=== PATIENT | female | born 1940 | race Caucasian/White ===

== ENCOUNTER → 2017-02-22 | Outpatient (CLI) | payer MEDICARE, BC, OTHER ==
[~2017-02-22] MED LIST: ACIDTAB16 PO; ASPI1TAB PO; CALC600T27 PO; CEFD1CAP8 PO; FISH1CAP14 PO; LEVA750T PO; SIMV20TA2 PO; SYNT50TA PO; TIMO5OPD OD; TRAV04OPD OD; TRIA37.5 PO; VITMTA PO
--- NOTE | 2017-02-22 13:01 | REP ---
Digital diagnostic unilateral right breast mammography with CAD and focused right breast sonography: History: Followup right breast nodule. Previous mammography BIRADS category 3. Comparison is made with prior right breast imaging from July 17, 2016, December 08, 2015, and June 23 and 2014. Mammographic findings: The nodular density been followed in the superolateral quadrant of the right breast is again seen unchanged. There is progressive nodular density in the medial aspect of the right breast however which is felt to merit further evaluation. Focused right breast sonography is performed from 2 o'clock to 4 o'clock. At 2 o'clock there is a 8 x 11 x 6 mm complex cystic area 3 cm from the nipple which is felt to account for the mammographic opacity seen medially. This has a benign appearance by ultrasound. No suspicious sonographic finding. Impression: Stable BIRADS category 3 probably benign right breast imaging. Repeat bilateral mammography recommended in July of 2017. This mammogram was interpreted with the aid of an FDA-approved computer-aided detection system. The patient states she/he had a clinical breast exam in August 05, 2016. The patient letter being requested is M3. Signed by Chris Brennan MD 02/22/2017 01:22 P
== END ==
LOC: M RAD 09:37
PROVIDERS: ATTEND Nurse Practitioner Family
DX: R92.8 Other abnormal and inconclusive findings on diagnostic imaging of breast (principal)
CPT/HCPCS: 76642; G0206

== ENCOUNTER → 2017-02-27 | Outpatient (CLI) | payer MEDICARE, BC, OTHER ==
--- NOTE | 2017-02-28 09:08 | DEXA ---
AP SPINE L1 - L4 1.235 0.3 2.1 LT FEMUR TOTAL 0.825 -1.4 0.4 RT FEMUR TOTAL 0.847 -1.3 0.6 TOTAL BODY TOTAL OTHER DUAL FEMUR FRAX* ASSESSMENT Risk factors: History of adult fracture. 10 year probability of fracture Major osteoporotic fracture 22.7 % Hip fracture 6.8 % COMMENTS: Normal bone densitometry of the spine. There is low bone density of the left hip. There is low bone density of the right hip. There is degenerative change in the spine which may artificially elevate the BMD. The increased density of the spine does not represent a significant change since 06/23/2014. The decreased density of the left hip does represent a significant change since 06/23/2014. The decreased density of the right hip does represent a significant change. The density of the spine has increased 18.9% since the initial exam on 06/2000. The spine density has increased 0.1% since the most recent exam. The density of the left hip has decreased 5.4% since the initial exam on 1999. The density of the left hip has decreased 4.4% since the most recent exam. The density of the right hip has decreased 3.9% since the initial exam on 1999. The density of the right hip has decreased 7.4% since the most recent exam. FOLLOW-UP: Recommendation for the next bone density exam: 2 years. ARVIND
== END ==
LOC: M WHC 09:32
PROVIDERS: ATTEND Family Medicine
DX: M85.80 Other specified disorders of bone density and structure, unspecified site (principal); M81.0 Age-related osteoporosis without current pathological fracture

== ENCOUNTER 2017-05-19 19:06 | Inpatient (IN) | payer MEDICARE, BC, OTHER ==
[~2017-05-19] VITALS: Ht 172.7 cm; Wt 65.8 kg
[~2017-05-19 19:06] MED LIST changes: -ACIDTAB16 PO; +ACIDTAB7 PO; -LEVA750T PO; +LEVA750T7 PO; +TIMO0.5S29 OD; -TIMO5OPD OD
[2017-05-19] MEDS ORDERED: ONDANSETRON 4MG/2ML VIAL (J2405) IV ONE (19:15)
[2017-05-19] MEDS ORDERED: MORPHINE 4 MG/ML 1ML SYRINGE IV ONE (19:15)
[2017-05-19 20:42] LABS: MEAN CORPUSCULAR HEMOGLOBIN 29.6 pg (27.0-33.0); MEAN CORPUSCULAR HGB CONC 35.1 g/dl (32.0-36.5); MEAN CORPUSCULAR VOLUME 84.3 fl (80.0-96.0); RED CELL DISTRIBUTION WIDTH 12.3 % (11.5-14.5); WHITE BLOOD COUNT 12.5 K/mm3 (4.0-10.0)
--- NOTE | 2017-05-19 20:47 | REP ---
Clinical: Trauma. Fall . Comparison: 03/11/2017 . Findings: The mediastinum and cardiac silhouette are stable and within normal limits for portable technique. The lung lopez are clear without acute consolidation, effusion, or pneumothorax. Skeletal structures are intact. Impression: No acute cardiopulmonary process appreciated. Signed by Mac Turner MD 05/19/2017 08:39 P
--- NOTE | 2017-05-19 20:48 | REP ---
Clinical: Trauma. Fall. Technique: AP view of the pelvis with neutral and frog lateral views of the right hip. Findings: A comminuted intertrochanteric fracture of the right femur is appreciated. Pelvis, lower lumbar spine and left hip demonstrate age-related degenerative changes. Impression: Comminuted intertrochanteric fracture of the right hip. Signed by Mac Turner MD 05/19/2017 08:40 P
[2017-05-19 20:51] LABS: INR 0.89
[2017-05-19 21:06] LABS: ALBUMIN 3.5 GM/DL (3.2-5.2); ALBUMIN/GLOBULIN RATIO 1.21 (1.00-1.93); ALKALINE PHOSPHATASE 88 U/L (45-117); ALT/SGPT 21 U/L (12-78); ANION GAP 10 MEQ/L (8-16); AST/SGOT 16 U/L (15-37); BILIRUBIN,DIRECT 0.1 MG/DL (0.0-0.2); BILIRUBIN,TOTAL 0.4 MG/DL (0.2-1.0); BLOOD UREA NITROGEN 15 MG/DL (7-18); CALCIUM LEVEL 8.6 MG/DL (8.8-10.2); CARBON DIOXIDE LEVEL 26 MEQ/L (21-32); CHLORIDE LEVEL 98 MEQ/L (98-107); CREATININE FOR GFR 0.81 MG/DL (0.55-1.02); GLOMERULAR FILTRATION RATE > 60.0 (>39); GLUCOSE, FASTING 136 MG/DL (83-110); POTASSIUM SERUM 3.5 MEQ/L (3.5-5.1); SODIUM LEVEL 134 MEQ/L (136-145); TOTAL PROTEIN 6.4 GM/DL (6.4-8.2)
[2017-05-19] MEDS ORDERED: ACETAMINOPHEN TAB 650MG DOSE (2X325MG) PO PRN (21:30)
--- NOTE | 2017-05-19 21:50 | HPEPDOC ---
General Date of Admission May 19, 2017 at 21:30 Chief Complaint The patient is a 76-year-old female Presented to the ER with complaints of right hip pain. History of Present Illness Patient is a 76 year old female with a PMHx of HTN, Hypothyroidism, DLP, Right breast mass and History of Gram negative bacteremia (07/2016), who presented to the ER with right hip pain. Patient was at home today and was walking out of her house when she slipped and fell on her right hip. She denied any head trauma or loss of consciousness. She noted to have excruciating pain and was unable to get up. She called out for her neighbor who called EMS. She reports that pain as a 10/10 at its maximum, aching, localized to the hip, non-radiating, alleviated with pain medications received in the field and aggravated with movement. Currently her pain is controlled. She denied any chest pain, shortness of breath, cough, palpitations, nausea, vomiting, abdominal pain, constipation, diarrhea or urinary discomfort. She denies any fever or chills. Denies any change in her appetite. She does note that she is intentionally losing weight (10 lbs over a few months). Home Medications Scheduled (Fish Oil +D3 7364-2182 mg-Unit) 1 Cap Cap, 1 CAP PO QPM, (Reported) Aspirin (Aspirin 81) 81 Mg Tab, 81 MG PO DAILY, (Reported) Calcium/Vitamin D (Calcium 600/Vitamin D 600-400 mg-Unit) 1 Tab Tab, 1 TAB PO DAILY, (Reported) Hydrochlorothiazide W/Triamter (Triamterene/Hydrochloroth 37.5-25 mg) 1 Tab Tab , 1 TAB PO DAILY, (Reported) Lactobacillus (Acidophilus) 1 Tab Tab, 1 TAB PO BID W MEALS Levothyroxine Sodium (Synthroid) 50 Mcg Tab, 50 MCG PO DAILY, (Reported) Multivitamins *[facility] STOCKED* (Thera M Plus *[facility] STOCKED*) 1 Tab Tab, 1 TAB PO DAILY, (Reported) Simvastatin (Simvastatin) 20 Mg Tab, 20 MG PO QPM, (Reported) Timolol Maleate (Timolol Maleate) 0.5 % Katia, 1 DROP OD DAILY, (Reported) Travoprost (Travatan Z) 50 Drop/2.5 Ml Soln, 1 DROP OD QHS, (Reported) Allergies Coded Allergies: Levofloxacin (Verified Adverse Reaction, Intermediate, 08/01/16) arm heaviness/swelling Past Medical History Medical History HTN, Hypothyroidism, DLP, Right breast mass and History of Gram negative bacteremia (07/2016) Surgical History None reported Family History - Non-contributory Social History - Denies the use of illicit drugs; Social alcohol use; Quit smoking 20 years ago , smoker of 40 years at 1ppd - Denies recent travel or sick contacts - Lives alone with cat - 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; [employer]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 Review of Symptoms Other systems 10 point review of systems complete; negative otherwise stated in HPI Vital Signs - Vitals: BP 129/69, HR 78, RR 18, Sat 98%RA - General: Lying in bed, No acute distress, Speaking in full sentences, AAOx3 - HEENT: NC, AT, PERRLA, EOMI - CVS: RRR, +S1S2 - Lungs: Fair air entry bilaterally, no appreciable wheezing / rales / rhonchi - Abdomen: Soft, Non-distended, Non-tender, + Bowel sounds x 4 - Extremities: + PPx4, No lower extremity edema, No calf tenderness -- Right leg externally rotated and shorter - Neuro: Limited movement of right hip 2/2 pain - Skin: No visible rashes Laboratory Data Labs 24H Laboratory Tests 2 05/19/17 20:26: Prothrombin Time 12.1L, Prothromb Time International Ratio 0.89, Anion Gap 10, Glomerular Filtration Rate > 60.0, Calcium Level 8.6L, Aspartate Amino Transf ( AST/SGOT) 16, Alanine Aminotransferase (ALT/SGPT) 21, Alkaline Phosphatase 88, Total Bilirubin 0.4, Direct Bilirubin 0.1, Total Creatine Kinase 77, Creatine Kinase MB 1.0, Creatine Kinase MB Relative Index 1.29, Troponin I < 0.02, Total Protein 6.4, Albumin 3.5, Albumin/Globulin Ratio 1.21 CBC/BMP Laboratory Tests 05/19/17 20:26 Red Blood Count 4.16, Mean Corpuscular Volume 84.3, Mean Corpuscular Hemoglobin 29.6, Mean Corpuscular Hemoglobin Concent 35.1, Red Cell Distribution Width 12.3 Plan / VTE VTE Prophylaxis Ordered?: Yes Plan Plan Right hip pain - likely 2/2 right femur fracture after mechanical fall - Presented to the ER with complaints of right hip pain after she slipped and fell at home - No loss of consciousness, no head trauma - Mild leukocytosis - likely 2/2 reactive processes - XR hip: comminuted intertrochanteric fracture of the right hip - EKG with sinus rhythm despite reading of paroxysmal atrial fibrillation - Currently pain is controlled - Will c/w Tylenol and Morphine PRN for pain control - Dr. Burns (Orthopedic) surgery on consult for likely surgery in AM - Medically cleared for surgical procedure in AM Leukocytosis - likely reactive process - ROS negative - No fevers reported HTN - c/w HCTZ 25 and Triamterene 37.5 with holding parameters Hypothyroidism - c/w Levothyroxine DLP - c/w Simvastatin Right breast mass - Has had biopsy completed and advised that it was benign - Follows up with yearly mammograms History of Gram negative bacteremia (07/2016) DVT prophylaxis - Will start SCDs; will defer to surgery after procedure JOO GREER MD May 19, 2017 21:50
[2017-05-19] MEDS ORDERED: HEPARIN SOD (PORCINE) 5000 UNITS/ML VIAL SC SCH (22:00)
[2017-05-19 23:15] VITALS: BP 141/56
[2017-05-19] MEDS: SIMVASTATIN 20 MG TAB PO SCH (23:52)
[2017-05-20] VITALS (10 sets, daily range): BP systolic 106–139; BP diastolic 52–71
[2017-05-20] MEDS: LEVOTHYROXINE 50MCG TABLET (0.05MG) PO SCH (05:28)
[2017-05-20] MEDS ORDERED: ceFAZolin 1GM INJ (J0690) As Ordered ONE (06:07)
[2017-05-20 07:26] LABS: BASO % 0.1 % (0.0-1.0); EOS % 0.1 % (0.0-3.0); LARGE UNSTAINED CELL % 0.4 % (0.0-4.0); LYMPH # 1.1 K/mm3 (1.5-4.5); LYMPH % 10.2 % (24.0-44.0); MEAN CORPUSCULAR HEMOGLOBIN 29.7 pg (27.0-33.0); MEAN CORPUSCULAR HGB CONC 34.6 g/dl (32.0-36.5); MEAN CORPUSCULAR VOLUME 85.9 fl (80.0-96.0); MONO # 0.4 K/mm3 (0.0-0.8); MONO % 4.2 % (0.0-5.0); NEUTROPHILS # 8.8 K/mm3 (1.8-7.7); PLATELET COUNT, AUTOMATED 237 k/mm3 (150-450); RED CELL DISTRIBUTION WIDTH 12.5 % (11.5-14.5); WHITE BLOOD COUNT 10.3 K/mm3 (4.0-10.0)
[2017-05-20] MEDS: DYAZIDE 37.5/25 CAP (TRIAM/HCTZ) PO SCH (07:53)
[2017-05-20 07:56] LABS: ALBUMIN 3.3 GM/DL (3.2-5.2); ALBUMIN/GLOBULIN RATIO 1.22 (1.00-1.93); ALKALINE PHOSPHATASE 75 U/L (45-117); ALT/SGPT 17 U/L (12-78); ANION GAP 10 MEQ/L (8-16); AST/SGOT 12 U/L (15-37); BILIRUBIN,TOTAL 0.5 MG/DL (0.2-1.0); BLOOD UREA NITROGEN 13 MG/DL (7-18); CALCIUM LEVEL 8.2 MG/DL (8.8-10.2); CARBON DIOXIDE LEVEL 26 MEQ/L (21-32); CHLORIDE LEVEL 100 MEQ/L (98-107); CREATININE FOR GFR 0.66 MG/DL (0.55-1.02); GLOMERULAR FILTRATION RATE > 60.0 (>39); GLUCOSE, FASTING 147 MG/DL (83-110); MAGNESIUM LEVEL 2.1 MG/DL (1.8-2.4); POTASSIUM SERUM 3.7 MEQ/L (3.5-5.1); SODIUM LEVEL 136 MEQ/L (136-145)
[2017-05-20] MEDS ORDERED: ACIDTAB7 PO (08:17)
[2017-05-20] MEDS ORDERED: LR 1,000 ML IV SCH ×3 (08:30→17:30)
[2017-05-20] MEDS: MORPHINE 2 MG/ML 1ML SYRINGE IV PRN ×2 (08:32→12:04)
[2017-05-20] MEDS ORDERED: TIMOLOL MALEATE 0.5% OPHTH SOLN 5 ML OD SCH (09:00)
--- NOTE | 2017-05-20 09:17 | REP ---
Clinical: Trauma. Technique: AP and cross-table lateral views of the right femur. Findings: There is a comminuted displaced intertrochanteric fracture of the right proximal femur. Mild degenerative changes at the hip are noted. The remainder of the femur to the level of the knee appears normal. Impression: Fracture of the right hip/proximal femur. Signed by Mac Turner MD 05/20/2017 09:08 A
--- NOTE | 2017-05-20 09:18 | REP ---
Clinical: Trauma. Technique: AP and lateral views of the right knee. Findings: Age-related degenerative changes at the knee are suggested although evaluation is limited due to positioning and overlying external structures. Lateral view demonstrates soft tissue swelling and possible effusion. No obvious acute fracture. Impression: Swelling and possible effusion with age-related changes. No acute fracture identified. Signed by Mac Turner MD 05/20/2017 09:09 A
--- NOTE | 2017-05-20 09:30 | CR ---
DATE OF CONSULTATION: 05/19/2017 CHIEF COMPLAINT: Right hip fracture. HISTORY OF PRESENT ILLNESS: Fabiola is a very pleasant 76-year-old female who suffered a mechanical fall when walking out of her house on 05/19/2017. She tripped and fell and landed on her right side. She had immediate pain and deformity in the right leg and was unable to bear weight. She was brought to [facility] emergency room where x-rays revealed a displaced proximal femur fracture. In talking to the patient, other than pain, she denies any numbness or tingling in her leg. She denies hip pain in the preceding weeks. Her pain was 10/10 initially on the pain scale. PAST MEDICAL HISTORY: Notable for Hypertension. Hypothyroidism. Gram negative bacteremia in 2016 after a dental infection. PAST SURGICAL HISTORY: None reported. MEDICATIONS: - baby aspirin - calcium with vitamin D - Hydrochlorothiazide - lactobacillus - levothyroxine - multivitamin - simvastatin - glaucoma eye drops ALLERGIES: LEVAQUIN. SOCIAL HISTORY: Patient does not abuse alcohol, illicit drugs or smoke cigarettes. She is a very active individual. She walks in the mall almost daily and she does not use any assistive devices. She lives alone with her cat. REVIEW OF SYSTEMS: The patient denies neurologic, cardiac, pulmonary, abdominal symptoms. Musculoskeletal as above. PHYSICAL EXAMINATION: Reveals a Well appearing elderly female in no distress. Alert and oriented times three. NEUROLOGIC: Appropriate mood with a very pleasant affect. GENERAL: Alert and oriented times three. CARDIOVASCULAR: 2+ DT pulse with a regular rate. PULMONARY: Regular non-labored breathing. SKIN: The skin in the right thigh is intact without lesions. MUSCULOSKELETAL: The right leg is shortened and externally rotated. She has pain in the right hip with any attempt at log roll. She is nontender at the knee and distal femur. She fires tibialis anterior (TA), gastrocs soleus (GS), hallucis longus (HL) and flexor hallucis longus (FHL). Sensation to light touch in the foot is intact. RADIOLOGY: AP pelvis and a very poor lateral of the right hip were obtained and available for my review. There is a significantly displaced reverse obliquity fracture of the proximal femur. The proximal segment is abducted almost behaving like a subtrochanteric femur fracture. ASSESSMENT/PLAN: Ms Peraza is a 76-year-old female with a displaced right proximal femur fracture. I discussed operative and nonoperative treatment with her and her daughter. I recommended surgery. Surgery is open reduction internal fixation. We discussed the risks and benefits of that surgery. She understands the risks include but are not limited to bleeding, infection, damage to the adjacent neurovascular structures, deep venous thrombosis (DVT)/ pulmonary embolus (PE), stiffness, nonunion, malunion, failure to return to pre-injury activity level, risks of anesthesia and need for additional surgery. Written and informed consent obtained. The patient has been admitted to the hospitalist service and she has been medically optimized. We need a lateral view of the hip and femur and knee films. Plan to proceed with surgery later today. Will need a special cephalomedullary nail brought in due to the nature of this fracture.
[2017-05-20] MEDS ORDERED: ceFAZolin 2 GM/D5W 50 ML IV BAG (J0690) As Ordered ONE (14:08)
[2017-05-20] MEDS ORDERED: KETAMINE HCL 200 MG/20 ML VIAL As Ordered ONE (14:24)
[2017-05-20] MEDS ORDERED: PHENYLephrine HCL 500 MCG/5 ML (100MCG/ML) SYRINGE (J2370) As Ordered ONE (14:24)
[2017-05-20] MEDS ORDERED: fentaNYL 100 MCG/2 ML INJECTION (J3010) As Ordered ONE ×3 (14:24→16:48)
[2017-05-20] MEDS ORDERED: MIDAZOLAM INJ 2 MG/2 ML VIAL (J2250) As Ordered ONE (14:24)
--- NOTE | 2017-05-20 14:45 | IPN ---
DATE: 05/20/2017 SUBJECTIVE: The patient is seen and examined in the room today. The patient continues to complain about right hip pain. The patient stated she slipped on the tile resulting in mechanical fall landing on the right hip. Still having pain in the right hip but the pain is well controlled. No acute events since admission. OBJECTIVE: VITAL SIGNS: Temperature 98.9, pulse 91, respiration 18, blood pressure 106/52, pulse ox 96% in room air. General: No sign of acute distress. Alert and oriented times three. HEENT: Normocephalic, atraumatic, extraocular muscles grossly intact. Cardiovascular: Positive S1, S2 regular rate. Lungs: Clear to auscultation bilaterally. Abdomen: Soft, nontender. Nondistended. Bowel sounds present. No rebound. No guarding. Extremities: No erythema. No cyanosis. LABORATORY DATA: WBC 10.3, hemoglobin 11.7, hematocrit 33.9, platelet count 237. Sodium 136, potassium 3.7, chloride 100, carbon dioxide 6, BUN 13, creatinine 0.6. GFR greater than 60, fasting glucose 147, calcium 8.2, magnesium 2.1. Total bilirubin 0.5, AST12, ALT 17, alkaline phosphatase 75, total protein 6, albumin 3.3. ASSESSMENT/PLAN: 1. Acute right femur fracture after mechanical fall. Discussed with orthopedic surgery. The patient will have surgical repair today in the afternoon. The patient is medically cleared for the procedure. 2. Hypertension: Blood pressure is on hold and will evaluate the patient after the procedure we will start the appropriate test. 3. Hypothyroidism: On Synthroid. Will follow with TSH. 4.. History of right breast mass: The patient was following with [facility] and patient was told that the mass was benign and patient has been getting yearly mammograms. The patient was told that the breast mass is not malignant. 5. History of gram negative bacteremia in July 2016. 6. Deep venous thrombosis prophylaxis on thromboembolic deterrent stockings (TEDS) and sequential compression device. I will refer the anticoagulation to the surgical team.
[2017-05-20] MEDS ORDERED: LIDOCAINE 2% INJ 100 MG/5 ML SDV (FOR ANES.) As Ordered ONE (14:56)
[2017-05-20] MEDS ORDERED: PROPOFOL 200 MG/20 ML VIAL As Ordered ONE (14:56)
[2017-05-20] MEDS: fentaNYL 100 MCG/2 ML INJECTION (J3010) IV PRN ×2 (16:50→16:55)
[2017-05-20] MEDS ORDERED: ONDANSETRON 4MG/2ML VIAL (J2405) IV PRN (17:00)
--- NOTE | 2017-05-20 17:21 | REP ---
Clinical: Right hip fracture. Technique: Real time intraoperative fluoroscopic imaging. Findings: Multiple intraoperative fluoroscopic images demonstrate the patient to be status post open reduction and fixation for proximal right femoral shaft fracture. Satisfactory reduction and orthopedic hardware placement noted. Total fluoroscopic time 4 minutes 10 seconds. Impression: Status post open reduction and fixation for proximal femoral shaft fracture. Signed by Mac Turner MD 05/20/2017 05:13 P
[2017-05-20] MEDS ORDERED: PERCOCET 5MG/325MG TAB As Ordered ONE (17:23)
[2017-05-20] MEDS ORDERED: ACETAMINOPHEN TAB 650MG DOSE (2X325MG) PO PRN (17:30)
[2017-05-20] MEDS ORDERED: FLEET ENEMA PR PRN (17:30)
[2017-05-20] MEDS ORDERED: PERCOCET 5MG/325MG TAB PO SCH (17:30)
[2017-05-20] MEDS ORDERED: MORPHINE 2 MG/ML 1ML SYRINGE IV PRN (17:30)
[2017-05-20] MEDS: TRAVATAN Z 0.004% OD SCH (20:58)
[2017-05-20] MEDS: SIMVASTATIN 20 MG TAB PO SCH (20:58)
[2017-05-20] MEDS: ceFAZolin SOD 1 GM in D5W MINI-BAG PLUS 50 ML IV SCH (21:00)
[2017-05-21 02:00] VITALS: BP 140/62
[2017-05-21] MEDS: LEVOTHYROXINE 50MCG TABLET (0.05MG) PO SCH (05:37)
[2017-05-21] MEDS: ceFAZolin SOD 1 GM in D5W MINI-BAG PLUS 50 ML IV SCH (05:37)
[2017-05-21] MEDS: NORCO, ANEXSIA 5/325MG TABLET (HYDROcodone/ACETAMINOPHEN) PO PRN ×3 (05:39→20:00)
[2017-05-21 06:00] VITALS: BP 126/78
[2017-05-21 06:42] LABS: BASO % 0.2 % (0.0-1.0); EOS % 0.1 % (0.0-3.0); LARGE UNSTAINED CELL # 0.1 K/mm3 (0.0-0.4); LARGE UNSTAINED CELL % 1.1 % (0.0-4.0); LYMPH # 1.4 K/mm3 (1.5-4.5); MEAN CORPUSCULAR HEMOGLOBIN 29.8 pg (27.0-33.0); MEAN CORPUSCULAR HGB CONC 34.7 g/dl (32.0-36.5); MEAN CORPUSCULAR VOLUME 85.9 fl (80.0-96.0); MONO # 0.8 K/mm3 (0.0-0.8); MONO % 7.8 % (0.0-5.0); NEUTROPHILS # 7.8 K/mm3 (1.8-7.7); NEUTROPHILS % 77.8 % (36.0-66.0); PLATELET COUNT, AUTOMATED 196 k/mm3 (150-450); RED CELL DISTRIBUTION WIDTH 12.6 % (11.5-14.5)
[2017-05-21 07:14] LABS: ALBUMIN 2.6 GM/DL (3.2-5.2); ALBUMIN/GLOBULIN RATIO 0.87 (1.00-1.93); ALKALINE PHOSPHATASE 56 U/L (45-117); ALT/SGPT 15 U/L (12-78); ANION GAP 9 MEQ/L (8-16); AST/SGOT 12 U/L (15-37); BILIRUBIN,TOTAL 0.6 MG/DL (0.2-1.0); BLOOD UREA NITROGEN 10 MG/DL (7-18); CALCIUM LEVEL 7.6 MG/DL (8.8-10.2); CARBON DIOXIDE LEVEL 28 MEQ/L (21-32); CHLORIDE LEVEL 97 MEQ/L (98-107); CREATININE FOR GFR 0.49 MG/DL (0.55-1.02); GLOMERULAR FILTRATION RATE > 60.0 (>39); GLUCOSE, FASTING 138 MG/DL (83-110); MAGNESIUM LEVEL 1.8 MG/DL (1.8-2.4); POTASSIUM SERUM 3.3 MEQ/L (3.5-5.1); SODIUM LEVEL 134 MEQ/L (136-145); TOTAL PROTEIN 5.6 GM/DL (6.4-8.2)
[2017-05-21] MEDS: ENOXAPARIN 40 MG/0.4 ML SYRINGE (J1650) SC SCH (08:28)
[2017-05-21] MEDS: DYAZIDE 37.5/25 CAP (TRIAM/HCTZ) PO SCH (08:30)
--- NOTE | 2017-05-21 08:59 | RO ---
DATE OF PROCEDURE: 05/20/2017 PREOPERATIVE DIAGNOSES: 1. Displaced right proximal femur fracture. POSTOPERATIVE DIAGNOSES: PROCEDURE: SURGEON: Dr. Prabhjot Burns CHOKE REAMER: ANESTHESIA: DESCRIPTION OF PROCEDURE: DICTATION END..................................................( 39 seconds long) Phone diconnected. Please disregard this dictation. see separate dictation for full Operative report MTDD
[2017-05-21] MEDS ORDERED: POTASSIUM CHLORIDE 10 MEQ SR TABLET PO ONE (09:00)
--- NOTE | 2017-05-21 10:57 | RO ---
DATE OF SURGERY: 05/20/2017 PREOPERATIVE DIAGNOSIS: Displaced right proximal femur fracture. POSTOPERATIVE DIAGNOSIS: Displaced right proximal femur fracture. PROCEDURE: Open reduction/internal fixation right femur with a cephalomedullary nail. SURGEON: Dr. Prabhjot Burns HEALTH SANITARIAN: Dr. Nina Briceno ANESTHESIA: Spinal. INTRAVENOUS (IV) FLUIDS: Lactated Ringer. ESTIMATED BLOOD LOSS: 150 mL. IMPLANTS: Synthes TFNA 125 neck length, 11 mm diameter, 400 mm length with a 95 mm lag screw and two distal interlocking screws. INDICATIONS: Fabiola is a 76-year-old female who suffered a mechanical fall on 05/19/2017 and landed on her right hip. X-rays at [facility] revealed a displaced proximal femur fracture, which looked like a reverse obliquity pattern. She was admitted to the hospitalist service and medically optimized. I discussed operative and nonoperative treatment with the patient and her daughter, and we both agreed on surgery. I recommended open reduction/internal fixation with a long cephalomedullary nail, given the unstable nature of the fracture. We discussed the risks and benefits of that procedure. She understood the risks included but were not limited to bleeding, infection, damage to adjacent neurovascular structure, deep venous thrombosis (DVT)/pulmonary embolism (PE), risk of anesthesia including , malunion, nonunion, hardware failure, weakness, stiffness, failure to return to pre-injury activity level, and need for additional surgery. Written informed consent obtained. DESCRIPTION OF PROCEDURE: The patient was identified in the preoperative holding area and the right leg signed by me. She was brought to the operating room, where spinal anesthesia was induced without complication. She received 2 grams of intravenous (IV) cefazolin for antibiotic prophylaxis within 1 hour of incision. She was then placed supine on the fracture table with all bony prominences well padded. The left lower extremity with a Venodyne boot. The right leg was placed into the traction boot, and the left leg was secured to the central post, and was well padded. A preliminary time-out performed per hospital protocol. The large C-arm was then used to confirm successful, then to confirm appropriate closed reduction. What it first appeared preoperatively to be a reverse obliquity intertrochanteric pattern actually turned out to be a subtrochanteric femoral shaft variant with a large butterfly fragment involving the lesser trochanter. This made judging the length and rotation much more difficult. Once the AP lateral views showed an acceptable reduction, we then prepped and draped the right leg in the normal sterile fashion with the shower curtain and ChloraPrep. A time-out was performed, in which I and all operating room (OR) staff confirmed the patient's name, medical record number, date of , and the correct side, site, and procedure. A 3 cm longitudinal incision was made with a #10 blade just proximal to the greater trochanter. Curved Girard scissors were used to open the tensor fascia leopoldo. Hemostasis with electrocautery. A guidewire was then placed on power at the appropriate start point and confirmed on AP and lateral views. The fracture at this point was in some valgus, but given this was a subtrochanteric variant, a start point was placed slightly more medial than typical to help avoid the fracture falling into varus. Appropriate position was confirmed in AP and lateral views using the large C-arm. The opening reamer with a tissue protector was then used to create an opening in the proximal femur. A ball-tip guidewire was gently bent at the tip and then placed through that opening down to the proximal pole of the patella. A depth gauge was used, and it was felt that a 400 mm nail would be the most appropriate length. A 400 x 125-degree 11-mm diameter Synthes TFN was opened and secured to the podiatric medicine professor. The nail was placed over the guidewire down into the femur to the appropriate depth, confirmed at AP and lateral views at both the hip and knee. The fracture had started in a touch of valgus, and with placement of the nail, the fracture corrected to a neutral alignment. The targeting guide was then used to place a helical blade. Trocars were inserted, incision to the skin, and a drill guide on power was sunk to the appropriate depth and confirmed to be center-center in both the AP and lateral. A 95-mm lag screw was felt to be most appropriate. The triple reamer was used over the guidewire, and then the 95-mm TFN helical blade was malleted over the guidewire to the appropriate depth. The nail was statically locked proximally. The guidewire was removed. AP and lateral views of the hip were taken, showing successful placement of hardware, and the soni was used to reduce the fracture. Distally, I placed two interlocking screws, one through the static and one through the dynamic slots, using perfect qawalangin technique. There was excellent fixation with those. All incisions were then irrigated with normal saline. Final C-arm views, AP and lateral of the knee, subtrochanteric area, and hip were taken, showing successful open reduction/internal fixation. Re-irrigation of incisions, distally, incision was closed with 2-0 Vicryl and johnathan. Proximally, the iliotibial (IT) band was closed with figure-of-8 0 Vicryl suture and then 2-0 Vicryl and johnathan. A sterile dressing applied. All counts correct times two. COMPLICATIONS: None. DISPOSITION: The patient had palpable pulse in the postanesthesia care unit (PACU). She will be weightbearing as tolerated on the right lower extremity with a walker. 24 hours of antibiotic prophylaxis and Lovenox for deep venous thrombosis (DVT) prophylaxis. She will remain under the care of the hospitalists.
[2017-05-21] MEDS ORDERED: SENOKOT S TAB PO PRN (12:15)
[2017-05-21] MEDS ORDERED: MOM 30ML SUSPENSION UDC PO PRN (12:15)
[2017-05-21] MEDS ORDERED: MIRALAX *UNIT DOSE* 17GM PACKET PO PRN (12:15)
[2017-05-21] MEDS: VITAMIN D 1,000 INTERNATIONAL UNITS TABLET PO SCH ×2 (12:17→20:00)
--- NOTE | 2017-05-21 12:55 | IPN ---
DATE OF SERVICE: 05/21/2017 Patient seen and examined at the bedside. Chart has been reviewed. Per nursing , no acute issues overnight. Patient has discomfort at the right femoral area status post open reduction, internal fixation with a cephalomedullary nail yesterday. She is anxious to go home and eating her breakfast at the bedside, sitting at 90 degrees. She is afebrile. No cough, shortness of breath, chest pain, pressure or tightness. Pain is tolerable after taking a pain pill this morning. She denies any dysuria, urgency or frequency, fever, chills or flank pain overnight. No nausea or vomiting. Tolerating her diet well. No abdominal pain. Temperature 98.1, pulse 89 and sinus, respiratory rate 17, blood pressure 126/78 , 97% 2 liters nasal cannula, and generally patient is awake, alert, oriented to person, place and time, answering questions appropriately. Pupils are round and reactive. Extraocular muscles are intact. Normocephalic, atraumatic. No cervical lymphadenopathy or thyromegaly. Moist mucous membranes. No jugular venous distention. Neck is supple. Lungs are clear to auscultation. No wheezing, rales or rhonchi. Air entry is equal bilaterally. Heart: S1, S2, sinus rhythm. No murmurs, rubs or gallops. Abdomen is soft, nontender, nondistended. Positive bowel sounds times four quadrants. No rebound or guarding. No hepatosplenomegaly. Extremities: No cyanosis, clubbing or pitting edema. Skin warm, dry, well perfused, pink in color. Patient had postoperative changes with limited range of motion due to pain in the right proximal femur. LABORATORY DATA: White count 10, hemoglobin 9.9, hematocrit 28.5, platelet count 196, 77% neutrophils. Sodium 134, potassium 3.3, chloride 97, bicarbonate 28, BUN 10, creatinine 0.49. Glucose of 138. IMAGING STUDY: Femoral x-ray on 05/20/2017, fracture of the right hip, proximal femur. ASSESSMENT AND PLAN: This is a 76-year-old female with history of hypertension, hypothyroidism, dyslipidemia, right breast mass, which was benign, gram-negative bacteremia July 2016, presented to the emergency room with complaints of right hip pain after a mechanical fall at home, slipping and falling as she was walking out of her house and falling on the right hip. She denied any head trauma or loss of consciousness. Denies any prodromal symptoms of chest pain, shortness of breath, palpitations, lightheadedness, nausea, vomiting, abdominal pain prior to the episode. Patient had an intentional 10 pound weight loss over the past few months. Denies any changes in her appetite, dysphagia or odynophagia. Current issues are as follows: 1. Displaced right proximal femoral fracture status post open reduction, internal fixation of right femur with cephalomedullary nail postoperative day # 1. Patient is currently on morphine as needed, [place] one tablet every 4, Lovenox for deep venous thrombosis (DVT) prophylaxis, bowel regimen with Fleet enema and vitamin D 1000 units twice a day. Physical therapy and physical medicine and rehabilitation evaluation for disposition. 2. Hypertension. Systolic pressure is 126-140, which is adequate control, on triamterene/hydrochlorothiazide. Monitor for dehydration. Current creatinine is stable, 0.49 to 0.81. With hypokalemia, therefore will supplement potassium. 3. Postoperative anemia. Most likely due to hemodilution from intravenous (IV) fluids given postoperative. Will monitor for now. No acute indication for red blood cell transfusion. 4. Hypothyroidism. Continue on Synthroid. 5. History of right breast mass, which was benign. Follows at [facility]. 6. History of gram-negative bacteremia. No fever or chills during this admission. 7. Deep venous thrombosis (DVT) prophylaxis with subcutaneous Lovenox. DISPOSITION: Await physical therapy (PT) evaluation and recommendations prior to discharge. [facility]
[2017-05-21 14:00] VITALS: BP 133/65
--- NOTE | 2017-05-21 14:45 | REP ---
RIGHT FEMUR: FOUR VIEWS. HISTORY: Postop evaluation. Hip fracture. FINDINGS: Four views of the right femur demonstrate an intramedullary soni and a femoral neck screw in place transfixing a subtrochanteric fracture in good position. Signed by Chris Brennan MD 05/21/2017 04:35 P
[2017-05-21] MEDS: TRAVATAN Z 0.004% OD SCH (20:00)
[2017-05-21] MEDS: SIMVASTATIN 20 MG TAB PO SCH (20:00)
[2017-05-21 22:00] VITALS: BP 132/64
[2017-05-22 02:00] VITALS: BP 130/60
[2017-05-22] MEDS: LEVOTHYROXINE 50MCG TABLET (0.05MG) PO SCH (05:33)
[2017-05-22 06:00] VITALS: BP 129/64
[2017-05-22 07:21] LABS: BASO % 0.2 % (0.0-1.0); EOS % 0.3 % (0.0-3.0); LARGE UNSTAINED CELL # 0.2 K/mm3 (0.0-0.4); LARGE UNSTAINED CELL % 1.8 % (0.0-4.0); LYMPH # 1.3 K/mm3 (1.5-4.5); LYMPH % 15.1 % (24.0-44.0); MEAN CORPUSCULAR HEMOGLOBIN 30.2 pg (27.0-33.0); MEAN CORPUSCULAR HGB CONC 35.2 g/dl (32.0-36.5); MEAN CORPUSCULAR VOLUME 85.9 fl (80.0-96.0); MONO # 0.8 K/mm3 (0.0-0.8); MONO % 8.6 % (0.0-5.0); NEUTROPHILS # 6.5 K/mm3 (1.8-7.7); NEUTROPHILS % 74.1 % (36.0-66.0); PLATELET COUNT, AUTOMATED 201 k/mm3 (150-450); RED CELL DISTRIBUTION WIDTH 12.2 % (11.5-14.5); WHITE BLOOD COUNT 8.7 K/mm3 (4.0-10.0)
[2017-05-22] MEDS ORDERED: FLEEENE4 PR (07:43)
[2017-05-22] MEDS ORDERED: PEG1POW PO (07:43)
[2017-05-22] MEDS ORDERED: SENN1TAB2 PO (07:43)
[2017-05-22] MEDS ORDERED: NORCOTAB PO (07:43)
[2017-05-22] MEDS ORDERED: LOVE1INJ SC (07:43)
[2017-05-22 08:03] LABS: ALBUMIN 2.6 GM/DL (3.2-5.2); ALBUMIN/GLOBULIN RATIO 0.96 (1.00-1.93); ALKALINE PHOSPHATASE 65 U/L (45-117); ALT/SGPT 19 U/L (12-78); ANION GAP 11 MEQ/L (8-16); AST/SGOT 19 U/L (15-37); BILIRUBIN,TOTAL 0.6 MG/DL (0.2-1.0); BLOOD UREA NITROGEN 7 MG/DL (7-18); CALCIUM LEVEL 7.7 MG/DL (8.8-10.2); CARBON DIOXIDE LEVEL 27 MEQ/L (21-32); CHLORIDE LEVEL 96 MEQ/L (98-107); GLOMERULAR FILTRATION RATE > 60.0 (>39); GLUCOSE, FASTING 135 MG/DL (83-110); POTASSIUM SERUM 3.8 MEQ/L (3.5-5.1); SODIUM LEVEL 134 MEQ/L (136-145); TOTAL PROTEIN 5.3 GM/DL (6.4-8.2)
[2017-05-22] MEDS: NORCO, ANEXSIA 5/325MG TABLET (HYDROcodone/ACETAMINOPHEN) PO PRN ×3 (08:11→23:59)
[2017-05-22] MEDS: ENOXAPARIN 40 MG/0.4 ML SYRINGE (J1650) SC SCH (08:11)
[2017-05-22] MEDS: VITAMIN D 1,000 INTERNATIONAL UNITS TABLET PO SCH ×2 (08:11→20:12)
[2017-05-22] MEDS: DYAZIDE 37.5/25 CAP (TRIAM/HCTZ) PO SCH (08:12)
--- NOTE | 2017-05-22 09:42 | PMRNOTEPD ---
PMR Note 76-year-old white female status post fall on 05/19/17 with right proximal femur fracture involving the hip status post open reduction internal fixation with these cephalomedullary nail and screw fixation. This right-handed Will female needs to regain modified independence and ADLs and mobility to return home where she lives alone. Currently she is having some problems with which has limited her participation and occupational therapy. It also appears that patient been reduced to touch down weightbearing today by orthopedics. While it is very likely she will be able to tolerate 3 hours of therapy per day it does not appear that she is ready to do so today. I have discussed with her the importance of participating at this higher level and she is in agreement. However I do feel pain is one the limiters for her. After reviewing her medications, I would suggest a trial of tramadol 100 mg CR every 12 hours to see if this provides her greater comfort and the ability to participate better in therapy. I am in hopes of better performance and being able to come tomorrow. JYOTI BHANDARI MD May 22, 2017 09:42
[2017-05-22] MEDS: traMADol ER 100MG TABLET (ULTRAM ER) PO SCH ×2 (11:39→20:12)
--- NOTE | 2017-05-22 13:51 | IPN ---
DATE: 05/22/2017 Patient seen and examined at the bedside. Chart has been reviewed. The patient has been participating with physical therapy (PT), but has refused occupational therapy (OT) yesterday. She is to be reevaluated again today. She still complains of discomfort when she ambulates at the fracture sites. Otherwise, no fever, chills. No chest pain, pressure, tightness or shortness of breath this morning. No other issues per nursing. Temperature 98.3, pulse 93, respiratory rate 12, blood pressure 129/64, 97% on 2 liters nasal cannula. GENERAL: The patient is awake, alert, oriented times three. Answering questions appropriately. Pupils are round and reactive. Extraocular muscles are intact. Normocephalic, atraumatic. No cervical lymphadenopathy or thyromegaly. Moist mucous membranes. No jugular venous distention or thyromegaly. Neck is supple. Lungs are clear to auscultation. No wheezing, rales or rhonchi. Air entry is equal bilaterally. HEART: S1, S2, sinus rhythm. No murmurs, rubs or gallops. ABDOMEN: Soft, nontender, nondistended. Positive bowel sounds times four quadrants. No rebound or guarding. No hepatosplenomegaly. EXTREMITIES: Postoperative right proximal femoral surgical site, appears clean and dry. No significant drainage. Limited range of motion due to pain. Laboratory data reviewed. Imaging studies reviewed. ASSESSMENT AND PLAN: This is a 76-year-old female with history of hypertension, hypothyroidism, dyslipidemia, right breast mass, which was gram-negative bacteremia in July 2016, presented to the emergency room with complaints of right hip pain after a mechanical fall at home, slipping and falling as she was walking out of her house and falling on the right hip. The patient denied any head trauma or loss of consciousness or prodromal symptoms with chest pain, shortness of breath, palpitations, lightheadedness, nausea, vomiting prior to the episode. Patient had an intentional 10 pound weight loss over the past few months. Denies any changes in her appetite, dysphagia or odynophagia, hematemesis, bright red blood per rectum, melena or black tarry stools. Current issues are as follows: 1. Displaced right proximal femoral fracture status post open reduction, internal fixation of right femur with cephalomedullary nail postoperative day # 2. Currently on [place] one tablet as needed with tramadol added for improved pain control. Deep venous thrombosis (DVT) prophylaxis with Lovenox injections, bowel regimen with Fleet enema, milk of magnesia and Senokot. Currently on vitamin D 1000 units twice a day. Physical therapy. Physical Medicine and Rehabilitation (PM R) has been consulted for disposition. Potentially may tolerate three hours of rehabilitation daily. Await occupational therapy (OT) acceptance and PM R acceptance hopefully in the morning. 2. Hypertension. Appears to be well controlled with triamterene/hydrochlorothiazide. Monitor for dehydration. Current creatinine appears to be stable. The patient previously had electrolyte abnormalities with low potassium, which has been supplemented. 3. Postoperative anemia. Most likely hemodilution from intravenous (IV) fluids given postoperatively. Monitor for now. No acute indication for red blood cell transfusion. Does not appear to be symptomatic. 4. Hypothyroidism. On Synthroid. 5. History of right breast mass, which was benign. Follows at [facility] as an outpatient. 6. History of gram-negative bacteremia. No fever or chills during this admission. No signs of infection. 7. Deep venous thrombosis (DVT) prophylaxis with subcutaneous Lovenox. MTDD
[2017-05-22 14:00] VITALS: BP 130/90
[2017-05-22] MEDS: SIMVASTATIN 20 MG TAB PO SCH (20:11)
[2017-05-22] MEDS: TRAVATAN Z 0.004% OD SCH (20:13)
[2017-05-22 22:00] VITALS: BP 128/56
[2017-05-23] MEDS: LEVOTHYROXINE 50MCG TABLET (0.05MG) PO SCH (05:48)
[2017-05-23 06:00] VITALS: BP 120/56
[2017-05-23] MEDS: NORCO, ANEXSIA 5/325MG TABLET (HYDROcodone/ACETAMINOPHEN) PO PRN ×2 (06:07→11:39)
[2017-05-23 07:16] LABS: BASO % 0.2 % (0.0-1.0); EOS % 0.4 % (0.0-3.0); LARGE UNSTAINED CELL # 0.3 K/mm3 (0.0-0.4); LYMPH # 2.6 K/mm3 (1.5-4.5); LYMPH % 25.9 % (24.0-44.0); MEAN CORPUSCULAR HEMOGLOBIN 30.3 pg (27.0-33.0); MEAN CORPUSCULAR VOLUME 86.8 fl (80.0-96.0); MONO # 0.7 K/mm3 (0.0-0.8); MONO % 7.3 % (0.0-5.0); NEUTROPHILS # 6.4 K/mm3 (1.8-7.7); NEUTROPHILS % 63.2 % (36.0-66.0); PLATELET COUNT, AUTOMATED 233 k/mm3 (150-450); RED CELL DISTRIBUTION WIDTH 12.4 % (11.5-14.5); WHITE BLOOD COUNT 10.2 K/mm3 (4.0-10.0)
[2017-05-23 07:32] LABS: ANION GAP 13 MEQ/L (8-16); AST/SGOT 31 U/L (15-37); BLOOD UREA NITROGEN 10 MG/DL (7-18); CALCIUM LEVEL 8.8 MG/DL (8.8-10.2); CARBON DIOXIDE LEVEL 25 MEQ/L (21-32); CHLORIDE LEVEL 95 MEQ/L (98-107); CREATININE FOR GFR 0.54 MG/DL (0.55-1.02); GLOMERULAR FILTRATION RATE > 60.0 (>39); GLUCOSE, FASTING 134 MG/DL (83-110); POTASSIUM SERUM 3.7 MEQ/L (3.5-5.1); SODIUM LEVEL 133 MEQ/L (136-145)
[2017-05-23 07:33] LABS: ALBUMIN 2.7 GM/DL (3.2-5.2); ALBUMIN/GLOBULIN RATIO 0.73 (1.00-1.93); ALKALINE PHOSPHATASE 91 U/L (45-117); ALT/SGPT 42 U/L (12-78); BILIRUBIN,TOTAL 0.6 MG/DL (0.2-1.0); MAGNESIUM LEVEL 2.1 MG/DL (1.8-2.4); TOTAL PROTEIN 6.4 GM/DL (6.4-8.2)
[2017-05-23] MEDS: ENOXAPARIN 40 MG/0.4 ML SYRINGE (J1650) SC SCH (08:13)
[2017-05-23] MEDS: traMADol ER 100MG TABLET (ULTRAM ER) PO SCH (08:13)
[2017-05-23] MEDS: DYAZIDE 37.5/25 CAP (TRIAM/HCTZ) PO SCH (08:14)
[2017-05-23] MEDS: VITAMIN D 1,000 INTERNATIONAL UNITS TABLET PO SCH (08:14)
[2017-05-23] MEDS ORDERED: VITA100066 PO (13:20)
--- NOTE | 2017-05-23 17:12 | DSES ---
DATE OF ADMISSION: 05/19/2017 DATE OF TRANSFER TO ACUTE REHABILITATION UNIT: 05/23/2017 CONSULTANTS DURING THIS ADMISSION: Orthopedic surgeon, Dr. Burns. PRIMARY DISCHARGE DIAGNOSES: 1. Displaced right proximal femoral fracture, status post open reduction and internal fixation (ORIF) of the right femur with cephalomedullary nail. 2. Hypertension. 3. Postoperative anemia, most likely hemodilutional. 4. Hypothyroidism. 5. History of right breast mass, which was benign. 6. History of gram-negative bacteremia. No active signs of infection. DISCHARGE MEDICATIONS: - [place] 5/325 mg one tablet every four hours as needed for pain - Lovenox injections 40 subcutaneously daily - MiraLAX one packet daily - Senokot two tablets by mouth twice a day as needed for constipation - Fleet enema one enema as needed daily - aspirin 81 mg daily - calcium with vitamin D one tablet daily - fish oil with vitamin D one capsule daily - triamterene/hydrochlorothiazide 37.5/25 mg one tablet daily - lactobacillus one tablet twice a day - levothyroxine 50 mcg daily - multivitamin one tablet daily - simvastatin 200 mg at night - Timolol one drop OD daily - Travatan one drop OD at night HOSPITAL COURSE: This is a 76-year-old female with a history of hypertension, hypothyroidism, dyslipidemia, right breast mass which was negative, gram-negative bacteremia in July 2016, presented to the emergency room with complaints of right hip pain after mechanical fall at home after slipping and falling as she was walking out of her house and fell on the right hip. The patient denied any head trauma, loss of consciousness or prodromal symptoms of chest pain, shortness of breath, palpitations, lightheadedness, nausea or vomiting prior to the episode. She had an intentional 10 pound weight loss over the past few months. Denies changes in appetite, dysphagia, odynophagia, hematemesis, bright red blood per rectum, melena, black tarry stools. The patient was found to have a displaced right proximal femoral fracture, status post open reduction and internal fixation (ORIF) of the right femur orthopedic surgeon, Dr. Burns, with cephalomedullary nail. She was kept on as needed [place], deep vein thrombosis (DVT) prophylaxis with Lovenox injections, given a bowel regimen with Fleet enema, milk of magnesia and Senokot and started on vitamin D 1000 units twice a day. The patient was appropriate for acute rehabilitation unit and was transferred subsequently. She was continued on triamterene/hydrochlorothiazide for hypertension, follow postoperative anemia, most likely due to hemodilution secondary to IV fluids given for baseline hemoglobin of 12.3 and discharge hemoglobin of 9.8. No signs of acute bleeding. The patient was discharged to acute rehabilitation program at rehabilitation unit with no other issues. LABORATORY DATA: On discharge: White count 10.3, hemoglobin 9.8, hematocrit 28, platelet count 233, sodium 132, potassium 3.7, chloride 95, bicarbonate 25, BUN 10, creatinine 0.5, glucose of 134. Microbiology: None. IMAGING STUDIES: Hip and pelvic x-ray on 05/19/2017 showed comminuted intertrochanteric fracture of the right hip. Chest x-ray on 05/19/2017 showed no acute cardiopulmonary disease. Knee x-ray on 05/20/2017 showed swelling and possible effusion with age related changes, no acute fracture identified. Femoral x-ray showed fracture of right hip, proximal femur. Hip x-ray on 05/20/2017, status post open reduction and internal fixation (ORIF) of proximal femoral shaft fracture. Femoral x-ray showed intramedullary soni in femoral neck in place transfixing a subtrochanteric fracture in position. Time spent on discharge: 30 minutes.
--- NOTE | 2017-05-23 18:19 | ECGEPIP ---
Stationary ECG Study [facility] - ED Test Date: 2017-05-19 Pat Name: DAYANARA GONZALES Department: Room: [place] [address] Gender: F Director Of Finance: GallowayB: 1940 Requested By: ANKUR CAM Order Number: [id number] Reading MD: Daniel Mancera Measurements Intervals [place] Rate: 79 P: IN: 0 QRS: 53 QRSD: 84 T: 61 QT: 376 QTc: 432 Interpretive Statements SINUS RHYTHM WITH PREMATURE ATRIAL CONTRACTIONS BASELINE ARTIFACT Electronically Signed On 05-23-2017 18:19:00 EDT by Daniel Mancera
== END 2017-05-23 11:52 | DRG 482 ==
LOC: EDBD 19:06 → M ED 19:06 → M ED INP 21:30 → M MS4PR 23:15 → M MS5PR 05-20 14:27
PROVIDERS: ADMIT Internal Medicine; ATTEND General Practice
PROC: 0QS606Z Reposition Right Upper Femur with Intramedullary Internal Fixation Device, Open Approach (ICD-10-PCS; principal; 2017-05-20 12:00)
DX: S72.141A Displaced intertrochanteric fracture of right femur, initial encounter for closed fracture (principal); I10 Essential (primary) hypertension; E03.9 Hypothyroidism, unspecified; Z79.82 Long term (current) use of aspirin; Z79.899 Other long term (current) drug therapy; W01.0XXA Fall on same level from slipping, tripping and stumbling without subsequent striking against object, initial encounter; Y92.017 Garden or yard in single-family (private) house as the place of occurrence of the external cause; Y93.01 Activity, walking, marching and hiking; Y99.9 Unspecified external cause status; Z87.891 Personal history of nicotine dependence

== ENCOUNTER 2017-05-23 10:46 | Inpatient (IN) | payer MEDICARE, BC, OTHER ==
[~2017-05-23] VITALS: Ht 172.7 cm; Wt 65.8 kg
[~2017-05-23 10:46] MED LIST changes: +FLEEENE4 PR; +LOVE1INJ SC; +NORCOTAB PO; +PEG1POW PO; +SENN1TAB2 PO
[2017-05-23] MEDS ORDERED: NORCO, ANEXSIA 5/325MG TABLET (HYDROcodone/ACETAMINOPHEN) PO PRN (11:00)
[2017-05-23] MEDS ORDERED: MIRALAX *UNIT DOSE* 17GM PACKET PO PRN (11:00)
[2017-05-23] MEDS ORDERED: FLEET ENEMA PR PRN (11:00)
[2017-05-23] MEDS ORDERED: MOM 30ML SUSPENSION UDC PO PRN (11:00)
[2017-05-23 12:00] VITALS: BP 143/65
[2017-05-23] MEDS ORDERED: VITA100066 PO (13:20)
[2017-05-23 14:00] VITALS: BP 119/56
--- NOTE | 2017-05-23 17:07 | PMRNOTEPD ---
PMR Note Patient transferred today to the acute rehabilitation unit for musculoskeletal rehabilitation of right hip fracture. History and physical dictation #[id number] has been down and admission orders are written. Patient with good prognosis for return to home in 7 to 10 days with home care. JYOTI BHANDARI MD May 23, 2017 17:07
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
[2017-05-23 20:00] VITALS: BP 120/55
[2017-05-23] MEDS: traMADol ER 100MG TABLET (ULTRAM ER) PO SCH (20:19)
[2017-05-23] MEDS: ACETAMINOPHEN TAB 650MG DOSE (2X325MG) PO PRN (20:19)
[2017-05-23] MEDS: SIMVASTATIN 20 MG TAB PO SCH (20:19)
[2017-05-23] MEDS: VITAMIN D 1,000 INTERNATIONAL UNITS TABLET PO SCH (20:19)
[2017-05-23] MEDS: SENOKOT S TAB PO SCH (20:20)
[2017-05-23] MEDS: TRAVATAN Z 0.004% OD SCH (20:21)
[2017-05-23] MEDS ORDERED: TRAVATAN Z 0.004% OD SCH (21:00)
[2017-05-24 06:00] VITALS: BP 127/58
[2017-05-24] MEDS: LEVOTHYROXINE 50MCG TABLET (0.05MG) PO SCH (06:05)
[2017-05-24] MEDS: ACETAMINOPHEN TAB 650MG DOSE (2X325MG) PO PRN (06:06)
[2017-05-24 06:55] LABS: BASO % 0.3 % (0.0-1.0); EOS # 0.1 K/mm3 (0.0-0.50); EOS % 0.7 % (0.0-3.0); LARGE UNSTAINED CELL # 0.3 K/mm3 (0.0-0.4); LARGE UNSTAINED CELL % 2.9 % (0.0-4.0); LYMPH # 1.9 K/mm3 (1.5-4.5); LYMPH % 21.5 % (24.0-44.0); MEAN CORPUSCULAR HEMOGLOBIN 29.5 pg (27.0-33.0); MEAN CORPUSCULAR HGB CONC 33.9 g/dl (32.0-36.5); MEAN CORPUSCULAR VOLUME 87.2 fl (80.0-96.0); MONO # 0.7 K/mm3 (0.0-0.8); MONO % 7.3 % (0.0-5.0); NEUTROPHILS # 6.1 K/mm3 (1.8-7.7); NEUTROPHILS % 67.3 % (36.0-66.0); PLATELET COUNT, AUTOMATED 265 k/mm3 (150-450); RED CELL DISTRIBUTION WIDTH 12.6 % (11.5-14.5)
[2017-05-24 07:14] LABS: ALBUMIN 2.6 GM/DL (3.2-5.2); ALBUMIN/GLOBULIN RATIO 0.87 (1.00-1.93); ALKALINE PHOSPHATASE 144 U/L (45-117); ALT/SGPT 54 U/L (12-78); ANION GAP 11 MEQ/L (8-16); AST/SGOT 38 U/L (15-37); BILIRUBIN,TOTAL 0.8 MG/DL (0.2-1.0); BLOOD UREA NITROGEN 14 MG/DL (7-18); CALCIUM LEVEL 8.4 MG/DL (8.8-10.2); CARBON DIOXIDE LEVEL 26 MEQ/L (21-32); CHLORIDE LEVEL 96 MEQ/L (98-107); CREATININE FOR GFR 0.54 MG/DL (0.55-1.02); GLOMERULAR FILTRATION RATE > 60.0 (>39); GLUCOSE, FASTING 121 MG/DL (83-110); POTASSIUM SERUM 3.6 MEQ/L (3.5-5.1); SODIUM LEVEL 133 MEQ/L (136-145); TOTAL PROTEIN 5.6 GM/DL (6.4-8.2)
[2017-05-24] MEDS: traMADol ER 100MG TABLET (ULTRAM ER) PO SCH ×2 (08:43→20:24)
[2017-05-24] MEDS: DYAZIDE 37.5/25 CAP (TRIAM/HCTZ) PO SCH (08:43)
[2017-05-24] MEDS: ENOXAPARIN 40 MG/0.4 ML SYRINGE (J1650) SC SCH (08:43)
[2017-05-24] MEDS: VITAMIN D 1,000 INTERNATIONAL UNITS TABLET PO SCH ×2 (08:44→20:23)
[2017-05-24] MEDS: SENOKOT S TAB PO SCH ×2 (08:44→20:23)
[2017-05-24] MEDS: TIMOLOL MALEATE 0.5% OPHTH SOLN 5 ML OD SCH (11:06)
--- NOTE | 2017-05-24 11:50 | IPNPDOC ---
Date Seen The patient was seen on 05/24/17. Progress Note HPI: 76year oldF S/P mechanical fall with Rt Hip fracture/Rt hip ORIF 05/20/17 as per Orthopedics. Transferred to the care of ARU/Dr Olivas 05/23/17. No acute medical complaints today. Denies any fevers, chills, weakness, fatigue , Headache, Chest Pain, Shortness of breath, cough, palpitations, abdominal pain , N/V/D or changes in bowel or bladder habits. PMHx: HTN HLD glaucoma hypothyroid PSHX: Rt hip ORIF 05/20/17 H/O Rt breast mass, bx benign as per Pt. PE: GEN: 76yoF, appears stated age. Well-nourished, well developed. No acute distress. Alert and oriented x 3. Pleasant, interactive. HEENT: Normocephalic, atraumatic. Sclera are nonicteric. Conjunctiva without injection. Nose midline. No facial asymmetry. Moist mucous membranes. CHEST: Regular rate and rhythm, +S1, +S2 LUNGS: Clear to auscultation bilaterally. No wheezes, rales, or rhonchi. Breathing appears symmetric and easy. Patient is speaking in full sentences. No accessory muscle use. ABD: Round, soft, non-tender, non-distended. +Bowel sounds throughout. No rebound or guarding. No costovertebral angle tenderness. EXT:No lower extremity edema appreciated. SKIN: [place], dry, warm. Capillary refill <2sec. No rashes. NEURO: Alert and oriented x 3. Cranial nerves III-XII are intact. No focal deficits appreciated. A&P: 76year oldF S/P mechanical fall with Rt Hip fracture/Rt hip ORIF 05/20/17 as per Orthopedics. Transferred to the care of ARU/Dr Olivas 1. Right femur fracture after mechanical fall PT/OT as per ARU. Dr Olivas. Pain Control as per Dr Olivas. Bowel care as per Dr Olivas. XR hip: comminuted intertrochanteric fracture of the right hip Dr. Burns (Orthopedic) surgery following. DVT prophylaxis as per Orthopedics , Lovenox. 2. Leukocytosis. [place] likely reactive process. Resolved. 3. HTN - c/w HCTZ 25 and Triamterene 37.5 with holding parameters 4. Hypothyroidism - c/w Levothyroxine 5. DLP - c/w Simvastatin 6. Right breast mass - Has had biopsy completed and advised that it was benign - Follows up with yearly mammograms 7. History of Gram negative bacteremia (07/2016) 8. Acute blood loss anemia. Hgb 8.7. Add Fe studies, B12, folate. Stool OB. Monitor CBC. VS, I&O, 24H, Fishbone Vital Signs/I&O Vital Signs Date Time Temp Pulse Resp B/P (MAP) Pulse Ox O2 Delivery O2 Flow Rate FiO2 05/24/17 06:00 98.4 97 18 127/58 (81) 96 Room Air I&O- Last 24 Hours up to 6 AM 05/24/17 05:59 Intake Total 600 ml Balance 600 ml Laboratory Data 24H LABS Laboratory Tests 2 05/24/17 06:21: Urine Appearance CLOUDYH, Urine Color MICHELLE, Urine pH 6.0, Urine Specific [place] 1.024, Urine Protein NEGATIVE, Urine Glucose (UA) NEGATIVE, Urine Ketones TRACEH, Urine Urobilinogen 0.2, Urine Bilirubin NEGATIVE, Urine Leukocyte Esterase 2+H, Urine Blood NEGATIVE, Urine Nitrite NEGATIVE, Urine WBC (Auto) 34H, Urine RBC (Auto) 4H, Urine Hyaline Casts (Auto) 0, Urine Bacteria ( Auto) 2+H, Urine Squamous Epithelial Cells 16, Urine Mucus (Auto) SMALL, Urine Sperm (Auto) 05/24/17 06:22: White Blood Count 9.0, Red Blood Count 2.96L, Hemoglobin 8.7L, Hematocrit 25.8L , Mean Corpuscular Volume 87.2, Mean Corpuscular Hemoglobin 29.5, Mean Corpuscular Hemoglobin Concent 33.9, Red Cell Distribution Width 12.6, Platelet Count 265, Neutrophils (%) (Auto) 67.3H, Lymphocytes (%) (Auto) 21.5L, Monocytes (%) (Auto) 7.3H, Eosinophils (%) (Auto) 0.7, Basophils (%) (Auto) 0.3 , Neutrophils # (Auto) 6.1, Lymphocytes # (Auto) 1.9, Monocytes # (Auto) 0.7, Eosinophils # (Auto) 0.1, Basophils # (Auto) 0.0, Large Unclassified Cells % 2.9 , Large Unclassified Cells # 0.3, Anion Gap 11, Glomerular Filtration Rate > 60.0, Blood Urea Nitrogen 14, Creatinine 0.54L, Sodium Level 133L, Potassium Level 3.6, Chloride Level 96L, Carbon Dioxide Level 26, Calcium Level 8.4L, Aspartate Amino Transf (AST/SGOT) 38H, Alanine Aminotransferase (ALT/SGPT) 54, Alkaline Phosphatase 144H, Total Bilirubin 0.8, Total Protein 5.6L, Albumin 2.6L , Albumin/Globulin Ratio 0.87L CBC/BMP Laboratory Tests 05/24/17 06:22 Red Blood Count 2.96 L, Mean Corpuscular Volume 87.2, Mean Corpuscular Hemoglobin 29.5, Mean Corpuscular Hemoglobin Concent 33.9, Red Cell Distribution Width 12.6, Neutrophils (%) (Auto) 67.3 H, Lymphocytes (%) (Auto) 21.5 L, Monocytes (%) (Auto) 7.3 H, Eosinophils (%) (Auto) 0.7, Basophils (%) ( Auto) 0.3, Neutrophils # (Auto) 6.1, Lymphocytes # (Auto) 1.9, Monocytes # (Auto ) 0.7, Eosinophils # (Auto) 0.1, Basophils # (Auto) 0.0, Calcium Level 8.4 L, Aspartate Amino Transf (AST/SGOT) 38 H, Alanine Aminotransferase (ALT/SGPT) 54, Alkaline Phosphatase 144 H, Total Bilirubin 0.8, Total Protein 5.6 L, Albumin 2.6 L Andreina Delacruz May 24, 2017 11:50
[2017-05-24 12:47] LABS: FOLATE 18.4 NG/ML (>5.4); VITAMIN B12 LEVEL 295 PG/ML (247-911)
[2017-05-24 12:54] LABS: FERRITIN 166 NG/ML (8-252); PERCENT SATURATION 15.4 % (13.2-45.0); TOTAL IRON BINDING CAPACITY 228 UG/DL (250-450)
[2017-05-24 14:00] VITALS: BP 115/55
--- NOTE | 2017-05-24 15:28 | IPNPDOC ---
Retail Client Manager Progress Note DATE OF SERVICE: 05/24/17 DATE OF ADMISSION: May 23, 2017 at 11:55 INPATIENT REHABILITATION ADMISSION DAY: #2 SUBJECTIVE: The patient is a pleasant 76-year-old whitefemale who is right handed, who on 05/19/2017, while leaving her house, slipped and fell onto her right hip and had severe right hip pain and was unable to stand and was brought by emergency medical services (EMS) to [facility] where she was assessed in the emergency room and was seen by Dr. Burns. The patient was admitted for a right hip fracture of the proximal femur that was displaced. The patient then underwent open reduction internal fixation on 05/20/2017 with the intramedullary nail and screws. The patient's care is stressed by moderate anemia, also problems with pain and pain management, as well as her hypothyroidism, hypertension. ALLERGIES: See Below MEDICATIONS: Reviewed, see below. OBJECTIVE: VITAL SIGNS: Please see below. PHYSICAL EXAMINATION: GENERAL: Tall well-nourished well-developed 76-year-old white female who looks somewhat younger and stated age. Patient is alert and well oriented and in mild musculoskeletal distress favoring her right hip. HEENT: Normocephalic/atraumatic using glasses for visual correction. CARDIOVASCULAR: Regular rate and rhythm with normal S1-S2 without S re-S4 murmurs or rubs. 2/4 bilateral radial pulses. LUNGS: All lopez clear to auscultation. ABDOMEN: Benign with normal bowel sounds in all quadrants. NEUROLOGICAL: Patient is alert and oriented 4. Speech is clear coherent and appropriate. Affect is pleasant and cooperative. Memory is grossly intact. Motor shows good strength in bilateral upper extremities and left lower extremity with some guarding on the right hip and lower extremity. SKIN: Patient with right thigh incisions covered with optifoam dressings without drainage or a significant ecchymosis or heat or erythema. LABORATORY DATA: Reviewed. Please see below. MICROBIOLOGY: Please see below. IMAGING: No new imaging. DVT prophylaxis ordered?: Lovenox, LOKI hose and sequential compression stockings. ASSESSMENT AND PLAN: 1. Rehabilitation of right hip fracture with ORIF: Patient starting program with physical occupational therapy appears to tolerate it well today and is very motivated. Patient who lives alone needs to become modified independence in basic ADLs and transfers and mobility to include at least 4 steps and 150 foot ambulation with assistive device. We will also continue to focus on her pain control which seems to be doing better now on the tramadol extended release. Anticipated length of stay is approximately 7-10 days. 2. Anemia: H&H is 8.7 and 25.8% today. This is a moderate anemia that will need to continue be watched but for now blood pressure is been holding up well and there is little declined from the acute orthopedic admission numbers. 3. Hyponatremia/decreased chloride: These are mildly down and will need to be watched further. 4. Possible UTI on admission: Patient with cloudy urine with 2+ leukocyte esterase and 2+ bacteria and 34 white blood cells on her UA. I have ordered a catheterized urine culture and sensitivity. Patient has been afebrile while on the unit and her white blood cell count is within normal range at 9000. TIME SPENT: Chart Review, examination and documentation 25 minutes. Allergies Coded Allergies: Levofloxacin (Verified Adverse Reaction, Intermediate, 08/01/16) arm heaviness/swelling Vital Signs Vital Signs Date Time Temp Pulse Resp B/P (MAP) Pulse Ox O2 Delivery O2 Flow Rate FiO2 05/24/17 14:00 98.2 90 18 115/55 (75) 96 Room Air Laboratory Data CBC/BMP Laboratory Tests 05/24/17 06:22 Red Blood Count 2.96 L, Mean Corpuscular Volume 87.2, Mean Corpuscular Hemoglobin 29.5, Mean Corpuscular Hemoglobin Concent 33.9, Red Cell Distribution Width 12.6, Neutrophils (%) (Auto) 67.3 H, Lymphocytes (%) (Auto) 21.5 L, Monocytes (%) (Auto) 7.3 H, Eosinophils (%) (Auto) 0.7, Basophils (%) ( Auto) 0.3, Neutrophils # (Auto) 6.1, Lymphocytes # (Auto) 1.9, Monocytes # (Auto ) 0.7, Eosinophils # (Auto) 0.1, Basophils # (Auto) 0.0, Calcium Level 8.4 L, Aspartate Amino Transf (AST/SGOT) 38 H, Alanine Aminotransferase (ALT/SGPT) 54, Alkaline Phosphatase 144 H, Total Bilirubin 0.8, Total Protein 5.6 L, Albumin 2.6 L Labs 24H Laboratory Tests 2 05/24/17 06:21: Urine Appearance CLOUDYH, Urine Color MICHELLE, Urine pH 6.0, Urine Specific [place] 1.024, Urine Protein NEGATIVE, Urine Glucose (UA) NEGATIVE, Urine Ketones TRACEH, Urine Urobilinogen 0.2, Urine Bilirubin NEGATIVE, Urine Leukocyte Esterase 2+H, Urine Blood NEGATIVE, Urine Nitrite NEGATIVE, Urine WBC (Auto) 34H, Urine RBC (Auto) 4H, Urine Hyaline Casts (Auto) 0, Urine Bacteria ( Auto) 2+H, Urine Squamous Epithelial Cells 16, Urine Mucus (Auto) SMALL, Urine Sperm (Auto) 05/24/17 06:22: White Blood Count 9.0, Red Blood Count 2.96L, Hemoglobin 8.7L, Hematocrit 25.8L , Mean Corpuscular Volume 87.2, Mean Corpuscular Hemoglobin 29.5, Mean Corpuscular Hemoglobin Concent 33.9, Red Cell Distribution Width 12.6, Platelet Count 265, Neutrophils (%) (Auto) 67.3H, Lymphocytes (%) (Auto) 21.5L, Monocytes (%) (Auto) 7.3H, Eosinophils (%) (Auto) 0.7, Basophils (%) (Auto) 0.3 , Neutrophils # (Auto) 6.1, Lymphocytes # (Auto) 1.9, Monocytes # (Auto) 0.7, Eosinophils # (Auto) 0.1, Basophils # (Auto) 0.0, Large Unclassified Cells % 2.9 , Large Unclassified Cells # 0.3, Anion Gap 11, Glomerular Filtration Rate > 60.0, Blood Urea Nitrogen 14, Creatinine 0.54L, Sodium Level 133L, Potassium Level 3.6, Chloride Level 96L, Carbon Dioxide Level 26, Calcium Level 8.4L, Aspartate Amino Transf (AST/SGOT) 38H, Alanine Aminotransferase (ALT/SGPT) 54, Alkaline Phosphatase 144H, Total Bilirubin 0.8, Total Protein 5.6L, Albumin 2.6L , Iron Level 35L, Total Iron Binding Capacity 228L, Transferrin % Saturation 15.4, Ferritin 166, Albumin/Globulin Ratio 0.87L, Vitamin B12 Level 295, Folate 18.4 Current Medications Current Medications Current Medications Acetaminophen (Tylenol Tab) 650 mg Q6HP PRN PO PAIN OR FEVER Last administered on 05/24/17t 06:06; Start 05/23/17 at 11:00; Stop 06/22/17 at 10:59 Acetaminophen/ Hydrocodone Bitart ([place], Anexsia 5/325) 1 tab Q4HP PRN PO SEVERE PAIN (PS 8-10); Start 05/23/17 at 11:00; Stop 05/30/17 at 10:59 Enoxaparin Sodium (Lovenox) 40 mg DAILY SC Last administered on 05/24/17 08:43 ; Start 05/24/17 at 09:00; Stop 05/29/17 at 08:59 Home Med (Med Rec Complete!) ASDIRECTED XX ; Start 05/23/17 at 14:45; Stop at 14:45; Status DC Levothyroxine Sodium (Synthroid) 50 mcg DAILY@06 PO Last administered on 06:05; Start 05/24/17 at 06:00; Stop 06/23/17 at 05:59 Magnesium Hydroxide (Milk Of Magnesia) 30 ml DAILYPRN PRN PO CONSTIPATION Last administered on 05/24/17 08:43; Start 05/23/17 at 11:00; Stop 06/22/17 at 10:59 Non-Formulary Medication 1 ea QHS OD ; Start 05/23/17 at 21:00; Stop 06/22/17 at 20:59; Status Cancel Patient Own Medication (Patient'S Own Med) 1 ea QHS OD Last administered on 05/23 20:21; Start 05/23/17 at 21:00; Stop 06/22/17 at 20:59 Polyethylene Glycol (Miralax) 1 pkt DAILY PRN PO CONSTIPATION Last administered on 05/24/17 08:43; Start 05/23/17 at 11:00; Stop 06/22/17 at 10:59 Senna/Docusate Sodium (Senokot S) 1 tab BID PO Last administered on 05/24/17 08 :44; Start 05/23/17 at 21:00; Stop 06/22/17 at 20:59 Simvastatin (Zocor) 20 mg QHS PO Last administered on 05/23/17 20:19; Start 05/23/17 at 21:00; Stop 06/22/17 at 20:59 Sodium Biphosphate/ Sodium Phosphate (Fleet Enema) 1 ea DAILYPRN PRN [place] CONSTIPATION; Start 05/23/17 at 11:00; Stop 06/22/17 at 10:59 Timolol Maleate (Timoptic 0.5% Ophth Katia) 1 drop QAM OD Last administered on 11:06; Start 05/24/17 at 09:00; Stop 06/23/17 at 08:59 Tramadol HCl (Ultram Er) 100 mg Q12H PO Last administered on 05/24/17 08:43; Start 05/23/17 at 21:00; Stop 05/30/17 at 20:59 Triamterene/HCTZ (Dyazide 37.5-25 Mg) 1 ea DAILY PO Last administered on 08:43; Start 05/24/17 at 09:00; Stop 06/23/17 at 08:59 Vitamin D (Vitamin D) 1,000 units BID PO Last administered on 05/24/17 08:44; Start 05/23/17 at 21:00; Stop 06/22/17 at 20:59 JYOTI BHANDARI MD May 24, 2017 15:27
[2017-05-24 20:00] VITALS: BP 141/63
[2017-05-24] MEDS: SIMVASTATIN 20 MG TAB PO SCH (20:24)
[2017-05-24] MEDS: TRAVATAN Z 0.004% OD SCH (20:25)
[2017-05-25 04:00] VITALS: BP 125/59
[2017-05-25] MEDS: LEVOTHYROXINE 50MCG TABLET (0.05MG) PO SCH (05:29)
[2017-05-25 06:50] LABS: MEAN CORPUSCULAR HEMOGLOBIN 31.3 pg (27.0-33.0); MEAN CORPUSCULAR HGB CONC 35.3 g/dl (32.0-36.5); MEAN CORPUSCULAR VOLUME 88.7 fl (80.0-96.0); WHITE BLOOD COUNT 7.2 K/mm3 (4.0-10.0)
[2017-05-25 07:29] LABS: ALBUMIN 2.3 GM/DL (3.2-5.2); ALKALINE PHOSPHATASE 183 U/L (45-117); ALT/SGPT 70 U/L (12-78); ANION GAP 8 MEQ/L (8-16); AST/SGOT 50 U/L (15-37); BILIRUBIN,TOTAL 0.7 MG/DL (0.2-1.0); BLOOD UREA NITROGEN 13 MG/DL (7-18); CALCIUM LEVEL 8.5 MG/DL (8.8-10.2); CARBON DIOXIDE LEVEL 28 MEQ/L (21-32); CHLORIDE LEVEL 98 MEQ/L (98-107); CREATININE FOR GFR 0.49 MG/DL (0.55-1.02); GLOMERULAR FILTRATION RATE > 60.0 (>39); GLUCOSE, FASTING 116 MG/DL (83-110); POTASSIUM SERUM 3.7 MEQ/L (3.5-5.1); SODIUM LEVEL 134 MEQ/L (136-145); TOTAL PROTEIN 5.6 GM/DL (6.4-8.2)
[2017-05-25] MEDS: VITAMIN D 1,000 INTERNATIONAL UNITS TABLET PO SCH ×2 (08:41→20:39)
[2017-05-25] MEDS: SENOKOT S TAB PO SCH ×2 (08:41→20:39)
[2017-05-25] MEDS: traMADol ER 100MG TABLET (ULTRAM ER) PO SCH ×2 (08:42→20:39)
[2017-05-25] MEDS: ENOXAPARIN 40 MG/0.4 ML SYRINGE (J1650) SC SCH (08:42)
[2017-05-25] MEDS: DYAZIDE 37.5/25 CAP (TRIAM/HCTZ) PO SCH (08:42)
[2017-05-25] MEDS: TIMOLOL MALEATE 0.5% OPHTH SOLN 5 ML OD SCH (08:42)
[2017-05-25 14:00] VITALS: BP 144/63
[2017-05-25] MEDS: ACETAMINOPHEN TAB 650MG DOSE (2X325MG) PO PRN (14:20)
[2017-05-25 20:00] VITALS: BP 154/70
[2017-05-25] MEDS: SIMVASTATIN 20 MG TAB PO SCH (20:39)
[2017-05-25] MEDS: TRAVATAN Z 0.004% OD SCH (20:40)
[2017-05-26] MEDS: LEVOTHYROXINE 50MCG TABLET (0.05MG) PO SCH (05:47)
[2017-05-26 06:00] VITALS: BP 131/63
[2017-05-26 06:34] LABS: MEAN CORPUSCULAR HEMOGLOBIN 30.2 pg (27.0-33.0); MEAN CORPUSCULAR HGB CONC 34.3 g/dl (32.0-36.5); RED CELL DISTRIBUTION WIDTH 12.9 % (11.5-14.5); WHITE BLOOD COUNT 7.5 K/mm3 (4.0-10.0)
[2017-05-26] MEDS: ENOXAPARIN 40 MG/0.4 ML SYRINGE (J1650) SC SCH (08:04)
[2017-05-26] MEDS: traMADol ER 100MG TABLET (ULTRAM ER) PO SCH ×2 (08:04→21:09)
[2017-05-26] MEDS: DYAZIDE 37.5/25 CAP (TRIAM/HCTZ) PO SCH (08:04)
[2017-05-26] MEDS: VITAMIN D 1,000 INTERNATIONAL UNITS TABLET PO SCH ×2 (08:04→21:09)
[2017-05-26] MEDS: SENOKOT S TAB PO SCH ×2 (08:04→21:09)
[2017-05-26] MEDS: TIMOLOL MALEATE 0.5% OPHTH SOLN 5 ML OD SCH (08:05)
[2017-05-26] MEDS: ACETAMINOPHEN TAB 650MG DOSE (2X325MG) PO PRN ×2 (11:08→21:10)
[2017-05-26 14:00] VITALS: BP 118/56
[2017-05-26 20:00] VITALS: BP 126/58
[2017-05-26] MEDS: SIMVASTATIN 20 MG TAB PO SCH (21:09)
[2017-05-26] MEDS: TRAVATAN Z 0.004% OD SCH (21:09)
[2017-05-27 06:00] VITALS: BP 122/60
[2017-05-27] MEDS: LEVOTHYROXINE 50MCG TABLET (0.05MG) PO SCH (06:14)
[2017-05-27] MEDS: TIMOLOL MALEATE 0.5% OPHTH SOLN 5 ML OD SCH (09:00)
[2017-05-27] MEDS: traMADol ER 100MG TABLET (ULTRAM ER) PO SCH ×2 (09:05→20:30)
[2017-05-27] MEDS: DYAZIDE 37.5/25 CAP (TRIAM/HCTZ) PO SCH (09:05)
[2017-05-27] MEDS: AMOXICILLIN 875 MG TAB PO SCH ×2 (09:06→20:29)
[2017-05-27] MEDS: VITAMIN D 1,000 INTERNATIONAL UNITS TABLET PO SCH ×2 (09:06→20:30)
[2017-05-27] MEDS: SENOKOT S TAB PO SCH ×2 (09:06→20:30)
[2017-05-27] MEDS: ENOXAPARIN 40 MG/0.4 ML SYRINGE (J1650) SC SCH (09:06)
[2017-05-27] MEDS: ACETAMINOPHEN TAB 650MG DOSE (2X325MG) PO PRN (09:07)
--- NOTE | 2017-05-27 11:24 | IPNPDOC ---
Date Seen The patient was seen on 05/27/17. Progress Note HPI: 76year oldF S/P mechanical fall with Rt Hip fracture/Rt hip ORIF 05/20/17 as per Orthopedics. Transferred to the care of ARU/Dr Olivas 05/23/17. No acute medical complaints today. Has been OOB with OT, feels tired. Denies any fevers, chills, Headache, Chest Pain, Shortness of breath, cough, palpitations, abdominal pain, N/V/D or changes in bowel or bladder habits. PMHx: HTN HLD glaucoma hypothyroid PSHX: Rt hip ORIF 05/20/17 H/O Rt breast mass, bx benign as per Pt. PE: GEN: 76yoF, appears stated age. Well-nourished, well developed. No acute distress. Alert and oriented x 3. Pleasant, interactive. HEENT: Normocephalic, atraumatic. Sclera are nonicteric. Conjunctiva without injection. Nose midline. No facial asymmetry. Moist mucous membranes. CHEST: Regular rate and rhythm, +S1, +S2 LUNGS: Clear to auscultation bilaterally. No wheezes, rales, or rhonchi. Breathing appears symmetric and easy. Patient is speaking in full sentences. No accessory muscle use. ABD: Round, soft, non-tender, non-distended. +Bowel sounds throughout. No rebound or guarding. No costovertebral angle tenderness. EXT:No lower extremity edema appreciated. SKIN: [place], dry, warm. Capillary refill <2sec. No rashes. NEURO: Alert and oriented x 3. Cranial nerves III-XII are intact. No focal deficits appreciated. 05/23/17 Organism 1 ENTEROCOCCUS FAECALIS COLONY COUNT >100,000 CFU/ml A&P: 76year oldF S/P mechanical fall with Rt Hip fracture/Rt hip ORIF 05/20/17 as per Orthopedics. Transferred to the care of ARU/Dr Olivas 1. Right femur fracture after mechanical fall PT/OT as per ARU. Dr Olivas. Pain Control as per Dr Olivas. Bowel care as per Dr Olivas. XR hip: comminuted intertrochanteric fracture of the right hip Dr. Burns (Orthopedic) surgery following. DVT prophylaxis as per Orthopedics , Lovenox. 2. UTI. E Faecalis. Amoxicillin D1/10. 3. HTN. HCTZ 25 and Triamterene 37.5 with holding parameters 4. Hypothyroidism. Levothyroxine. TSH WNL 05/21/17. 5. DLP. Simvastatin 6. Right breast mass - Has had biopsy completed and advised that it was benign - Follows up with yearly mammograms 7. History of Gram negative bacteremia (07/2016) 8. Acute blood loss anemia. Hgb 8.9. Fe studies, B12, folate. Stool OB pending. Monitor CBC. VS, I&O, 24H, Fishbone Vital Signs/I&O Vital Signs Date Time Temp Pulse Resp B/P (MAP) Pulse Ox O2 Delivery O2 Flow Rate FiO2 05/27/17 06:00 97.9 78 18 122/60 (80) 98 Room Air I&O- Last 24 Hours up to 6 AM 05/27/17 06:00 Intake Total 1190 ml Output Total 300 ml Balance 890 ml Laboratory Data Microbiology Microbiology 05/24/17 Urine Culture - Final, Complete Enterococcus Faecalis Andreina Delacruz May 27, 2017 11:24
[2017-05-27 14:00] VITALS: BP 119/57
--- NOTE | 2017-05-27 16:23 | IPNPDOC ---
Shoe Dresser Progress Note DATE OF SERVICE: 05/27/17 DATE OF ADMISSION: May 23, 2017 at 11:55 INPATIENT REHABILITATION ADMISSION DAY: #5 SUBJECTIVE: The patient is a pleasant 76-year-old white female who is right handed, who on 05/19/2017, while leaving her house, slipped and fell onto her right hip and had severe right hip pain and was unable to stand and was brought by emergency medical services (EMS) to [facility] where she was assessed in the emergency room and was seen by Dr. Burns. The patient was admitted for a right hip fracture of the proximal femur that was displaced. The patient then underwent open reduction internal fixation on 05/20/2017 with the intramedullary nail and screws. The patient's care is stressed by moderate anemia, also problems with pain and pain management, as well as her hypothyroidism, hypertension. ALLERGIES: See Below MEDICATIONS: Reviewed, see below. OBJECTIVE: VITAL SIGNS: Please see below. PHYSICAL EXAMINATION: GENERAL: Tall well-nourished well-developed 76-year-old white female who looks somewhat younger and stated age. Patient is alert and well oriented and in mild musculoskeletal distress favoring her right hip. HEENT: Normocephalic/atraumatic using glasses for visual correction. CARDIOVASCULAR: Regular rate and rhythm with normal S1-S2 without S re-S4 murmurs or rubs. 2/4 bilateral radial pulses. LUNGS: All lopez clear to auscultation. ABDOMEN: Benign with normal bowel sounds in all quadrants. NEUROLOGICAL: Patient is alert and oriented 4. Speech is clear coherent and appropriate. Affect is pleasant and cooperative. Memory is grossly intact. Motor shows good strength in bilateral upper extremities and left lower extremity with some guarding on the right hip and lower extremity. SKIN: Patient with right thigh incisions covered with optifoam dressings without drainage or a significant ecchymosis or heat or erythema. LABORATORY DATA: Reviewed. Please see below. MICROBIOLOGY: Please see below. IMAGING: No new imaging. DVT prophylaxis ordered?: Lovenox, LOKI hose and sequential compression stockings. ASSESSMENT AND PLAN: 1. Rehabilitation of right hip fracture with ORIF: Patient starting program with physical occupational therapy appears to tolerate it well today and is very motivated. Patient who lives alone needs to become modified independence in basic ADLs and transfers and mobility to include at least 4 steps and 150 foot ambulation with assistive device. We will also continue to focus on her pain control which seems to be doing better now on the tramadol extended release. Rehabilitation team rounds: Patient making good progress in physical occupational therapy overall team estimates patient to reach discharge goals by 05/30/17 for return to home with [facility]. 2. Anemia: H&H is 8.9 and 25.9% today 05/27/17. This is a moderate anemia that will need to continue be watched but for now blood pressure is been holding up well and there is little declined from the acute orthopedic admission numbers. 3. Hyponatremia/decreased chloride: Na+ 134 with now normal Cl- 98. 4. Possible UTI on admission: Patient with cloudy urine with 2+ leukocyte esterase and 2+ bacteria and 34 white blood cells on her UA. I have ordered a catheterized urine culture and sensitivity. Patient has been afebrile while on the unit and her white blood cell count is within normal range at 9000. Results show Enterococcus Faecalis sensitive to Ampicillin and patient started on that this weekend. TIME SPENT: Chart Review, examination and documentation 25 minutes. Allergies Coded Allergies: Levofloxacin (Verified Adverse Reaction, Intermediate, 08/01/16) arm heaviness/swelling Vital Signs Vital Signs Date Time Temp Pulse Resp B/P (MAP) Pulse Ox O2 Delivery O2 Flow Rate FiO2 05/27/17 14:00 98.7 99 18 119/57 (77) 98 05/27/17 06:00 Room Air Microbiology Microbiology 05/24/17 Urine Culture - Final, Complete Enterococcus Faecalis Current Medications Current Medications Current Medications Acetaminophen (Tylenol Tab) 650 mg Q6HP PRN PO PAIN OR FEVER Last administered on 05/27/17 09:07; Start 05/23/17 at 11:00; Stop 06/22/17 at 10:59 Acetaminophen/ Hydrocodone Bitart ([place], Anexsia 5/325) 1 tab Q4HP PRN PO SEVERE PAIN (PS 8-10); Start 05/23/17 at 11:00; Stop 05/30/17 at 10:59 Amoxicillin (Amoxicillin) 875 mg BID PO Last administered on 05/27/17 09:06; Start 05/27/17 at 09:00; Stop 05/31/17 at 21:01 Enoxaparin Sodium (Lovenox) 40 mg DAILY SC Last administered on 05/27/17 09:06 ; Start 05/24/17 at 09:00; Stop 06/03/17 at 23:55 Home Med (Med Rec Complete!) ASDIRECTED XX ; Start 05/23/17 at 14:45; Stop at 14:45; Status DC Levothyroxine Sodium (Synthroid) 50 mcg DAILY@06 PO Last administered on 06:14; Start 05/24/17 at 06:00; Stop 06/23/17 at 05:59 Magnesium Hydroxide (Milk Of Magnesia) 30 ml DAILYPRN PRN PO CONSTIPATION Last administered on 05/24/17 08:43; Start 05/23/17 at 11:00; Stop 06/22/17 at 10:59 Non-Formulary Medication 1 ea QHS OD ; Start 05/23/17 at 21:00; Stop 06/22/17 at 20:59; Status Cancel Patient Own Medication (Patient'S Own Med) 1 ea QHS OD Last administered on 21:09; Start 05/23/17 at 21:00; Stop 06/22/17 at 20:59 Polyethylene Glycol (Miralax) 1 pkt DAILY PRN PO CONSTIPATION Last administered on 05/24/17 08:43; Start 05/23/17 at 11:00; Stop 06/22/17 at 10:59 Senna/Docusate Sodium (Senokot S) 1 tab BID PO Last administered on 05/27/17 09:06; Start 05/23/17 at 21:00; Stop 06/22/17 at 20:59 Simvastatin (Zocor) 20 mg QHS PO Last administered on 05/26/17 21:09; Start at 21:00; Stop 06/22/17 at 20:59 Sodium Biphosphate/ Sodium Phosphate (Fleet Enema) 1 ea DAILYPRN PRN [place] CONSTIPATION; Start 05/23/17 at 11:00; Stop 06/22/17 at 10:59 Timolol Maleate (Timoptic 0.5% Ophth Katia) 1 drop QAM OD Last administered on 09:00; Start 05/24/17 at 09:00; Stop 06/23/17 at 08:59 Tramadol HCl (Ultram Er) 100 mg Q12H PO Last administered on 05/27/17 09:05; Start 05/23/17 at 21:00; Stop 05/30/17 at 20:59 Triamterene/HCTZ (Dyazide 37.5-25 Mg) 1 ea DAILY PO Last administered on 09:05; Start 05/24/17 at 09:00; Stop 06/23/17 at 08:59 Vitamin D (Vitamin D) 1,000 units BID PO Last administered on 05/27/17 09:06; Start 05/23/17 at 21:00; Stop 06/22/17 at 20:59 JYOTI BHANDARI MD May 27, 2017 16:23
[2017-05-27 20:00] VITALS: BP 136/61
[2017-05-27] MEDS: SIMVASTATIN 20 MG TAB PO SCH (20:30)
[2017-05-27] MEDS: TRAVATAN Z 0.004% OD SCH (20:31)
[2017-05-28 06:00] VITALS: BP 119/58
[2017-05-28] MEDS: LEVOTHYROXINE 50MCG TABLET (0.05MG) PO SCH (06:36)
[2017-05-28 07:12] LABS: MEAN CORPUSCULAR HGB CONC 33.4 g/dl (32.0-36.5); MEAN CORPUSCULAR VOLUME 89.9 fl (80.0-96.0); RED CELL DISTRIBUTION WIDTH 13.8 % (11.5-14.5); WHITE BLOOD COUNT 6.6 K/mm3 (4.0-10.0)
[2017-05-28 07:31] LABS: ALBUMIN 2.5 GM/DL (3.2-5.2); ALBUMIN/GLOBULIN RATIO 0.89 (1.00-1.93); ALKALINE PHOSPHATASE 217 U/L (45-117); ALT/SGPT 59 U/L (12-78); ANION GAP 8 MEQ/L (8-16); AST/SGOT 33 U/L (15-37); BILIRUBIN,TOTAL 0.6 MG/DL (0.2-1.0); BLOOD UREA NITROGEN 11 MG/DL (7-18); CALCIUM LEVEL 8.1 MG/DL (8.8-10.2); CARBON DIOXIDE LEVEL 31 MEQ/L (21-32); CHLORIDE LEVEL 102 MEQ/L (98-107); CREATININE FOR GFR 0.56 MG/DL (0.55-1.02); GLOMERULAR FILTRATION RATE > 60.0 (>39); GLUCOSE, FASTING 104 MG/DL (83-110); SODIUM LEVEL 141 MEQ/L (136-145); TOTAL PROTEIN 5.3 GM/DL (6.4-8.2)
[2017-05-28] MEDS: ENOXAPARIN 40 MG/0.4 ML SYRINGE (J1650) SC SCH (08:13)
[2017-05-28] MEDS: AMOXICILLIN 875 MG TAB PO SCH ×2 (08:13→20:37)
[2017-05-28] MEDS: SENOKOT S TAB PO SCH ×2 (08:13→20:38)
[2017-05-28] MEDS: VITAMIN D 1,000 INTERNATIONAL UNITS TABLET PO SCH ×2 (08:13→20:38)
[2017-05-28] MEDS: traMADol ER 100MG TABLET (ULTRAM ER) PO SCH ×2 (08:14→20:38)
[2017-05-28] MEDS: TIMOLOL MALEATE 0.5% OPHTH SOLN 5 ML OD SCH (08:14)
[2017-05-28] MEDS: DYAZIDE 37.5/25 CAP (TRIAM/HCTZ) PO SCH (08:16)
[2017-05-28] MEDS: ACETAMINOPHEN TAB 650MG DOSE (2X325MG) PO PRN (13:14)
--- NOTE | 2017-05-28 13:50 | IPNPDOC ---
Warehouse Freight Handler Progress Note DATE OF SERVICE: 05/28/17 DATE OF ADMISSION: May 23, 2017 at 11:55 INPATIENT REHABILITATION ADMISSION DAY: #6 SUBJECTIVE: The patient is a pleasant 76-year-old white female who is right handed, who on 05/19/2017, while leaving her house, slipped and fell onto her right hip and had severe right hip pain and was unable to stand and was brought by emergency medical services (EMS) to [facility] where she was assessed in the emergency room and was seen by Dr. Burns. The patient was admitted for a right hip fracture of the proximal femur that was displaced. The patient then underwent open reduction internal fixation on 05/20/2017 with the intramedullary nail and screws. The patient's care is stressed by moderate anemia, also problems with pain and pain management, as well as her hypothyroidism, hypertension. ALLERGIES: See Below MEDICATIONS: Reviewed, see below. OBJECTIVE: VITAL SIGNS: Please see below. PHYSICAL EXAMINATION: GENERAL: Tall well-nourished well-developed 76-year-old white female who looks somewhat younger and stated age. Patient is alert and well oriented and in mild musculoskeletal distress favoring her right hip. HEENT: Normocephalic/atraumatic using glasses for visual correction. CARDIOVASCULAR: Regular rate and rhythm with normal S1-S2 without S re-S4 murmurs or rubs. 2/4 bilateral radial pulses. LUNGS: All lopez clear to auscultation. ABDOMEN: Benign with normal bowel sounds in all quadrants. NEUROLOGICAL: Patient is alert and oriented 4. Speech is clear coherent and appropriate. Affect is pleasant and cooperative. Memory is grossly intact. Motor shows good strength in bilateral upper extremities and left lower extremity with some guarding on the right hip and lower extremity. SKIN: Patient with right thigh incisions covered with Optifoam dressings without drainage or a significant ecchymosis or heat or erythema. LABORATORY DATA: Reviewed. Please see below. MICROBIOLOGY: Please see below. IMAGING: No new imaging. DVT prophylaxis ordered?: Lovenox, LOKI hose and sequential compression stockings. ASSESSMENT AND PLAN: 1. Rehabilitation of right hip fracture with ORIF: Patient starting program with physical occupational therapy appears to tolerate it well today and is very motivated. Patient who lives alone needs to become modified independence in basic ADLs and transfers and mobility to include at least 4 steps and 150 foot ambulation with assistive device. We will also continue to focus on her pain control which seems to be doing better now on the tramadol extended release. Patient making good progress in physical occupational therapy overall team estimates patient to reach discharge goals by 05/30/17 for return to home with HomeCare. 2. Anemia: H&H is 8.7 and 26.0% today 05/28/17 is stable. This is a moderate anemia that will need to continue be watched but for now blood pressure is been holding up well and there is little declined from the acute orthopedic admission numbers. 3. Hyponatremia/decreased chloride: Na+ 141 with now still normal Cl- 102. 4. UTI on admission: Patient with cloudy urine with 2+ leukocyte esterase and 2 + bacteria and 34 white blood cells on her UA. I ordered a catheterized urine culture and sensitivity. Patient has been afebrile while on the unit and her white blood cell count is within normal range at 9000. Results show Enterococcus Faecalis sensitive to Ampicillin and patient started on that this weekend. TIME SPENT: Chart Review, examination and documentation 25 minutes. Allergies Coded Allergies: Levofloxacin (Verified Adverse Reaction, Intermediate, 08/01/16) arm heaviness/swelling Vital Signs Vital Signs Date Time Temp Pulse Resp B/P (MAP) Pulse Ox O2 Delivery O2 Flow Rate FiO2 05/28/17 06:00 98.3 84 18 119/58 (78) 95 Room Air Laboratory Data CBC/BMP Laboratory Tests 05/28/17 06:36 Red Blood Count 2.89 L, Mean Corpuscular Volume 89.9, Mean Corpuscular Hemoglobin 30.0, Mean Corpuscular Hemoglobin Concent 33.4, Red Cell Distribution Width 13.8, Calcium Level 8.1 L, Aspartate Amino Transf (AST/SGOT) 33, Alanine Aminotransferase (ALT/SGPT) 59, Alkaline Phosphatase 217 H, Total Bilirubin 0.6, Total Protein 5.3 L, Albumin 2.5 L Labs 24H Laboratory Tests 2 05/28/17 06:36: Anion Gap 8, Glomerular Filtration Rate > 60.0, Blood Urea Nitrogen 11, Creatinine 0.56, Sodium Level 141, Potassium Level 4.0, Chloride Level 102, Carbon Dioxide Level 31, Calcium Level 8.1L, Aspartate Amino Transf (AST/SGOT) 33, Alanine Aminotransferase (ALT/SGPT) 59, Alkaline Phosphatase 217H, Total Bilirubin 0.6, Total Protein 5.3L, Albumin 2.5L, Albumin/Globulin Ratio 0.89L Microbiology Microbiology 05/24/17 Urine Culture - Final, Complete Enterococcus Faecalis Current Medications Current Medications Current Medications Acetaminophen (Tylenol Tab) 650 mg Q6HP PRN PO PAIN OR FEVER Last administered on 05/28/17 13:14; Start 05/23/17 at 11:00; Stop 06/22/17 at 10:59 Acetaminophen/ Hydrocodone Bitart ([place], Anexsia 5/325) 1 tab Q4HP PRN PO SEVERE PAIN (PS 8-10); Start 05/23/17 at 11:00; Stop 05/30/17 at 10:59; Status Cancel Amoxicillin (Amoxicillin) 875 mg BID PO Last administered on 05/28/17 08:13; Start 05/27/17 at 09:00; Stop 05/31/17 at 21:01 Enoxaparin Sodium (Lovenox) 40 mg DAILY SC Last administered on 05/28/17 08:13 ; Start 05/24/17 at 09:00; Stop 06/03/17 at 23:55 Home Med (Med Rec Complete!) ASDIRECTED XX ; Start 05/23/17 at 14:45; Stop at 14:45; Status DC Levothyroxine Sodium (Synthroid) 50 mcg DAILY@06 PO Last administered on 06:36; Start 05/24/17 at 06:00; Stop 06/23/17 at 05:59 Magnesium Hydroxide (Milk Of Magnesia) 30 ml DAILYPRN PRN PO CONSTIPATION Last administered on 05/24/17 08:43; Start 05/23/17 at 11:00; Stop 06/22/17 at 10:59 Non-Formulary Medication 1 ea QHS OD ; Start 05/23/17 at 21:00; Stop 06/22/17 at 20:59; Status Cancel Patient Own Medication (Patient'S Own Med) 1 ea QHS OD Last administered on 20:31; Start 05/23/17 at 21:00; Stop 06/22/17 at 20:59 Polyethylene Glycol (Miralax) 1 pkt DAILY PRN PO CONSTIPATION Last administered on 05/24/17 08:43; Start 05/23/17 at 11:00; Stop 06/22/17 at 10:59 Senna/Docusate Sodium (Senokot S) 1 tab BID PO Last administered on 05/28/17 08:13; Start 05/23/17 at 21:00; Stop 06/22/17 at 20:59 Simvastatin (Zocor) 20 mg QHS PO Last administered on 05/27/17 20:30; Start at 21:00; Stop 06/22/17 at 20:59 Sodium Biphosphate/ Sodium Phosphate (Fleet Enema) 1 ea DAILYPRN PRN [place] CONSTIPATION; Start 05/23/17 at 11:00; Stop 06/22/17 at 10:59 Timolol Maleate (Timoptic 0.5% Ophth Katia) 1 drop QAM OD Last administered on 08:14; Start 05/24/17 at 09:00; Stop 06/23/17 at 08:59 Tramadol HCl (Ultram Er) 100 mg Q12H PO Last administered on 05/28/17 08:14; Start 05/23/17 at 21:00; Stop 06/04/17 at 23:55 Triamterene/HCTZ (Dyazide 37.5-25 Mg) 1 ea DAILY PO Last administered on 08:16; Start 05/24/17 at 09:00; Stop 06/23/17 at 08:59 Vitamin D (Vitamin D) 1,000 units BID PO Last administered on 05/28/17 08:13; Start 05/23/17 at 21:00; Stop 06/22/17 at 20:59 JYOTI BHANDARI MD May 28, 2017 13:50
[2017-05-28 14:00] VITALS: BP 106/52
[2017-05-28 20:00] VITALS: BP 120/56
[2017-05-28] MEDS: TRAVATAN Z 0.004% OD SCH (20:37)
[2017-05-28] MEDS: SIMVASTATIN 20 MG TAB PO SCH (20:38)
[2017-05-29] MEDS: LEVOTHYROXINE 50MCG TABLET (0.05MG) PO SCH (05:49)
[2017-05-29] MEDS: ACETAMINOPHEN TAB 650MG DOSE (2X325MG) PO PRN ×3 (05:49→20:29)
[2017-05-29 07:29] LABS: MEAN CORPUSCULAR HEMOGLOBIN 28.4 pg (27.0-33.0); MEAN CORPUSCULAR HGB CONC 31.6 g/dl (32.0-36.5); RED CELL DISTRIBUTION WIDTH 14.2 % (11.5-14.5); WHITE BLOOD COUNT 6.6 K/mm3 (4.0-10.0)
[2017-05-29] MEDS: DYAZIDE 37.5/25 CAP (TRIAM/HCTZ) PO SCH (08:47)
[2017-05-29] MEDS: AMOXICILLIN 875 MG TAB PO SCH ×2 (08:47→20:30)
[2017-05-29] MEDS: VITAMIN D 1,000 INTERNATIONAL UNITS TABLET PO SCH ×2 (08:47→20:30)
[2017-05-29] MEDS: ENOXAPARIN 40 MG/0.4 ML SYRINGE (J1650) SC SCH (08:47)
[2017-05-29] MEDS: TIMOLOL MALEATE 0.5% OPHTH SOLN 5 ML OD SCH (08:47)
[2017-05-29] MEDS: SENOKOT S TAB PO SCH ×2 (08:47→20:30)
[2017-05-29] MEDS: traMADol ER 100MG TABLET (ULTRAM ER) PO SCH ×2 (08:48→20:29)
[2017-05-29 14:00] VITALS: BP 107/54
[2017-05-29] MEDS ORDERED: TRAM50TA2 PO (15:04)
--- NOTE | 2017-05-29 16:25 | IPNPDOC ---
Service Officer Progress Note DATE OF SERVICE: 05/29/17 DATE OF ADMISSION: May 23, 2017 at 11:55 INPATIENT REHABILITATION ADMISSION DAY: #7 SUBJECTIVE: The patient is a pleasant 76-year-old white female who is right handed, who on 05/19/2017, while leaving her house, slipped and fell onto her right hip and had severe right hip pain and was unable to stand and was brought by emergency medical services (EMS) to [facility] where she was assessed in the emergency room and was seen by Dr. Burns. The patient was admitted for a right hip fracture of the proximal femur that was displaced. The patient then underwent open reduction internal fixation on 05/20/2017 with the intramedullary nail and screws. The patient's care is stressed by moderate anemia, also problems with pain and pain management, as well as her hypothyroidism, hypertension. ALLERGIES: See Below MEDICATIONS: Reviewed, see below. OBJECTIVE: VITAL SIGNS: Please see below. PHYSICAL EXAMINATION: GENERAL: Tall well-nourished well-developed 76-year-old white female who looks somewhat younger and stated age. Patient is alert and well oriented and in mild musculoskeletal distress favoring her right hip. HEENT: Normocephalic/atraumatic using glasses for visual correction. CARDIOVASCULAR: Regular rate and rhythm with normal S1-S2 without S re-S4 murmurs or rubs. 2/4 bilateral radial pulses. LUNGS: All lopez clear to auscultation. ABDOMEN: Benign with normal bowel sounds in all quadrants. NEUROLOGICAL: Patient is alert and oriented 4. Speech is clear coherent and appropriate. Affect is pleasant and cooperative. Memory is grossly intact. Motor shows good strength in bilateral upper extremities and left lower extremity with some guarding on the right hip and lower extremity. SKIN: Patient with right thigh incisions covered with Optifoam dressings without drainage or a significant ecchymosis or heat or erythema. LABORATORY DATA: Reviewed. Please see below. MICROBIOLOGY: Please see below. IMAGING: No new imaging. DVT prophylaxis ordered?: Lovenox, LOKI hose and sequential compression stockings. ASSESSMENT AND PLAN: 1. Rehabilitation of right hip fracture with ORIF: Patient starting program with physical occupational therapy appears to tolerate it well today and is very motivated. Patient who lives alone needs to become modified independence in basic ADLs and transfers and mobility to include at least 4 steps and 150 foot ambulation with assistive device. We will also continue to focus on her pain control which seems to be doing better now on the tramadol extended release. Patient making good progress in physical occupational therapy overall team estimates patient to reach discharge goals by 05/30/17 for return to home with HomeCare. Patient declines using Lovenox at home for anticoagulation, so I will Rx restart of Aspirin, and encourage ambulation. Patient was able to do 16 stairs this afternoon in PT so her main bedroom, bath, kitchen is accessible. 2. Anemia: H&H is 8.2 and 25.8% today 05/29/17 is stable. This is a moderate anemia that will need to continue be watched but for now blood pressure is been holding up well and there is little declined from the acute orthopedic admission numbers. 3. Hyponatremia/decreased chloride: Na+ 141 with now still normal Cl- 102. 4. UTI on admission: Patient with cloudy urine with 2+ leukocyte esterase and 2 + bacteria and 34 white blood cells on her UA. I ordered a catheterized urine culture and sensitivity. Patient has been afebrile while on the unit and her white blood cell count is within normal range at 9000. Results show Enterococcus Faecalis sensitive to Ampicillin and patient started on that this weekend. TIME SPENT: Chart Review, examination and documentation 25 minutes. Allergies Coded Allergies: Levofloxacin (Verified Adverse Reaction, Intermediate, 08/01/16) arm heaviness/swelling Vital Signs Vital Signs Date Time Temp Pulse Resp B/P (MAP) Pulse Ox O2 Delivery O2 Flow Rate FiO2 05/29/17 14:00 98.1 83 18 107/54 (71) 97 Room Air Laboratory Data CBC/BMP Laboratory Tests 05/29/17 07:17 Red Blood Count 2.87 L, Mean Corpuscular Volume 90.0, Mean Corpuscular Hemoglobin 28.4, Mean Corpuscular Hemoglobin Concent 31.6 L, Red Cell Distribution Width 14.2 Microbiology Microbiology 05/24/17 Urine Culture - Final, Complete Enterococcus Faecalis Current Medications Current Medications Current Medications Acetaminophen (Tylenol Tab) 650 mg Q6HP PRN PO PAIN OR FEVER Last administered on 05/29/17t 13:06; Start 05/23/17 at 11:00; Stop 06/22/17 at 10:59 Acetaminophen/ Hydrocodone Bitart ([place], Anexsia 5/325) 1 tab Q4HP PRN PO SEVERE PAIN (PS 8-10); Start 05/23/17 at 11:00; Stop 05/30/17 at 10:59; Status Cancel Amoxicillin (Amoxicillin) 875 mg BID PO Last administered on 05/29/17 08:47; Start 05/27/17 at 09:00; Stop 05/31/17 at 21:01 Enoxaparin Sodium (Lovenox) 40 mg DAILY SC Last administered on 05/29/17 08:47 ; Start 05/24/17 at 09:00; Stop 06/03/17 at 23:55 Home Med (Med Rec Complete!) ASDIRECTED XX ; Start 05/23/17 at 14:45; Stop at 14:45; Status DC Levothyroxine Sodium (Synthroid) 50 mcg DAILY@06 PO Last administered on 05:49; Start 05/24/17 at 06:00; Stop 06/23/17 at 05:59 Magnesium Hydroxide (Milk Of Magnesia) 30 ml DAILYPRN PRN PO CONSTIPATION Last administered on 05/24/17 08:43; Start 05/23/17 at 11:00; Stop 06/22/17 at 10:59 Non-Formulary Medication 1 ea QHS OD ; Start 05/23/17 at 21:00; Stop 06/22/17 at 20:59; Status Cancel Patient Own Medication (Patient'S Own Med) 1 ea QHS OD Last administered on 20:37; Start 05/23/17 at 21:00; Stop 06/22/17 at 20:59 Polyethylene Glycol (Miralax) 1 pkt DAILY PRN PO CONSTIPATION Last administered on 05/24/17 08:43; Start 05/23/17 at 11:00; Stop 06/22/17 at 10:59 Senna/Docusate Sodium (Senokot S) 1 tab BID PO Last administered on 05/29/17 08:47; Start 05/23/17 at 21:00; Stop 06/22/17 at 20:59 Simvastatin (Zocor) 20 mg QHS PO Last administered on 05/28/17 20:38; Start at 21:00; Stop 06/22/17 at 20:59 Sodium Biphosphate/ Sodium Phosphate (Fleet Enema) 1 ea DAILYPRN PRN [place] CONSTIPATION; Start 05/23/17 at 11:00; Stop 06/22/17 at 10:59 Timolol Maleate (Timoptic 0.5% Ophth Katia) 1 drop QAM OD Last administered on 08:47; Start 05/24/17 at 09:00; Stop 06/23/17 at 08:59 Tramadol HCl (Ultram Er) 100 mg Q12H PO Last administered on 05/29/17 08:48; Start 05/23/17 at 21:00; Stop 06/04/17 at 23:55 Triamterene/HCTZ (Dyazide 37.5-25 Mg) 1 ea DAILY PO Last administered on 08:47; Start 05/24/17 at 09:00; Stop 06/23/17 at 08:59 Vitamin D (Vitamin D) 1,000 units BID PO Last administered on 05/29/17 08:47; Start 05/23/17 at 21:00; Stop 06/22/17 at 20:59 JYOTI BHANDARI MD May 29, 2017 16:25
[2017-05-29] MEDS ORDERED: WARFARIN SOD 5 MG TAB PO ONE (17:00)
[2017-05-29 20:12] VITALS: BP 159/69
[2017-05-29] MEDS: SIMVASTATIN 20 MG TAB PO SCH (20:30)
[2017-05-29] MEDS: TRAVATAN Z 0.004% OD SCH (20:31)
[2017-05-30] MEDS: LEVOTHYROXINE 50MCG TABLET (0.05MG) PO SCH (05:38)
[2017-05-30 05:42] VITALS: BP 142/67
[2017-05-30] MEDS ORDERED: COUM2.5T17 PO (06:45)
[2017-05-30 06:52] LABS: MEAN CORPUSCULAR HEMOGLOBIN 30.3 pg (27.0-33.0); MEAN CORPUSCULAR HGB CONC 33.8 g/dl (32.0-36.5); MEAN CORPUSCULAR VOLUME 89.6 fl (80.0-96.0); RED CELL DISTRIBUTION WIDTH 14.2 % (11.5-14.5); WHITE BLOOD COUNT 6.5 K/mm3 (4.0-10.0)
[2017-05-30 08:40] LABS: INR 0.92
[2017-05-30] MEDS: TIMOLOL MALEATE 0.5% OPHTH SOLN 5 ML OD SCH (09:00)
[2017-05-30] MEDS: ENOXAPARIN 40 MG/0.4 ML SYRINGE (J1650) SC SCH (09:00)
[2017-05-30] MEDS: SENOKOT S TAB PO SCH (09:08)
[2017-05-30] MEDS: traMADol ER 100MG TABLET (ULTRAM ER) PO SCH (09:08)
[2017-05-30] MEDS: AMOXICILLIN 875 MG TAB PO SCH (09:08)
[2017-05-30] MEDS: DYAZIDE 37.5/25 CAP (TRIAM/HCTZ) PO SCH (09:08)
[2017-05-30] MEDS: VITAMIN D 1,000 INTERNATIONAL UNITS TABLET PO SCH (09:08)
[2017-05-30] MEDS: ACETAMINOPHEN TAB 650MG DOSE (2X325MG) PO PRN (11:54)
--- NOTE | 2017-05-30 16:40 | PMRDS ---
DATE OF ADMISSION: 05/23/2014 DATE OF DISCHARGE: 05/30/2017 DISCHARGE DIAGNOSIS: Rehabilitation of right hip fracture status-post right total hip arthroplasty. HISTORY OF THE PRESENT ILLNESS: Patient is a 76-year-old right handed white female who fell on to her right hip on 05/19/2017 and required internal fixation with intramedullary nail and screws on 05/20/2017. Patient with some anemia as well as pain along with ongoing need for treatment of hypothyroidism, hypertension and hyperlipidemia. Patient participated in physical and occupational therapy and was felt to be stable enough and able to participate and benefit from acute intensive musculoskeletal rehabilitation. Was admitted to the acute rehabilitation unit on 05/23/2017. PAST MEDICAL HISTORY: Includes those noted above along with right breast mass and history of gram negative bacteremia. Also patient has had a very stressful year as in July she had bacteremia. She then lost her and lost her pet and then had the hip fracture. PROCEDURES PERFORMED DURING THIS ADMISSION: None. DIAGNOSTIC LABORATORY DATA: Patients moderate anemia as follows: Initial H and H 8.7 and 24.7 and today's H and H is 8.5 and 25.8% which has been stable throughout her admission. Electrolytes, patient hyponatremic on admission at 133 with a chloride of 96, but most recent 05/28/2017, had normal electrolytes and renal functions and her fasting blood sugar was 104 as opposed to being elevated at 121 on admission. HOSPITAL COURSE: The patient admitted to the acute rehabilitation unit on 05/23/2017 and started on a program of physical and occupational therapies along with rehabilitation nursing and medicine consultation. Patient had basically a stable course and progressed, basic transfers and activities of daily living with good standing and good sitting, balance to modified independent and transfers and assist to a commode. Patient increased standing balance to good from good minus and is discharged home with home care and physical therapy. Patient initially ambulating 45 feet with standby assistance. Not able to do stairs and notable limitation endurance to modified independent in her transfers ambulating greater than 150 feet with modified independence using a front wheel walker and able to do 16 stairs up and down. DISCHARGE MEDICATIONS: - tramadol 50 mg every 4 hours as needed for pain, 30 tablets issued - Coumadin 2.5 mg every day, to be monitored with prothrombin time INR draws by home care nursing and reported to [facility] for medication adjustment - aspirin 81 mg a day - calcium with vitamin D 1 tablet daily - vitamin D 1,000 international units twice a day - fish oil plus D3 1,000 mg a daily - hydrochlorothiazide with triamterene 25/37.5 1 tablet daily for blood pressure - lactobacillus 1 tablet twice a day for bowel program - Synthroid 50 mcg daily for thyroid replacement - multivitamin 1 tablet daily - MiraLAX 1 packet daily as needed for constipation - Senna Plus 17.2 mg twice a day as needed for constipation - simvastatin 20 mg at bedtime for cholesterol - timolol maleate 0.5% solution 1 drop OD daily - travoprost 50 drops per 2.5 mL, 1 drop at bedtime to the OD Patient to followup with orthopedics Dr. Burns and primary care Dr. Brennan and have home care nursing to check labs, physical therapy/occupational therapy for ongoing therapy. COMPLICATIONS: None. TIME SPENT ON DISCHARGE: Greater than 35 minutes. MTDD
== END 2017-05-30 12:00 | disposition home health service (06) | DRG 560 ==
LOC: M PM&R 11:55
PROVIDERS: ADMIT Physical Medicine & Rehabilitation; ATTEND Physical Medicine & Rehabilitation
DX: S72.141D Displaced intertrochanteric fracture of right femur, subsequent encounter for closed fracture with routine healing (principal); E87.1 Hypo-osmolality and hyponatremia; N39.0 Urinary tract infection, site not specified; D64.9 Anemia, unspecified; E03.9 Hypothyroidism, unspecified; B95.2 Enterococcus as the cause of diseases classified elsewhere; I10 Essential (primary) hypertension; E78.5 Hyperlipidemia, unspecified; Z87.891 Personal history of nicotine dependence; Z79.899 Other long term (current) drug therapy; Z88.1 Allergy status to other antibiotic agents; Z79.82 Long term (current) use of aspirin; W10.8XXD Fall (on) (from) other stairs and steps, subsequent encounter; Y99.9 Unspecified external cause status

== ENCOUNTER → 2017-06-03 | Outpatient (REF) | payer MEDICARE, BC, OTHER ==
[~2017-06-03] MED LIST changes: +COUM2.5T17 PO; +TRAM50TA2 PO; +VITA100066 PO
[2017-06-03 12:25] LABS: INR 1.06
== END ==
LOC: M LABDRAW1 11:43
PROVIDERS: ATTEND Orthopaedic Surgery
DX: Z79.01 Long term (current) use of anticoagulants (principal)

== ENCOUNTER → 2017-06-06 | Outpatient (REF) | payer MEDICARE, BC, OTHER ==
[2017-06-06 16:28] LABS: INR 1.27
== END ==
LOC: M SHH 15:45
PROVIDERS: ATTEND Orthopaedic Surgery
DX: Z79.01 Long term (current) use of anticoagulants (principal)

== ENCOUNTER → 2017-06-06 | Outpatient (REF) | payer MEDICARE, BC, OTHER ==
[2017-06-06 17:06] LABS: MEAN CORPUSCULAR HGB CONC 33.1 g/dl (32.0-36.5); MEAN CORPUSCULAR VOLUME 90.8 fl (80.0-96.0); WHITE BLOOD COUNT 8.4 K/mm3 (4.0-10.0)
== END ==
LOC: M SHH 15:47
PROVIDERS: ATTEND Physical Medicine & Rehabilitation
DX: D64.9 Anemia, unspecified (principal)

== ENCOUNTER → 2017-06-10 | Outpatient (REF) | payer MEDICARE, BC, OTHER ==
[2017-06-10 15:10] LABS: INR 1.37
== END ==
LOC: M SHH 14:50
PROVIDERS: ATTEND Orthopaedic Surgery
DX: Z79.01 Long term (current) use of anticoagulants (principal)

== ENCOUNTER → 2017-06-13 | Outpatient (REF) | payer BC, OTHER, MEDICARE ==
[2017-06-13 15:49] LABS: INR 1.87
== END ==
LOC: M LAB REF 14:26 → M SHH 14:26
PROVIDERS: ATTEND Orthopaedic Surgery
DX: Z79.01 Long term (current) use of anticoagulants (principal)

== ENCOUNTER → 2017-06-17 | Outpatient (REF) | payer MEDICARE, BC, OTHER ==
[2017-06-17 11:16] LABS: INR 1.93
== END ==
LOC: M SHH 09:54
PROVIDERS: ATTEND Orthopaedic Surgery
DX: Z79.01 Long term (current) use of anticoagulants (principal)

== ENCOUNTER → 2017-07-02 | Outpatient (REF) | payer MEDICARE, BC, OTHER ==
[2017-07-02 22:08] LABS: RENAL EPITHELIAL CELLS 2 /HPF
== END ==
LOC: M LAB REF 09:29
PROVIDERS: ATTEND Physician Assistant
DX: N39.0 Urinary tract infection, site not specified (principal)

== ENCOUNTER → 2017-08-01 | Outpatient (CLI) | payer MEDICARE, BC, OTHER ==
--- NOTE | 2017-08-01 12:21 | REPMRS ---
Patient History The patient states she has not had a clinical breast exam in over a year. Patient is postmenopausal. No known family history of cancer. Benign lumpectomy of the right breast. Patient states she has lost 20 lbs since her last mammo due to a broken hip Digital Mammo Diagnostic Bilateral: August 01, 2017 - Exam #: [id number] Bilateral CC and MLO view(s) were taken. Technologist: Tarah Puga, Technologist Prior study comparison: February 22, 2017, right breast digital mammo diagnostic unilateral performed at [facility]. July 17, 2016, digital mammo diagnostic bilateral performed at [facility]. FINDINGS: There are scattered fibroglandular densities. There is a fairly symmetric fibroglandular pattern in both breasts. There has been no interval development of masses, areas of architectural distortion or clusters of microcalcifications typical of malignancy. ASSESSMENT: BI-RADS/ACR category 2 mammogram. Benign finding(s). Recommendation Routine screening mammogram of both breasts in 1 year (for women over age 40). This mammogram was interpreted with the aid of an FDA-approved computer-aided dectection system. Electronically Signed By: Guanakito Rolon MD 08/01/17 0850
== END ==
LOC: M RAD 11:38
PROVIDERS: ATTEND Nurse Practitioner Family
DX: R92.8 Other abnormal and inconclusive findings on diagnostic imaging of breast (principal); Z78.0 Asymptomatic menopausal state

== ENCOUNTER → 2018-07-18 | Outpatient (CLI) | payer MEDICARE, BC, OTHER | LOC: M WHC 10:05 | DX: Z12.31 Encounter for screening mammogram for malignant neoplasm of breast (principal) | CPT/HCPCS: 77067 ==

== ENCOUNTER → 2019-04-22 | Outpatient (REF) | payer MEDICARE, BC, OTHER ==
[~2019-04-22] MED LIST changes: -ASPI1TAB PO; +ASPI81TA26 PO; +HYDR-3715 PO; -NORCOTAB PO; -SENN1TAB2 PO; +SENN1TAB40 PO
== END ==
LOC: M SFHCWAGY 10:58
PROVIDERS: ATTEND Nurse Practitioner Family
DX: Z12.4 Encounter for screening for malignant neoplasm of cervix (principal); N95.2 Postmenopausal atrophic vaginitis
CPT/HCPCS: G0101; G0123

== ENCOUNTER → 2019-04-27 | Outpatient (REF) | payer MEDICARE, BC, OTHER | LOC: M SFHCPLAZ 18:25 | PROVIDERS: ATTEND Dermatology | DX: L82.1 Other seborrheic keratosis (principal) ==

== ENCOUNTER → 2019-07-17 | Outpatient (CLI) | payer MEDICARE, BC, OTHER ==
[~2019-07-17] MED LIST changes: +SENN-53 PO; -SENN1TAB40 PO
--- NOTE | 2019-07-17 10:39 | REPMRS ---
Patient History The patient states she had a clinical breast exam in 04/2019. No known family history of cancer. Benign lumpectomy of the right breast. 3D TOMOSYNTHESIS WAS PERFORMED. The Virgilio Hoskins lifetime risk for breast cancer is 1.5%. Digital Woman Screen Mammo: July 17, 2019 - Exam #: [id number] Bilateral CC and MLO view(s) were taken. Technologist: Peggy Miner, Technologist Prior study comparison: July 18, 2018, bilateral digital woman screen mammo performed at [facility]. August 01, 2017, digital mammo diagnostic bilateral, performed at [facility]. FINDINGS: The breast tissue is heterogeneously dense. This may lower the sensitivity of mammography. There has been no change in the appearance of the mammogram from the prior studies. There is a moderate amount of residual fibroglandular tissue which is fairly symmetric. There is no interval development of dominant mass, areas of architectural distortion, or clustered microcalcification typical of malignancy. Assessment: BI-RADS/ACR category 1 mammogram. Negative Mammogram. Recommendation Routine screening mammogram in 1 year (for women over age 40). This mammogram was interpreted with the aid of an FDA-approved computer-aided dectection system. Electronically Signed By: Guanakito Rolon MD 07/17/19 0703
== END ==
LOC: M WHC 09:50
PROVIDERS: ATTEND Nurse Practitioner Family
DX: Z12.31 Encounter for screening mammogram for malignant neoplasm of breast (principal)

== ENCOUNTER 2020-05-06 17:35 | Emergency (ER) | payer MEDICARE, BC, OTHER ==
[~2020-05-06] VITALS: Ht 175.3 cm; Wt 70.0 kg
[~2020-05-06 17:35] MED LIST changes: -SIMV20TA2 PO; +SIMV20TA22 PO
[2020-05-06] MEDS ORDERED: ACETAMINOPHEN 325 MG TAB PO ONE (18:30)
--- NOTE | 2020-05-06 18:47 | REPVR ---
PROCEDURE INFORMATION: Exam: CT Head Without Contrast Exam date and time: 05/06/2020 6:25 PM Age: 79 years old Clinical indication: Injury or trauma; Fall; Initial encounter; Blunt trauma (contusions or hematomas); Consciousness not specified; Additional info: Altered mental status TECHNIQUE: Imaging protocol: Computed tomography of the head without contrast. Radiation optimization: All CT scans at this facility use at least one of these dose optimization techniques: automated exposure control; mA and/or kV adjustment per patient size (includes targeted exams where dose is matched to clinical indication); or iterative reconstruction. COMPARISON: CT Head without contrast 07/29/2016 3:04 PM FINDINGS: Brain: There is no acute intracranial hemorrhage, cerebral edema, or midline shift. An incidental developmental venous anomaly is noted in the right lynn radiata. Chronic microvascular ischemic changes are seen in the periventricular white matter. Age-related cerebral and cerebellar volume loss is present. 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 Ventricles: Mild ex vacuo dilation of the lateral ventricles is noted. Bones/joints: No acute fracture. Sinuses: There is no acute sinusitis. Mastoid air cells: The mastoid air cells are clear. Orbits: The included orbital structures are unremarkable. Vasculature: Atherosclerotic calcifications are seen involving the cavernous carotid arteries. Soft tissues: Unremarkable. IMPRESSION: 1. No acute intracranial abnormality. 2. Chronic findings as discussed above. Electronically signed by: Darrion Min On 05/06/2020 18:47:39 PM
--- NOTE | 2020-05-06 18:54 | REPVR ---
PROCEDURE INFORMATION: Exam: XR Chest, 1 View Exam date and time: 05/06/2020 6:45 PM Age: 79 years old Clinical indication: Other: Dizziness; Additional info: Altered mental status TECHNIQUE: Imaging protocol: XR of the chest Views: 1 view. COMPARISON: CR Chest, 1 view 05/19/2017 7:42 PM FINDINGS: Lungs: Unremarkable. No consolidation. Pleural space: Unremarkable. No pleural effusion. No pneumothorax. Heart/Mediastinum: Unremarkable. No cardiomegaly. Vasculature: Atherosclerotic calcifications are noted within the aortic arch. Bones/joints: Unremarkable. IMPRESSION: No acute abnormality. Electronically signed by: Darrion Min On 05/06/2020 18:54:42 PM
[2020-05-06 19:48] LABS: BASO % 0.2 % (0.0-1.0); EOS % 0.1 % (0.0-3.0); HEMATOCRIT 35.7 % (36.0-47.0); HEMOGLOBIN 11.8 g/dl (12.0-15.5); LYMPH # 1.6 10^3/uL (1.5-5.0); LYMPH % 12.5 % (24.0-44.0); MEAN CORPUSCULAR HEMOGLOBIN 28.7 pg (27.0-33.0); MEAN CORPUSCULAR HGB CONC 33.1 g/dl (32.0-36.5); MEAN CORPUSCULAR VOLUME 86.9 fl (80.0-96.0); MONO % 7.6 % (0.0-5.0); NEUTROPHILS # 10.1 10^3/uL (1.5-8.5); NEUTROPHILS % 79.2 % (36.0-66.0); PLATELET COUNT, AUTOMATED 235 10^3/uL (150-450); RED BLOOD COUNT 4.11 10^6/uL (4.00-5.40); WHITE BLOOD COUNT 12.7 10^3/uL (4.0-10.0)
[2020-05-06 20:19] LABS: ALBUMIN 3.3 GM/DL (3.2-5.2); ALT/SGPT 17 U/L (12-78); BILIRUBIN,DIRECT 0.1 MG/DL (0.0-0.2); BILIRUBIN,TOTAL 0.5 MG/DL (0.2-1.0); BLOOD UREA NITROGEN 11 MG/DL (7-18); CALCIUM LEVEL 8.6 MG/DL (8.8-10.2); CARBON DIOXIDE LEVEL 25 MEQ/L (21-32); CHLORIDE LEVEL 103 MEQ/L (98-107); CK-MB VALUE MASS < 1.0 NG/ML (<3.6); CPK CREATINE PHOSPHOKINASE 54 U/L (26-192); CREATININE FOR GFR 0.74 MG/DL (0.55-1.30); GLOMERULAR FILTRATION RATE > 60.0 (>32); GLUCOSE, FASTING 117 MG/DL (70-100); MB/CK RELATIVE INDEX 1.85 (< OR =4); POTASSIUM SERUM 3.6 MEQ/L (3.5-5.1); SODIUM LEVEL 135 MEQ/L (136-145); THYROID STIMULATING HORMONE 0.683 uIU/ML (0.358-3.740); TOTAL PROTEIN 6.4 GM/DL (6.4-8.2); TROPONIN I < 0.02 NG/ML (< 0.10)
[2020-05-06] MEDS ORDERED: KEPP1TAB2 PO (21:03)
[2020-05-06 22:48] VITALS: BP 132/85
--- NOTE | 2020-05-27 09:04 | ECGEPIP ---
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
== END 2020-05-06 22:53 | disposition home or self-care (01) ==
LOC: M ED 17:35
DX: R50.9 Fever, unspecified (principal); R94.31 Abnormal electrocardiogram [ECG] [EKG]; I10 Essential (primary) hypertension; E78.5 Hyperlipidemia, unspecified; E56.9 Vitamin deficiency, unspecified; E30.9 Disorder of puberty, unspecified; Z79.82 Long term (current) use of aspirin; Z79.899 Other long term (current) drug therapy; Z88.8 Allergy status to other drugs, medicaments and biological substances

== ENCOUNTER → 2020-05-08 | Outpatient (REF) | payer MEDICARE, BC, OTHER ==
[~2020-05-08] MED LIST changes: +KEPP1TAB2 PO
[2020-05-08 11:00] LABS: APPEARANCE, URINE CLOUDY (CLEAR); BACTERIA, URINE AUTO 3+ (NEGATIVE); BILIRUBIN, URINE AUTO NEGATIVE (NEGATIVE); BLOOD, URINE BLOOD NEGATIVE (NEGATIVE); COLOR, URINE YELLOW (YELLOW); GLUCOSE, URINE (UA) AUTO NEGATIVE (NEGATIVE); KETONE, URINE AUTO NEGATIVE (NEGATIVE); LEUKOCYTE ESTERASE, URINE AUTO 3+ (NEGATIVE); MUCUS, URINE SMALL (NEGATIVE); NITRITE, URINE AUTO NEGATIVE (NEGATIVE); PROTEIN, URINE AUTO NEGATIVE (NEGATIVE); RBC, URINE AUTO 4 /HPF (0-3); SPECIFIC GRAVITY URINE AUTO 1.017 (1.002-1.035); SQUAMOUS EPITHELIAL CELL UR AU 4 /HPF (0-6); URIC ACID CRYSTALS LARGE; WBC, URINE AUTO 125 /HPF (0-3)
== END ==
LOC: M LAB REF 10:21
PROVIDERS: ATTEND Emergency Medicine
DX: R50.9 Fever, unspecified (principal)

== ENCOUNTER → 2020-06-13 | Outpatient (REF) | payer MEDICARE, BC, OTHER | LOC: M SFHCWAGY 12:57 | PROVIDERS: ATTEND Nurse Practitioner Family | DX: N95.9 Unspecified menopausal and perimenopausal disorder (principal) ==

== ENCOUNTER → 2020-06-15 | Outpatient (REF) | payer MEDICARE, BC, OTHER | LOC: M SFHCWAGY 13:28 | PROVIDERS: ATTEND Nurse Practitioner Family | DX: N30.00 Acute cystitis without hematuria (principal) ==

== ENCOUNTER → 2020-07-05 | Outpatient (REF) | payer MEDICARE, BC, OTHER | LOC: M SFHCWAGY 17:02 | PROVIDERS: ATTEND Nurse Practitioner Women's Health | DX: R30.0 Dysuria (principal) | CPT/HCPCS: 87088; 87186; G0463 ==

== ENCOUNTER → 2020-08-08 | Outpatient (REF) | payer MEDICARE, BC, OTHER ==
[2020-08-08 14:23] LABS: APPEARANCE, URINE MANUAL TURBID (CLEAR); COLOR, URINE MANUAL BROWN (YELLOW); PROTEIN, URINE MANUAL 2+ mg/dL (NEGATIVE)
[2020-08-08 14:24] LABS: BILIRUBIN, URINE MANUAL NEGATIVE (NEGATIVE); BLOOD URINE MANUAL POSITIVE (NEGATIVE); GLUCOSE, URINE (UA) MANUAL NEGATIVE (NEGATIVE); KETONE, URINE MANUAL NEGATIVE (NEGATIVE); LEUKOCYTE ESTERASE, URINE MAN POSITIVE (NEGATIVE); NITRITE, URINE MANUAL NEGATIVE (NEGATIVE); UROBILINOGEN, URINE MANUAL 1 MG mg/dl (NORMAL)
[2020-08-08 14:29] LABS: BACTERIA, URINE LARGE AMOUNT; TRIPLE PHOSPHATE CRYSTAL,URINE MOD AMOUNT /hpf
[2020-08-08 14:33] LABS: RBC, URINE 20-30 /hpf (0-3); WBC, URINE 30-40 /hpf (0-3)
[2020-08-08 14:35] LABS: HYALINE CAST, URINE NONE SEEN /lpf (0-1); SQUAMOUS EPITHELIAL CELL URINE SMALL AMOUNT /hpf (SMALL AMT)
== END ==
LOC: M SFHCWAGY 13:22
PROVIDERS: ATTEND Nurse Practitioner Family
DX: N30.01 Acute cystitis with hematuria (principal)

== ENCOUNTER → 2020-08-19 | Outpatient (REF) | payer MEDICARE, BC, OTHER | LOC: M SFHCWAGY 13:47 | PROVIDERS: ATTEND Nurse Practitioner Family | DX: N39.0 Urinary tract infection, site not specified (principal) | CPT/HCPCS: 87088; 87186; 88108; G0463 ==

== ENCOUNTER → 2020-08-25 | Outpatient (REF) | payer MEDICARE, BC, OTHER ==
[2020-08-25 16:00] LABS: BLOOD UREA NITROGEN 10 MG/DL (7-18); CALCIUM LEVEL 8.7 MG/DL (8.8-10.2); CARBON DIOXIDE LEVEL 25 MEQ/L (21-32); CHLORIDE LEVEL 101 MEQ/L (98-107); CREATININE FOR GFR 0.95 MG/DL (0.55-1.30); GLOMERULAR FILTRATION RATE > 60.0 (>32); GLUCOSE, FASTING 99 MG/DL (70-100); POTASSIUM SERUM 4.5 MEQ/L (3.5-5.1); SODIUM LEVEL 133 MEQ/L (136-145)
== END ==
LOC: M LABSMT 13:52
PROVIDERS: ATTEND Nurse Practitioner Women's Health
DX: R31.0 Gross hematuria (principal)
CPT/HCPCS: 51798; 80048; G0463

== ENCOUNTER → 2020-09-01 | Outpatient (CLI) | payer MEDICARE, BC, OTHER ==
[~2020-09-01] MED LIST changes: +ISOVUE-370 76% 100ML VIAL As Ordered ONE
--- NOTE | 2020-09-01 15:59 | REP ---
INDICATION: GROSS HEMATURIA. Abdomen and pelvis CT without and with IV contrast, without bowel contrast COMPARISON: Abdomen pelvis CT dated 07/29/2016. TECHNIQUE: The study is initially performed without IV contrast. After IV contrast immediate and delayed scans are performed during the renal cortical enhancement phase later during the renal excretion phase. FINDINGS: The visualized lung lopez are unremarkable. The hepatic parenchyma is unremarkable except for a small 1 cm hypodense lesion in the left lobe of the liver unchanged in size and demonstrating slight enhancement on the late phase, likely a small hemangioma. The pancreas is unremarkable. There is 2 small splenic cysts. There is a single splenic cyst previously. The spleen is otherwise unremarkable. The adrenals are unremarkable. There are no renal or ureteral calculi. There is no hydronephrosis. No bladder calculi. There are no solid or cystic renal masses. Abdominal aorta is unremarkable except for calcified atheroma. There is no periaortic adenopathy or mass. The bowel mesentery are unremarkable except for numerous descending colon and sigmoid colon diverticula without CT evidence of diverticulitis. This is unchanged. Pelvis: The appendix is unremarkable. There is a right hip arthroplasty as an interval change. Uterus and adnexa are unremarkable. No bladder masses or calculi are identified. However, there is a small 1.7 cm bladder diverticulum inferior posterolaterally on the left containing an air-fluid level. There is also a large air-fluid level anteriorly in the bladder. The air within the bladder is problematic and could be from recent catheterization a could represent a bladder- colon diverticulum fistula. There is no pelvic free fluid or adenopathy. IMPRESSION: There is a small bladder diverticulum inferiorly posterolaterally on the left containing an air-fluid level. There is also a large air-fluid level anteriorly in the bladder. The air within the bladder could be from recent catheterization or could represent bladder fistulization with colonic diverticula. No bladder masses are identified. There is a small stable hypodense lesion in the hepatic left lobe likely a small hemangioma. There are 2 small splenic cysts. There are no renal calculi. There are no renal masses. There is no hydronephrosis. There are no renal cysts. Left hip arthroplasty. <Electronically signed by Guanakito Mercado > 09/01/20 [id number]
== END ==
LOC: M RAD 14:33
PROVIDERS: ATTEND Nurse Practitioner Women's Health
DX: R31.0 Gross hematuria (principal); D37.6 Neoplasm of uncertain behavior of liver, gallbladder and bile ducts; Z96.642 Presence of left artificial hip joint
CPT/HCPCS: 74178; Q9967

== ENCOUNTER 2020-10-29 15:32 | Inpatient (IN) | payer MEDICARE, BC, OTHER ==
[~2020-10-29] VITALS: Ht 175.3 cm; Wt 70.2 kg
[~2020-10-29 15:32] MED LIST changes: -ISOVUE-370 76% 100ML VIAL As Ordered ONE; -TRAV04OPD OD; +TRAV04OPD OU
--- OUTSIDE RECORDS SUMMARY | 2020-10-29 15:42 | CCD ---
Author Author [facility] Organization [facility] Address Unknown Phone Unavailable Care Team Providers Care Aquatic Centre Manager Name Role Phone Pal Babb Unavailable PROBLEMS Type Condition ICD9-CM Code [id number] Code Onset Dates Condition S tatus SNOMED Code Notes Problem Cystocele N81.10 Active 721073518 Problem Prolapsed uterus N81.4 Active 55515022 Problem Vaginal pessary in situ Z92.89 Active 47042318 46672 Problem Abnormal mammogram of right breast R92.8 Activ e 520023539 Problem Pessary maintenance Z46.89 Active 234078324 Problem Melanocytic nevi of left upper limb, including shoulder D22.62 Active 386401310 Problem Melanocytic nevi of right upper limb, including shoulder D22.61 Active 553360144 Problem Melanocytic nevi of trunk D22.5 Active 505347 002 Problem Hematuria due to cystitis N30.91 Active 765250 298900361 Problem Seborrheic keratoses L82.1 Active 635634947 Problem Other microscopic hematuria R31.29 Active 1979 36739 Problem Actinic keratoses L57.0 Active 364094734 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 3954207 Problem History of nonmelanoma skin cancer Z85.828 Activ e 529590356 Problem Bladder spasms N32.89 Active 754528340 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 Active 06961142 ALLERGIES Allergen (clinical drug ingredient) Drug/Non Drug Allergy do cumented on EMR Reaction Allergy Type Onset Date Status codeine Codeine Sulfate([facility] Code:[address]-52) Nausea/Vomiting Dr jazmin Allergy Active ENCOUNTERS from 1940 to 2020-09-24 Encounter Location Date Provider Diagnosis [facility] Urology [address] [place] [address] Sep Pal Babb IMMUNIZATIONS No Information SOCIAL HISTORY Sex Assigned At : Social History Observation Description Sex Assigned At Unknown Language: Question Answer Notes Languages spoken: Bengali Alevism: Question Answer Notes Alevism 08 Oriental Orthodox Alcohol Screening: Question Answer Notes Did you have a drink containing alcohol in the past year? No Points 0 Interpretation Negative BMI Care Goal Follow-Up Question Answer Notes Above Normal BMI Follow-Up Giving encouragement to exercise REASON FOR REFERRAL No Information VITAL SIGNS No information MEDICATIONS Medication SIG (Take, Route, Frequency, Duration) Notes Start Da te End Date Status Vitamin B1 100 MG 1 tablet with a meal Orally Once a day Active AREDS OTC twice daily Active Probiotic - 1 capsule Orally once daily Active Pyridium 200 MG 1 tablet after meals Orally Three times a day fo r 2 day(s) Aug, Active Vitamin D 400 UNIT 2 capsules Orally Once a day Active Atorvastatin Calcium 10 MG 1 tablet Orally Once a day Active Folic Acid 400 MCG 1 tablet Orally Once a day Active Fluticasone Propionate 50 MCG/ACT 1 spray in each nost ril Nasally Once a day for 30 day(s) Active Synthroid 50 MCG 1 tablet every morning on an empty stomach Orally Once a day for 30 day(s) Active Doxycycline Hyclate 100 MG 1 capsule Orally Once a day for 10 day(s) Not-Taking Levetiracetam 250 MG 1 tablet Orally every 12 hrs Active Triamterene-HCTZ 37.5-25 MG 1 capsule in the morning O rally Once a day for 30 day(s) Active Nitrofurantoin Macrocrystal 100 MG 1 capsule at bedtim e with food or milk Orally twice daily for 7 day(s) Jun, Not-Sohan ing Minocycline HCl 50 MG 1 capsule Orally Daily for 30 Days 0 Sep, Active Fish Oil 1200 MG 1 capsule p.o. Once a day for 30 day(s) Active Lalita Aspirin EC Low Dose 81 MG 1 tablet p.o. Once a day for 30 day(s ) Not-Taking Travatan 0.004 % 1 drop into affected eye in the evening Ophthalmic Active Bactrim DS 800-160 MG 1 tablet Orally Twice a day for 10 day(s) Active Cipro 500 MG 1 tablet Orally every 12 hrs for 7 day(s) Jul, Not-Taking Ampicillin 500 MG 1 capsule 1 hour before or 2 hours after a meal Orally every 6 hrs for 5 day(s) Jun, Not-Taking Dulcolax 100 MG 1 capsule as needed Orally Once a day Not-Taking Centrum Silver Adult 50+ otc 1 tab(s) p.o. once a day Active Timolol Maleate 0.25 % 1 drop into affected eye Ophthalmic Once a day Active Simvastatin 20 20mg 1 tab(s) p.o. once a day Not-Taking Bactrim DS 800-160 MG 1 tablet Orally _1 hour prior to cystoscop y 10 Aug, 2020 Active Calcium 8890-3964 MG-UNIT 1 tab(s) p.o. once a day Active Albuterol Sulfate HFA 108 (90 Base) MCG/ACT 2 puffs as needed Inhalation every 6 hrs Not-Taking Trimo-Griggs 0.025 % 1/2 tube Vaginal twice a week for 90 days Apr, Not-Taking Macrobid 100 MG as directed Orally twice a day for 7 days Jul, Not-Taking Monurol 3 GM as directed Orally once for 1 days Aug, 20 Not-Taking PROCEDURES No Information RESULTS No Results REASON FOR VISIT referral MEDICAL (GENERAL) HISTORY Type Description Date Medical History Hypertension Medical History Hypothyroidism Medical History hyperlipidemia Medical History uterine prolapse w/pessary (gellhorn #2. 5) Medical History diverticulosis Medical History postmenopause Medical History prolapsed uterus and bladder utilizing a gelhorn pessary Medical History UTI Medical History FX femur right 2017 Surgical History Rt breast nodule removed (benign) Surgical History Right femur fx ORIF 05/19/17 Surgical History colonoscopy 11/2016 Surgical History cystoscopy 09/21/2020 Goals Section No Information Health Concerns No Information MEDICAL EQUIPMENT No Information MENTAL STATUS No Information FUNCTIONAL STATUS No Information ASSESSMENTS No Information PLAN OF TREATMENT Medication Medication Name Sig Start Date Stop Date Minocycline HCl 50 MG 1 capsule Orally Daily for 30 Days Sep, Insurance Providers Payer Name Payer Address Payer Phone Insured Name Patient Relati onship to Insured Coverage Start Date Coverage End Date FOR LIFE [address] [facility] [address] DAYANARA NAVARRO [facility] [phone] [facility] [phone] DAYANARA GONZALES [facility] MEDICARE Part A and B [address] [facility] [address] [phone] DAYANARA GONZALES self
--- OUTSIDE RECORDS SUMMARY | 2020-10-29 15:42 | CCD ---
Author Author [facility] Organization [facility] Address Unknown Phone Unavailable Care Team Providers Care Customer Marketing Intern Name Role Phone Loren Pat Unavailable PROBLEMS Type Condition ICD9-CM Code ZYM29-RR Code Onset Dates Condition S tatus W/U Status Risk SNOMED Code Notes Problem Cystocele N81.10 Active confirmed 430621690 Problem Prolapsed uterus N81.4 Active confirmed 249 69203 Problem Vaginal pessary in situ Z92.89 Active confirmed 1535090754281 Problem Abnormal mammogram of right breast R92.8 Activ e confirmed 769335835 Problem Pessary maintenance Z46.89 Active confirmed 358997845 Problem Melanocytic nevi of left upper limb, including shoulder D22.62 Active confirmed 962187772 Problem Melanocytic nevi of right upper limb, including shoulder D22.61 Active confirmed 711154702 Problem Melanocytic nevi of trunk D22.5 Active confirmed 050023262 Problem Hematuria due to cystitis N30.91 Active confirmed 208565103477197 Problem Seborrheic keratoses L82.1 Active confirmed 181133763 Problem Other microscopic hematuria R31.29 Active confirmed 255713095 Problem Actinic keratoses L57.0 Active confirmed 40 5858332 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 confirmed 02056 01 Problem History of nonmelanoma skin cancer Z85.828 Activ e confirmed 822358115 Problem Bladder spasms N32.89 Active confirmed 58192 7006 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 Active confirmed 54684905 ALLERGIES Allergen (clinical drug ingredient) Drug/Non Drug Allergy do cumented on EMR Reaction Allergy Type Onset Date Status codeine Codeine Sulfate([facility] Code:[address]-03) Nausea/Vomiting Dr wu Allergy Active ENCOUNTERS from 1940 to 2020-10-25 Encounter Location Date Provider Diagnosis [facility] Urology [address] [place] [address] Oct Loren Recoangelica IMMUNIZATIONS No Information SOCIAL HISTORY Sex Assigned At : Social History Observation Description Sex Assigned At Unknown Language: Question Answer Notes Languages spoken: Bulgarian Anabaptism: Question Answer Notes Anabaptism 08 Jainism Alcohol Screening: Question Answer Notes Did you [...] a meal Orally Once a day Active Dulcolax 100 MG 1 capsule as needed Orally Once a day Not-Taking Centrum Silver Adult 50+ otc 1 tab(s) p.o. once a day Active Probiotic - 1 capsule Orally once daily Active Travatan 0.004 % 1 drop into affected eye in the evening Ophthalmic Active Triamterene-HCTZ 37.5-25 MG 1 capsule in the morning O rally Once a day for 30 day(s) Active Vitamin D 400 UNIT 2 capsules Orally Once a day Active AREDS OTC twice daily Active Folic Acid 400 MCG 1 tablet Orally Once a day Active Pyridium 200 MG 1 tablet after meals Orally Three times a day fo r 2 day(s) Aug, Active Atorvastatin Calcium 10 MG 1 tablet Orally Once a day Active Pyridium 100 MG 1 tablet after meals Orally Three times a day as needed for pain for 7 day(s) Oct, Active Fluticasone Propionate 50 MCG/ACT 1 spray in each nost ril Nasally Once a day for 30 day(s) Active Levetiracetam 250 MG 1 tablet Orally every 12 hrs Active Nitrofurantoin Macrocrystal 100 MG 1 capsule at bedtim e with food or milk Orally twice daily for 7 day(s) Jun, Not-Sohan ing Minocycline HCl 50 MG 1 capsule Orally Daily for 30 Days 0 6 Sep, 2020 Active Fish Oil 1200 MG 1 capsule p.o. Once a day for 30 day(s) Active Lalita Aspirin EC Low Dose 81 MG 1 tablet p.o. Once a day for 30 day(s ) Not-Taking Ampicillin 500 MG 1 capsule 1 hour before or 2 hours after a meal Orally every 6 hrs for 5 day(s) Jun, Not-Taking Bactrim DS 800-160 MG 1 tablet Orally Twice a day for 10 day(s) Active Cipro 500 MG 1 tablet Orally every 12 hrs for 7 day(s) Jul, Not-Taking Doxycycline Hyclate 100 MG 1 capsule Orally Once a day for 10 day(s) Not-Taking Bactrim DS 800-160 MG 1 tablet Orally Twice a day for 7 day(s) Oct, Active Synthroid 50 MCG 1 tablet every morning on an empty stomach Orally Once a day for 30 day(s) Active Timolol Maleate 0.25 % 1 drop into affected eye Ophthalmic Once a day Active Simvastatin 20 20mg 1 tab(s) p.o. once a day Not-Taking Bactrim DS 800-160 MG 1 tablet Orally _1 hour prior to cystoscop y 10 Aug, 2020 Active Calcium 4128-6147 MG-UNIT 1 tab(s) p.o. once a day [...] Information RESULTS No Results REASON FOR VISIT c/o's MEDICAL (GENERAL) HISTORY Type Description Date Medical History Hypertension Medical History Hypothyroidism Medical History hyperlipidemia Medical History uterine prolapse w/pessary (gellhorn #2. 5) Medical History diverticulosis Medical History postmenopause Medical History prolapsed uterus and bladder utilizing a gelhorn pessary Medical History UTI Medical History FX femur right 2016 Surgical History Rt breast nodule removed (benign) Surgical History Right femur fx ORIF 05/19/17 Surgical History colonoscopy 11/2016 Surgical History cystoscopy 09/21/2020 Goals Section No Information Health Concerns No Information MEDICAL EQUIPMENT No Information MENTAL STATUS No Information FUNCTIONAL STATUS No Information ASSESSMENTS No Information PLAN OF TREATMENT Medication Medication Name Sig Start Date Stop Date Pyridium 100 MG 1 tablet after meals Orally Three times a day as needed for pain for 7 day(s) Oct, Minocycline HCl 50 MG 1 capsule Orally Daily for 30 Days Sep, Bactrim DS 800-160 MG 1 tablet Orally Twice a day for 7 day(s) 0 Oct, Next Appt Details Provider Name:Corinne Mims, 01:30:00 PM, [address], [place], [address], Insurance Providers Payer Name Payer Address Payer Phone Insured Name Patient Relati onship to Insured Coverage Start Date Coverage End Date MEDICARE Part A and B [address] [facility] [phone] DAYANARA GONZALES [facility] [address] [facility] [phone] DAYANARA GONZALES FOR LIFE [address] [facility] [phone] DAYANARA NAVARRO
--- OUTSIDE RECORDS SUMMARY | 2020-10-29 15:42 | CCD ---
Author Author [facility] Organization [facility] Address Unknown Phone Unavailable Care Team Providers Care Management Intern Name Role Phone Corinne Mims Unavailable PROBLEMS Type Condition ICD9-CM Code TRU68-QH Code Onset Dates Condition S tatus W/U Status Risk SNOMED Code Notes Problem Cystocele N81.10 Active confirmed 267987898 Problem Prolapsed uterus N81.4 Active confirmed 249 16254 Problem Vaginal pessary in situ Z92.89 Active confirmed 9084252269549 Problem Abnormal mammogram of right breast R92.8 Activ e confirmed 091825034 Problem Pessary maintenance Z46.89 Active confirmed 542402637 Problem Melanocytic nevi of left upper limb, including shoulder D22.62 Active confirmed 580755229 Problem Melanocytic nevi of right upper limb, including shoulder D22.61 Active confirmed 600572739 Problem Melanocytic nevi of trunk D22.5 Active confirmed 423652486 Problem Hematuria due to cystitis N30.91 Active confirmed 083879231708671 Problem Seborrheic keratoses L82.1 Active confirmed 052768239 Problem Other microscopic hematuria R31.29 Active confirmed 576969064 Problem Actinic keratoses L57.0 Active confirmed 40 8869467 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 confirmed 35069 01 Problem History of nonmelanoma skin cancer Z85.828 Activ e confirmed 210449768 Problem Bladder spasms N32.89 Active confirmed 68058 7006 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 Active confirmed 72516828 ALLERGIES Allergen (clinical drug ingredient) Drug/Non Drug Allergy do cumented on EMR Reaction Allergy Type Onset Date Status codeine Codeine Sulfate([facility] Code:[address]-95) Nausea/Vomiting Dr wu Allergy Active ENCOUNTERS from 1940 to 2020-10-24 Encounter Location Date Provider Diagnosis [facility] Urology [address] [place] [address] Oct Corinne Mims IMMUNIZATIONS No Information SOCIAL HISTORY Sex Assigned At : Social History Observation Description Sex Assigned At Unknown Language: Question Answer Notes Languages spoken: Maori Hinduism: Question Answer Notes Hinduism 08 Samaritan Alcohol Screening: Question Answer Notes Did you [...] cystoscop y 10 Aug, 2020 Active Calcium 8362-6261 MG-UNIT 1 tab(s) p.o. once a day [...] Information RESULTS No Results REASON FOR VISIT Pain with urination MEDICAL (GENERAL) HISTORY Type Description Date Medical [...] Appt Details Provider Name:Corinne Mims, 01:30:00 PM, [address], [place], [address], Insurance Providers Payer Name Payer Address Payer Phone Insured Name Patient Relati onship to Insured Coverage Start Date Coverage End Date MEDICARE Part A and B [address] [facility] [phone] DAYANARA GONZALES [facility] [address] [facility] [phone] DAYANARA GONZALES FOR LIFE [address] [facility] [phone] DAYANARA NAVARRO
--- OUTSIDE RECORDS SUMMARY | 2020-10-29 15:42 | CCD | Continuity of Care Document ---
Author Fabiola Perez M.D. Organization Unknown Address [address] [place] [address] Phone [phone] Care Team Providers Care Cake Batter Mixer Name Role Phone Jatin Moore AUTM [phone] Problems Active Problems Provider Date Seizure Andrew Torres M.D. Onset: 03/24/2020 Transient cerebral ischemia Andrew Torres M.D. Onset: 05/2020 Intracranial meningioma Andrew Torres M.D. Onset: 020 Dementia Andrew Torres M.D. Onset: 03/24/2020 Social History Type Date Description Comments Sex Unknown Tobacco Use Start: Unknown End: Unknown Patient is a former smoker Allergies, Adverse Reactions, Alerts Description No Known Drug Allergies Medications Active Medications SIG Qnty Indications Ordering Provide r Date Levetiracetam 500mg Tablets Take 1 by mouth twice a day for 2 weeks, then 500mg once a day for one week then stop. 21naga Torres M.D. 05/16/2020 Aspirin Adult 325mg Tablets patient takes once a day 90taedy Torres M.D. 03/24/2020 Immunizations Description No Information Available Vital Signs Date Vital Result Comment 09/22/2020 11:16am Respiratory Rate 12 /min Height 69 inches 5'9" Weight 149.00 lb BMI (Body Mass Index) 22.0 kg/m2 [place] Body Weight 145 lb 06/06/2020 1:29pm Respiratory Rate 12 /min Height 69 inches 5'9" Weight 154.00 lb BMI (Body Mass Index) 22.7 kg/m2 [place] Body Weight 145 lb Results Description No Information Available Procedures Date Code Description Status 06/21/2020 39978 MRI Brain W/O Contrast, Followed By Contrast Completed 06/21/2020 54856 MRI Brain W/O Contrast, Followed By Contrast Completed 05/25/2020 47524 Sympathetic Skin Responses Compl eted 05/25/2020 74973 Sympathetic Skin Responses Compl eted 05/25/2020 61961 Test Autonomic Nervous System, C ardiovagal Innervation Completed 05/25/2020 18229 Test Autonomic Nervous System, C ardiovagal Innervation Completed 04/13/2020 28390 EEG Recording Awake & Asleep Com pleted 04/13/2020 59849 EEG Recording Awake & Asleep Com pleted Medical Devices Description No Information Available Encounters Type Date Location Provider Dx Diagnosis Office Visit 09/22/2020 11:00a Main office - Toveyjalyn ahmadi M.D. G45.9 Transient cerebral ischemic attack, unsp ecified G40.309 Gen idiopathic epilepsy, not intractable, w/o stat epi Office Visit 06/06/2020 1:15p Main office - Toveyjalyn ahmadi M.D. G45.9 Transient cerebral ischemic attack, unsp ecified Assessments Date Code Description Provider 09/22/2020 G45.9 Transient cerebral ischemic alba ck, unspecified Andrew Torres M.D. 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 06/21/2020 D32.0 Benign neoplasm of cerebral meni nges Ruth Li M.D. 06/21/2020 D32.0 Benign neoplasm of cerebral meni nges MRI 06/21/2020 G45.9 Transient cerebral ischemic alba ck, unspecified Ruth Li M.D. 06/21/2020 G45.9 Transient cerebral ischemic alba ck, unspecified MRI 06/06/2020 G45.9 Transient cerebral ischemic alba ck, unspecified Andrew Torres M.D. 05/25/2020 R55 Syncope and collapse Andrew hernandez M.D. 05/25/2020 R55 Syncope and collapse Ans/VS 04/13/2020 G40.89 Other seizures Link Barker 04/13/2020 G40.89 Other seizures EEG Plan of Treatment No Information Available Functional Status Description No Information Available Mental Status Description No Information Available Referrals Description No Information Available
--- OUTSIDE RECORDS SUMMARY | 2020-10-29 15:42 | CCD ---
Author Author [facility] Organization [facility] Address Unknown Phone Unavailable Care Team Providers Care Dive Supervisor Name Role Phone Pal Babb Unavailable PROBLEMS Type Condition ICD9-CM Code ROF52-PV Code Onset Dates Condition S tatus SNOMED Code Notes Problem Cystocele N81.10 Active 008913603 Problem Prolapsed uterus N81.4 Active 72779255 Problem Vaginal pessary in situ Z92.89 Active 06146165 38024 Problem Abnormal mammogram of right breast R92.8 Activ e 040084928 Problem Pessary maintenance Z46.89 Active 600810017 Problem Melanocytic nevi of left upper limb, including shoulder D22.62 Active 611175174 Problem Melanocytic nevi of right upper limb, including shoulder D22.61 Active 045602690 Problem Melanocytic nevi of trunk D22.5 Active 374591 002 Problem Hematuria due to cystitis N30.91 Active 075613 172693962 Problem Seborrheic keratoses L82.1 Active 462859276 Problem Other microscopic hematuria R31.29 Active 1979 21790 Problem Actinic keratoses L57.0 Active 821912409 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 4183569 Problem History of nonmelanoma skin cancer Z85.828 Activ e 588475914 Problem Bladder spasms N32.89 Active 519146957 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 Active 44063659 ALLERGIES Allergen (clinical drug ingredient) Drug/Non Drug Allergy do cumented on EMR Reaction Allergy Type Onset Date Status codeine Codeine Sulfate([facility] Code:[address]-65) Nausea/Vomiting Dr jazmin Allergy Active ENCOUNTERS from 1940 to 2020-10-12 Encounter Location Date Provider Diagnosis [facility] Urology [address] [place] [address] Sep Pal Babb Other microscopic hematuria R31.29 ; Hem aturia due to cystitis N30.91 and 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 IMMUNIZATIONS No Information SOCIAL HISTORY Sex Assigned At : Social History Observation Description Sex Assigned At Unknown Language: Question Answer Notes Languages spoken: Tongan Confucianism: Question Answer Notes Confucianism 08 Advent Alcohol Screening: Question Answer Notes Did you have a drink containing alcohol in the past year? No Points 0 Interpretation Negative BMI Care Goal Follow-Up Question Answer Notes Above Normal BMI Follow-Up Giving encouragement to exercise REASON FOR REFERRAL No Information VITAL SIGNS Weight 146 lbs Sep, Height 67.5 in Sep, BMI 22.53 kg/m2 Sep, Heart Rate 85 /min Sep, Respiratory Rate 18 /min Sep, Temperature 98.5 degrees Fahrenheit Sep, Oximetry 94 Sep, Blood pressure systolic 122 mm Hg Sep, Blood pressure diastolic 68 mm Hg Sep, MEDICATIONS Medication SIG (Take, Route, Frequency, Duration) [...] cystoscop y 10 Aug, 2020 Active Calcium 1317-9486 MG-UNIT 1 tab(s) p.o. once a day [...] Information RESULTS No Results REASON FOR VISIT gross hematuria MEDICAL (GENERAL) HISTORY Type Description Date Medical [...] No Information FUNCTIONAL STATUS No Information ASSESSMENTS Encounter Date Diagnosis Assessment Notes Treatment Notes Treatm ent Clinical Notes Sep, Other microscopic hematuria (ICD-10 - R31.29) Cysto and CT findings are consistent with a colovesical fistula. I will refer to General Surgery for further evaluation and probable surgery. I will also start prophylactic antibiotics until then. Sep, Hematuria due to cystitis (ICD-10 - N30.91) Sep, Colovesical fistula (ICD-10 - N32.1) PLAN OF TREATMENT Medication Medication Name Sig Start Date Stop Date Minocycline HCl 50 MG 1 capsule Orally Daily for 30 Days Sep, Treatment Notes Assessment Notes Clinical Notes Other microscopic hematuria Cysto and CT findings are consistent with a colovesical fistula. I will refer to General Surgery for further evaluation and probable surgery. I will also start prophylactic antibiotics until then. Future Test Test Name Order Date Medication: Cipro Tab 500mg Orally (Ciprofloxacin) 202 47199 uro CYSTOSCOPY [id number] Medication: Lidocaine HCl 2% Jelly 5mL Intravesically [id number] Insurance Providers Payer Name Payer Address Payer Phone Insured Name Patient Relati onship to Insured Coverage Start Date Coverage End Date MEDICARE Part A and B [address] [facility] [place] [phone] DAYANARA GONZALES [facility] [phone] [place] [address] DAYANARA GONZALES FOR LIFE [address] [facility] [address] DAYANARA NAVARRO
--- OUTSIDE RECORDS SUMMARY | 2020-10-29 15:42 | CCD ---
Author Author [facility] Organization [facility] Address Unknown Phone Unavailable Care Team Providers Care Chair And Couch Maker Name Role Phone Bi Loren Unavailable PROBLEMS Type Condition ICD9-CM Code IAT71-KN Code Onset Dates Condition S tatus SNOMED Code Notes Problem Vaginal pessary in situ Z92.89 Active 97918979 20427 Problem Cystocele N81.10 Active 095168345 Problem Abnormal mammogram of right breast R92.8 Activ e 739367036 Problem Actinic keratoses L57.0 Active 070579663 Problem Seborrheic keratoses L82.1 Active 370956242 Problem History of nonmelanoma skin cancer Z85.828 Activ e 259418282 Problem Pessary maintenance Z46.89 Active 566365140 Problem Bladder spasms N32.89 Active 259394261 Problem Prolapsed uterus N81.4 Active 85800977 Problem Melanocytic nevi of left upper limb, including shoulder D22.62 Active 595635280 Problem Melanocytic nevi of right upper limb, including shoulder D22.61 Active 377965546 Problem Melanocytic nevi of trunk D22.5 Active 761580 002 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 8961358 ALLERGIES Allergen (clinical drug ingredient) Drug/Non Drug Allergy do cumented on EMR Reaction Allergy Type Onset Date Status codeine Codeine Sulfate([facility] Code:[address]-37) Nausea/Vomiting Dr wu Allergy Active ENCOUNTERS from 1940 to 2020-09-02 Encounter Location Date Provider Diagnosis [facility] Urology [address] [place] [address] Aug Loren Pat IMMUNIZATIONS No Information SOCIAL HISTORY Sex Assigned At : Social History Observation Description Sex Assigned At Unknown Language: Question Answer Notes Languages spoken: Liberian Caodaism: Question Answer Notes Caodaism 08 Caodaism Alcohol Screening: Question Answer Notes Did you have a drink containing alcohol in the past year? No Points 0 Interpretation Negative BMI Care Goal Follow-Up Question Answer Notes Above Normal BMI Follow-Up Giving encouragement to exercise REASON FOR REFERRAL No Information VITAL SIGNS No information MEDICATIONS Medication SIG (Take, Route, Frequency, Duration) Notes Start Da te End Date Status Triamterene-HCTZ 37.5-25 MG 1 capsule in the morning O rally Once a day for 30 day(s) Active Folic Acid 400 MCG 1 tablet Orally Once a day Active Synthroid 50 MCG 1 tablet every morning on an empty stomach Orally Once a day for 30 day(s) Active Simvastatin 20 20mg 1 tab(s) p.o. once a day Not-Taking Centrum Silver Adult 50+ otc 1 tab(s) p.o. once a day Active Ampicillin 500 MG 1 capsule 1 hour before or 2 hours after a meal Orally every 6 hrs for 5 day(s) Jun, Not-Taking Atorvastatin Calcium 10 MG 1 tablet Orally Once a day Active Doxycycline Hyclate 100 MG 1 capsule Orally Once a day for 10 day(s) Not-Taking Dulcolax 100 MG 1 capsule as needed Orally Once a day Not-Taking Nitrofurantoin Macrocrystal 100 MG 1 capsule at bedtim e with food or milk Orally twice daily for 7 day(s) Jun, Not-Sohan ing Vitamin D 400 UNIT 2 capsules Orally Once a day Active AREDS OTC twice daily Active Monurol 3 GM as directed Orally once for 1 days Aug, Not-Taking Fish Oil 1200 MG 1 capsule p.o. Once a day for 30 day(s) Active Probiotic - 1 capsule Orally once daily Active Bactrim DS 800-160 MG 1 tablet Orally Twice a day for 10 day(s) Active Vitamin B1 100 MG 1 tablet with a meal Orally Once a day Active Calcium 5833-6807 MG-UNIT 1 tab(s) p.o. once a day Active Bactrim DS 800-160 MG 1 tablet Orally _1 hour prior to cystoscop y Aug, Active Cipro 500 MG 1 tablet Orally every 12 hrs for 7 day(s) Jul, Not-Taking Lalita Aspirin EC Low Dose 81 MG 1 tablet p.o. Once a day for 30 day(s ) Not-Taking Levetiracetam 250 MG 1 tablet Orally every 12 hrs Active Fluticasone Propionate 50 MCG/ACT 1 spray in each nost ril Nasally Once a day for 30 day(s) Active Pyridium 200 MG 1 tablet after meals Orally Three times a day fo r 2 day(s) Aug, Active Trimo-Griggs 0.025 % 1/2 tube Vaginal twice a week for 90 days Apr, Not-Taking Travatan 0.004 % 1 drop into affected eye in the evening Ophthalmic Active Albuterol Sulfate HFA 108 (90 Base) MCG/ACT 2 puffs as needed Inhalation every 6 hrs Not-Taking Macrobid 100 MG as directed Orally twice a day for 7 days Jul, Not-Taking Timolol Maleate 0.25 % 1 drop into affected eye Ophthalmic Once a day Active PROCEDURES No Information RESULTS No Results REASON FOR VISIT CT scan results MEDICAL (GENERAL) HISTORY Type Description Date Medical [...] fx ORIF 05/19/17 Surgical History colonoscopy 11/2016 Goals Section No Information Health Concerns No Information MEDICAL EQUIPMENT No Information MENTAL STATUS No Information FUNCTIONAL STATUS No Information ASSESSMENTS No Information PLAN OF TREATMENT Medication Medication Name Sig Start Date Stop Date Bactrim DS 800-160 MG 1 tablet Orally Twice a day for 10 day(s) Bactrim DS 800-160 MG 1 tablet Orally _1 hour prior to cystoscop y 10 Aug, 2020 Next Appt Details Provider Name:Pal Estrada Skinny, 2020-09 09:00:00 AM, [address], [place], [address], Insurance Providers Payer Name Payer Address Payer Phone Insured Name Patient Relati onship to Insured Coverage Start Date Coverage End Date MEDICARE Part A and B [address] [facility] [phone] DAYANARA GONZALES [facility] [address] [facility] [address] DAYANARA GONZALES [facility] FOR LIFE [address] [facility] [address] DAYANARA NAVARRO
[2020-10-29] MEDS ORDERED: SULF1TAB93 PO (15:43)
[2020-10-29] MEDS ORDERED: ATOR40TA75 PO (15:43)
[2020-10-29] MEDS ORDERED: MINO50CA3 (15:43)
--- OUTSIDE RECORDS SUMMARY | 2020-10-29 15:43 | CCD ---
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 3250851 Problem Prolapsed uterus N81.4 Active 86513149 Problem History of nonmelanoma skin cancer Z85.828 Activ e 992468683 Problem Vaginal pessary in situ Z92.89 Active 88937294 39093 Problem Seborrheic keratoses L82.1 Active 392345954 Problem Melanocytic nevi of left upper limb, including shoulder D22.62 Active 022129954 Problem Melanocytic nevi of right upper limb, including shoulder D22.61 Active 381688579 Problem Melanocytic nevi of trunk D22.5 Active 052582 002 ALLERGIES Allergen (clinical drug ingredient) Drug/Non Drug Allergy do cumented on EMR Reaction Allergy Type Onset Date Status codeine Codeine Sulfate([facility] Code:[address]-48) Nausea/Vomiting Dr wu Allergy Active ENCOUNTERS from 1939 to 2020-08-17 Encounter Location Date Provider Diagnosis [facility] [address] [place] [address] Aug, Rica Burgos IMMUNIZATIONS No Information SOCIAL HISTORY Sex Assigned At : Social History Observation Description Sex Assigned At Unknown Language: Question Answer Notes Languages spoken: Occitan Holiness: Question Answer Notes Holiness 08 Latter Day Alcohol Screening: Question Answer Notes Did you have a drink containing alcohol in the past year? No Points 0 Interpretation Negative BMI Care Goal Follow-Up Question Answer Notes Above Normal BMI Follow-Up Giving encouragement to exercise REASON FOR REFERRAL No Information VITAL SIGNS No information MEDICATIONS Medication SIG (Take, Route, Frequency, Duration) Notes Start Da te End Date Status Levetiracetam 250 MG 1 tablet Orally every 12 hrs Active Dulcolax 100 MG 1 capsule as needed Orally Once a day Not-Taking Lalita Aspirin EC Low Dose 81 MG 1 tablet p.o. Once a day for 30 day(s ) Not-Taking Triamterene-HCTZ 37.5-25 MG 1 capsule in the morning O rally Once a day for 30 day(s) Active Nitrofurantoin Macrocrystal 100 MG 1 capsule at bedtim e with food or milk Orally twice daily for 7 day(s) Jun, Not-Sohan ing Ampicillin 500 MG 1 capsule 1 hour before or 2 hours after a meal Orally every 6 hrs for 5 day(s) Jun, Not-Taking Cipro 500 MG 1 tablet Orally every 12 hrs for 7 day(s) Jul, Not-Taking Synthroid 50 MCG 1 tablet every morning on an empty stomach Orally Once a day for 30 day(s) Active Timolol Maleate 0.25 % 1 drop into affected eye Ophthalmic Once a day Active AREDS OTC twice daily Active Albuterol Sulfate HFA 108 (90 Base) MCG/ACT 2 puffs as needed Inhalation every 6 hrs Active Travatan 0.004 % 1 drop into affected eye in the evening Ophthalmic Active Doxycycline Hyclate 100 MG 1 capsule Orally Once a day for 10 day(s) Not-Taking Calcium 3018-7198 MG-UNIT 1 tab(s) p.o. once a day Active Atorvastatin Calcium 10 MG 1 tablet Orally Once a day Active Pyridium 200 MG 1 tablet after meals Orally Three times a day fo r 2 day(s) Aug, Active Fish Oil 1200 MG 1 capsule p.o. Once a day for 30 day(s) Active Centrum Silver Adult 50+ otc 1 tab(s) p.o. once a day Active Trimo-Griggs 0.025 % 1/2 tube Vaginal twice a week for 90 days Apr, Not-Taking Simvastatin 20 20mg 1 tab(s) p.o. once a day Not-Taking Fluticasone Propionate 50 MCG/ACT 1 spray in each nost ril Nasally Once a day for 30 day(s) Active Probiotic - 1 capsule Orally once daily Active Folic Acid 400 MCG 1 tablet Orally Once a day Active Vitamin B1 100 MG 1 tablet with a meal Orally Once a day Active Vitamin D 400 UNIT 2 capsules Orally Once a day Active Macrobid 100 MG as directed Orally twice a day for 7 days Jul, Active PROCEDURES No Information RESULTS No Results REASON FOR VISIT uti issues MEDICAL (GENERAL) HISTORY Type Description Date Medical [...] Name Sig Start Date Stop Date Pyridium 200 MG 1 tablet after meals Orally Three times a day for 2 day(s) Aug, Macrobid 100 MG as directed Orally twice a day for 7 days Jul Next Appt Details Provider Name:Rica Burgos 2020-08-19 11:00:00 AM, [address] [place], [address], Insurance Providers Payer Name Payer Address Payer Phone Insured Name Patient Relati onship to Insured Coverage Start Date Coverage End Date FOR LIFE [address] [facility] [phone] DAYANARA NAVARRO [facility] [phone] [place] [address] DAYANARA GONZALES MEDICARE Part A and B [address] [facility] [phone] DAYANARA GONZALES
--- OUTSIDE RECORDS SUMMARY | 2020-10-29 15:43 | CCD ---
Author Author [facility] Organization [facility] Address Unknown Phone Unavailable Care Team Providers Care Back Office Medical Assistant Name Role Phone AubreyRica dotson Unavailable PROBLEMS Type Condition ICD9-CM Code DIY32-NI Code Onset Dates Condition S tatus SNOMED Code Notes Problem Vaginal pessary in situ Z92.89 Active 34688680 03991 Problem Cystocele N81.10 Active 017001007 Problem Abnormal mammogram of right breast R92.8 Activ e 958597442 Problem Actinic keratoses L57.0 Active 606819598 Problem Seborrheic keratoses L82.1 Active 495213221 Problem History of nonmelanoma skin cancer Z85.828 Activ e 584756516 Problem Pessary maintenance Z46.89 Active 574770125 Problem Bladder spasms N32.89 Active 309031328 Problem Prolapsed uterus N81.4 Active 70105419 Problem Melanocytic nevi of left upper limb, including shoulder D22.62 Active 830043179 Problem Melanocytic nevi of right upper limb, including shoulder D22.61 Active 275600767 Problem Melanocytic nevi of trunk D22.5 Active 246630 002 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 3394674 ALLERGIES Allergen (clinical drug ingredient) Drug/Non Drug Allergy do cumented on EMR Reaction Allergy Type Onset Date Status codeine Codeine Sulfate([facility] Code:[address]-30) Nausea/Vomiting Dr wu Allergy Active ENCOUNTERS from 1940 to 2020-08-24 Encounter Location Date Provider Diagnosis [facility] [address] [place] [address] Aug, Rica Burgos Bladder spasms N32.8 9 ; Prolapsed uterus N81.4 ; Cystocele N81.10 and Recurrent UTI N39.0 IMMUNIZATIONS No Information SOCIAL HISTORY Sex Assigned At : Social History Observation Description Sex Assigned At Unknown Language: Question Answer Notes Languages spoken: Korean Samaritan: Question Answer Notes Samaritan 08 Islam Alcohol Screening: Question Answer Notes Did you have a drink containing alcohol in the past year? No Points 0 Interpretation Negative BMI Care Goal Follow-Up Question Answer Notes Above Normal BMI Follow-Up Giving encouragement to exercise REASON FOR REFERRAL No Information VITAL SIGNS Weight 155 lbs Aug, Weight-kg 70.31 kg Aug, Height 67.5 in Aug, BMI 23.92 kg/m2 Aug, Blood pressure systolic 121 mm Hg Aug, Blood pressure diastolic 84 mm Hg Aug, MEDICATIONS Medication SIG (Take, Route, Frequency, Duration) Notes Start Da te End Date Status Triamterene-HCTZ 37.5-25 MG 1 capsule in the morning O rally Once a day for 30 day(s) Active Cipro 500 MG 1 tablet Orally every 12 hrs for 7 day(s) Jul, Not-Taking Centrum Silver Adult 50+ otc 1 tab(s) p.o. once a day Active Macrobid 100 MG as directed Orally twice a day for 7 days Jul, Not-Taking Synthroid 50 MCG 1 tablet every morning on an empty stomach Orally Once a day for 30 day(s) Active Trimo-Griggs 0.025 % 1/2 tube Vaginal twice a week for 90 days Apr, Not-Taking Simvastatin 20 20mg 1 tab(s) p.o. once a day Not-Taking Nitrofurantoin Macrocrystal 100 MG 1 capsule at bedtim e with food or milk Orally twice daily for 7 day(s) Jun, Not-Sohan ing Lalita Aspirin EC Low Dose 81 MG 1 tablet p.o. Once a day for 30 day(s ) Not-Taking Pyridium 200 MG 1 tablet after meals Orally Three times a day fo r 2 day(s) Aug, Active Vitamin B1 100 MG 1 tablet with a meal Orally Once a day Active Folic Acid 400 MCG 1 tablet Orally Once a day Active Fish Oil 1200 MG 1 capsule p.o. Once a day for 30 day(s) Active Travatan 0.004 % 1 drop into affected eye in the evening Ophthalmic Active Atorvastatin Calcium 10 MG 1 tablet Orally Once a day Active Dulcolax 100 MG 1 capsule as needed Orally Once a day Not-Taking Probiotic - 1 capsule Orally once daily Active Levetiracetam 250 MG 1 tablet Orally every 12 hrs Active Fluticasone Propionate 50 MCG/ACT 1 spray in each nost ril Nasally Once a day for 30 day(s) Active Calcium 8340-3666 MG-UNIT 1 tab(s) p.o. once a day Active Doxycycline Hyclate 100 MG 1 capsule Orally Once a day for 10 day(s) Not-Taking Ampicillin 500 MG 1 capsule 1 hour before or 2 hours after a meal Orally every 6 hrs for 5 day(s) Jun, Not-Taking Timolol Maleate 0.25 % 1 drop into affected eye Ophthalmic Once a day Active AREDS OTC twice daily Active Vitamin D 400 UNIT 2 capsules Orally Once a day Active Albuterol Sulfate HFA 108 (90 Base) MCG/ACT 2 puffs as needed Inhalation every 6 hrs Not-Taking Monurol 3 GM as directed Orally once for 1 days Aug, Active PROCEDURES No Information RESULTS Component Value Reference Range URINE CULTURE Reviewed date:08/22/2020 16:03:41 Interpretation:Positive Performing Lab:[facility], [facility] [address] [address] , ,[place] [address] [place] Reviewed date:08/23/2020 13:32:46 Interpretation:Negative Performing Lab:[facility], ,[place] [address] THIN PREP PAP SMEAR REASON FOR VISIT UTI MEDICAL (GENERAL) HISTORY Type Description Date Medical [...] Notes Treatment Notes Treatm ent Clinical Notes Aug, Bladder spasms (ICD-10 - N32.89) Fabiola voided in the exam room becauses he could not make it to the [place] in time ,she was not able to catch much in cup but what she did catch was murky brown urine with sediment . Aug, Prolapsed uterus (ICD-10 - N81.4) Aug, Cystocele (ICD-10 - N81.10) Aug, Recurrent UTI (ICD-10 - N39.0) Referral to side effects and usage of med discussed Aug, Other Pharmacy did no t have monurol so I prescribed bactrim Ds BID x 7 days PLAN OF TREATMENT Medication Medication Name Sig Start Date Stop Date Monurol 3 GM as directed Orally once for 1 days Aug, Treatment Notes Assessment Notes Clinical Notes Bladder spasms Fabiola voided in the exam room becauses he could not make it to the [place] in time ,she was not able to catch much in cup but what she did catch was murky brown urine with sediment . Recurrent UTI Referral to side e ffects and usage of med discussed Next Appt Details Provider Name:Loren Pat, 2020-08-16 0 01:00:00 PM, [address], [place], [address], Insurance Providers Payer Name Payer Address Payer Phone Insured Name Patient Relati onship to Insured Coverage Start Date Coverage End Date [facility] [phone] [facility] [phone] FABIOLA GONZALES MEDICARE Part A and B [address] [facility] [phone] FABIOLA GONZALES FOR LIFE [address] [facility] [address] FABIOLA NAVARRO
--- OUTSIDE RECORDS SUMMARY | 2020-10-29 15:43 | CCD ---
Author Author [facility] Organization [facility] Address Unknown Phone Unavailable Care Team Providers Care Primer Supervisor Name Role Phone AubreyJoséon Unavailable PROBLEMS Type Condition ICD9-CM Code LOH09-BZ Code Onset Dates Condition S tatus SNOMED Code Notes Problem Vaginal pessary in situ Z92.89 Active 17299064 39171 Problem Cystocele N81.10 Active 962053621 Problem Abnormal mammogram of right breast R92.8 Activ e 787963682 Problem Actinic keratoses L57.0 Active 762446255 Problem Seborrheic keratoses L82.1 Active 246262117 Problem History of nonmelanoma skin cancer Z85.828 Activ e 193016451 Problem Pessary maintenance Z46.89 Active 648328172 Problem Bladder spasms N32.89 Active 221234858 Problem Prolapsed uterus N81.4 Active 97777597 Problem Melanocytic nevi of left upper limb, including shoulder D22.62 Active 314906578 Problem Melanocytic nevi of right upper limb, including shoulder D22.61 Active 372377058 Problem Melanocytic nevi of trunk D22.5 Active 562142 002 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 0708656 ALLERGIES Allergen (clinical drug ingredient) Drug/Non Drug Allergy do cumented on EMR Reaction Allergy Type Onset Date Status codeine Codeine Sulfate([facility] Code:[address]-40) Nausea/Vomiting Dr wu Allergy Active ENCOUNTERS from 1940 to 2020-08-22 Encounter Location Date Provider Diagnosis [facility] [address] [place] [address] Aug, Rica Burgos IMMUNIZATIONS No Information SOCIAL HISTORY Sex Assigned At : Social History Observation Description Sex Assigned At Unknown Language: Question Answer Notes Languages spoken: Grenadian Sabianism: Question Answer Notes Sabianism 08 Denominational Alcohol Screening: Question Answer Notes Did you [...] a day for 30 day(s) Active Calcium 5058-1724 MG-UNIT 1 tab(s) p.o. once a day [...] Orally once for 1 days Aug, 20 Active PROCEDURES No Information RESULTS No Results REASON FOR VISIT returning call MEDICAL (GENERAL) HISTORY Type Description Date Medical [...] directed Orally once for 1 days Aug, Next Appt Details Provider Name:Loren Pat, 2019-12-1 0 01:00:00 PM, [address], [place], [address], Insurance Providers Payer Name Payer Address Payer Phone Insured Name Patient Relati onship to Insured Coverage Start Date Coverage End Date MEDICARE Part A and B [address] [facility] [place] [place] [phone] DAYANARA GONZALES FOR LIFE [address] [facility] [address] DAYANARA NAVARRO [facility] [address] [place] [phone] DAYANARA GONZALES
--- OUTSIDE RECORDS SUMMARY | 2020-10-29 15:43 | CCD ---
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 5859038 Problem Prolapsed uterus N81.4 Active 94983473 Problem History of nonmelanoma skin cancer Z85.828 Activ e 923909939 Problem Vaginal pessary in situ Z92.89 Active 89204234 96413 Problem Seborrheic keratoses L82.1 Active 496428881 Problem Melanocytic nevi of left upper limb, including shoulder D22.62 Active 090057097 Problem Melanocytic nevi of right upper limb, including shoulder D22.61 Active 872358144 Problem Melanocytic nevi of trunk D22.5 Active 164511 002 ALLERGIES Allergen (clinical drug ingredient) Drug/Non Drug Allergy do cumented on EMR Reaction Allergy Type Onset Date Status codeine Codeine Sulfate([facility] Code:[address]-66) Nausea/Vomiting Dr wu Allergy Active ENCOUNTERS from 1940 to 2020-08-16 Encounter Location Date Provider Diagnosis [facility] [address] [place] [address] Jul, Rica Burgos Acute cystitis with hematuria N30.01 ; Prolapsed uterus N81.4 and Cystocele N81.10 IMMUNIZATIONS No Information SOCIAL HISTORY Sex Assigned At : Social History Observation Description Sex Assigned At Unknown Language: Question Answer Notes Languages spoken: Latvian Anglican: Question Answer Notes Anglican 08 Yazidism Alcohol Screening: Question Answer Notes Did you have a drink containing alcohol in the past year? No Points 0 Interpretation Negative BMI Care Goal Follow-Up Question Answer Notes Above Normal BMI Follow-Up Giving encouragement to exercise REASON FOR REFERRAL No Information VITAL SIGNS Weight 156 lbs Jul, Weight-kg 70.76 kg Jul, Height 67.5 in Jul, BMI 24.07 kg/m2 Jul, Blood pressure systolic 102 mm Hg Jul, Blood pressure diastolic 67 mm Hg Jul, MEDICATIONS Medication SIG (Take, Route, Frequency, Duration) [...] a day for 10 day(s) Not-Taking Calcium 9733-4678 MG-UNIT 1 tab(s) p.o. once a day [...] days Jul, Active PROCEDURES No Information RESULTS Component Value Reference Range 'LAB ONLY' UA URINALYSIS MANUAL (Not Ord erable) Reviewed date:08/08/2020 14:43:51 Interpretation:Positive Performing Lab:[facility] [address] [address] , ,[place] [address] MICROSCOPIC, URINE (Non-Orderable) Reviewed date:08/08/2020 14:43:33 Interpretation:Positive Performing Lab:[facility], [facility] [address] [address] , ,[place] [address] WBC, URINE 30-40 0-3 RBC, URINE 20-30 0-3 SQUAMOUS EPITHELIAL CELL URINE SMALL AMOUNT SMALL AMT TRIPLE PHOSPHATE CRYSTAL,URINE MOD AMOUNT NONE BACTERIA, URINE LARGE AMOUNT NONE HYALINE CAST, URINE NONE SEEN 0-1 MICROSCOPIC EXAM UNSPUN REASON FOR VISIT UTI MEDICAL (GENERAL) HISTORY [...] (benign) Surgical History Right femur fx ORIF 9/3/17 Surgical History colonoscopy 11/2016 Goals Section No Information Health Concerns No Information MEDICAL EQUIPMENT No Information MENTAL STATUS No Information FUNCTIONAL STATUS No Information ASSESSMENTS Encounter Date Diagnosis Assessment Notes Treatment Notes Treatm ent Clinical Notes Jul, Acute cystitis with hematuria (ICD-10 - N30.01) Jul, Prolapsed uterus (ICD-10 - N81.4) Jul, Cystocele (ICD-10 - N81.10) Advised to insert her pessary after cleaning it and to leave it in place in order to completely empty her bladder . PLAN OF TREATMENT Medication Medication Name Sig Start Date Stop Date Pyridium 200 MG 1 tablet after meals Orally Three times a day for 2 day(s) Aug, Macrobid 100 MG as directed Orally twice a day for 7 days Jul Treatment Notes Assessment Notes Clinical Notes Cystocele Advised to insert he r pessary after cleaning it and to leave it in place in order to completely empty her bladder . Treatment Notes Test Name Order Date UA URINALYSIS 2020-08-16 Next Appt Details annual sooner prn Reason: Provider Name:Rica Burgos 2020-08-19 11:00:00 AM, [address] [place], [address], Insurance Providers Payer Name Payer Address Payer Phone Insured Name Patient Relati onship to Insured Coverage Start Date Coverage End Date [facility] [address] [place] [phone] DAYANARA GONZALES FOR LIFE [address] [facility] [address] DAYANARA NAVARRO MEDICARE Part A and B [address] [facility] [phone] DAYANARA GONZALES
--- OUTSIDE RECORDS SUMMARY | 2020-10-29 15:43 | CCD ---
Author Author [facility] Organization [facility] Address Unknown Phone Unavailable Care Team Providers Care Dormitory Maid Name Role Phone Bi Loren Unavailable PROBLEMS Type Condition ICD9-CM Code [id number] Code Onset Dates Condition S tatus SNOMED Code Notes Problem Vaginal pessary in situ Z92.89 Active 66936727 18979 Problem Cystocele N81.10 Active 038932975 Problem Abnormal mammogram of right breast R92.8 Activ e 135387994 Problem Actinic keratoses L57.0 Active 681165865 Problem Seborrheic keratoses L82.1 Active 054778988 Problem History of nonmelanoma skin cancer Z85.828 Activ e 651434324 Problem Pessary maintenance Z46.89 Active 901646613 Problem Bladder spasms N32.89 Active 756119245 Problem Prolapsed uterus N81.4 Active 67203007 Problem Melanocytic nevi of left upper limb, including shoulder D22.62 Active 105760063 Problem Melanocytic nevi of right upper limb, including shoulder D22.61 Active 560390472 Problem Melanocytic nevi of trunk D22.5 Active 915268 002 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 2793622 ALLERGIES Allergen (clinical drug ingredient) Drug/Non Drug Allergy do cumented on EMR Reaction Allergy Type Onset Date Status codeine Codeine Sulfate([facility] Code:[address]-05) Nausea/Vomiting Dr wu Allergy Active ENCOUNTERS from 1940 to 2020-08-26 Encounter Location Date Provider Diagnosis [facility] [address] [place] [address] Aug Loren Pat IMMUNIZATIONS No Information SOCIAL HISTORY Sex Assigned At : Social History Observation Description Sex Assigned At Unknown Language: Question Answer Notes Languages spoken: Guyanese Sabianism: Question Answer Notes Sabianism 08 Uatsdin Alcohol Screening: Question Answer Notes Did you [...] meal Orally Once a day Active Calcium 8978-1320 MG-UNIT 1 tab(s) p.o. once a day [...] day fo r 2 day(s) Aug, Active Trimo-Grigsg 0.025 % 1/2 tube Vaginal twice a [...] Information RESULTS No Results REASON FOR VISIT meds MEDICAL (GENERAL) HISTORY Type Description Date Medical [...] Provider Name:Pal Estrada Skinny, 2020-09 09:00:00 AM, [address], [place], [address], Insurance Providers Payer Name Payer Address Payer Phone Insured Name Patient Relati onship to Insured Coverage Start Date Coverage End Date MEDICARE Part A and B [address] [facility] [phone] DAYANARA GONZALES FOR LIFE [address] [facility] [address] DAYANARA NAVARRO [facility] [address] [facility] [address] DAYANARA GONZALES
--- OUTSIDE RECORDS SUMMARY | 2020-10-29 15:43 | CCD ---
Author Author [facility] Organization [facility] Address Unknown Phone Unavailable Care Team Providers Care Knit Goods Washer Name Role Phone Bi Loren Unavailable PROBLEMS Type Condition ICD9-CM Code [id number] Code Onset Dates Condition S tatus SNOMED Code Notes Problem Vaginal pessary in situ Z92.89 Active 80964118 72542 Problem Cystocele N81.10 Active 321221122 Problem Abnormal mammogram of right breast R92.8 Activ e 841088912 Problem Actinic keratoses L57.0 Active 319887573 Problem Seborrheic keratoses L82.1 Active 801782963 Problem History of nonmelanoma skin cancer Z85.828 Activ e 028682008 Problem Pessary maintenance Z46.89 Active 443007940 Problem Bladder spasms N32.89 Active 572309602 Problem Prolapsed uterus N81.4 Active 15209057 Problem Melanocytic nevi of left upper limb, including shoulder D22.62 Active 681576031 Problem Melanocytic nevi of right upper limb, including shoulder D22.61 Active 741571111 Problem Melanocytic nevi of trunk D22.5 Active 832545 002 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 3402076 ALLERGIES Allergen (clinical drug ingredient) Drug/Non Drug Allergy do cumented on EMR Reaction Allergy Type Onset Date Status codeine Codeine Sulfate([facility] Code:[address]-17) Nausea/Vomiting Dr wu Allergy Active ENCOUNTERS from 1940 to 2020-08-31 Encounter Location Date Provider Diagnosis [facility] [address] [place] [address] Aug Loren Pat Cystocele N81.10 ; Urinary tract infecti on, site not specified N39.0 and Gross hematuria R31.0 IMMUNIZATIONS No Information SOCIAL HISTORY Sex Assigned At : Social History Observation Description Sex Assigned At Unknown Language: Question Answer Notes Languages spoken: Mosotho Protestant: Question Answer Notes Protestant 08 Mu-Ism Alcohol Screening: Question Answer Notes Did you have a drink containing alcohol in the past year? No Points 0 Interpretation Negative BMI Care Goal Follow-Up Question Answer Notes Above Normal BMI Follow-Up Giving encouragement to exercise REASON FOR REFERRAL No Information VITAL SIGNS Weight 146.2 lbs Aug, Height 67.5 in Aug, BMI 22.56 kg/m2 Aug, Heart Rate 84 /min Aug, Respiratory Rate 18 /min Aug, Temperature 97.4 degrees Fahrenheit Aug, Oximetry 94 Aug, Blood pressure systolic 128 mm Hg Aug, Blood pressure diastolic 74 mm Hg Aug, MEDICATIONS Medication SIG (Take, [...] meal Orally Once a day Active Calcium 6074-4266 MG-UNIT 1 tab(s) p.o. once a day Active Bactrim DS 800-160 MG 1 tablet Orally _1 hour prior to cystoscop y 10 Aug, 2020 Active Cipro 500 MG 1 tablet Orally [...] a day Active PROCEDURES No Information RESULTS Component Value Reference Range Basic Metabolic Profile (BMP) Reviewed date:08/25/2020 16:03:50 Interpretation: Performing Lab:[facility], [facility] [address] [id number] , ,[facility]01 GLUCOSE, FASTING 99 70-100 BLOOD UREA NITROGEN 10 7-18 CREATININE FOR GFR 0.95 0.55-1.30 GLOMERULAR FILTRATION RATE > 60.0 >32 SODIUM LEVEL 133 136-145 POTASSIUM SERUM 4.5 3.5-5.1 CHLORIDE LEVEL 101 98-107 CARBON DIOXIDE LEVEL 25 21-32 CALCIUM LEVEL 8.7 8.8-10.2 REASON FOR VISIT gross humaturia uti MEDICAL (GENERAL) HISTORY Type Description Date Medical [...] Treatment Notes Treatm ent Clinical Notes Aug, Cystocele (ICD-10 - N81.10) Aug, Urinary tract infection, site not specified (ICD -10 - N39.0) Aug, Gross hematuria (ICD-10 - R31.0) PLAN OF TREATMENT Medication Medication Name Sig Start Date Stop Date Bactrim DS 800-160 MG 1 tablet Orally Twice a day for 10 day(s) Bactrim DS 800-160 MG 1 tablet Orally _1 hour prior to cystoscop y Aug, Treatment Notes Test Name Order Date CT Scan : Urogram (Abdomen/Pelvis) 2020-08-31 uro PVR (Post Voiding Residual) Bladder Scan 2020-08-16 6 Next Appt Details cysto Reason: Provider Name:Pal Estrada Babb, 2020-09 09:00:00 AM, [address], [place], [address], Insurance Providers Payer Name Payer Address Payer Phone Insured Name Patient Relati onship to Insured Coverage Start Date Coverage End Date FOR LIFE [address] [facility] [phone] DAYANARA NAVARRO MEDICARE Part A and B [address] [facility] [address] [phone] DAYANARA GONZALES [facility] [address] [facility] [address] DAYANARA GONZALES
--- OUTSIDE RECORDS SUMMARY | 2020-10-29 15:43 | CCD ---
Author Author [facility] Organization [facility] Address Unknown Phone Unavailable Care Team Providers Care Farmworker Vegetable Name Role Phone AubreyJoséon Unavailable PROBLEMS Type Condition ICD9-CM Code [id number] Code Onset Dates Condition S tatus SNOMED Code Notes Problem Vaginal pessary in situ Z92.89 Active 84046106 77412 Problem Cystocele N81.10 Active 962419271 Problem Abnormal mammogram of right breast R92.8 Activ e 444399859 Problem Actinic keratoses L57.0 Active 778620085 Problem Seborrheic keratoses L82.1 Active 792881551 Problem History of nonmelanoma skin cancer Z85.828 Activ e 575751493 Problem Pessary maintenance Z46.89 Active 589255446 Problem Bladder spasms N32.89 Active 370350939 Problem Prolapsed uterus N81.4 Active 48954047 Problem Melanocytic nevi of left upper limb, including shoulder D22.62 Active 431807126 Problem Melanocytic nevi of right upper limb, including shoulder D22.61 Active 770281545 Problem Melanocytic nevi of trunk D22.5 Active 847676 002 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 1576298 ALLERGIES Allergen (clinical drug ingredient) Drug/Non Drug Allergy do cumented on EMR Reaction Allergy Type Onset Date Status codeine Codeine Sulfate([facility] Code:[address]-57) Nausea/Vomiting Dr wu Allergy Active ENCOUNTERS from 1940 to 2020-08-19 Encounter Location Date Provider Diagnosis [facility] [address] [place] [address] Aug, Rica Burgos IMMUNIZATIONS No Information SOCIAL HISTORY Sex Assigned At : Social History Observation Description Sex Assigned At Unknown Language: Question Answer Notes Languages spoken: Somali Jewish: Question Answer Notes Jewish 08 Bahai Alcohol Screening: Question Answer Notes Did you [...] a day for 30 day(s) Active Calcium 8485-4962 MG-UNIT 1 tab(s) p.o. once a day [...] Information RESULTS No Results REASON FOR VISIT medication MEDICAL (GENERAL) HISTORY Type Description Date Medical [...] directed Orally once for 1 days Aug, Insurance Providers Payer Name Payer Address Payer Phone Insured Name Patient Relati onship to Insured Coverage Start Date Coverage End Date MEDICARE Part A and B [address] [facility] [phone] DAYANARA GONZALES FOR LIFE [address] [facility] [phone] DAYANARA NAVARRO [employer] [facility] [facility] [address] [place] [phone] DAYANARA GONZALES
--- OUTSIDE RECORDS SUMMARY | 2020-10-29 15:43 | CCD ---
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 6713723 Problem Prolapsed uterus N81.4 Active 33024114 Problem History of nonmelanoma skin cancer Z85.828 Activ e 914627177 Problem Vaginal pessary in situ Z92.89 Active 36471686 73166 Problem Seborrheic keratoses L82.1 Active 615594267 Problem Melanocytic nevi of left upper limb, including shoulder D22.62 Active 361769240 Problem Melanocytic nevi of right upper limb, including shoulder D22.61 Active 908583370 Problem Melanocytic nevi of trunk D22.5 Active 466187 002 ALLERGIES Allergen (clinical drug ingredient) Drug/Non Drug Allergy do cumented on EMR Reaction Allergy Type Onset Date Status codeine Codeine Sulfate([facility] Code:[address]-25) Nausea/Vomiting Dr wu Allergy Active ENCOUNTERS from 1940 to 2020-08-16 Encounter Location Date Provider Diagnosis [facility] [address] [place] [address] Jul, Rica Burgos IMMUNIZATIONS No Information SOCIAL HISTORY Sex Assigned At : Social History Observation Description Sex Assigned At Unknown Language: Question Answer Notes Languages spoken: Azeri Gnosticist: Question Answer Notes Gnosticist 08 Faith Alcohol Screening: Question Answer Notes Did you [...] a day for 10 day(s) Not-Taking Calcium 6526-0887 MG-UNIT 1 tab(s) p.o. once a day [...] Information RESULTS No Results REASON FOR VISIT Urgent visit request MEDICAL (GENERAL) HISTORY Type Description Date Medical [...] Provider Name:Rica Burgos 2020-08-19 11:00:00 AM, [address] [place], [address], Insurance Providers Payer Name Payer Address Payer Phone Insured Name Patient Relati onship to Insured Coverage Start Date Coverage End Date [facility] [address] [place] [phone] DAYANARA GONZALES FOR LIFE [address] [facility] [phone] DAYANARA NAVARRO MEDICARE Part A and B [address] [facility] [phone] DAYANARA GONZALES
--- OUTSIDE RECORDS SUMMARY | 2020-10-29 15:44 | CCD ---
Author Author [facility] Organization [facility] Address Unknown Phone Unavailable Care Team Providers Care Bsw Name Role Phone James LOVELACE JR, PA-C Unavailable Unavailable James LOVELACE JRC Unavailable Unavailable James LOVELACE JRC Unavailable Unavailable PICKJames VANEGAS JRC Unavailable Unavailable PICKJames VANEGAS JRC Unavailable Unavailable PICKERAL James TROYC Unavailable Unavailable PICKERAL James TROY PA-C Unavailable Unavailable PICKJames VANEGAS JR-C Unavailable Unavailable James LOVELACE JR PA-C Unavailable Unavailable James LOVELACE JRC Unavailable Unavailable James LOVELACE JRC Unavailable Unavailable James LOVELACE JR-C Unavailable Unavailable James LOVELACE JR PA-C Unavailable Unavailable James LOVELACE JR PAMandyC Unavailable Unavailable James LOVELACE JR PA-C Unavailable Unavailable James LOVELACE JRC Unavailable Unavailable James LOVELACE JR-C Unavailable Unavailable PICKJames VANEGAS JR PA-C Unavailable Unavailable PICKERAL JR, J KEIRA PA-C Unavailable Unavailable PICKGUILHERME JR, J KEIRA PA-C Unavailable Unavailable PICKGUILHERME JR, J KEIRA PA-C Unavailable Unavailable Garett Torres MD Unavailable Unavailable Garett Torres MD Unavailable Unavailable Garett Torres MD Unavailable Unavailable Garett Torres MD Unavailable Unavailable Garett Torres MD Unavailable Unavailable Garett Torres MD Unavailable Unavailable Garett Torres MD Unavailable Unavailable Garett Torres MD Unavailable Unavailable Garett Torres MD Unavailable Unavailable Garett Torres MD Unavailable Unavailable Garett Torres MD Unavailable Unavailable Garett Torres MD Unavailable Unavailable Garett Torres MD Unavailable Unavailable Garett Torres MD Unavailable Unavailable Garett Torres MD Unavailable Unavailable Garett Torres MD Unavailable Unavailable Garett Torres MD Unavailable Unavailable Garett Torres MD Unavailable Unavailable Garett Torres MD Unavailable Unavailable Garett Torres MD Unavailable Unavailable Garett Torres MD Unavailable Unavailable Garett Torres MD Unavailable Unavailable Garett Torres MD Unavailable Unavailable Garett Torres MD Unavailable Unavailable Garett Torres MD Unavailable Unavailable Garett Torres MD Unavailable Unavailable Garett Torres MD Unavailable Unavailable Garett Torres MD Unavailable Unavailable Garett Torres MD Unavailable Unavailable Garett Torres MD Unavailable Unavailable Garett Torres MD Unavailable Unavailable Garett Torers MD Unavailable Unavailable Garett Torres MD Unavailable Unavailable Garett Torres MD Unavailable Unavailable Garett Torres MD Unavailable Unavailable Garett Torres MD Unavailable Unavailable Garett Torres MD Unavailable Unavailable Garett Torres MD Unavailable Unavailable Garett Torres MD Unavailable Unavailable Garett Torres MD Unavailable Unavailable Garett Torres MD Unavailable Unavailable Melissa, O Samah MD Unavailable Unavailable Melissa, O Samah MD Unavailable Unavailable Melissa, O Samah MD Unavailable Unavailable Melissa, O Samah MD Unavailable Unavailable Melissa, O Samah MD Unavailable Unavailable Melissa, O Samah MD Unavailable Unavailable Melissa, O Samah MD Unavailable Unavailable Melissa, O Samah MD Unavailable Unavailable Melissa, O Samah MD Unavailable Unavailable Melissa, O Samah MD Unavailable Unavailable Melissa, O Samah MD Unavailable Unavailable Melissa, O Samah MD Unavailable Unavailable Melissa, O Samah MD Unavailable Unavailable Melissa, O Samah MD Unavailable Unavailable Melissa, O Samah MD Unavailable Unavailable Melissa, O Samah MD Unavailable Unavailable Melissa, O Samah MD Unavailable Unavailable Melissa, O Samah MD Unavailable Unavailable Melissa, O Samah MD Unavailable Unavailable Melissa, O Samah MD Unavailable Unavailable Melissa, O Samah MD Unavailable Unavailable Melissa, O Samah MD Unavailable Unavailable Melissa, O Samah MD Unavailable Unavailable Melissa, O Samah MD Unavailable Unavailable Melissa, O Samah MD Unavailable Unavailable Melissa, O Samah MD Unavailable Unavailable Melissa, O Samah MD Unavailable Unavailable Melissa, O Samah MD Unavailable Unavailable Melissa, O Samah MD Unavailable Unavailable Melissa, O Samah MD Unavailable Unavailable Melissa, O Samah MD Unavailable Unavailable Melissa, O Samah MD Unavailable Unavailable Melissa, O Samah MD Unavailable Unavailable Melissa, O Samah MD Unavailable Unavailable Melissa, O Samah MD Unavailable Unavailable Re-disclosure Warning The records that you are about to access may contain information from federally-assisted alcohol or drug abuse programs. If such information is present, then the following federally mandated warning applies: This information has been disclosed to you from records protected by federal confidentiality rules (42 CFR part 2). The federal rules prohibit you from making any further disclosure of this information unless further disclosure is expressly permitted by the written consent of the person to whom it pertains or as otherwise permitted by 42 CFR part 2. A general authorization for the release of medical or other information is NOT sufficient for this purpose. The Federal rules restrict any use of the information to criminally investigate or prosecute any alcohol or drug abuse patient.The records that you are about to access may contain highly sensitive health information, the redisclosure of which is protected by Article 27-F of the [facility] Public Health law. If you continue you may have access to information: Regarding HIV / AIDS; Provided by facilities licensed or operated by the [facility] Office of Mental Health; or Provided by the [facility] Office for People With Developmental Disabilities. If such information is present, then the following [facility] mandated warning applies: This information has been disclosed to you from confidential records which are protected by state law. State law prohibits you from making any further disclosure of this information without the specific written consent of the person to whom it pertains, or as otherwise permitted by law. Any unauthorized further disclosure in violation of state law may result in a fine or skilled nursing sentence or both. A general authorization for the release of medical or other information is NOT sufficient authorization for further disc losure. Family History Family Member Name Family Member Gender Family Member Status Date o f Status Description Data Source(s) Unknown Male Problem MEDENT ([facility]) Unknown Unknown Problem MEDENT ([facility]) Unknown Unknown Problem MEDENT ([facility]) Unknown Unknown Problem MEDENT ([facility]) Unknown Unknown Problem MEDENT ([facility] ) Unknown Female Problem MEDENT ([facility]) Unknown Unknown Encounters Encounter Providers Location Date Indications Data Source(s ) Unknown [address] [place] [address] 10/22/2020 12:00:00 AM EST eCW1 ([facility] Unknown [address] [address] 10/21/2020 12:00:00 AM EST eCW1 ([facility]) [place] [address] [place] [address] 09/23/2020 12:00:00 AM EST eCW1 ([facility]) Outpatient Attender: Andrew Torres MD Main office - [facility] 09/22/2020 10:00:00 AM EST MEDENT ([facility]) (Cysto1) Urology [address] [place] [address] 09/21/2020 12:00:00 AM EST eCW1 ([facility]) [place] [address] [place] [address] 09/02/2020 12:00:00 AM EST eCW1 ([facility]) Outpatient [address] [facility] [place] [address] 08/25/2020 12:00:00 AM EST eCW1 ([facility]) Unknown [address] [facility] [place] [address] 08/25/2020 12:00:00 AM EST eCW1 ([facility]) Unknown [address] [facility] [place] [address] 08/22/2020 12:00:00 AM EST eCW1 ([facility]) Outpatient [address] [facility] [place] [address] 08/19/2020 12:00:00 AM EST eCW1 ([facility]) Unknown [address] [facility] [place] [address] 08/18/2020 12:00:00 AM EST eCW1 ([facility]) Unknown [address] [facility] [place] [address] 08/16/2020 12:00:00 AM EST eCW1 ([facility]) Unknown [address] [facility] [place] [address] 08/15/2020 12:00:00 AM EST eCW1 ([facility]) Office Visit, Est Pt., Level 3 PC [address] [place] [address] 08/08/2020 12:00:00 AM EST eCW1 ([facility]) Unknown [address] [facility] [place] [address] 07/17/2020 12:00:00 AM EDT eCW1 ([facility]) Unknown [address] [facility] [place] [address] 07/17/2020 12:00:00 AM EDT eCW1 ([facility]) [place] [address] [facility] 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 [place] [address] 06/20/2020 12:00:00 AM EDT eCW1 ([facility]) Outpatient Attender: KEIRA Michelle 1 10:40:00 AM EDT MEDENT ([facility] ) Office Visit Attender: Andrew Torres MD [facility] office - [facility] 06/06/2020 01:15:00 PM EDT MEDENT ([facility], ) [facility] [address] [place] [address] 04/22/2020 12:00:00 AM EDT eCW1 ([facility]) Outpatient Attender: Andrew Torres MD [facility] - [facility] 03/24/2020 09:30:00 AM EDT MEDENT ([facility], ) Outpatient Attender: KEIRA Michelle 0 03/16/2020 10:20:00 AM EDT MEDENT ([facility] ) Immunizations Vaccine Date Status Description Data Source(s) COVID-19 VACCINE, MRNA, [id number], LNP-S (PFIZER)/PF 10/15/19 12:00:00 AM EST completed [facility] Influenza, injectable, MDCK, preservative free, marcos valent 06/16/2020 03:20:00 PM EDT completed [facility] ([facility]) Medications Medication Brand Name Start Date Product Form Dose Route Admi nistrative Instructions Pharmacy Instructions Status Indications Reaction Description Data Source(s) Phenazopyridine hydrochloride 100 MG Oral Tablet [Pyri dium] Pyridium 100 MG Pyridium 100 MG 10/22/2020 12:00:00 AM EST 1.0 {tablet_after_meals} active Pyridium 100 MG eCW1 ([facility]) Phenazopyridine hydrochloride 100 MG Oral Tablet [Pyri dium] Pyridium 100 MG Pyridium 100 MG 10/22/2020 12:00:00 AM EST 1.0 {tablet_after_meals} active Pyridium 100 MG eCW1 ([facility]) Sulfamethoxazole 800 MG / Trimethoprim 1 60 MG Oral Tablet [Bactrim] Bactrim DS 800-160 MG Bactrim DS 800-160 MG 10/22/2020 12:00:00 AM EST 1.0 {table t} active Bactrim DS 800-160 MG eCW1 ( [facility]) Sulfamethoxazole 800 MG / Trimethoprim 1 60 MG Oral Tablet [Bactrim] Bactrim DS 800-160 MG Bactrim DS 800-160 MG 10/22/2020 12:00:00 AM EST 1.0 {table t} active Bactrim DS 800-160 MG eCW1 ( [facility]) Minocycline 50 MG Oral Capsule Minocycline HCl 50 MG Minocyc line HCl 50 MG 09/21/2020 12:00:00 AM EST 1.0 {capsule} active Minocycline HCl 50 MG eCW1 ([facility]) Minocycline 50 MG Oral Capsule Minocycline HCl 50 MG Minocyc line HCl 50 MG 09/21/2020 12:00:00 AM EST 1.0 {capsule} active Minocycline HCl 50 MG eCW1 ([facility]) Minocycline 50 MG Oral Capsule Minocycline HCl 50 MG Minocyc line HCl 50 MG 09/21/2020 12:00:00 AM EST 1.0 {capsule} active Minocycline HCl 50 MG eCW1 ([facility]) Minocycline 50 MG Oral Capsule Minocycline HCl 50 MG Minocyc line HCl 50 MG 09/21/2020 12:00:00 AM EST 1.0 {capsule} active Minocycline HCl 50 MG eCW1 ([facility]) Sulfamethoxazole 800 MG / Trimethoprim 1 60 MG Oral Tablet [Bactrim] Bactrim DS 800-160 MG Bactrim DS 800-160 MG 08/25/2020 12:00:00 AM EST 1.0 {table t} active Bactrim DS 800-160 MG eCW1 ( [facility]) Sulfamethoxazole 800 MG / Trimethoprim 1 60 MG Oral Tablet [Bactrim] Bactrim DS 800-160 MG Bactrim DS 800-160 MG 08/25/2020 12:00:00 AM EST 1.0 {table t} active Bactrim DS 800-160 MG eCW1 ( [facility]) Sulfamethoxazole 800 MG / Trimethoprim 1 60 MG Oral Tablet [Bactrim] Bactrim DS 800-160 MG Bactrim DS 800-160 MG 08/25/2020 12:00:00 AM EST 1.0 {table t} active Bactrim DS 800-160 MG eCW1 ( [facility]) Sulfamethoxazole 800 MG / Trimethoprim 1 60 MG Oral Tablet [Bactrim] Bactrim DS 800-160 MG Bactrim DS 800-160 MG 08/25/2020 12:00:00 AM EST 1.0 {table t} active Bactrim DS 800-160 MG eCW1 ( [facility]) Sulfamethoxazole 800 MG / Trimethoprim 1 60 MG Oral Tablet [Bactrim] Bactrim DS 800-160 MG Bactrim DS 800-160 MG 08/25/2020 12:00:00 AM EST 1.0 {table t} active Bactrim DS 800-160 MG eCW1 ( [facility]) Sulfamethoxazole 800 MG / Trimethoprim 1 60 MG Oral Tablet [Bactrim] Bactrim DS 800-160 MG Bactrim DS 800-160 MG 08/25/2020 12:00:00 AM EST 1.0 {table t} active Bactrim DS 800-160 MG eCW1 ( [facility]) Sulfamethoxazole 800 MG / Trimethoprim 1 60 MG Oral Tablet [Bactrim] Bactrim DS 800-160 MG Bactrim DS 800-160 MG 08/25/2020 12:00:00 AM EST 1.0 {table t} active Bactrim DS 800-160 MG eCW1 ( [facility]) Fosfomycin 33.3 MG/ML Oral Suspension [Monurol] Monurol 3 GM Monurol 3 GM 08/19/2020 12:00:00 AM EST suspended Monurol 3 GM eCW1 ([facility]) Fosfomycin 33.3 MG/ML Oral Suspension [Monurol] Monurol 3 GM Monurol 3 GM 08/19/2020 12:00:00 AM EST active Monurol 3 GM eCW1 ([facility]) Fosfomycin 33.3 MG/ML Oral Suspension [Monurol] Monurol 3 GM Monurol 3 GM 08/19/2020 12:00:00 AM EST suspended Monurol 3 GM eCW1 ([facility]) Fosfomycin 33.3 MG/ML Oral Suspension [Monurol] Monurol 3 GM Monurol 3 GM 08/19/2020 12:00:00 AM EST suspended Monurol 3 GM eCW1 ([facility]) Fosfomycin 33.3 MG/ML Oral Suspension [Monurol] Monurol 3 GM Monurol 3 GM 08/19/2020 12:00:00 AM EST active Monurol 3 GM eCW1 ([facility]) Fosfomycin 33.3 MG/ML Oral Suspension [Monurol] Monurol 3 GM Monurol 3 GM 08/19/2020 12:00:00 AM EST suspended Monurol 3 GM eCW1 ([facility]) Fosfomycin 33.3 MG/ML Oral Suspension [Monurol] Monurol 3 GM Monurol 3 GM 08/19/2020 12:00:00 AM EST active Monurol 3 GM eCW1 ([facility]) Fosfomycin 33.3 MG/ML Oral Suspension [Monurol] Monurol 3 GM Monurol 3 GM 08/19/2020 12:00:00 AM EST suspended Monurol 3 GM eCW1 ([facility]) Fosfomycin 33.3 MG/ML Oral Suspension [Monurol] Monurol 3 GM Monurol 3 GM 08/19/2020 12:00:00 AM EST suspended Monurol 3 GM eCW1 ([facility]) Fosfomycin 33.3 MG/ML Oral Suspension [Monurol] Monurol 3 GM Monurol 3 GM 08/19/2020 12:00:00 AM EST suspended Monurol 3 GM eCW1 ([facility]) Phenazopyridine hydrochloride 200 MG Oral Tablet [Pyri dium] Pyridium 200 MG Pyridium 200 MG 08/16/2020 12:00:00 AM EST 1.0 {tablet_after_meals} active Pyridium 200 MG eCW1 ([facility]) Phenazopyridine hydrochloride 200 MG Oral Tablet [Pyri dium] Pyridium 200 MG Pyridium 200 MG 08/16/2020 12:00:00 AM EST 1.0 {tablet_after_meals} active Pyridium 200 MG eCW1 ([facility]) Phenazopyridine hydrochloride 200 MG Oral Tablet [Pyri dium] Pyridium 200 MG Pyridium 200 MG 08/16/2020 12:00:00 AM EST 1.0 {tablet_after_meals} active Pyridium 200 MG eCW1 ([facility]) Phenazopyridine hydrochloride 200 MG Oral Tablet [Pyri dium] Pyridium 200 MG Pyridium 200 MG 08/16/2020 12:00:00 AM EST 1.0 {tablet_after_meals} active Pyridium 200 MG eCW1 ([facility]) Phenazopyridine hydrochloride 200 MG Oral Tablet [Pyri dium] Pyridium 200 MG Pyridium 200 MG 08/16/2020 12:00:00 AM EST 1.0 {tablet_after_meals} active Pyridium 200 MG eCW1 ([facility]) Phenazopyridine hydrochloride 200 MG Oral Tablet [Pyri dium] Pyridium 200 MG Pyridium 200 MG 08/16/2020 12:00:00 AM EST 1.0 {tablet_after_meals} active Pyridium 200 MG eCW1 ([facility]) Phenazopyridine hydrochloride 200 MG Oral Tablet [Pyri dium] Pyridium 200 MG Pyridium 200 MG 08/16/2020 12:00:00 AM EST 1.0 {tablet_after_meals} active Pyridium 200 MG eCW1 ([facility]) Phenazopyridine hydrochloride 200 MG Oral Tablet [Pyri dium] Pyridium 200 MG Pyridium 200 MG 08/16/2020 12:00:00 AM EST 1.0 {tablet_after_meals} active Pyridium 200 MG eCW1 ([facility]) Phenazopyridine hydrochloride 200 MG Oral Tablet [Pyri dium] Pyridium 200 MG Pyridium 200 MG 08/16/2020 12:00:00 AM EST 1.0 {tablet_after_meals} active Pyridium 200 MG eCW1 ([facility]) Phenazopyridine hydrochloride 200 MG Oral Tablet [Pyri dium] Pyridium 200 MG Pyridium 200 MG 08/16/2020 12:00:00 AM EST 1.0 {tablet_after_meals} active Pyridium 200 MG eCW1 ([facility]) Phenazopyridine hydrochloride 200 MG Oral Tablet [Pyri dium] Pyridium 200 MG Pyridium 200 MG 08/16/2020 12:00:00 AM EST 1.0 {tablet_after_meals} active Pyridium 200 MG eCW1 ([facility]) Phenazopyridine hydrochloride 200 MG Oral Tablet [Pyri dium] Pyridium 200 MG Pyridium 200 MG 08/16/2020 12:00:00 AM EST 1.0 {tablet_after_meals} active Pyridium 200 MG eCW1 ([facility]) Phenazopyridine hydrochloride 200 MG Oral Tablet [Pyri dium] Pyridium 200 MG Pyridium 200 MG 08/16/2020 12:00:00 AM EST 1.0 {tablet_after_meals} active Pyridium 200 MG eCW1 ([facility]) NITROFURANTOIN, MACROCRYSTALS 25 MG / Ni trofurantoin, Monohydrate 75 MG Oral Capsule [Macrobid] Macrobid 100 MG Macrobid 100 MG 08/08/2020 12:00:00 AM EST active Macrobid 100 MG eCW1 ([facility]) NITROFURANTOIN, MACROCRYSTALS 25 MG / Ni trofurantoin, Monohydrate 75 MG Oral Capsule [Macrobid] Macrobid 100 MG Macrobid 100 MG 08/08/2020 12:00:00 AM EST active Macrobid 100 MG eCW1 ([facility]) NITROFURANTOIN, MACROCRYSTALS 25 MG / Ni trofurantoin, Monohydrate 75 MG Oral Capsule [Macrobid] Macrobid 100 MG Macrobid 100 MG 08/08/2020 12:00:00 AM EST suspended Macrobid 100 MG eCW1 ( [facility]) NITROFURANTOIN, MACROCRYSTALS 25 MG / Ni trofurantoin, Monohydrate 75 MG Oral Capsule [Macrobid] Macrobid 100 MG Macrobid 100 MG 08/08/2020 12:00:00 AM EST suspended Macrobid 100 MG eCW1 ( [facility]) NITROFURANTOIN, MACROCRYSTALS 25 MG / Ni trofurantoin, Monohydrate 75 MG Oral Capsule [Macrobid] Macrobid 100 MG Macrobid 100 MG 08/08/2020 12:00:00 AM EST suspended Macrobid 100 MG eCW1 ( [facility]) NITROFURANTOIN, MACROCRYSTALS 25 MG / Ni trofurantoin, Monohydrate 75 MG Oral Capsule [Macrobid] Macrobid 100 MG Macrobid 100 MG 08/08/2020 12:00:00 AM EST suspended Macrobid 100 MG eCW1 ( [facility]) NITROFURANTOIN, MACROCRYSTALS 25 MG / Ni trofurantoin, Monohydrate 75 MG Oral Capsule [Macrobid] Macrobid 100 MG Macrobid 100 MG 08/08/2020 12:00:00 AM EST suspended Macrobid 100 MG eCW1 ( [facility]) NITROFURANTOIN, MACROCRYSTALS 25 MG / Ni trofurantoin, Monohydrate 75 MG Oral Capsule [Macrobid] Macrobid 100 MG Macrobid 100 MG 08/08/2020 12:00:00 AM EST suspended Macrobid 100 MG eCW1 ( [facility]) NITROFURANTOIN, MACROCRYSTALS 25 MG / Ni trofurantoin, Monohydrate 75 MG Oral Capsule [Macrobid] Macrobid 100 MG Macrobid 100 MG 08/08/2020 12:00:00 AM EST suspended Macrobid 100 MG eCW1 ( [facility]) NITROFURANTOIN, MACROCRYSTALS 25 MG / Ni trofurantoin, Monohydrate 75 MG Oral Capsule [Macrobid] Macrobid 100 MG Macrobid 100 MG 08/08/2020 12:00:00 AM EST suspended Macrobid 100 MG eCW1 ( [facility]) NITROFURANTOIN, MACROCRYSTALS 25 MG / Ni trofurantoin, Monohydrate 75 MG Oral Capsule [Macrobid] Macrobid 100 MG Macrobid 100 MG 08/08/2020 12:00:00 AM EST active Macrobid 100 MG eCW1 ([facility]) NITROFURANTOIN, MACROCRYSTALS 25 MG / Ni trofurantoin, Monohydrate 75 MG Oral Capsule [Macrobid] Macrobid 100 MG Macrobid 100 MG 08/08/2020 12:00:00 AM EST suspended Macrobid 100 MG eCW1 ( [facility]) NITROFURANTOIN, MACROCRYSTALS 25 MG / Ni trofurantoin, Monohydrate 75 MG Oral Capsule [Macrobid] Macrobid 100 MG Macrobid 100 MG 08/08/2020 12:00:00 AM EST suspended Macrobid 100 MG eCW1 ( [facility]) Ciprofloxacin 500 MG Oral Tablet [Cipro] Cipro 500 MG Cipro 500 MG 07/17/2020 12:00:00 AM EDT 1.0 {tablet} suspended Cipro 500 MG eCW1 ([facility]) Ciprofloxacin 500 MG Oral Tablet [Cipro] Cipro 500 MG Cipro 500 MG 07/17/2020 12:00:00 AM EDT 1.0 {tablet} active Ci pro 500 MG eCW1 ([facility]) Ciprofloxacin 500 MG Oral Tablet [Cipro] Cipro 500 MG Cipro 500 MG 07/17/2020 12:00:00 AM EDT 1.0 {tablet} suspended Cipro 500 MG eCW1 ([facility]) Ciprofloxacin 500 MG Oral Tablet [Cipro] Cipro 500 MG Cipro 500 MG 07/17/2020 12:00:00 AM EDT 1.0 {tablet} suspended Cipro 500 MG eCW1 ([facility]) Ciprofloxacin 500 MG Oral Tablet [Cipro] Cipro 500 MG Cipro 500 MG 07/17/2020 12:00:00 AM EDT 1.0 {tablet} suspended Cipro 500 MG eCW1 ([facility]) Ciprofloxacin 500 MG Oral Tablet [Cipro] Cipro 500 MG Cipro 500 MG 07/17/2020 12:00:00 AM EDT 1.0 {tablet} suspended Cipro 500 MG eCW1 ([facility]) Ciprofloxacin 500 MG Oral Tablet [Cipro] Cipro 500 MG Cipro 500 MG 07/17/2020 12:00:00 AM EDT 1.0 {tablet} suspended Cipro 500 MG eCW1 ([facility]) Ciprofloxacin 500 MG Oral Tablet [Cipro] Cipro 500 MG Cipro 500 MG 07/17/2020 12:00:00 AM EDT 1.0 {tablet} suspended Cipro 500 MG eCW1 ([facility]) Ciprofloxacin 500 MG Oral Tablet [Cipro] Cipro 500 MG Cipro 500 MG 07/17/2020 12:00:00 AM EDT 1.0 {tablet} suspended Cipro 500 MG eCW1 ([facility]) Ciprofloxacin 500 MG Oral Tablet [Cipro] Cipro 500 MG Cipro 500 MG 07/17/2020 12:00:00 AM EDT 1.0 {tablet} suspended Cipro 500 MG eCW1 ([facility]) Ciprofloxacin 500 MG Oral Tablet [Cipro] Cipro 500 MG Cipro 500 MG 07/17/2020 12:00:00 AM EDT 1.0 {tablet} suspended Cipro 500 MG eCW1 ([facility]) Ciprofloxacin 500 MG Oral Tablet [Cipro] Cipro 500 MG Cipro 500 MG 07/17/2020 12:00:00 AM EDT 1.0 {tablet} active Ci pro 500 MG eCW1 ([facility]) Ciprofloxacin 500 MG Oral Tablet [Cipro] Cipro 500 MG Cipro 500 MG 07/17/2020 12:00:00 AM EDT 1.0 {tablet} suspended Cipro 500 MG eCW1 ([facility]) Ciprofloxacin 500 MG Oral Tablet [Cipro] Cipro 500 MG Cipro 500 MG 07/17/2020 12:00:00 AM EDT 1.0 {tablet} suspended Cipro 500 MG eCW1 ([facility]) Ciprofloxacin 500 MG Oral Tablet [Cipro] Cipro 500 MG Cipro 500 MG 07/17/2020 12:00:00 AM EDT 1.0 {tablet} suspended Cipro 500 MG eCW1 ([facility]) NITROFURANTOIN, MACROCRYSTALS 100 MG Ora l Capsule Nitrofurantoin Macrocrystal 100 MG Nitrofurantoin Macrocrystal 100 MG 07/07/2020 12:00:00 AM EDT suspended Nitrofurantoin Macrocrystal 100 MG eCW1 ([facility]) NITROFURANTOIN, MACROCRYSTALS 100 MG Ora l Capsule Nitrofurantoin Macrocrystal 100 MG Nitrofurantoin Macrocrystal 100 MG 07/07/2020 12:00:00 AM EDT suspended Nitrofurantoin Macrocrystal 100 MG eCW1 ([facility]) NITROFURANTOIN, MACROCRYSTALS 100 MG Ora l Capsule Nitrofurantoin Macrocrystal 100 MG Nitrofurantoin Macrocrystal 100 MG 07/07/2020 12:00:00 AM EDT active Nitrofurantoin Macrocrystal 100 MG eCW1 ([facility]) NITROFURANTOIN, MACROCRYSTALS 100 MG Ora l Capsule Nitrofurantoin Macrocrystal 100 MG Nitrofurantoin Macrocrystal 100 MG 07/07/2020 12:00:00 AM EDT active Nitrofurantoin Macrocrystal 100 MG eCW1 ([facility]) NITROFURANTOIN, MACROCRYSTALS 100 MG Ora l Capsule Nitrofurantoin Macrocrystal 100 MG Nitrofurantoin Macrocrystal 100 MG 07/07/2020 12:00:00 AM EDT suspended Nitrofurantoin Macrocrystal 100 MG eCW1 ([facility]) NITROFURANTOIN, MACROCRYSTALS 100 MG Ora l Capsule Nitrofurantoin Macrocrystal 100 MG Nitrofurantoin Macrocrystal 100 MG 07/07/2020 12:00:00 AM EDT active Nitrofurantoin Macrocrystal 100 MG eCW1 ([facility]) NITROFURANTOIN, MACROCRYSTALS 100 MG Ora l Capsule Nitrofurantoin Macrocrystal 100 MG Nitrofurantoin Macrocrystal 100 MG 07/07/2020 12:00:00 AM EDT active Nitrofurantoin Macrocrystal 100 MG eCW1 ([facility]) NITROFURANTOIN, MACROCRYSTALS 100 MG Ora l Capsule Nitrofurantoin Macrocrystal 100 MG Nitrofurantoin Macrocrystal 100 MG 07/07/2020 12:00:00 AM EDT suspended Nitrofurantoin Macrocrystal 100 MG eCW1 ([facility]) NITROFURANTOIN, MACROCRYSTALS 100 MG Ora l Capsule Nitrofurantoin Macrocrystal 100 MG Nitrofurantoin Macrocrystal 100 MG 07/07/2020 12:00:00 AM EDT suspended Nitrofurantoin Macrocrystal 100 MG eCW1 ([facility]) NITROFURANTOIN, MACROCRYSTALS 100 MG Ora l Capsule Nitrofurantoin Macrocrystal 100 MG Nitrofurantoin Macrocrystal 100 MG 07/07/2020 12:00:00 AM EDT suspended Nitrofurantoin Macrocrystal 100 MG eCW1 ([facility]) NITROFURANTOIN, MACROCRYSTALS 100 MG Ora l Capsule Nitrofurantoin Macrocrystal 100 MG Nitrofurantoin Macrocrystal 100 MG 07/07/2020 12:00:00 AM EDT suspended Nitrofurantoin Macrocrystal 100 MG eCW1 ([facility]) NITROFURANTOIN, MACROCRYSTALS 100 MG Ora l Capsule Nitrofurantoin Macrocrystal 100 MG Nitrofurantoin Macrocrystal 100 MG 07/07/2020 12:00:00 AM EDT suspended Nitrofurantoin Macrocrystal 100 MG eCW1 ([facility]) NITROFURANTOIN, MACROCRYSTALS 100 MG Ora l Capsule Nitrofurantoin Macrocrystal 100 MG Nitrofurantoin Macrocrystal 100 MG 07/07/2020 12:00:00 AM EDT suspended Nitrofurantoin Macrocrystal 100 MG eCW1 ([facility]) NITROFURANTOIN, MACROCRYSTALS 100 MG Ora l Capsule Nitrofurantoin Macrocrystal 100 MG Nitrofurantoin Macrocrystal 100 MG 07/07/2020 12:00:00 AM EDT suspended Nitrofurantoin Macrocrystal 100 MG eCW1 ([facility]) NITROFURANTOIN, MACROCRYSTALS 100 MG Ora l Capsule Nitrofurantoin Macrocrystal 100 MG Nitrofurantoin Macrocrystal 100 MG 07/07/2020 12:00:00 AM EDT suspended Nitrofurantoin Macrocrystal 100 MG eCW1 ([facility]) NITROFURANTOIN, MACROCRYSTALS 100 MG Ora l Capsule Nitrofurantoin Macrocrystal 100 MG Nitrofurantoin Macrocrystal 100 MG 07/07/2020 12:00:00 AM EDT suspended Nitrofurantoin Macrocrystal 100 MG eCW1 ([facility]) NITROFURANTOIN, MACROCRYSTALS 100 MG Ora l Capsule Nitrofurantoin Macrocrystal 100 MG Nitrofurantoin Macrocrystal 100 MG 07/07/2020 12:00:00 AM EDT suspended Nitrofurantoin Macrocrystal 100 MG eCW1 ([facility]) Ampicillin 500 MG Oral Capsule Ampicillin 500 MG 06/20/2020 12:00:00 AM EDT suspended Ampicillin 500 MG eC W1 ([facility]) Ampicillin 500 MG Oral Capsule Ampicillin 500 MG 06/20/2020 12:00:00 AM EDT suspended Ampicillin 500 MG eC W1 ([facility]) Ampicillin 500 MG Oral Capsule Ampicillin 500 MG 06/20/2020 12:00:00 AM EDT suspended Ampicillin 500 MG eC W1 ([facility]) Ampicillin 500 MG Oral Capsule Ampicillin 500 MG 06/20/2020 12:00:00 AM EDT suspended Ampicillin 500 MG eC W1 ([facility]) Ampicillin 500 MG Oral Capsule Ampicillin 500 MG 06/20/2020 12:00:00 AM EDT suspended Ampicillin 500 MG eC W1 ([facility]) Ampicillin 500 MG Oral Capsule Ampicillin 500 MG 06/20/2020 12:00:00 AM EDT active Ampicillin 500 MG eC W1 ([facility]) Ampicillin 500 MG Oral Capsule Ampicillin 500 MG 06/20/2020 12:00:00 AM EDT suspended Ampicillin 500 MG eC W1 ([facility]) Ampicillin 500 MG Oral Capsule Ampicillin 500 MG 06/20/2020 12:00:00 AM EDT suspended Ampicillin 500 MG eC W1 ([facility]) Ampicillin 500 MG Oral Capsule Ampicillin 500 MG 06/20/2020 12:00:00 AM EDT suspended Ampicillin 500 MG eC W1 ([facility]) Ampicillin 500 MG Oral Capsule Ampicillin 500 MG 06/20/2020 12:00:00 AM EDT suspended Ampicillin 500 MG eC W1 ([facility]) Ampicillin 500 MG Oral Capsule Ampicillin 500 MG 06/20/2020 12:00:00 AM EDT suspended Ampicillin 500 MG eC W1 ([facility]) Ampicillin 500 MG Oral Capsule Ampicillin 500 MG 06/20/2020 12:00:00 AM EDT suspended Ampicillin 500 MG eC W1 ([facility]) Ampicillin 500 MG Oral Capsule Ampicillin 500 MG 06/20/2020 12:00:00 AM EDT suspended Ampicillin 500 MG eC W1 ([facility]) Ampicillin 500 MG Oral Capsule Ampicillin 500 MG 06/20/2020 12:00:00 AM EDT suspended Ampicillin 500 MG eC W1 ([facility]) Ampicillin 500 MG Oral Capsule Ampicillin 500 MG 06/20/2020 12:00:00 AM EDT suspended Ampicillin 500 MG eC W1 ([facility]) Ampicillin 500 MG Oral Capsule Ampicillin 500 MG 06/20/2020 12:00:00 AM EDT suspended Ampicillin 500 MG eC W1 ([facility]) Ampicillin 500 MG Oral Capsule Ampicillin 500 MG 06/20/2020 12:00:00 AM EDT suspended Ampicillin 500 MG eC W1 ([facility]) Ampicillin 500 MG Oral Capsule Ampicillin 500 MG 06/20/2020 12:00:00 AM EDT suspended Ampicillin 500 MG eC W1 ([facility]) Administration Of Flu Vaccine 06/16/2020 12:00:00 AM EDT completed [facility] ([facility]) Medication administered onsite Levetiracetam 500 MG Oral Tablet Levetiracetam 05/16/2020 12:00:00 AM EDT ORAL active [facility] ([facility]) Aspirin 325 MG Oral Tablet Aspirin Adult 03/24/2020 12:00:00 AM EDT active [facility] ([facility]) Levetiracetam 750 MG Oral Tablet Levetiracetam 03/24/2020 12:00:00 AM EDT ORAL completed [facility] ([facility]) atorvastatin 40 MG Oral Tablet Atorvastatin Calcium 03/16/2020 1 2:00:00 AM EDT ORAL active MED[facility] ( [facility]) Levetiracetam 1000 MG Oral Tablet Levetiracetam 03/16/2020 12:00:00 A M EDT ORAL completed MED[facility] ([facility]) Insurance Providers Payer name Policy type / Coverage type Policy ID Covered democrat ID Covered democrat's relationship to ellington Policy [place] Plan Information [place] [address] [id number] SP [id number] MEDICARE [id number] SP [id number] FOR LIFE [id number] SP [id number] [place] [address] [id number] SP [id number] [place] [address] [id number] SP [id number] MEDICARE C [id number] S [id number] EXCELLUS BCBS B [id number] S XXP [id number] FOR LIFE O [id number] S [id number] ANSI-Commercial [id number] ANSI-Medicare Part B [id number] ANSI-Commercial [id number] WPS For Life Medigap Part B [id number] Family Depende nt [id number] [facility] Trad/MX Medigap Part B [id number] Self [id number] Medicare Natl Govt Servic Medicare Primary [id number] Self [id number] [place] [address] [id number] SP [id number] MEDICARE [id number] SP [id number] A [place] [facility] (TFL) Medigap Part B [id number] Self [id number] [facility] Federal Service Medigap Part B [id number] Family De pendent [id number] BS [place] Medigap Part B [id number] Self [id number] [place] Primary [id number] Self [id number] BS [place] Medigap Part B [id number] Self [id number] ANSI-Medicare Part B [id number] ANSI-Commercial [id number] ANSI-Commercial [id number] FOR LIFE [id number] [facility] [id number] BCBS [facility] 200/700 [id number] SP [id number] BCBS [place] PPO 302/307 [id number] SP [id number] FOR LIFE [id number] SP [id number] [place] PPO 302/307 [id number] SP [id number] [place] [facility] (TFL) Medigap Part B [id number] Self [id number] [facility] Service Medigap Part B [id number] Family De pendent [id number] BS [place] Medigap Part B [id number] Self [id number] Medicare [place] Medicare Primary [id number] Self [id number] [place] [facility] (TFL) Medigap Part B [id number] Self [id number] [facility] Service Medigap Part B [id number] Family De pendent [id number] BS [place] Medigap Part B [id number] Self [id number] [place] Primary [id number] Self [id number] WPS For Life Medigap Part B [id number] Family Depende nt [id number] BS [place] Trad/MX Commercial [id number] Self [id number] Medicare Natl Govt Servic Medicare Primary [id number] Self [id number] [facility] Serv (TFL) Medigap Part B [id number] Self [id number] [facility] Medigap Part B [id number] Family De pendent [id number] BS [facility] Medigap Part B [id number] Self [id number] Medicare [facility] Medicare Primary [id number] Self [id number] WPS For Life Medigap Part B [id number] Family Depende nt [id number] BS [place] Trad/MX Commercial [id number] Self [id number] Medicare Natl Govt Servic Medicare Primary [id number] Self [id number] For Life WPS Medigap Part B [id number] Family Depende nt [id number] BCBS/Blue Card Medigap Part B [id number] Self [id number] Medicare Natl Gov't Servi Medicare Primary [id number] Self [id number] MEDICARE [id number] S [id number] A [place] 200/700 [id number] SP [id number] FOR LIFE [id number] SP [id number] MEDICARE [id number] SP [id number] A [place] 200/700 [id number] SP [id number] WPS For Life Medigap Part B [id number] Family Depende nt [id number] [place] Trad/MX Commercial [id number] Self [id number] Medicare [facility] Govt Servic Medicare Primary [id number] Self [id number] BLUE CROSS BLUE SHIELD-O/P [id number] 18 [id number] MEDICARE -O/P [id number] 18 [id number] EXCELLUS BCBS B [id number] S XXP [id number] [place] 200/700 [id number] SP [id number] FOR LIFE [id number] SP [id number] WPS For Life Medigap Part B [place] BCBS Medigap Part B Self Medicare [place]/[facility] Medicare Primary Self WPS For Life Medigap Part B Family Depende nt BS [place] Trad/MX Commercial 200 Self 200 Medicare Natl Govt Servic Medicare Primary Self [place] 306/806 [id number] SP [id number] MEDICARE [id number] SP [id number] A For Life Medigap Part B Family Dependent BC/BS Of [place] Medigap Part B Self Medicare [facility] Medicare Primary Self [id number] Problems, Conditions, and Diagnoses Code Display Name Description Problem Type Effective Dates Data Source(s) N32.1 Colovesical fistula Colovesical fistula Problem 0 09/21/2020 12:00:00 AM EST eCW1 ([facility]) R31.29 [id number] Other microscopic hematuria Problem 09/21/19 12:00:00 AM EST eCW1 ([facility]) N30.91 [id number] Hematuria due to cystitis Problem 09/21/2020 12:00:00 AM EST eCW1 ([facility]) N32.89 [id number] Bladder spasms Problem 08/19/2020 12:00:00 A M EST eCW1 ([facility]) [id number] Dementia Dementia Problem 03/24/2020 12:00:00 AM ED T MEDENT ([facility] ) [id number] Intracranial meningioma Intracranial meningioma Proble m 03/24/2020 12:00:00 AM EDT [facility] ([facility] ) [id number] Transient cerebral ischemia Transient cerebral ischemi a Problem 03/24/2020 12:00:00 AM EDT MED[facility] ([facility] ) [id number] Seizure Seizure Problem 03/24/2020 12:00:00 AM ED T MED[facility] ([facility] ) Surgeries/Procedures Procedure Description Date Indications Data Source(s) MRI Brain W/O Contrast, Followed By Contrast 0 12:00:00 AM EDT MED[facility] ([facility] ) MRI Brain W/O Contrast, Followed By Contrast 0 12:00:00 AM EDT MED[facility] ([facility] ) ECG ROUTINE ECG W/LEAST 12 LDS W/I&R 06/16/2020 12:00: 00 AM EDT MED[facility] ([facility]) TSTG ANS FUNCJ CARDIOVAGAL INNERVAJ PARASYMP 0 12:00:00 AM EDT MED[facility] ([facility] ) TSTG ANS FUNCJ CARDIOVAGAL INNERVAJ PARASYMP 0 12:00:00 AM EDT MED[facility] ([facility] ) TESTING AUTONOMIC NERVOUS SYSTEM FUNCTION 05/25/2020 1 2:00:00 AM EDT MED[facility] ([facility] ) TESTING AUTONOMIC NERVOUS SYSTEM FUNCTION 05/25/2020 1 2:00:00 AM EDT MED[facility] ([facility] ) ELECTROENCEPHALOGRAM W/REC AWAKE&ASLEEP 04/13/2020 12: 00:00 AM EDT MED[facility] ([facility] ) ELECTROENCEPHALOGRAM W/REC AWAKE&ASLEEP 04/13/2020 12: 00:00 AM EDT MED[facility] ([facility] ) Results ID Date Data Source Basic Metabolic Profile (BMP) 08/25/2020 12:00:00 AM EST eCW 1 ([facility]) Name Value Range Interpretation Code Description Data Payton rce(s) Supporting Document(s) 0.95 0.55-1.30 CREATININE FOR GFR eCW1 ([facility]) 99 70-100 GLUCOSE, FASTING eCW1 ([facility]) 10 7-18 BLOOD UREA NITROGEN eCW1 ([facility]) 133 136-145 SODIUM LEVEL eCW1 ([facility]) 4.5 3.5-5.1 POTASSIUM SERUM eCW1 ([facility]) 101 98-107 CHLORIDE LEVEL eCW1 ([facility]) > 60.0 >32 GLOMERULAR FILTRATION RATE eCW 1 ([facility]) 25 21-32 CARBON DIOXIDE LEVEL eCW1 ([facility]) 8.7 8.8-10.2 CALCIUM LEVEL eCW1 ([facility]) ID Date Data Source URINE CULTURE 08/19/2020 12:00:00 AM EST eCW1 ([facility]) Name Value Range Interpretation Code Description Data Payton rce(s) Supporting Document(s) URINE CULTURE eCW1 ([facility]) ID Date Data Source MICROSCOPIC, URINE (Non-Orderable) 08/08/2020 12:00:00 AM ES T eCW1 ([facility]) Name Value Range Interpretation Code Description Data Payton rce(s) Supporting Document(s) 30-40 0-3 WBC, URINE eCW1 ([facility]) MOD AMOUNT NONE TRIPLE PHOSPHATE CRYSTAL, URINE eCW1 ([facility]) SMALL AMOUNT SMALL AMT SQUAMOUS EPITHELIAL COSMO L URINE eCW1 ([facility]) LARGE AMOUNT NONE BACTERIA, URINE eCW1 ([facility]) 20-30 0-3 RBC, URINE eCW1 ([facility]) NONE SEEN 0-1 HYALINE CAST, URINE eCW1 ([facility]) UNSPUN MICROSCOPIC EXAM eCW1 ([facility]) ID Date Data Source 'LAB ONLY' UA URINALYSIS MANUAL (Not Orderable) 08/08/2020 1 2:00:00 AM EST eCW1 ([facility]) Name Value Range Interpretation Code Description Data Payton rce(s) Supporting Document(s) 'LAB ONLY' UA URINALYSIS MANUAL (Not Orderable) eCW1 ([facility]) ID Date Data Source [id number] 06/16/2020 11:20:00 AM EDT MED[facility] ([facility]) Name Value Range Interpretation Code Description Data Payton rce(s) Supporting Document(s) Thyrotropin [Units/volume] in Serum or Plasma by Detec tion limit <= 0.05 mIU/L 1.32 uIU/mL 0.36-3.74 MED[facility] ([facility] ) ID Date Data Source [id number] 06/16/2020 11:20:00 AM EDT [facility] ([facility]) Name Value Range Interpretation Code Description Data Payton rce(s) Supporting Document(s) Cholesterol in HDL [Mass/volume] in Serum or Plasma 58 mg/dL 35-60 [facility] ([facility]) Cholesterol [Mass/volume] in Serum or Plasma 117 mg/dL 131-200 [facility] ([facility]) Triglyceride [Mass/volume] in Serum or Plasma 69 mg/dL 30-150 [facility] ([facility]) Cholesterol in LDL [Mass/volume] in Serum or Plasma by calcu lation 45 CALC 50-159 [facility] ([facility]) ID Date Data Source [id number] 06/16/2020 11:20:00 AM EDT [facility] ([facility]) Name Value Range Interpretation Code Description Data Payton rce(s) Supporting Document(s) Urea nitrogen [Mass/volume] in Serum or Plasma 10 mg/dL 7-18 MED[facility] ([facility]) Glucose [Mass/volume] in Serum or Plasma 132 mg/dL 74-99 [facility] ([facility]) 100-125 mg/dL PRE-DIABETES/FASTING >126 mg/dL DIABETES/FASTING Sodium [Moles/volume] in Serum or Plasma 138 meq/L 136-145 MED[facility] ([facility]) Creatinine 0.8 mg/dL 0.6-1.3 MED[facility] Potassium [Moles/volume] in Serum or Plasma 3.6 meq/L 3.5-5.1 MED[facility] ([facility]) Chloride [Moles/volume] in Serum or Plasma 102 meq/L 98-107 MED[facility] ([facility]) Carbon dioxide, total [Moles/volume] in Serum or Plasma 27 meq/L 21 -32 MED[facility] ([facility]) Calcium [Mass/volume] in Serum or Plasma 8.8 mg/dL 8.5-10.1 MED[facility] ([facility]) Aspartate aminotransferase [Enzymatic activity/volume] in Serum or Plasma 14 U/L 15-37 [facility] ([facility] ) Alkaline phosphatase isoenzyme [Units/volume] in Serum or Pl asma 86 mg/dL 46-116 [facility] ([facility]) Alanine aminotransferase [Enzymatic activity/volume] in Seru m or Plasma 19 U/L 12-78 [facility] ([facility]) Total Bilirubin 0.4 mg/dL 0.2-1.0 [facility] ([facility]) A/G Ratio 0.94 CALC 1.00-1.90 [facility]) Proteinase 3 Ab [Units/volume] in Serum 6.8 g/dL 6.4-8.2 [facility] ([facility]) Albumin [Mass/volume] in Serum or Plasma 3.3 g/dL 3.4-5.0 [facility] Glomerular filtration rate/1.73 sq M pre dicted among non-blacks [Volume Rate/Area] in Serum or Plasma by Creatinine-based formula (MDRD) Laboratory test result [facility] ([facility] Glomerular filtration rate/1.73 sq M pre dicted among blacks [Volume Rate/Area] in Serum or Plasma by Creatinine-based formula (MDRD) Laboratory test result [facility]) <content>CHRONIC KIDNEY DISEASE STAGING PER NKF</content>
<content></content>
<content>STAGE I & II GFR >= 60 NORMAL TO MILDLY DECREASED</content>
<content>STAGE III GFR 30-59 MODERATELY DECREASED</content>
<content>STAGE IV GFR 15-29 SEVERELY DECREASED</content>
<content>STAGE V GFR <15 VERY LITTLE GFR LEFT</content>
<content>ESRD GFR <15 ON HUMAN RESOURCES PARTNER</content>
<content></content> ID Date Data Source [id number] 06/16/2020 11:20:00 AM EDT [facility] Name Value Range Interpretation Code Description Data Payton rce(s) Supporting Document(s) Leukocytes [#/volume] in Blood by Automated count 10.5 x10*3/UL 4.1-1 0.9 [facility] ([facility] NOTE: RESULT VERIFIED. Hematocrit [Volume Fraction] of Blood by Automated count 34.3 % 3 7.0-51.0 [facility] ([facility]) Erythrocytes [#/volume] in Blood by Automated count 4.20 x10*6/UL 4.2 0-6.30 [facility] Hemoglobin [Mass/volume] in Blood 12.0 g/dL 12.0-18.0 [facility] ([facility]) MCHC 35.0 g/dL 31.0-38.0 [facility] MCV 80.8 fL 80.0-97.0 [facility] MCH 28.3 pg 26.0-32.0 [facility] Erythrocyte distribution width [Ratio] by Automated count 12.7 % 11.6-13.7 [facility] ([facility]) Platelets [#/volume] in Blood by Automated count 365 x10*3/UL 140-440 [facility] ([facility]) MPV 7.2 FL 7.8-11.0 [facility] Neut % 57.5 % 37.0-92.0 [facility] Lymph % 34.4 % 10.0-58.5 [facility] ([facility]) Mid % 8.1 % 1.7-9.3 [facility] ([facility]) Mid # 0.9 x10*3/UL 0.1-0.6 [facility] ([facility]) Neut # 6.0 x10*3/UL 2.0-7.8 [facility] ([facility]) Lymph # 3.6 x10*3/UL 0.6-4.1 [facility] ([facility]) ID Date Data Source [id number] 05/08/2020 09:00:00 AM EDT [facility] ([facility]) Name Value Range Interpretation Code Description Data Payton rce(s) Supporting Document(s) Urine Culture Laboratory test result [facility] ([facility]) <content>FULL REPORT IN LAB NOTES (eCW a nd Med[facility]).</content>
<content></content>
<content>ORGANISM 1: ESCHERICHIA COLI</content>
<content></content>
<content>COLONY COUNT > 100,000</content>
<content></content>
<content></content>
<content>O RGANISM 1: ESCHERICHIA COLI</content>
<content></content>
<content> ESCHERICHIA COLI: REACTION</content>
<content>TRIMETHOPRIM/SULFAMETHOXAZOLE IV 160mg TMP & 800mg SMXq6h <=20 S</content>
<content> TRIMETHOPRIM/SULFAMETHOXAZOLE PO Bactrim DS Bid <=20 S</content>
<content>AMPICILLIN IV 500mg q6h 8 S</content>
<content>AMPICILLIN PO 500mg q6h fasting 8 S</content>
<content>GENTAMICIN IV 80mg q8h <=1 S</content>
<content>NITROFURANTOIN PO 100mg BID <=16 S</content>
<content>CEFAZOLIN IV 1gm q8h <=4 S</content>
<content> LEVOFLOXACIN IV 500mg qd <=0.12 S</content>
<content>LEVOFLOXACIN PO 250mg qd <=0.12 S</content>
<content>LEVOFLOXACIN PO 500mg qd <=0.12 S</content>
<content>TOBRAMYCIN IV 80mg q8h <=1 S</content>
<content>CEFTRIAXONE IV 1gm q24h <=1 S</content>
<content>CEFTAZIDIME IV 1gm q8h <=1 S</content>
<content> AMPICILLIN/SULBACTAM IV 1.5g q6h 4 S</content>
<content>PIPERACILLIN/TAZOBACTAM IV 2.25 gm q6h <=4 S</content>
<content>AZTREONAM IV 1gm q8h <=1 S</content>
<content>ERTAPENEM IV 1gm qd <=0.5 S</content>
<content>MEROPENEM IV 1 gm q8h <=0.25 S</content>
<content>MEROPENEM IV 500 mg q8h <=0.25 S</content>
<content>TIGECYCLINE IV 50mg q12h <=0.5 S</content>
<content>CEFEPIME IV 1 gm q12h <=1 S</content>
<content>CEFEPIME IV 2 gm q12h <=1 S</content>
<content>EXTD BRD SPCTRM BETA LACTAMASE IV NEGATIVE FOR ESBL</content>
<content></content> ID Date Data Source [id number] 05/08/2020 09:00:00 AM EDT [facility] ([facility] Name Value Range Interpretation Code Description Data Payton rce(s) Supporting Document(s) Appearance, Urine Laboratory test result [facility] ([facility]) Color, Urine Laboratory test result [facility] ([facility]) PH,Urine 5.0 units 5.0-9.0 [facility]) Specific [place] Urine Auto 1.017 1.002-1.035 [facility] ([facility]) Protein, Urine Auto Laboratory test result [facility] ([facility]) Urobilinogen, Urine Auto 2.0 mg/dL 0.0-2.0 MEDEN T ([facility]) Glucose, Urine (Ua) Auto Laboratory test result [facility] ([facility]) Ketone, Urine Auto Laboratory test result [facility] ([facility]) Nitrite, Urine Auto Laboratory test result [facility] ([facility]) Bilirubin, Urine Auto Laboratory test result [facility] ([facility]) Leukocyte Esterase, Urine Auto Laboratory test result [facility] ([facility]) WBC, Urine Auto 125 /HPF 0-3 [facility] ([facility]) Blood, Urine Blood Laboratory test result [facility] ([facility]) Bacteria, Urine Auto Laboratory test result [facility] ([facility]) RBC, Urine Auto 4 /HPF 0-3 [facility] ([facility]) Hyaline Cast, Urine Auto 0 /LPF 0-1 MED[facility] T ([facility]) Mucus, Urine Laboratory test result MEDE NT ([facility]) Squamous Epithelial Cell Ur AU 4 /HPF 0-6 [facility] ([facility]) Uric Acid Crystals Laboratory test result [facility] ([facility]) ID Date Data Source [id number] 05/06/2020 10:40:00 PM EDT [facility]) Name Value Range Interpretation Code Description Data Payton rce(s) Supporting Document(s) Respiratory Panel Laboratory test result [facility] ([facility]) This respiratory PCR panel detects Influ oracio A H1, H3 and 2009 H1 viruses, Influenza B virus, Resp iratory Syncytial Virus, Human metapneumovirus, Parainfluenza virus 1, 2, 3 and 4, Adenovirus, Rhinovirus/Enterovirus, Coronavirus HKU1, NL63, OC43, 229E and SARS-CoV-2 (COVID 19), Bordetella pertussis, Bordetella parapertussis, Mycoplasma pneumoniae and Chlamydia pneumoniae. NEGATIVE by MULTIPLEXED NUCLEIC ACID PCR SARS-CoV-2 (COVID 19) NEGATIVE - SARS-CoV-2 (COVID19) ID Date Data Source [id number] 05/06/2020 07:46:00 PM EDT [facility]) Name Value Range Interpretation Code Description Data Payton rce(s) Supporting Document(s) Blood Culture Laboratory test result [facility] ([facility]) No growth after 72 hours . All specimens observed for 5 days. Results final at that time. No growth after 48 hours . All specimens observed for 5 days. Results final at that time. No growth after 24 hours . All specimens observed for 5 days. Results final at that time. NO GROWTH AFTER 5 DAYS ID Date Data Source [id number] 05/06/2020 07:33:00 PM EDT [facility]) Name Value Range Interpretation Code Description Data Payton rce(s) Supporting Document(s) Blood Culture Laboratory test result [facility] ([facility]) No growth after 72 hours . All specimens observed for 5 days. Results final at that time. No growth after 48 hours . All specimens observed for 5 days. Results final at that time. No growth after 24 hours . All specimens observed for 5 days. Results final at that time. NO GROWTH AFTER 5 DAYS ID Date Data Source [id number] 05/06/2020 07:33:00 PM EDT [facility]) Name Value Range Interpretation Code Description Data Payton rce(s) Supporting Document(s) Thyrotropin [Units/volume] in Serum or Plasma by Detec tion limit <= 0.05 mIU/L 0.683 uIU/ML 0.358-3.740 [facility] ([facility] ) ID Date Data Source [id number] 05/06/2020 07:33:00 PM EDT [facility] ([facility]) Name Value Range Interpretation Code Description Data Payton rce(s) Supporting Document(s) Glomerular Filtration Rate Laboratory test result [facility] ([facility]) <content>Units are mL/min/1.73 m2</content>
<content></content>
<content>Chronic Kidney Disease Staging per NK[facility]:</content>
<content></content>
<content>Stage I & II GFR >=60 Normal to Mildly Decreased</content>
<content>Stage III GFR 30- 59 Moderately Decreased</content>
<content>Stage IV GFR 15-29 Severely Decreased</content>
<content>Stage V GFR <15 Very Little GFR Left</content>
<content>ESRD GFR <15 on [employer]NER</content>
<content></content> Creatinine For GFR 0.74 mg/dL 0.55-1.30 [facility] ([facility]) Glucose, Fasting 117 mg/dL 70-100 [facility] ([facility]) Blood Urea Nitrogen 11 mg/dL 7-18 [facility] ([facility]) Sodium Level 135 meq/L 136-145 [facility] ([facility]) Chloride Level 103 meq/L 98-107 [facility] ([facility]) Potassium Serum 3.6 meq/L 3.5-5.1 [facility] ([facility]) Carbon Dioxide Level 25 meq/L 21-32 [facility] ([facility]) Anion Gap 7 meq/L 8-16 [facility]) Calcium Level 8.6 mg/dL 8.8-10.2 [facility] ([facility]) ID Date Data Source [id number] 05/06/2020 07:33:00 PM EDT [facility] ([facility]) Name Value Range Interpretation Code Description Data Payton rce(s) Supporting Document(s) Alkaline Phosphatase 94 U/L 45-117 [facility] ([facility]) Ast/Sgot 15 U/L 7-37 [facility] ([facility]) Alt/SGPT 17 U/L 12-78 [facility] ([facility]) Bilirubin,Direct 0.1 mg/dL 0.0-0.2 [facility] ([facility]) Albumin 3.3 GM/DL 3.2-5.2 [facility] ([facility]) Total Protein 6.4 GM/DL 6.4-8.2 [facility] ([facility]) Bilirubin,Total 0.5 mg/dL 0.2-1.0 [facility] ([facility]) Albumin/Globulin Ratio 1.1 1.2-2.2 [facility] ([facility]) ID Date Data Source [id number] 05/06/2020 07:33:00 PM EDT [facility] ([facility]) Name Value Range Interpretation Code Description Data [facility](s) Supporting Document(s) CPK Creatine Phosphokinase 54 U/L 26-192 [facility] ([facility]) MB/CK Relative Index 1.85 [facility] ([facility]) <content>DIAGNOSIS CRITERIA</content>
<content>MMB ng/ml Relative Index (RI)</content>
<content>NON-AMI < or = 5 N/A</content>
<content>AGUILAR ZONE > 5 < or = 4</content>
<content>AMI > 5 > 4</content>
<content></content> CK-MB Value Mass Laboratory test result [facility] ([facility]) Troponin I Laboratory test result [facility] ([facility]) <content>Troponin I Reference Interval f or Siemens Interior LOCI:</content>
<content></content>
<content>99th Percentile= 0.00-0.045 ng/ml</content>
<content></content>
<content>Risk Stratification:</content>
<content><= 0.10 ng/ml Decreased Risk for Adverse Clinical</content>
<content>Events.</content>
<content>0.10-1.50 ng/ml Increased Risk for Adverse Clinical</content>
<content>Events. Evaluation of additional</content>
<content>criterion and/or repeat testing in 2-6</content>
<content>hours is suggested to rule out myocardial</content>
<content>damage.</content>
<content>>= 1.50 ng/ml Indicative of Myocardial Injury.</content>
<content></content> ID Date Data Source [id number] 05/06/2020 07:33:00 PM EDT [facility] ([facility]) Name Value Range Interpretation Code Description Data Payton rce(s) Supporting Document(s) Levetiracetam [Mass/volume] in Serum or Plasma 20.2 ug/mL 10.0-40.0 [facility] ([facility]) This test was developed and its performa nce characteristics determined by [facility]. It has not been cleared or approved by the Food and Drug Administration. Performed at: [address] [id number] F[employer] Spinner: Willard Sharma MD, Phone: [phone] Lactate [Mass/volume] in Serum or Plasma 1.2 mmol/L 0.4-2.0 [facility] ([facility]) Y/N query for Sepsis Lactate Rule: Y ID Date Data Source [id number] 05/06/2020 07:33:00 PM EDT [facility] ([facility]) Name Value Range Interpretation Code Description Data Payton rce(s) Supporting Document(s) Red Blood Count 4.11 10 4.00-5.40 [facility] ([facility]) White Blood Count 12.7 10 4.0-10.0 [facility] ([facility]) Hemoglobin 11.8 g/dL 12.0-15.5 [facility] ([facility]) Mean Corpuscular Volume 86.9 fl 80.0-96.0 [facility] ([facility]) Hematocrit 35.7 % 36.0-47.0 [facility]) Mean Corpuscular Hemoglobin 28.7 pg 27.0-33.0 [facility] ([facility]) Mean Corpuscular HGB Conc 33.1 g/dL 32.0-36.5 [facility] ([facility]) Red Cell Distribution Width 12.6 % 11.5-14.5 [facility] ([facility]) Platelet Count, Automated 235 10 150-450 [facility] NT ([facility]) Lymph % 12.5 % 24.0-44.0 [facility]) Neutrophils % 79.2 % 36.0-66.0 [facility] ([facility]) [place] % 7.6 % 0.0-5.0 [facility]) Eos % 0.1 % 0.0-3.0 [facility] Baso % 0.2 % 0.0-1.0 [facility] Nucleated Red Blood Cell % 0.0 % 0-0 [facility] ([facility]) Immature Granulocyte % 0.4 % 0-3.0 [facility] ([facility]) [place] # 1.0 10 0.0-0.8 [facility] Lymph # 1.6 10 1.5-5.0 [facility] Neutrophils # 10.1 10 1.5-8.5 [facility] ([facility]) Eos # 0.0 10 0.0-0.5 [facility] Baso # 0.0 10 0.0-0.2 [facility] Procedure Social History Code Duration Value Status Description Data Source(s ) Smoking 10/29/2020 12:00:00 AM EST Patient is a former smoker completed Patient is a former smoker [facility] ([facility]) Vital Signs ID Date Data Source UNK Name Value Range Interpretation Code Description Data Source(s) Body mass index (BMI) [Ratio] 21.1 kg/m2 21.1 k g/m2 [facility] ([facility], [facility]) Body height 69 [in_i] 69 [in_i] [facility] ([facility]) 5'9" Body weight 143.00 [lb_av] 143.00 [lb_av] MED[facility] T ([facility]) Body temperature 97.7 [degF] 97.7 [degF] [facility] ([facility], [facility]) Oxygen saturation in Arterial blood by Pulse oximetry 98 % 98 % [facility] ([facility], [facility]) Respiratory rate 14 /min 14 /min [facility] ( [facility]) Heart rate 98 /min 98 /min [facility] ([facility], [facility]) Diastolic blood pressure 75 mm[Hg] 75 mm[Hg] [facility] ([facility]) Systolic blood pressure 146 mm[Hg] 146 mm[Hg] M EDENT ([facility], [facility]) Ebro body weight 145 [lb_av] 145 [lb_av] MEDEN T ([facility], ) Body mass index (BMI) [Ratio] 22.0 kg/m2 22.0 k g/m2 [facility] ([facility], ) Body weight 149.00 [lb_av] 149.00 [lb_av] MED[facility] T ([facility], ) Body height 69 [in_i] 69 [in_i] [facility] ([facility], ) 5'9" Respiratory rate 12 /min 12 /min [facility] ( [facility], ) Diastolic blood pressure 68 mm[Hg] 68 mm[Hg] eCW1 ([facility]) Systolic blood pressure 122 mm[Hg] 122 mm[Hg] e CW1 ([facility]) Body temperature 98.5 [degF] 98.5 [degF] eCW1 ( [facility]) Respiratory rate 18 /min 18 /min eCW1 ([facility]) Heart rate 85 /min 85 /min eCW1 ([facility]) Body mass index (BMI) [Ratio] 22.53 kg/m2 22.53 kg/m2 eCW1 ([facility]) Body height 67.5 [in_i] 67.5 [in_i] eCW1 ([facility]) Body weight 146 [lb_av] 146 [lb_av] eCW1 ([facility]) Diastolic blood pressure 74 mm[Hg] 74 mm[Hg] eCW1 ([facility]) Systolic blood pressure 128 mm[Hg] 128 mm[Hg] e CW1 ([facility]) Body temperature 97.4 [degF] 97.4 [degF] eCW1 ( [facility]) Respiratory rate 18 /min 18 /min eCW1 ([facility]) Heart rate 84 /min 84 /min eCW1 ([facility]) Body mass index (BMI) [Ratio] 22.56 kg/m2 22.56 kg/m2 eCW1 ([facility]) Body height 67.5 [in_i] 67.5 [in_i] eCW1 ([facility]) Body weight 146.2 [lb_av] 146.2 [lb_av] eCW1 ([facility]) Diastolic blood pressure 84 mm[Hg] 84 mm[Hg] eCW1 ([facility]) Systolic blood pressure 121 mm[Hg] 121 mm[Hg] e CW1 ([facility]) Body mass index (BMI) [Ratio] 23.92 kg/m2 23.92 kg/m2 eCW1 ([facility]) Body height 67.5 [in_i] 67.5 [in_i] eCW1 ([facility]) Body weight 70.31 kg 70.31 kg eCW1 ([facility]) Body weight 155 [lb_av] 155 [lb_av] eCW1 ([facility]) Diastolic blood pressure 67 mm[Hg] 67 mm[Hg] eCW1 ([facility]) Systolic blood pressure 102 mm[Hg] 102 mm[Hg] e CW1 ([facility]) Body mass index (BMI) [Ratio] 24.07 kg/m2 24.07 kg/m2 W1 ([facility]) Body height 67.5 [in_i] 67.5 [in_i] eCW1 ([facility]) Body weight 70.76 kg 70.76 kg W1 ([facility]) Body weight 156 [lb_av] 156 [lb_av] eCW1 ([facility]) Diastolic blood pressure 68 mm[Hg] 68 mm[Hg] eCW1 ([facility]) Systolic blood pressure 146 mm[Hg] 146 mm[Hg] e CW1 ([facility]) Body mass index (BMI) [Ratio] 24.07 kg/m2 24.07 kg/m2 W1 ([facility]) Body height 67.5 [in_i] 67.5 [in_i] eCW1 ([facility]) Body weight 70.76 kg 70.76 kg eCW1 ([facility]) Body weight 156 [lb_av] 156 [lb_av] eCW1 ([facility]) Body mass index (BMI) [Ratio] 22.5 kg/m2 22.5 k g/m2 [facility] ([facility]) Body weight 148.25 [lb_av] 148.25 [lb_av] MEDEN T ([facility]) Body height 68 [in_i] 68 [in_i] [facility] ([facility]) 5'8" Diastolic blood pressure 70 mm[Hg] 70 mm[Hg] [facility] ([facility]) Systolic blood pressure 130 mm[Hg] 130 mm[Hg] M EDENT ([facility]) Ebro body weight 145 [lb_av] 145 [lb_av] MEDEN T ([facility], ) Body mass index (BMI) [Ratio] 22.7 kg/m2 22.7 k g/m2 [facility] ([facility], ) Body weight 154.00 [lb_av] 154.00 [lb_av] MEDEN T ([facility], ) Body height 69 [in_i] 69 [in_i] [facility] ([facility], ) 5'9" Respiratory rate 12 /min 12 /min [facility] ( [facility]) Ebro body weight 145 [lb_av] 145 [lb_av] MEDEN T ([facility]) Body mass index (BMI) [Ratio] 22.7 kg/m2 22.7 k g/m2 [facility] ([facility]) Body weight 154.00 [lb_av] 154.00 [lb_av] MEDEN T ([facility]) Body height 69 [in_i] 69 [in_i] [facility] ([facility]) 5'9" Respiratory rate 12 /min 12 /min [facility] ( [facility]) Body mass index (BMI) [Ratio] 23.3 kg/m2 23.3 k g/m2 [facility] ([facility]) Body weight 153.00 [lb_av] 153.00 [lb_av] MED[facility] T ([facility]) Body height 68 [in_i] 68 [in_i] [facility] ([facility]) 5'8" Heart rate 68 /min 68 /min [facility] ([facility]) Diastolic blood pressure 58 mm[Hg] 58 mm[Hg] [facility] ([facility]) Systolic blood pressure 102 mm[Hg] 102 mm[Hg] EDENT ([facility]) Patient Treatment Plan of Care Planned Activity Planned Date Details Description Data Source (s) Sulfamethoxazole 800 MG / Trimethoprim 160 MG Oral Tab let [Bactrim] 10/22/2020 12:00:00 AM EST eCW1 ([facility]) Phenazopyridine hydrochloride 100 MG Oral Tablet [Pyri dium] 10/22/2020 12:00:00 AM EST eCW1 ([facility]) Sulfamethoxazole 800 MG / Trimethoprim 160 MG Oral Tab let [Bactrim] 10/22/2020 12:00:00 AM EST eCW1 ([facility]) Phenazopyridine hydrochloride 100 MG Oral Tablet [Pyri dium] 10/22/2020 12:00:00 AM EST eCW1 ([facility]) Minocycline 50 MG Oral Capsule 09/21/2020 12:00:00 AM EST eCW1 ([facility]) Minocycline 50 MG Oral Capsule 09/21/2020 12:00:00 AM EST eCW1 ([facility]) Minocycline 50 MG Oral Capsule 09/21/2020 12:00:00 AM EST eCW1 ([facility]) Minocycline 50 MG Oral Capsule 09/21/2020 12:00:00 AM EST eCW1 ([facility]) Sulfamethoxazole 800 MG / Trimethoprim 160 MG Oral Tab let [Bactrim] 08/25/2020 12:00:00 AM EST eCW1 ([facility]) Sulfamethoxazole 800 MG / Trimethoprim 160 MG Oral Tab let [Bactrim] 08/25/2020 12:00:00 AM EST eCW1 ([facility]) Sulfamethoxazole 800 MG / Trimethoprim 160 MG Oral Tab let [Bactrim] 08/25/2020 12:00:00 AM EST eCW1 ([facility]) Fosfomycin 33.3 MG/ML Oral Suspension [Monurol] 08/19/2020 12:00:00 AM EST eCW1 ([facility]) Fosfomycin 33.3 MG/ML Oral Suspension [Monurol] 08/19/2020 12:00:00 AM EST eCW1 ([facility]) Fosfomycin 33.3 MG/ML Oral Suspension [Monurol] 08/19/2020 12:00:00 AM EST eCW1 ([facility]) Phenazopyridine hydrochloride 200 MG Oral Tablet [Pyri dium] 08/16/2020 12:00:00 AM EST eCW1 ([facility]) Phenazopyridine hydrochloride 200 MG Oral Tablet [Pyri dium] 08/16/2020 12:00:00 AM EST eCW1 ([facility]) Phenazopyridine hydrochloride 200 MG Oral Tablet [Pyri dium] 08/16/2020 12:00:00 AM EST eCW1 ([facility]) NITROFURANTOIN, MACROCRYSTALS 25 MG / Ni trofurantoin, Monohydrate 75 MG Oral Capsule [Macrobid] 08/08/2020 12:00:00 AM EST eC W1 ([facility]) NITROFURANTOIN, MACROCRYSTALS 25 MG / Ni trofurantoin, Monohydrate 75 MG Oral Capsule [Macrobid] 08/08/2020 12:00:00 AM EST eC W1 ([facility]) NITROFURANTOIN, MACROCRYSTALS 25 MG / Ni trofurantoin, Monohydrate 75 MG Oral Capsule [Macrobid] 08/08/2020 12:00:00 AM EST eC W1 ([facility]) Ciprofloxacin 500 MG Oral Tablet [Cipro] 07/17/2020 12:00:00 AM EDT eCW1 ([facility]) Ciprofloxacin 500 MG Oral Tablet [Cipro] 07/17/2020 12:00:00 AM EDT eCW1 ([facility]) NITROFURANTOIN, MACROCRYSTALS 100 MG Oral Capsule 07/07/2020 12: 00:00 AM EDT eCW1 ([facility]) NITROFURANTOIN, MACROCRYSTALS 100 MG Oral Capsule 07/07/2020 12: 00:00 AM EDT eCW1 ([facility]) NITROFURANTOIN, MACROCRYSTALS 100 MG Oral Capsule 07/07/2020 12: 00:00 AM EDT eCW1 ([facility]) NITROFURANTOIN, MACROCRYSTALS 100 MG Oral Capsule 07/07/2020 12: 00:00 AM EDT eCW1 ([facility]) Ampicillin 500 MG Oral Capsule 06/20/2020 12:00:00 AM EDT eCW1 ([facility])
--- OUTSIDE RECORDS SUMMARY | 2020-10-29 15:50 | CCD ---
Author Author [facility] Organization [facility] Address Unknown Phone Unavailable Care Team Providers Care Molder Machine Name Role Phone James LOVELACE JR, PA-C [...] is protected by Article 27-F of the [facility] Public Health law. If you continue you may have access to information: Regarding HIV / AIDS; Provided by facilities licensed or operated by the [facility] Office of Mental Health; or Provided by the [facility] Office for People With Developmental Disabilities. If such information is present, then the following [facility] mandated warning applies: This information has been [...] law may result in a fine or mcc sentence or both. A general authorization for [...] [facility]) Unknown Unknown Problem MEDENT ([facility] ) Unknown Female Problem MEDENT ([facility]) Unknown Unknown Encounters Encounter Providers Location Date Indications Data Source(s ) Unknown [address] [facility] [address] [place] [address] 10/22/2020 12:00:00 AM EST eCW1 ([facility]) Unknown [address] [facility] [address] [place] [address] 10/21/2020 12:00:00 AM EST eCW1 ([facility]) Unknown [address] [facility] [place] [address] 09/23/2020 12:00:00 AM EST eCW1 ([facility]) Outpatient Attender: Andrew Torres MD Main office - [facility] 09/22/2020 10:00:00 AM EST MEDENT ([facility]) (Cysto1) Urology [address] [place] [address] 09/21/2020 12:00:00 AM EST eCW1 ([facility]) Unknown [address] [facility], [place] [address] 09/02/2020 12:00:00 AM EST eCW1 ([facility]) Outpatient [address] [facility] [place] [address] 08/25/2020 12:00:00 AM EST eCW1 ([facility]) Unknown [address] [facility] [place] [address] 08/25/2020 12:00:00 AM EST eCW1 ([facility]) Unknown [address] [facility] [place] [address] 08/22/2020 12:00:00 AM EST eCW1 ([facility]) Outpatient [address] [facility] [place] [address] 08/19/2020 12:00:00 AM EST eCW1 ([facility]) Unknown [address] [facility] [place] [address] 08/18/2020 12:00:00 AM EST eCW1 ([facility]) Unknown [address] [facility], [place] [address] 08/16/2020 12:00:00 AM EST eCW1 ([facility]) Unknown [address] [facility] [place] [address] 08/15/2020 12:00:00 AM EST eCW1 ([facility]) Office Visit, Est Pt., Level 3 PC [address] [place] [address] 08/08/2020 12:00:00 AM EST eCW1 ([facility]) Unknown [address] [facility] [place] [address] 07/17/2020 12:00:00 AM EDT eCW1 ([facility]) Unknown [address] [facility] Y [address] 07/17/2020 12:00:00 AM EDT eCW1 ([facility]) Unknown [address] [facility], [place] [address] 07/07/2020 12:00:00 AM EDT eCW1 ([facility]) (WC [id number]) WCenter 30 min est obstetrics/gynecology nurse [address] [place] [address] 07/05/2020 12:00:00 AM EDT eCW1 ([facility]) Unknown [address] [facility] [address] 06/20/2020 12:00:00 AM EDT eCW1 ([facility]) Outpatient Attender: KEIRA Michelle 1 10:40:00 AM EDT MEDENT ([facility] ) Office Visit Attender: Andrew Torres MD [facility] office - [facility] 06/06/2020 01:15:00 PM EDT MEDENT ([facility] Ivanna dos santos, ) [facility] [address] [place] [address] 04/22/2020 12:00:00 AM EDT eCW1 ([facility]) Outpatient Attender: Andrew Torres MD [facility] 03/24/2020 09:30:00 AM EDT MEDENT ([facility]ant[facility], ) Outpatient Attender: KEIRA Michelle 0 03/16/2020 10:20:00 AM EDT MEDENT ([facility] ) Immunizations Vaccine Date Status Description Data Source(s) COVID-19 VACCINE, MRNA, [id number], LNP-S (PFIZER)/PF 10/15/19 12:00:00 AM EST completed [facility] Influenza, injectable, MDCK, preservative free, marcos valent 06/16/2020 03:20:00 PM EDT completed [facility] ([facility]) Medications Medication Brand Name Start Date Product Form Dose Route Admi nistrative Instructions Pharmacy Instructions Status Indications Reaction Description Data Source(s) Phenazopyridine hydrochloride 100 MG Oral Tablet [Pyri dium] Pyridium 100 MG Pyridium 100 MG 10/22/2020 12:00:00 AM EST 1.0 {tablet_after_meals} active Pyridium 100 MG eCW1 ([facility]) Phenazopyridine hydrochloride 100 MG Oral Tablet [Pyri dium] Pyridium 100 MG Pyridium 100 MG 10/22/2020 12:00:00 AM EST 1.0 {tablet_after_meals} active Pyridium 100 MG eCW1 ([facility]) Sulfamethoxazole 800 MG / Trimethoprim 1 60 MG Oral Tablet [Bactrim] Bactrim DS 800-160 MG Bactrim DS 800-160 MG 10/22/2020 12:00:00 AM EST 1.0 {table t} active Bactrim DS 800-160 MG eCW1 ( [facility]) Sulfamethoxazole 800 MG / Trimethoprim 1 60 MG Oral Tablet [Bactrim] Bactrim DS 800-160 MG Bactrim DS 800-160 MG 10/22/2020 12:00:00 AM EST 1.0 {table t} active Bactrim DS 800-160 MG eCW1 ( [facility]) Minocycline 50 MG Oral Capsule Minocycline HCl 50 MG Minocyc line HCl 50 MG 09/21/2020 12:00:00 AM EST 1.0 {capsule} active Minocycline HCl 50 MG eCW1 ([facility]) Minocycline 50 MG Oral Capsule Minocycline HCl 50 MG Minocyc line HCl 50 MG 09/21/2020 12:00:00 AM EST 1.0 {capsule} active Minocycline HCl 50 MG eCW1 ([facility]) Minocycline 50 MG Oral Capsule Minocycline HCl 50 MG Minocyc line HCl 50 MG 09/21/2020 12:00:00 AM EST 1.0 {capsule} active Minocycline HCl 50 MG eCW1 ([facility]) Minocycline 50 MG Oral Capsule Minocycline HCl 50 MG Minocyc line HCl 50 MG 09/21/2020 12:00:00 AM EST 1.0 {capsule} active Minocycline HCl 50 MG eCW1 ([facility]) Sulfamethoxazole 800 MG / Trimethoprim 1 60 MG Oral Tablet [Bactrim] Bactrim DS 800-160 MG Bactrim DS 800-160 MG 08/25/2020 12:00:00 AM EST 1.0 {table t} active Bactrim DS 800-160 MG eCW1 ( [facility]) Sulfamethoxazole 800 MG / Trimethoprim 1 60 MG Oral Tablet [Bactrim] Bactrim DS 800-160 MG Bactrim DS 800-160 MG 08/25/2020 12:00:00 AM EST 1.0 {table t} active Bactrim DS 800-160 MG eCW1 ( [facility]) Sulfamethoxazole 800 MG / Trimethoprim 1 60 MG Oral Tablet [Bactrim] Bactrim DS 800-160 MG Bactrim DS 800-160 MG 08/25/2020 12:00:00 AM EST 1.0 {table t} active Bactrim DS 800-160 MG eCW1 ( [facility]) Sulfamethoxazole 800 MG / Trimethoprim 1 60 MG Oral Tablet [Bactrim] Bactrim DS 800-160 MG Bactrim DS 800-160 MG 08/25/2020 12:00:00 AM EST 1.0 {table t} active Bactrim DS 800-160 MG eCW1 ( [facility]) Sulfamethoxazole 800 MG / Trimethoprim 1 60 MG Oral Tablet [Bactrim] Bactrim DS 800-160 MG Bactrim DS 800-160 MG 08/25/2020 12:00:00 AM EST 1.0 {table t} active Bactrim DS 800-160 MG eCW1 ( [facility]) Sulfamethoxazole 800 MG / Trimethoprim 1 60 MG Oral Tablet [Bactrim] Bactrim DS 800-160 MG Bactrim DS 800-160 MG 08/25/2020 12:00:00 AM EST 1.0 {table t} active Bactrim DS 800-160 MG eCW1 ( [facility]) Sulfamethoxazole 800 MG / Trimethoprim 1 60 MG Oral Tablet [Bactrim] Bactrim DS 800-160 MG Bactrim DS 800-160 MG 08/25/2020 12:00:00 AM EST 1.0 {table t} active Bactrim DS 800-160 MG eCW1 ( [facility]) Fosfomycin 33.3 MG/ML Oral Suspension [Monurol] Monurol 3 GM Monurol 3 GM 08/19/2020 12:00:00 AM EST suspended Monurol 3 GM eCW1 ([facility]) Fosfomycin 33.3 MG/ML Oral Suspension [Monurol] Monurol 3 GM Monurol 3 GM 08/19/2020 12:00:00 AM EST active Monurol 3 GM eCW1 ([facility]) Fosfomycin 33.3 MG/ML Oral Suspension [Monurol] Monurol 3 GM Monurol 3 GM 08/19/2020 12:00:00 AM EST suspended Monurol 3 GM eCW1 ([facility]) Fosfomycin 33.3 MG/ML Oral Suspension [Monurol] Monurol 3 GM Monurol 3 GM 08/19/2020 12:00:00 AM EST suspended Monurol 3 GM eCW1 ([facility]) Fosfomycin 33.3 MG/ML Oral Suspension [Monurol] Monurol 3 GM Monurol 3 GM 08/19/2020 12:00:00 AM EST active Monurol 3 GM eCW1 ([facility]) Fosfomycin 33.3 MG/ML Oral Suspension [Monurol] Monurol 3 GM Monurol 3 GM 08/19/2020 12:00:00 AM EST suspended Monurol 3 GM eCW1 ([facility]) Fosfomycin 33.3 MG/ML Oral Suspension [Monurol] Monurol 3 GM Monurol 3 GM 08/19/2020 12:00:00 AM EST active Monurol 3 GM eCW1 ([facility]) Fosfomycin 33.3 MG/ML Oral Suspension [Monurol] Monurol 3 GM Monurol 3 GM 08/19/2020 12:00:00 AM EST suspended Monurol 3 GM eCW1 ([facility]) Fosfomycin 33.3 MG/ML Oral Suspension [Monurol] Monurol 3 GM Monurol 3 GM 08/19/2020 12:00:00 AM EST suspended Monurol 3 GM eCW1 ([facility]) Fosfomycin 33.3 MG/ML Oral Suspension [Monurol] Monurol 3 GM Monurol 3 GM 08/19/2020 12:00:00 AM EST suspended Monurol 3 GM eCW1 ([facility]) Phenazopyridine hydrochloride 200 MG Oral Tablet [Pyri dium] Pyridium 200 MG Pyridium 200 MG 08/16/2020 12:00:00 AM EST 1.0 {tablet_after_meals} active Pyridium 200 MG eCW1 ([facility]) Phenazopyridine hydrochloride 200 MG Oral Tablet [Pyri dium] Pyridium 200 MG Pyridium 200 MG 08/16/2020 12:00:00 AM EST 1.0 {tablet_after_meals} active Pyridium 200 MG eCW1 ([facility]) Phenazopyridine hydrochloride 200 MG Oral Tablet [Pyri dium] Pyridium 200 MG Pyridium 200 MG 08/16/2020 12:00:00 AM EST 1.0 {tablet_after_meals} active Pyridium 200 MG eCW1 ([facility]) Phenazopyridine hydrochloride 200 MG Oral Tablet [Pyri dium] Pyridium 200 MG Pyridium 200 MG 08/16/2020 12:00:00 AM EST 1.0 {tablet_after_meals} active Pyridium 200 MG eCW1 ([facility]) Phenazopyridine hydrochloride 200 MG Oral Tablet [Pyri dium] Pyridium 200 MG Pyridium 200 MG 08/16/2020 12:00:00 AM EST 1.0 {tablet_after_meals} active Pyridium 200 MG eCW1 ([facility]) Phenazopyridine hydrochloride 200 MG Oral Tablet [Pyri dium] Pyridium 200 MG Pyridium 200 MG 08/16/2020 12:00:00 AM EST 1.0 {tablet_after_meals} active Pyridium 200 MG eCW1 ([facility]) Phenazopyridine hydrochloride 200 MG Oral Tablet [Pyri dium] Pyridium 200 MG Pyridium 200 MG 08/16/2020 12:00:00 AM EST 1.0 {tablet_after_meals} active Pyridium 200 MG eCW1 ([facility]) Phenazopyridine hydrochloride 200 MG Oral Tablet [Pyri dium] Pyridium 200 MG Pyridium 200 MG 08/16/2020 12:00:00 AM EST 1.0 {tablet_after_meals} active Pyridium 200 MG eCW1 ([facility]) Phenazopyridine hydrochloride 200 MG Oral Tablet [Pyri dium] Pyridium 200 MG Pyridium 200 MG 08/16/2020 12:00:00 AM EST 1.0 {tablet_after_meals} active Pyridium 200 MG eCW1 ([facility]) Phenazopyridine hydrochloride 200 MG Oral Tablet [Pyri dium] Pyridium 200 MG Pyridium 200 MG 08/16/2020 12:00:00 AM EST 1.0 {tablet_after_meals} active Pyridium 200 MG eCW1 ([facility]) Phenazopyridine hydrochloride 200 MG Oral Tablet [Pyri dium] Pyridium 200 MG Pyridium 200 MG 08/16/2020 12:00:00 AM EST 1.0 {tablet_after_meals} active Pyridium 200 MG eCW1 ([facility]) Phenazopyridine hydrochloride 200 MG Oral Tablet [Pyri dium] Pyridium 200 MG Pyridium 200 MG 08/16/2020 12:00:00 AM EST 1.0 {tablet_after_meals} active Pyridium 200 MG eCW1 ([facility]) Phenazopyridine hydrochloride 200 MG Oral Tablet [Pyri dium] Pyridium 200 MG Pyridium 200 MG 08/16/2020 12:00:00 AM EST 1.0 {tablet_after_meals} active Pyridium 200 MG eCW1 ([facility]) NITROFURANTOIN, MACROCRYSTALS 25 MG / Ni trofurantoin, Monohydrate 75 MG Oral Capsule [Macrobid] Macrobid 100 MG Macrobid 100 MG 08/08/2020 12:00:00 AM EST active Macrobid 100 MG eCW1 ([facility]) NITROFURANTOIN, MACROCRYSTALS 25 MG / Ni trofurantoin, Monohydrate 75 MG Oral Capsule [Macrobid] Macrobid 100 MG Macrobid 100 MG 08/08/2020 12:00:00 AM EST active Macrobid 100 MG eCW1 ([facility]) NITROFURANTOIN, MACROCRYSTALS 25 MG / Ni trofurantoin, Monohydrate 75 MG Oral Capsule [Macrobid] Macrobid 100 MG Macrobid 100 MG 08/08/2020 12:00:00 AM EST suspended Macrobid 100 MG eCW1 ( [facility]) NITROFURANTOIN, MACROCRYSTALS 25 MG / Ni trofurantoin, Monohydrate 75 MG Oral Capsule [Macrobid] Macrobid 100 MG Macrobid 100 MG 08/08/2020 12:00:00 AM EST suspended Macrobid 100 MG eCW1 ( [facility]) NITROFURANTOIN, MACROCRYSTALS 25 MG / Ni trofurantoin, Monohydrate 75 MG Oral Capsule [Macrobid] Macrobid 100 MG Macrobid 100 MG 08/08/2020 12:00:00 AM EST suspended Macrobid 100 MG eCW1 ( [facility]) NITROFURANTOIN, MACROCRYSTALS 25 MG / Ni trofurantoin, Monohydrate 75 MG Oral Capsule [Macrobid] Macrobid 100 MG Macrobid 100 MG 08/08/2020 12:00:00 AM EST suspended Macrobid 100 MG eCW1 ( [facility]) NITROFURANTOIN, MACROCRYSTALS 25 MG / Ni trofurantoin, Monohydrate 75 MG Oral Capsule [Macrobid] Macrobid 100 MG Macrobid 100 MG 08/08/2020 12:00:00 AM EST suspended Macrobid 100 MG eCW1 ( [facility]) NITROFURANTOIN, MACROCRYSTALS 25 MG / Ni trofurantoin, Monohydrate 75 MG Oral Capsule [Macrobid] Macrobid 100 MG Macrobid 100 MG 08/08/2020 12:00:00 AM EST suspended Macrobid 100 MG eCW1 ( [facility]) NITROFURANTOIN, MACROCRYSTALS 25 MG / Ni trofurantoin, Monohydrate 75 MG Oral Capsule [Macrobid] Macrobid 100 MG Macrobid 100 MG 08/08/2020 12:00:00 AM EST suspended Macrobid 100 MG eCW1 ( [facility]) NITROFURANTOIN, MACROCRYSTALS 25 MG / Ni trofurantoin, Monohydrate 75 MG Oral Capsule [Macrobid] Macrobid 100 MG Macrobid 100 MG 08/08/2020 12:00:00 AM EST suspended Macrobid 100 MG eCW1 ( [facility]) NITROFURANTOIN, MACROCRYSTALS 25 MG / Ni trofurantoin, Monohydrate 75 MG Oral Capsule [Macrobid] Macrobid 100 MG Macrobid 100 MG 08/08/2020 12:00:00 AM EST active Macrobid 100 MG eCW1 ([facility]) NITROFURANTOIN, MACROCRYSTALS 25 MG / Ni trofurantoin, Monohydrate 75 MG Oral Capsule [Macrobid] Macrobid 100 MG Macrobid 100 MG 08/08/2020 12:00:00 AM EST suspended Macrobid 100 MG eCW1 ( [facility]) NITROFURANTOIN, MACROCRYSTALS 25 MG / Ni trofurantoin, Monohydrate 75 MG Oral Capsule [Macrobid] Macrobid 100 MG Macrobid 100 MG 08/08/2020 12:00:00 AM EST suspended Macrobid 100 MG eCW1 ( [facility]) Ciprofloxacin 500 MG Oral Tablet [Cipro] Cipro 500 MG Cipro 500 MG 07/17/2020 12:00:00 AM EDT 1.0 {tablet} suspended Cipro 500 MG eCW1 ([facility]) Ciprofloxacin 500 MG Oral Tablet [Cipro] Cipro 500 MG Cipro 500 MG 07/17/2020 12:00:00 AM EDT 1.0 {tablet} active Ci pro 500 MG eCW1 ([facility]) Ciprofloxacin 500 MG Oral Tablet [Cipro] Cipro 500 MG Cipro 500 MG 07/17/2020 12:00:00 AM EDT 1.0 {tablet} suspended Cipro 500 MG eCW1 ([facility]) Ciprofloxacin 500 MG Oral Tablet [Cipro] Cipro 500 MG Cipro 500 MG 07/17/2020 12:00:00 AM EDT 1.0 {tablet} suspended Cipro 500 MG eCW1 ([facility]) Ciprofloxacin 500 MG Oral Tablet [Cipro] Cipro 500 MG Cipro 500 MG 07/17/2020 12:00:00 AM EDT 1.0 {tablet} suspended Cipro 500 MG eCW1 ([facility]) Ciprofloxacin 500 MG Oral Tablet [Cipro] Cipro 500 MG Cipro 500 MG 07/17/2020 12:00:00 AM EDT 1.0 {tablet} suspended Cipro 500 MG eCW1 ([facility]) Ciprofloxacin 500 MG Oral Tablet [Cipro] Cipro 500 MG Cipro 500 MG 07/17/2020 12:00:00 AM EDT 1.0 {tablet} suspended Cipro 500 MG eCW1 ([facility]) Ciprofloxacin 500 MG Oral Tablet [Cipro] Cipro 500 MG Cipro 500 MG 07/17/2020 12:00:00 AM EDT 1.0 {tablet} suspended Cipro 500 MG eCW1 ([facility]) Ciprofloxacin 500 MG Oral Tablet [Cipro] Cipro 500 MG Cipro 500 MG 07/17/2020 12:00:00 AM EDT 1.0 {tablet} suspended Cipro 500 MG eCW1 ([facility]) Ciprofloxacin 500 MG Oral Tablet [Cipro] Cipro 500 MG Cipro 500 MG 07/17/2020 12:00:00 AM EDT 1.0 {tablet} suspended Cipro 500 MG eCW1 ([facility]) Ciprofloxacin 500 MG Oral Tablet [Cipro] Cipro 500 MG Cipro 500 MG 07/17/2020 12:00:00 AM EDT 1.0 {tablet} suspended Cipro 500 MG eCW1 ([facility]) Ciprofloxacin 500 MG Oral Tablet [Cipro] Cipro 500 MG Cipro 500 MG 07/17/2020 12:00:00 AM EDT 1.0 {tablet} active Ci pro 500 MG eCW1 ([facility]) Ciprofloxacin 500 MG Oral Tablet [Cipro] Cipro 500 MG Cipro 500 MG 07/17/2020 12:00:00 AM EDT 1.0 {tablet} suspended Cipro 500 MG eCW1 ([facility]) Ciprofloxacin 500 MG Oral Tablet [Cipro] Cipro 500 MG Cipro 500 MG 07/17/2020 12:00:00 AM EDT 1.0 {tablet} suspended Cipro 500 MG eCW1 ([facility]) Ciprofloxacin 500 MG Oral Tablet [Cipro] Cipro 500 MG Cipro 500 MG 07/17/2020 12:00:00 AM EDT 1.0 {tablet} suspended Cipro 500 MG eCW1 ([facility]) NITROFURANTOIN, MACROCRYSTALS 100 MG Ora l Capsule Nitrofurantoin Macrocrystal 100 MG Nitrofurantoin Macrocrystal 100 MG 07/07/2020 12:00:00 AM EDT suspended Nitrofurantoin Macrocrystal 100 MG eCW1 ([facility]) NITROFURANTOIN, MACROCRYSTALS 100 MG Ora l Capsule Nitrofurantoin Macrocrystal 100 MG Nitrofurantoin Macrocrystal 100 MG 07/07/2020 12:00:00 AM EDT suspended Nitrofurantoin Macrocrystal 100 MG eCW1 ([facility]) NITROFURANTOIN, MACROCRYSTALS 100 MG Ora l Capsule Nitrofurantoin Macrocrystal 100 MG Nitrofurantoin Macrocrystal 100 MG 07/07/2020 12:00:00 AM EDT active Nitrofurantoin Macrocrystal 100 MG eCW1 ([facility]) NITROFURANTOIN, MACROCRYSTALS 100 MG Ora l Capsule Nitrofurantoin Macrocrystal 100 MG Nitrofurantoin Macrocrystal 100 MG 07/07/2020 12:00:00 AM EDT active Nitrofurantoin Macrocrystal 100 MG eCW1 ([facility]) NITROFURANTOIN, MACROCRYSTALS 100 MG Ora l Capsule Nitrofurantoin Macrocrystal 100 MG Nitrofurantoin Macrocrystal 100 MG 07/07/2020 12:00:00 AM EDT suspended Nitrofurantoin Macrocrystal 100 MG eCW1 ([facility]) NITROFURANTOIN, MACROCRYSTALS 100 MG Ora l Capsule Nitrofurantoin Macrocrystal 100 MG Nitrofurantoin Macrocrystal 100 MG 07/07/2020 12:00:00 AM EDT active Nitrofurantoin Macrocrystal 100 MG eCW1 ([facility]) NITROFURANTOIN, MACROCRYSTALS 100 MG Ora l Capsule Nitrofurantoin Macrocrystal 100 MG Nitrofurantoin Macrocrystal 100 MG 07/07/2020 12:00:00 AM EDT active Nitrofurantoin Macrocrystal 100 MG eCW1 ([facility]) NITROFURANTOIN, MACROCRYSTALS 100 MG Ora l Capsule Nitrofurantoin Macrocrystal 100 MG Nitrofurantoin Macrocrystal 100 MG 07/07/2020 12:00:00 AM EDT suspended Nitrofurantoin Macrocrystal 100 MG eCW1 ([facility]) NITROFURANTOIN, MACROCRYSTALS 100 MG Ora l Capsule Nitrofurantoin Macrocrystal 100 MG Nitrofurantoin Macrocrystal 100 MG 07/07/2020 12:00:00 AM EDT suspended Nitrofurantoin Macrocrystal 100 MG eCW1 ([facility]) NITROFURANTOIN, MACROCRYSTALS 100 MG Ora l Capsule Nitrofurantoin Macrocrystal 100 MG Nitrofurantoin Macrocrystal 100 MG 07/07/2020 12:00:00 AM EDT suspended Nitrofurantoin Macrocrystal 100 MG eCW1 ([facility]) NITROFURANTOIN, MACROCRYSTALS 100 MG Ora l Capsule Nitrofurantoin Macrocrystal 100 MG Nitrofurantoin Macrocrystal 100 MG 07/07/2020 12:00:00 AM EDT suspended Nitrofurantoin Macrocrystal 100 MG eCW1 ([facility]) NITROFURANTOIN, MACROCRYSTALS 100 MG Ora l Capsule Nitrofurantoin Macrocrystal 100 MG Nitrofurantoin Macrocrystal 100 MG 07/07/2020 12:00:00 AM EDT suspended Nitrofurantoin Macrocrystal 100 MG eCW1 ([facility]) NITROFURANTOIN, MACROCRYSTALS 100 MG Ora l Capsule Nitrofurantoin Macrocrystal 100 MG Nitrofurantoin Macrocrystal 100 MG 07/07/2020 12:00:00 AM EDT suspended Nitrofurantoin Macrocrystal 100 MG eCW1 ([facility]) NITROFURANTOIN, MACROCRYSTALS 100 MG Ora l Capsule Nitrofurantoin Macrocrystal 100 MG Nitrofurantoin Macrocrystal 100 MG 07/07/2020 12:00:00 AM EDT suspended Nitrofurantoin Macrocrystal 100 MG eCW1 ([facility]) NITROFURANTOIN, MACROCRYSTALS 100 MG Ora l Capsule Nitrofurantoin Macrocrystal 100 MG Nitrofurantoin Macrocrystal 100 MG 07/07/2020 12:00:00 AM EDT suspended Nitrofurantoin Macrocrystal 100 MG eCW1 ([facility]) NITROFURANTOIN, MACROCRYSTALS 100 MG Ora l Capsule Nitrofurantoin Macrocrystal 100 MG Nitrofurantoin Macrocrystal 100 MG 07/07/2020 12:00:00 AM EDT suspended Nitrofurantoin Macrocrystal 100 MG eCW1 ([facility]) NITROFURANTOIN, MACROCRYSTALS 100 MG Ora l Capsule Nitrofurantoin Macrocrystal 100 MG Nitrofurantoin Macrocrystal 100 MG 07/07/2020 12:00:00 AM EDT suspended Nitrofurantoin Macrocrystal 100 MG eCW1 ([facility]) Ampicillin 500 MG Oral Capsule Ampicillin 500 MG 06/20/2020 12:00:00 AM EDT suspended Ampicillin 500 MG eC W1 ([facility]) Ampicillin 500 MG Oral Capsule Ampicillin 500 MG 06/20/2020 12:00:00 AM EDT suspended Ampicillin 500 MG eC W1 ([facility]) Ampicillin 500 MG Oral Capsule Ampicillin 500 MG 06/20/2020 12:00:00 AM EDT suspended Ampicillin 500 MG eC W1 ([facility]) Ampicillin 500 MG Oral Capsule Ampicillin 500 MG 06/20/2020 12:00:00 AM EDT suspended Ampicillin 500 MG eC W1 ([facility]) Ampicillin 500 MG Oral Capsule Ampicillin 500 MG 06/20/2020 12:00:00 AM EDT suspended Ampicillin 500 MG eC W1 ([facility]) Ampicillin 500 MG Oral Capsule Ampicillin 500 MG 06/20/2020 12:00:00 AM EDT active Ampicillin 500 MG eC W1 ([facility]) Ampicillin 500 MG Oral Capsule Ampicillin 500 MG 06/20/2020 12:00:00 AM EDT suspended Ampicillin 500 MG eC W1 ([facility]) Ampicillin 500 MG Oral Capsule Ampicillin 500 MG 06/20/2020 12:00:00 AM EDT suspended Ampicillin 500 MG eC W1 ([facility]) Ampicillin 500 MG Oral Capsule Ampicillin 500 MG 06/20/2020 12:00:00 AM EDT suspended Ampicillin 500 MG eC W1 ([facility]) Ampicillin 500 MG Oral Capsule Ampicillin 500 MG 06/20/2020 12:00:00 AM EDT suspended Ampicillin 500 MG eC W1 ([facility]) Ampicillin 500 MG Oral Capsule Ampicillin 500 MG 06/20/2020 12:00:00 AM EDT suspended Ampicillin 500 MG eC W1 ([facility]) Ampicillin 500 MG Oral Capsule Ampicillin 500 MG 06/20/2020 12:00:00 AM EDT suspended Ampicillin 500 MG eC W1 ([facility]) Ampicillin 500 MG Oral Capsule Ampicillin 500 MG 06/20/2020 12:00:00 AM EDT suspended Ampicillin 500 MG eC W1 ([facility]) Ampicillin 500 MG Oral Capsule Ampicillin 500 MG 06/20/2020 12:00:00 AM EDT suspended Ampicillin 500 MG eC W1 ([facility]) Ampicillin 500 MG Oral Capsule Ampicillin 500 MG 06/20/2020 12:00:00 AM EDT suspended Ampicillin 500 MG eC W1 ([facility]) Ampicillin 500 MG Oral Capsule Ampicillin 500 MG 06/20/2020 12:00:00 AM EDT suspended Ampicillin 500 MG eC W1 ([facility]) Ampicillin 500 MG Oral Capsule Ampicillin 500 MG 06/20/2020 12:00:00 AM EDT suspended Ampicillin 500 MG eC W1 ([facility]) Ampicillin 500 MG Oral Capsule Ampicillin 500 MG 06/20/2020 12:00:00 AM EDT suspended Ampicillin 500 MG eC W1 ([facility]) Administration Of Flu Vaccine 06/16/2020 12:00:00 AM EDT completed [facility] ([facility]) Medication administered onsite Levetiracetam 500 MG Oral Tablet Levetiracetam 05/16/2020 12:00:00 AM EDT ORAL active [facility] ([facility]) Aspirin 325 MG Oral Tablet Aspirin Adult 03/24/2020 12:00:00 AM EDT active MED[facility] ([facility]) Levetiracetam 750 MG Oral Tablet Levetiracetam 03/24/2020 12:00:00 AM EDT ORAL completed [facility] ([facility]) atorvastatin 40 MG Oral Tablet Atorvastatin Calcium 03/16/2020 1 2:00:00 AM EDT ORAL active MED[facility] ( [facility]) Levetiracetam 1000 MG Oral Tablet Levetiracetam 03/16/2020 12:00:00 A M EDT ORAL completed MEDENT ([facility]) Insurance Providers Payer name Policy type / Coverage type Policy ID Covered green party ID Covered green party's relationship to [place] Policy [place] Plan Information [employer] [address] [id number] SP [id number] MEDICARE [id number] SP [id number] FOR LIFE [id number] SP [id number] [place] [id number] SP [id number] [place] [id number] SP [id number] MEDICARE C [id number] S [id number] EXCELLUS BCBS B [id number] S XXP [id number] FOR LIFE O [id number] S [id number] ANSI-Commercial [id number] ANSI-Medicare Part B [id number] ANSI-Commercial [id number] WPS For Life Medigap Part B [id number] Family Depende nt [id number] [facility] Trad/MX Medigap Part B [id number] Self [id number] Medicare Natl Govt Servic Medicare Primary [id number] Self [id number] [place] [id number] SP [id number] MEDICARE [id number] SP [id number] A [place] Ph[facility] Serv (TFL) Medigap Part B [id number] Self [id number] [facility] Federal Service Medigap Part B [id number] Family De pendent [id number] [place] Medigap Part B [id number] Self [id number] [place] Primary [id number] Self [id number] [place] Medigap Part B [id number] Self [id number] ANSI-Medicare Part B [id number] ANSI-Commercial [id number] ANSI-Commercial [id number] FOR LIFE [id number] [facility] [id number] BCBS [facility] 200/700 [id number] SP [id number] BCBS [place] PPO 302/307 [id number] SP [id number] FOR LIFE [id number] SP [id number] BCBS [place] P[place] 302/307 [id number] SP [id number] [place] [facility] (TFL) Medigap Part B [id number] Self [id number] [facility] Service Medigap Part B [id number] Family De pendent [id number] [place] Medigap Part B [id number] Self [id number] [place] Primary [id number] Self [id number] [place] [facility] (TFL) Medigap Part B [id number] Self [id number] [facility] Service Medigap Part B [id number] Family De pendent [id number] [place] Medigap Part B [id number] Self [id number] [place] Primary [id number] Self [id number] WPS For Life Medigap Part B [id number] Family Depende nt [id number] [place] Trad/[place] Commercial [id number] Self [id number] Medicare Natl Govt Servic Medicare Primary [id number] Self [id number] [facility] Serv (TFL) Medigap Part B [id number] Self [id number] [facility] Medigap Part B [id number] Family De pendent [id number] BS [facility] Medigap Part B [id number] Self [id number] Medicare [facility] Medicare Primary [id number] Self [id number] WPS For Life Medigap Part B [id number] Family Depende nt [id number] [place] Trad/MX Commercial [id number] Self [id number] Medicare Natl Govt Servic Medicare Primary [id number] Self [id number] For Life WPS Medigap Part B [id number] Family Depende nt [id number] BCBS/Blue Card Medigap Part B [id number] Self [id number] Medicare Natl Gov't Servi Medicare Primary [id number] Self [id number] MEDICARE [id number] S [id number] A [place] 200/700 [id number] SP [id number] FOR LIFE [id number] SP [id number] MEDICARE [id number] SP [id number] A [place] 200/700 [id number] SP [id number] WPS For Life Medigap Part B [id number] Family Depende nt [id number] [place] Trad/[place] Commercial [id number] Self [id number] Medicare [facility] Govt Servic Medicare Primary [id number] Self [id number] BLUE CROSS BLUE SHIELD-O/P [id number] 18 [id number] MEDICARE -O/P [id number] 18 [id number] EXCELLUS BCBS B [id number] S [id number] [place] 200/700 [id number] SP [id number] FOR LIFE [id number] SP [id number] WPS For Life Medigap Part B Excellus BCBS Medigap Part B Self Medicare [place]/[facility] Medicare Primary Self WPS For Life Medigap Part B Family Depende nt BS [place] Trad/MX Commercial 200 Self 200 Medicare Natl Govt Servic Medicare Primary Self BCBS OF [place] 306/806 [id number] SP [id number] MEDICARE [id number] SP [id number] A For Life Medigap Part B Family Dependent BC/BS Of [place] Medigap Part B Self Medicare [facility] Medicare Primary Self [id number] A Problems, Conditions, and Diagnoses Code Display Name Description Problem Type Effective Dates Data Source(s) N32.1 Colovesical fistula Colovesical fistula Problem 0 09/21/2020 12:00:00 AM EST eCW1 ([facility]) R31.29 [id number] Other microscopic hematuria Problem 09/21/19 12:00:00 AM EST eCW1 ([facility]) N30.91 [id number] Hematuria due to cystitis Problem 09/21/2020 12:00:00 AM EST eCW1 ([facility]) N32.89 [id number] Bladder spasms Problem 08/19/2020 12:00:00 A M EST eCW1 ([facility]) [id number] Dementia Dementia Problem 03/24/2020 12:00:00 AM ED T MED[facility] ([facility], ) [id number] Intracranial meningioma Intracranial meningioma Proble m 03/24/2020 12:00:00 AM EDT [facility] ([facility], ) [id number] Transient cerebral ischemia Transient cerebral ischemi a Problem 03/24/2020 12:00:00 AM EDT [facility] ([facility], ) [id number] Seizure Seizure Problem 03/24/2020 12:00:00 AM ED T [facility] ([facility], ) Surgeries/Procedures Procedure Description Date Indications Data Source(s) MRI Brain W/O Contrast, Followed By Contrast 0 12:00:00 AM EDT [facility] ([facility], ) MRI Brain W/O Contrast, Followed By Contrast 0 12:00:00 AM EDT [facility] ([facility], ) ECG ROUTINE ECG W/LEAST 12 LDS W/I&R 06/16/2020 12:00: 00 AM EDT [facility] ([facility]) TSTG ANS FUNCJ CARDIOVAGAL INNERVAJ PARASYMP 0 12:00:00 AM EDT MED[facility] ([facility], ) TSTG ANS FUNCJ CARDIOVAGAL INNERVAJ PARASYMP 0 12:00:00 AM EDT [facility] ([facility], ) TESTING AUTONOMIC NERVOUS SYSTEM FUNCTION 05/25/2020 1 2:00:00 AM EDT [facility] ([facility], ) TESTING AUTONOMIC NERVOUS SYSTEM FUNCTION 05/25/2020 1 2:00:00 AM EDT MED[facility] ([facility], ) ELECTROENCEPHALOGRAM W/REC AWAKE&ASLEEP 04/13/2020 12: 00:00 AM EDT [facility] ([facility], ) ELECTROENCEPHALOGRAM W/REC AWAKE&ASLEEP 04/13/2020 12: 00:00 AM EDT [facility] ([facility] ) Results ID Date Data Source Basic Metabolic Profile (BMP) 08/25/2020 12:00:00 AM EST eCW 1 ([facility]) Name Value Range Interpretation Code Description Data Payton rce(s) Supporting Document(s) 0.95 0.55-1.30 CREATININE FOR GFR eCW1 ([facility]) 99 70-100 GLUCOSE, FASTING eCW1 ([facility]) 10 7-18 BLOOD UREA NITROGEN eCW1 ([facility]) 133 136-145 SODIUM LEVEL eCW1 ([facility]) 4.5 3.5-5.1 POTASSIUM SERUM [facility] 101 98-107 CHLORIDE LEVEL eCW1 ([facility]) > 60.0 >32 GLOMERULAR FILTRATION RATE eCW 1 ([facility]) 25 21-32 CARBON DIOXIDE LEVEL eCW1 ([facility]) 8.7 8.8-10.2 CALCIUM LEVEL eCW1 ([facility]) ID Date Data Source URINE CULTURE 08/19/2020 12:00:00 AM EST eCW1 ([facility]) Name Value Range Interpretation Code Description Data Payton rce(s) Supporting Document(s) URINE CULTURE eCW1 ([facility]) ID Date Data Source MICROSCOPIC, URINE (Non-Orderable) 08/08/2020 12:00:00 AM ES T eCW1 ([facility]) Name Value Range Interpretation Code Description Data Payton rce(s) Supporting Document(s) 30-40 0-3 WBC, URINE eCW1 ([facility]) MOD AMOUNT NONE TRIPLE PHOSPHATE CRYSTAL, URINE eCW1 ([facility]) SMALL AMOUNT SMALL AMT SQUAMOUS EPITHELIAL COSMO L URINE eCW1 ([facility]) LARGE AMOUNT NONE BACTERIA, URINE eCW1 ([facility]) 20-30 0-3 RBC, URINE eCW1 ([facility]) NONE SEEN 0-1 HYALINE CAST, URINE eCW1 ([facility]) UNSPUN MICROSCOPIC EXAM eCW1 ([facility]) ID Date Data Source 'LAB ONLY' UA URINALYSIS MANUAL (Not Orderable) 08/08/2020 1 2:00:00 AM EST eCW1 ([facility]) Name Value Range Interpretation Code Description Data Payton rce(s) Supporting Document(s) 'LAB ONLY' UA URINALYSIS MANUAL (Not Orderable) eCW1 ([facility]) ID Date Data Source [id number] 06/16/2020 11:20:00 AM EDT MED[facility] ([facility]) Name Value Range Interpretation Code Description Data Payton rce(s) Supporting Document(s) Thyrotropin [Units/volume] in Serum or Plasma by Detec tion limit <= 0.05 mIU/L 1.32 uIU/mL 0.36-3.74 MED[facility] ([facility] ) ID Date Data Source [id number] 06/16/2020 11:20:00 AM EDT [facility] ([facility]) Name Value Range Interpretation Code Description Data Payton rce(s) Supporting Document(s) Cholesterol in HDL [Mass/volume] in Serum or Plasma 58 mg/dL 35-60 [facility] ([facility]) Cholesterol [Mass/volume] in Serum or Plasma 117 mg/dL 131-200 [facility] ([facility]) Triglyceride [Mass/volume] in Serum or Plasma 69 mg/dL 30-150 [facility] ([facility]) Cholesterol in LDL [Mass/volume] in Serum or Plasma by calcu lation 45 CALC 50-159 [facility] ([facility]) ID Date Data Source [id number] 06/16/2020 11:20:00 AM EDT [facility] ([facility]) Name Value Range Interpretation Code Description Data Payton rce(s) Supporting Document(s) Urea nitrogen [Mass/volume] in Serum or Plasma 10 mg/dL 7-18 [facility] ([facility]) Glucose [Mass/volume] in Serum or Plasma 132 mg/dL 74-99 [facility] ([facility]) 100-125 mg/dL PRE-DIABETES/FASTING >126 mg/dL DIABETES/FASTING Sodium [Moles/volume] in Serum or Plasma 138 meq/L 136-145 MED[facility] ([facility]) Creatinine 0.8 mg/dL 0.6-1.3 [facility] Potassium [Moles/volume] in Serum or Plasma 3.6 meq/L 3.5-5.1 [facility] ([facility]) Chloride [Moles/volume] in Serum or Plasma 102 meq/L 98-107 [facility] ([facility]) Carbon dioxide, total [Moles/volume] in Serum or Plasma 27 meq/L 21 -32 [facility] ([facility]) Calcium [Mass/volume] in Serum or Plasma 8.8 mg/dL 8.5-10.1 [facility] ([facility]) Aspartate aminotransferase [Enzymatic activity/volume] in Serum or Plasma 14 U/L 15-37 [facility] ([facility] ) Alkaline phosphatase isoenzyme [Units/volume] in Serum or Pl asma 86 mg/dL 46-116 [facility] ([facility]) Alanine aminotransferase [Enzymatic activity/volume] in Seru m or Plasma 19 U/L 12-78 [facility] ([facility]) Total Bilirubin 0.4 mg/dL 0.2-1.0 [facility] ([facility]) A/G Ratio 0.94 CALC 1.00-1.90 [facility]) Proteinase 3 Ab [Units/volume] in Serum 6.8 g/dL 6.4-8.2 [facility] ([facility]) Albumin [Mass/volume] in Serum or Plasma 3.3 g/dL 3.4-5.0 [facility] Glomerular filtration rate/1.73 sq M pre dicted among non-blacks [Volume Rate/Area] in Serum or Plasma by Creatinine-based formula (MDRD) Laboratory test result [facility] Glomerular filtration rate/1.73 sq M pre dicted among blacks [Volume Rate/Area] in Serum or Plasma by Creatinine-based formula (MDRD) Laboratory test result [facility]) <content>CHRONIC KIDNEY DISEASE STAGING PER NKF</content>
<content></content>
<content>STAGE I & II GFR >= 60 NORMAL TO MILDLY DECREASED</content>
<content>STAGE III GFR 30-59 MODERATELY DECREASED</content>
<content>STAGE IV GFR 15-29 SEVERELY DECREASED</content>
<content>STAGE V GFR <15 VERY LITTLE GFR LEFT</content>
<content>ESRD GFR <15 ON ANIMAL NUTRITION TEACHER</content>
<content></content> ID Date Data Source [id number] 06/16/2020 11:20:00 AM ED[facility] Name Value Range Interpretation Code Description Data Payton rce(s) Supporting Document(s) Leukocytes [#/volume] in Blood by Automated count 10.5 x10*3/UL 4.1-1 0.9 [facility] NOTE: RESULT VERIFIED. Hematocrit [Volume Fraction] of Blood by Automated count 34.3 % 3 7.0-51.0 [facility] Erythrocytes [#/volume] in Blood by Automated count 4.20 x10*6/UL 4.2 0-6.30 [facility] Hemoglobin [Mass/volume] in Blood 12.0 g/dL 12.0-18.0 [facility] ([facility]) MCHC 35.0 g/dL 31.0-38.0 [facility] MCV 80.8 fL 80.0-97.0 [facility] MCH 28.3 pg 26.0-32.0 [facility] Erythrocyte distribution width [Ratio] by Automated count 12.7 % 11.6-13.7 [facility] ([facility]) Platelets [#/volume] in Blood by Automated count 365 x10*3/UL 140-440 [facility] ([facility]) MPV 7.2 FL 7.8-11.0 [facility] Neut % 57.5 % 37.0-92.0 [facility] Lymph % 34.4 % 10.0-58.5 [facility]) Mid % 8.1 % 1.7-9.3 [facility]) Mid # 0.9 x10*3/UL 0.1-0.6 [facility] ([facility]) Neut # 6.0 x10*3/UL 2.0-7.8 [facility] ([facility]) Lymph # 3.6 x10*3/UL 0.6-4.1 [facility] ([facility]) ID Date Data Source [id number] 05/08/2020 09:00:00 AM EDT [facility] ([facility]) Name Value Range Interpretation Code Description Data Payton rce(s) Supporting Document(s) Urine Culture Laboratory test result [facility] ([facility]) <content>FULL REPORT IN LAB NOTES (eCW [...] FOR ESBL</content>
<content></content> ID Date Data Source [id number] 05/08/2020 09:00:00 AM EDT [facility] Name Value Range Interpretation Code Description Data Payton rce(s) Supporting Document(s) Appearance, Urine Laboratory test result [facility] ([facility]) Color, Urine Laboratory test result MEDE NT [facility] PH,Urine 5.0 units 5.0-9.0 [facility]) Specific [place] Urine Auto 1.017 1.002-1.035 [facility] Protein, Urine Auto Laboratory test result [facility] Urobilinogen, Urine Auto 2.0 mg/dL 0.0-2.0 MED[facility] T [facility] Glucose, Urine (Ua) Auto Laboratory test result [facility]) Ketone, Urine Auto Laboratory test result [facility] Nitrite, Urine Auto Laboratory test result [facility] Bilirubin, Urine Auto Laboratory test result [facility]) Leukocyte Esterase, Urine Auto Laboratory test result [facility]) WBC, Urine Auto 125 /HPF 0-3 [facility] ([facility]) Blood, Urine Blood Laboratory test result [facility] Bacteria, Urine Auto Laboratory test result [facility] RBC, Urine Auto 4 /HPF 0-3 [facility] ([facility]) Hyaline Cast, Urine Auto 0 /LPF 0-1 MEDEN T [facility] Mucus, Urine Laboratory test result MEDE NT ([facility]) Squamous Epithelial Cell Ur AU 4 /HPF 0-6 [facility] Uric Acid Crystals Laboratory test result [facility] ID Date Data Source [id number] 05/06/2020 10:40:00 PM EDT [facility]) Name Value Range Interpretation Code Description Data Payton rce(s) Supporting Document(s) Respiratory Panel Laboratory test result [facility] ([facility]) This respiratory PCR panel detects Influ oracio [...] - SARS-CoV-2 (COVID19) ID Date Data Source [id number] 05/06/2020 07:46:00 PM EDT [facility]) Name Value Range Interpretation Code Description Data Payton rce(s) Supporting Document(s) Blood Culture Laboratory test result [facility] ([facility]) No growth after 72 hours . All specimens observed for 5 days. Results final at that time. No growth after 48 hours . All specimens observed for 5 days. Results final at that time. No growth after 24 hours . All specimens observed for 5 days. Results final at that time. NO GROWTH AFTER 5 DAYS ID Date Data Source [id number] 05/06/2020 07:33:00 PM EDT [facility]) Name Value Range Interpretation Code Description Data Payton rce(s) Supporting Document(s) Blood Culture Laboratory test result [facility] ([facility]) No growth after 72 hours . All specimens observed for 5 days. Results final at that time. No growth after 48 hours . All specimens observed for 5 days. Results final at that time. No growth after 24 hours . All specimens observed for 5 days. Results final at that time. NO GROWTH AFTER 5 DAYS ID Date Data Source [id number] 05/06/2020 07:33:00 PM EDT [facility]) Name Value Range Interpretation Code Description Data Payton rce(s) Supporting Document(s) Thyrotropin [Units/volume] in Serum or Plasma by Detec tion limit <= 0.05 mIU/L 0.683 uIU/ML 0.358-3.740 [facility] ) ID Date Data Source [id number] 05/06/2020 07:33:00 PM EDT [facility]) Name Value Range Interpretation Code Description Data Payton rce(s) Supporting Document(s) Glomerular Filtration Rate Laboratory test result [facility] ([facility]) <content>Units are mL/min/1.73 m2</content>
<content></content>
<content>Chronic Kidney Disease Staging per NKF:</content>
<content></content>
<content>Stage I & II GFR >=60 Normal to Mildly Decreased</content>
<content>Stage III GFR 30- 59 Moderately Decreased</content>
<content>Stage IV GFR 15-29 Severely Decreased</content>
<content>Stage V GFR <15 Very Little GFR Left</content>
<content>ESRD GFR <15 on ANIMAL NUTRITION TEACHER</content>
<content></content> Creatinine For GFR 0.74 mg/dL 0.55-1.30 [facility] ([facility]) Glucose, Fasting 117 mg/dL 70-100 [facility] ([facility]) Blood Urea Nitrogen 11 mg/dL 7-18 [facility] ([facility]) Sodium Level 135 meq/L 136-145 [facility] ([facility]) Chloride Level 103 meq/L 98-107 [facility] ([facility]) Potassium Serum 3.6 meq/L 3.5-5.1 [facility] ([facility]) Carbon Dioxide Level 25 meq/L 21-32 [facility] ([facility]) Anion Gap 7 meq/L 8-16 [facility]) Calcium Level 8.6 mg/dL 8.8-10.2 [facility] ([facility]) ID Date Data Source [id number] 05/06/2020 07:33:00 PM EDT [facility]) Name Value Range Interpretation Code Description Data Payton rce(s) Supporting Document(s) Alkaline Phosphatase 94 U/L 45-117 [facility] ([facility]) Ast/Sgot 15 U/L 7-37 [facility] ([facility]) Alt/SGPT 17 U/L 12-78 [facility] ([facility]) Bilirubin,Direct 0.1 mg/dL 0.0-0.2 [facility] ([facility]) Albumin 3.3 GM/DL 3.2-5.2 [facility] ([facility]) Total Protein 6.4 GM/DL 6.4-8.2 [facility] ([facility]) Bilirubin,Total 0.5 mg/dL 0.2-1.0 [facility] ([facility]) Albumin/Globulin Ratio 1.1 1.2-2.2 [facility] ([facility]) ID Date Data Source [id number] 05/06/2020 07:33:00 PM EDT [facility]) Name Value Range Interpretation Code Description Data [facility](s) Supporting Document(s) CPK Creatine Phosphokinase 54 U/L 26-192 [facility] ([facility]) MB/CK Relative Index 1.85 [facility] ([facility]) <content>DIAGNOSIS CRITERIA</content>
<content>MMB ng/ml Relative Index (RI)</content>
<content>NON-AMI < or = 5 N/A</content>
<content>AGUILAR ZONE > 5 < or = 4</content>
<content>AMI > 5 > 4</content>
<content></content> CK-MB Value Mass Laboratory test result [facility] ([facility]) Troponin I Laboratory test result [facility] ([facility]) <content>Troponin I Reference Interval f or Siemens [place] LOCI:</content>
<content></content>
<content>99th Percentile= 0.00-0.045 ng/ml</content>
<content></content>
<content>Risk Stratification:</content>
<content><= 0.10 ng/ml Decreased Risk for Adverse Clinical</content>
<content>Events.</content>
<content>0.10-1.50 ng/ml Increased Risk for Adverse Clinical</content>
<content>Events. Evaluation of additional</content>
<content>criterion and/or repeat testing in 2-6</content>
<content>hours is suggested to rule out myocardial</content>
<content>damage.</content>
<content>>= 1.50 ng/ml Indicative of Myocardial Injury.</content>
<content></content> ID Date Data Source [id number] 05/06/2020 07:33:00 PM EDT [facility] ([facility]) Name Value Range Interpretation Code Description Data Payton rce(s) Supporting Document(s) Levetiracetam [Mass/volume] in Serum or Plasma 20.2 ug/mL 10.0-40.0 [facility] ([facility]) This test was developed and its performa nce characteristics determined by [facility]. It has not been cleared or approved by the Food and Drug Administration. Performed at: [address] [id number] Case Management Director: Willard Sharma MD, Phone: [phone] Lactate [Mass/volume] in Serum or Plasma 1.2 mmol/L 0.4-2.0 [facility] ([facility]) Y/N query for Sepsis Lactate Rule: Y ID Date Data Source [id number] 05/06/2020 07:33:00 PM EDT [facility] ([facility]) Name Value Range Interpretation Code Description Data Payton rce(s) Supporting Document(s) Red Blood Count 4.11 10 4.00-5.40 [facility] ([facility]) White Blood Count 12.7 10 4.0-10.0 [facility] ([facility]) Hemoglobin 11.8 g/dL 12.0-15.5 [facility] ([facility]) Mean Corpuscular Volume 86.9 fl 80.0-96.0 [facility] ([facility]) Hematocrit 35.7 % 36.0-47.0 [facility]) Mean Corpuscular Hemoglobin 28.7 pg 27.0-33.0 [facility] ([facility]) Mean Corpuscular HGB Conc 33.1 g/dL 32.0-36.5 MED[facility] NT ([facility]) Red Cell Distribution Width 12.6 % 11.5-14.5 [facility] ([facility]) Platelet Count, Automated 235 10 150-450 MED[facility] NT ([facility]) Lymph % 12.5 % 24.0-44.0 [facility]) Neutrophils % 79.2 % 36.0-66.0 [facility] ([facility]) [place] % 7.6 % 0.0-5.0 [facility]) Eos % 0.1 % 0.0-3.0 [facility] Baso % 0.2 % 0.0-1.0 [facility] Nucleated Red Blood Cell % 0.0 % 0-0 [facility] ([facility]) Immature Granulocyte % 0.4 % 0-3.0 [facility] ([facility]) [place] # 1.0 10 0.0-0.8 [facility] Lymph # 1.6 10 1.5-5.0 [facility] Neutrophils # 10.1 10 1.5-8.5 [facility] ([facility]) Eos # 0.0 10 0.0-0.5 [facility] Baso # 0.0 10 0.0-0.2 [facility] Procedure Social History Code Duration Value Status Description Data Source(s ) Smoking 10/29/2020 12:00:00 AM EST Patient is a former smoker completed Patient is a former smoker [facility] ([facility]) Vital Signs ID Date Data Source UNK Name Value Range Interpretation Code Description Data Source(s) Body mass index (BMI) [Ratio] 21.1 kg/m2 21.1 k g/m2 MEDENT ([facility], [facility]) Body height 69 [in_i] 69 [in_i] MEDENT ([facility]) 5'9" Body weight 143.00 [lb_av] 143.00 [lb_av] MEDEN T ([facility]) Body temperature 97.7 [degF] 97.7 [degF] MEDENT ([facility], [facility]) Oxygen saturation in Arterial blood by Pulse oximetry 98 % 98 % MEDENT ([facility], [facility]) Respiratory rate 14 /min 14 /min MEDENT ( [facility]) Heart rate 98 /min 98 /min MEDENT ([facility], [facility]) Diastolic blood pressure 75 mm[Hg] 75 mm[Hg] MEDENT ([facility]) Systolic blood pressure 146 mm[Hg] 146 mm[Hg] M EDENT ([facility], [facility]) [place] body weight 145 [lb_av] 145 [lb_av] MEDEN T ([facility], ) Body mass index (BMI) [Ratio] 22.0 kg/m2 22.0 k g/m2 MEDENT ([facility], ) Body weight 149.00 [lb_av] 149.00 [lb_av] MEDEN T ([facility], ) Body height 69 [in_i] 69 [in_i] MEDENT ([facility], ) 5'9" Respiratory rate 12 /min 12 /min MEDENT ( [facility], ) Diastolic blood pressure 68 mm[Hg] 68 mm[Hg] eCW1 ([facility]) Systolic blood pressure 122 mm[Hg] 122 mm[Hg] e CW1 ([facility]) Body temperature 98.5 [degF] 98.5 [degF] eCW1 ( [facility]) Respiratory rate 18 /min 18 /min eCW1 ([facility]) Heart rate 85 /min 85 /min [facility]CW[facility] Body mass index (BMI) [Ratio] 22.53 kg/m2 22.53 kg/m2 eCW1 ([facility]) Body height 67.5 [in_i] 67.5 [in_i] eCW1 ([facility]) Body weight 146 [lb_av] 146 [lb_av] eCW1 ([facility]) Diastolic blood pressure 74 mm[Hg] 74 mm[Hg] eCW1 ([facility]) Systolic blood pressure 128 mm[Hg] 128 mm[Hg] e CW1 ([facility]) Body temperature 97.4 [degF] 97.4 [degF] eCW1 ( [facility]) Respiratory rate 18 /min 18 /min eCW1 ([facility]) Heart rate 84 /min 84 /min eCW1 ([facility] Body mass index (BMI) [Ratio] 22.56 kg/m2 22.56 kg/m2 eCW1 ([facility]) Body height 67.5 [in_i] 67.5 [in_i] eCW1 ([facility]) Body weight 146.2 [lb_av] 146.2 [lb_av] eCW1 ([facility]) Diastolic blood pressure 84 mm[Hg] 84 mm[Hg] eCW1 ([facility]) Systolic blood pressure 121 mm[Hg] 121 mm[Hg] e CW1 ([facility]) Body mass index (BMI) [Ratio] 23.92 kg/m2 23.92 kg/m2 eCW1 ([facility]) Body height 67.5 [in_i] 67.5 [in_i] eCW1 ([facility]) Body weight 70.31 kg 70.31 kg eCW1 ([facility]) Body weight 155 [lb_av] 155 [lb_av] eCW1 ([facility]) Diastolic blood pressure 67 mm[Hg] 67 mm[Hg] eCW1 ([facility]) Systolic blood pressure 102 mm[Hg] 102 mm[Hg] e CW1 ([facility]) Body mass index (BMI) [Ratio] 24.07 kg/m2 24.07 kg/m2 W1 ([facility]) Body height 67.5 [in_i] 67.5 [in_i] eCW1 ([facility]) Body weight 70.76 kg 70.76 kg W1 ([facility]) Body weight 156 [lb_av] 156 [lb_av] eCW1 ([facility]) Diastolic blood pressure 68 mm[Hg] 68 mm[Hg] eCW1 ([facility]) Systolic blood pressure 146 mm[Hg] 146 mm[Hg] e CW1 ([facility]) Body mass index (BMI) [Ratio] 24.07 kg/m2 24.07 kg/m2 W1 ([facility]) Body height 67.5 [in_i] 67.5 [in_i] eCW1 ([facility]) Body weight 70.76 kg 70.76 kg eCW1 ([facility]) Body weight 156 [lb_av] 156 [lb_av] eCW1 ([facility]) Body mass index (BMI) [Ratio] 22.5 kg/m2 22.5 k g/m2 MEDENT ([facility]) Body weight 148.25 [lb_av] 148.25 [lb_av] MEDEN T ([facility]) Body height 68 [in_i] 68 [in_i] MEDENT ([facility]) 5'8" Diastolic blood pressure 70 mm[Hg] 70 mm[Hg] MEDENT ([facility]) Systolic blood pressure 130 mm[Hg] 130 mm[Hg] M EDENT ([facility]) [place] body weight 145 [lb_av] 145 [lb_av] MEDEN T ([facility], ) Body mass index (BMI) [Ratio] 22.7 kg/m2 22.7 k g/m2 MEDENT ([facility], ) Body weight 154.00 [lb_av] 154.00 [lb_av] MEDEN T ([facility], ) Body height 69 [in_i] 69 [in_i] MEDENT ([facility], ) 5'9" Respiratory rate 12 /min 12 /min MEDENT ( [facility]) [place] body weight 145 [lb_av] 145 [lb_av] MEDEN [...] [Ratio] 23.3 kg/m2 23.3 k g/m2 MEDENT ([facility]) Body weight 153.00 [lb_av] 153.00 [lb_av] MEDEN T ([facility]) Body height 68 [in_i] 68 [in_i] MEDENT ([facility]) 5'8" Heart rate 68 /min 68 /min MEDENT ([facility]) Diastolic blood pressure 58 mm[Hg] 58 mm[Hg] MEDENT ([facility]) Systolic blood pressure 102 mm[Hg] 102 mm[Hg] EDENT ([facility]) Patient Treatment Plan of Care Planned Activity Planned Date Details Description Data Source (s) Sulfamethoxazole 800 MG / Trimethoprim 160 MG Oral Tab let [Bactrim] 10/22/2020 12:00:00 AM EST eCW1 ([facility]) Phenazopyridine hydrochloride 100 MG Oral Tablet [Pyri dium] 10/22/2020 12:00:00 AM EST eCW1 ([facility]) Sulfamethoxazole 800 MG / Trimethoprim 160 MG Oral Tab let [Bactrim] 10/22/2020 12:00:00 AM EST eCW1 ([facility]) Phenazopyridine hydrochloride 100 MG Oral Tablet [Pyri dium] 10/22/2020 12:00:00 AM EST eCW1 ([facility]) Minocycline 50 MG Oral Capsule 09/21/2020 12:00:00 AM EST eCW1 ([facility]) Minocycline 50 MG Oral Capsule 09/21/2020 12:00:00 AM EST eCW1 ([facility]) Minocycline 50 MG Oral Capsule 09/21/2020 12:00:00 AM EST eCW1 ([facility]) Minocycline 50 MG Oral Capsule 09/21/2020 12:00:00 AM EST eCW1 ([facility]) Sulfamethoxazole 800 MG / Trimethoprim 160 MG Oral Tab let [Bactrim] 08/25/2020 12:00:00 AM EST eCW1 ([facility]) Sulfamethoxazole 800 MG / Trimethoprim 160 MG Oral Tab let [Bactrim] 08/25/2020 12:00:00 AM EST eCW1 ([facility]) Sulfamethoxazole 800 MG / Trimethoprim 160 MG Oral Tab let [Bactrim] 08/25/2020 12:00:00 AM EST eCW1 ([facility]) Fosfomycin 33.3 MG/ML Oral Suspension [Monurol] 08/19/2020 12:00:00 AM EST eCW1 ([facility]) Fosfomycin 33.3 MG/ML Oral Suspension [Monurol] 08/19/2020 12:00:00 AM EST eCW1 ([facility]) Fosfomycin 33.3 MG/ML Oral Suspension [Monurol] 08/19/2020 12:00:00 AM EST eCW1 ([facility]) Phenazopyridine hydrochloride 200 MG Oral Tablet [Pyri dium] 08/16/2020 12:00:00 AM EST eCW1 ([facility]) Phenazopyridine hydrochloride 200 MG Oral Tablet [Pyri dium] 08/16/2020 12:00:00 AM EST eCW1 ([facility]) Phenazopyridine hydrochloride 200 MG Oral Tablet [Pyri dium] 08/16/2020 12:00:00 AM EST eCW1 ([facility]) NITROFURANTOIN, MACROCRYSTALS 25 MG / Ni trofurantoin, Monohydrate 75 MG Oral Capsule [Macrobid] 08/08/2020 12:00:00 AM EST eC W1 ([facility]) NITROFURANTOIN, MACROCRYSTALS 25 MG / Ni trofurantoin, Monohydrate 75 MG Oral Capsule [Macrobid] 08/08/2020 12:00:00 AM EST eC W1 ([facility]) NITROFURANTOIN, MACROCRYSTALS 25 MG / Ni trofurantoin, Monohydrate 75 MG Oral Capsule [Macrobid] 08/08/2020 12:00:00 AM EST eC W1 ([facility]) Ciprofloxacin 500 MG Oral Tablet [Cipro] 07/17/2020 12:00:00 AM EDT eCW1 ([facility]) Ciprofloxacin 500 MG Oral Tablet [Cipro] 07/17/2020 12:00:00 AM EDT eCW1 ([facility]) NITROFURANTOIN, MACROCRYSTALS 100 MG Oral Capsule 07/07/2020 12: 00:00 AM EDT eCW1 ([facility]) NITROFURANTOIN, MACROCRYSTALS 100 MG Oral Capsule 07/07/2020 12: 00:00 AM EDT eCW1 ([facility]) NITROFURANTOIN, MACROCRYSTALS 100 MG Oral Capsule 07/07/2020 12: 00:00 AM EDT eCW1 ([facility]) NITROFURANTOIN, MACROCRYSTALS 100 MG Oral Capsule 07/07/2020 12: 00:00 AM EDT eCW1 ([facility]) Ampicillin 500 MG Oral Capsule 06/20/2020 12:00:00 AM EDT eCW1 ([facility])
[2020-10-29] MEDS ORDERED: NS 500 ML IV ONE (16:00)
[2020-10-29 17:20] LABS: BASO % 0.2 % (0.0-1.0); EOS % 0.1 % (0.0-3.0); HEMATOCRIT 39.4 % (36.0-47.0); HEMOGLOBIN 12.6 g/dl (12.0-15.5); LYMPH # 1.4 10^3/uL (1.5-5.0); LYMPH % 8.1 % (24.0-44.0); MEAN CORPUSCULAR HEMOGLOBIN 27.5 pg (27.0-33.0); MEAN CORPUSCULAR VOLUME 85.8 fl (80.0-96.0); MONO # 0.9 10^3/uL (0.0-0.8); MONO % 4.9 % (2.0-8.0); NEUTROPHILS # 15.2 10^3/uL (1.5-8.5); NEUTROPHILS % 86.2 % (36.0-66.0); PLATELET COUNT, AUTOMATED 302 10^3/uL (150-450); RED BLOOD COUNT 4.59 10^6/uL (4.00-5.40); WHITE BLOOD COUNT 17.6 10^3/uL (4.0-10.0)
[2020-10-29 17:54] LABS: BILIRUBIN, URINE MANUAL NEGATIVE (NEGATIVE); GLUCOSE, URINE (UA) MANUAL NEGATIVE (NEGATIVE); KETONE, URINE MANUAL 1+ mg/dL (NEGATIVE); UROBILINOGEN, URINE MANUAL NORMAL (NORMAL)
[2020-10-29 17:57] LABS: AMORPHOUS SEDIMENT, URINE LARGE AMOUNT (NEGATIVE); BACTERIA, URINE LARGE AMOUNT; HYALINE CAST, URINE NONE SEEN /lpf (0-1); SQUAMOUS EPITHELIAL CELL URINE SMALL AMOUNT /hpf (SMALL AMT)
[2020-10-29] MEDS ORDERED: NS 1,500 ML in IV 1 EA IV ONE (18:00)
[2020-10-29] MEDS ORDERED: cefTRIAXone SOD 1 GM in D5W MINI-BAG PLUS 50 ML IV ONE (18:45)
--- NOTE | 2020-10-29 18:45 | REP ---
INDICATION: distended/abnormal bowel and bladder. COMPARISON: None. TECHNIQUE: Single supine view of the abdomen. FINDINGS: There is air and stool in a nondistended colon. No large or small bowel dilation is seen. Flank stripes and psoas margins are intact. No mass or organomegaly is seen. Patient is status post orthopedic pinning right hip. There are degenerative changes in the thoracic spine. Vascular calcification is noted. IMPRESSION: Negative KUB. <Electronically signed by Hieu Brennan > 10/29/20 [id number]
[2020-10-29] MEDS ORDERED: OMEG10002 PO (20:08)
[2020-10-29] MEDS ORDERED: BAYE325T13 PO (20:08)
[2020-10-29] MEDS ORDERED: TIMOXEOPD OU (20:15)
[2020-10-29] MEDS ORDERED: PHEN1TAB73 PO (20:15)
[2020-10-29 20:22] LABS: RSV AMPLIFICATION NEGATIVE (NEGATIVE)
--- OUTSIDE RECORDS SUMMARY | 2020-10-29 20:44 | CCD ---
Author Author [facility] Organization [facility] Address Unknown Phone Unavailable Care Team Providers Care Cutter Aluminum Sheet Name Role Phone James LOVELACE JR, PA-C [...] Unavailable Unavailable Garett Torres MD Unavailable Unavailable Gartet Torres MD Unavailable Unavailable Garett Torres MD [...] is protected by Article 27-F of the [facility] Public Health law. If you continue you may have access to information: Regarding HIV / AIDS; Provided by facilities licensed or operated by the [facility] Office of Mental Health; or Provided by the [facility] Office for People With Developmental Disabilities. If such information is present, then the following [facility] mandated warning applies: This information has been [...] law may result in a fine or shelter sentence or both. A general authorization for [...] [facility]) Unknown Unknown Problem MEDENT ([facility], ) Unknown Female Problem MEDENT ([facility]) Unknown Unknown Encounters Encounter Providers Location Date Indications Data Source(s ) Unknown [address] [facility] [address] [place] [address] 10/22/2020 12:00:00 AM EST eCW1 ([facility]) Unknown [address] [facility] [address] [place] [address] 10/21/2020 12:00:00 AM EST eCW1 ([facility]) Unknown [address] [facility] [place] [address] 09/23/2020 12:00:00 AM EST eCW1 ([facility]) Outpatient Attender: Andrew Torres MD Main office - [facility] 09/22/2020 10:00:00 AM EST MEDENT ([facility]) (Cysto1) Urology [address] [place] [address] 09/21/2020 12:00:00 AM EST eCW1 ([facility]) Unknown [address] [facility] [place] [address] 09/02/2020 12:00:00 AM EST eCW1 ([facility]) Outpatient [address] [facility] [place] [address] 08/25/2020 12:00:00 AM EST eCW1 ([facility]) Unknown [address] [facility] [place] [address] 08/25/2020 12:00:00 AM EST eCW1 ([facility]) Unknown [address] [facility] [place] [address] 08/22/2020 12:00:00 AM EST eCW1 ([facility]) Outpatient [address] [facility] [place] [address] 08/19/2020 12:00:00 AM EST eCW1 ([facility]) Unknown [address] [facility] [place] [address] 08/18/2020 12:00:00 AM EST eCW1 ([facility]) Unknown [address] [facility] [place] [address] 08/16/2020 12:00:00 AM EST eCW1 ([facility]) Unknown [address] [facility] [place] [address] 08/15/2020 12:00:00 AM EST eCW1 ([facility]) Office Visit, Est Pt., Level 3 PC [address] [place] [address] 08/08/2020 12:00:00 AM EST eCW1 ([facility]) Unknown [address] [facility] [place] [address] 07/17/2020 12:00:00 AM EDT eCW1 ([facility]) Unknown [address] [facility] [place] [address] 07/17/2020 12:00:00 AM EDT eCW1 ([facility]) Unknown [address] [facility], [place] [address] 07/07/2020 12:00:00 AM EDT eCW1 ([facility]) ([id number]) 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 [address] [place] [address] 07/05/2020 12:00:00 AM EDT eCW1 ([facility]) Unknown [address] [facility] [place] [address] 06/20/2020 12:00:00 AM EDT eCW1 ([facility]) Outpatient Attender: KEIRA Michelle 1 10:40:00 AM EDT MEDENT ([facility] ) Office Visit Attender: Andrew Torres MD [facility] office - [facility] 06/06/2020 01:15:00 PM EDT MEDENT ([facility] ) [facility] [address] [place] [address] 04/22/2020 12:00:00 AM EDT eCW1 ([facility]) Outpatient Attender: Andrew Torres MD [facility] 03/24/2020 09:30:00 AM EDT MEDENT ([facility] ) Outpatient Attender: KEIRA Michelle 0 03/16/2020 10:20:00 AM EDT MEDENT ([facility] ) Immunizations Vaccine Date Status Description Data Source(s) COVID-19 VACCINE, MRNA, [id number], LNP-S (PFIZER)/PF 10/15/19 12:00:00 AM EST completed [facility] Influenza, injectable, MDCK, preservative free, marcos valent 06/16/2020 03:20:00 PM EDT completed MEDENT ([place] [facility]) Medications Medication Brand Name Start Date Product Form Dose Route Admi nistrative Instructions Pharmacy Instructions Status Indications Reaction Description Data Source(s) Phenazopyridine hydrochloride 100 MG Oral Tablet [Pyri dium] Pyridium 100 MG Pyridium 100 MG 10/22/2020 12:00:00 AM EST 1.0 {tablet_after_meals} active Pyridium 100 MG eCW1 ([facility]) Phenazopyridine hydrochloride 100 MG Oral Tablet [Pyri dium] Pyridium 100 MG Pyridium 100 MG 10/22/2020 12:00:00 AM EST 1.0 {tablet_after_meals} active Pyridium 100 MG eCW1 ([facility]) Sulfamethoxazole 800 MG / Trimethoprim 1 60 MG Oral Tablet [Bactrim] Bactrim DS 800-160 MG Bactrim DS 800-160 MG 10/22/2020 12:00:00 AM EST 1.0 {table t} active Bactrim DS 800-160 MG eCW1 ( [facility]) Sulfamethoxazole 800 MG / Trimethoprim 1 60 MG Oral Tablet [Bactrim] Bactrim DS 800-160 MG Bactrim DS 800-160 MG 10/22/2020 12:00:00 AM EST 1.0 {table t} active Bactrim DS 800-160 MG eCW1 ( [facility]) Minocycline 50 MG Oral Capsule Minocycline HCl 50 MG Minocyc line HCl 50 MG 09/21/2020 12:00:00 AM EST 1.0 {capsule} active Minocycline HCl 50 MG eCW1 ([facility]) Minocycline 50 MG Oral Capsule Minocycline HCl 50 MG Minocyc line HCl 50 MG 09/21/2020 12:00:00 AM EST 1.0 {capsule} active Minocycline HCl 50 MG eCW1 ([facility]) Minocycline 50 MG Oral Capsule Minocycline HCl 50 MG Minocyc line HCl 50 MG 09/21/2020 12:00:00 AM EST 1.0 {capsule} active Minocycline HCl 50 MG eCW1 ([facility]) Minocycline 50 MG Oral Capsule Minocycline HCl 50 MG Minocyc line HCl 50 MG 09/21/2020 12:00:00 AM EST 1.0 {capsule} active Minocycline HCl 50 MG eCW1 ([facility]) Sulfamethoxazole 800 MG / Trimethoprim 1 60 MG Oral Tablet [Bactrim] Bactrim DS 800-160 MG Bactrim DS 800-160 MG 08/25/2020 12:00:00 AM EST 1.0 {table t} active Bactrim DS 800-160 MG eCW1 ( [facility]) Sulfamethoxazole 800 MG / Trimethoprim 1 60 MG Oral Tablet [Bactrim] Bactrim DS 800-160 MG Bactrim DS 800-160 MG 08/25/2020 12:00:00 AM EST 1.0 {table t} active Bactrim DS 800-160 MG eCW1 ( [facility]) Sulfamethoxazole 800 MG / Trimethoprim 1 60 MG Oral Tablet [Bactrim] Bactrim DS 800-160 MG Bactrim DS 800-160 MG 08/25/2020 12:00:00 AM EST 1.0 {table t} active Bactrim DS 800-160 MG eCW1 ( [facility]) Sulfamethoxazole 800 MG / Trimethoprim 1 60 MG Oral Tablet [Bactrim] Bactrim DS 800-160 MG Bactrim DS 800-160 MG 08/25/2020 12:00:00 AM EST 1.0 {table t} active Bactrim DS 800-160 MG eCW1 ( [facility]) Sulfamethoxazole 800 MG / Trimethoprim 1 60 MG Oral Tablet [Bactrim] Bactrim DS 800-160 MG Bactrim DS 800-160 MG 08/25/2020 12:00:00 AM EST 1.0 {table t} active Bactrim DS 800-160 MG eCW1 ( [facility]) Sulfamethoxazole 800 MG / Trimethoprim 1 60 MG Oral Tablet [Bactrim] Bactrim DS 800-160 MG Bactrim DS 800-160 MG 08/25/2020 12:00:00 AM EST 1.0 {table t} active Bactrim DS 800-160 MG eCW1 ( [facility]) Sulfamethoxazole 800 MG / Trimethoprim 1 60 MG Oral Tablet [Bactrim] Bactrim DS 800-160 MG Bactrim DS 800-160 MG 08/25/2020 12:00:00 AM EST 1.0 {table t} active Bactrim DS 800-160 MG eCW1 ( [facility]) Fosfomycin 33.3 MG/ML Oral Suspension [Monurol] Monurol 3 GM Monurol 3 GM 08/19/2020 12:00:00 AM EST suspended Monurol 3 GM eCW1 ([facility]) Fosfomycin 33.3 MG/ML Oral Suspension [Monurol] Monurol 3 GM Monurol 3 GM 08/19/2020 12:00:00 AM EST active Monurol 3 GM eCW1 ([facility]) Fosfomycin 33.3 MG/ML Oral Suspension [Monurol] Monurol 3 GM Monurol 3 GM 08/19/2020 12:00:00 AM EST suspended Monurol 3 GM eCW1 ([facility]) Fosfomycin 33.3 MG/ML Oral Suspension [Monurol] Monurol 3 GM Monurol 3 GM 08/19/2020 12:00:00 AM EST suspended Monurol 3 GM eCW1 ([facility]) Fosfomycin 33.3 MG/ML Oral Suspension [Monurol] Monurol 3 GM Monurol 3 GM 08/19/2020 12:00:00 AM EST active Monurol 3 GM eCW1 ([facility]) Fosfomycin 33.3 MG/ML Oral Suspension [Monurol] Monurol 3 GM Monurol 3 GM 08/19/2020 12:00:00 AM EST suspended Monurol 3 GM eCW1 ([facility]) Fosfomycin 33.3 MG/ML Oral Suspension [Monurol] Monurol 3 GM Monurol 3 GM 08/19/2020 12:00:00 AM EST active Monurol 3 GM eCW1 ([facility]) Fosfomycin 33.3 MG/ML Oral Suspension [Monurol] Monurol 3 GM Monurol 3 GM 08/19/2020 12:00:00 AM EST suspended Monurol 3 GM eCW1 ([facility]) Fosfomycin 33.3 MG/ML Oral Suspension [Monurol] Monurol 3 GM Monurol 3 GM 08/19/2020 12:00:00 AM EST suspended Monurol 3 GM eCW1 ([facility]) Fosfomycin 33.3 MG/ML Oral Suspension [Monurol] Monurol 3 GM Monurol 3 GM 08/19/2020 12:00:00 AM EST suspended Monurol 3 GM eCW1 ([facility]) Phenazopyridine hydrochloride 200 MG Oral Tablet [Pyri dium] Pyridium 200 MG Pyridium 200 MG 08/16/2020 12:00:00 AM EST 1.0 {tablet_after_meals} active Pyridium 200 MG eCW1 ([facility]) Phenazopyridine hydrochloride 200 MG Oral Tablet [Pyri dium] Pyridium 200 MG Pyridium 200 MG 08/16/2020 12:00:00 AM EST 1.0 {tablet_after_meals} active Pyridium 200 MG eCW1 ([facility]) Phenazopyridine hydrochloride 200 MG Oral Tablet [Pyri dium] Pyridium 200 MG Pyridium 200 MG 08/16/2020 12:00:00 AM EST 1.0 {tablet_after_meals} active Pyridium 200 MG eCW1 ([facility]) Phenazopyridine hydrochloride 200 MG Oral Tablet [Pyri dium] Pyridium 200 MG Pyridium 200 MG 08/16/2020 12:00:00 AM EST 1.0 {tablet_after_meals} active Pyridium 200 MG eCW1 ([facility]) Phenazopyridine hydrochloride 200 MG Oral Tablet [Pyri dium] Pyridium 200 MG Pyridium 200 MG 08/16/2020 12:00:00 AM EST 1.0 {tablet_after_meals} active Pyridium 200 MG eCW1 ([facility]) Phenazopyridine hydrochloride 200 MG Oral Tablet [Pyri dium] Pyridium 200 MG Pyridium 200 MG 08/16/2020 12:00:00 AM EST 1.0 {tablet_after_meals} active Pyridium 200 MG eCW1 ([facility]) Phenazopyridine hydrochloride 200 MG Oral Tablet [Pyri dium] Pyridium 200 MG Pyridium 200 MG 08/16/2020 12:00:00 AM EST 1.0 {tablet_after_meals} active Pyridium 200 MG eCW1 ([facility]) Phenazopyridine hydrochloride 200 MG Oral Tablet [Pyri dium] Pyridium 200 MG Pyridium 200 MG 08/16/2020 12:00:00 AM EST 1.0 {tablet_after_meals} active Pyridium 200 MG eCW1 ([facility]) Phenazopyridine hydrochloride 200 MG Oral Tablet [Pyri dium] Pyridium 200 MG Pyridium 200 MG 08/16/2020 12:00:00 AM EST 1.0 {tablet_after_meals} active Pyridium 200 MG eCW1 ([facility]) Phenazopyridine hydrochloride 200 MG Oral Tablet [Pyri dium] Pyridium 200 MG Pyridium 200 MG 08/16/2020 12:00:00 AM EST 1.0 {tablet_after_meals} active Pyridium 200 MG eCW1 ([facility]) Phenazopyridine hydrochloride 200 MG Oral Tablet [Pyri dium] Pyridium 200 MG Pyridium 200 MG 08/16/2020 12:00:00 AM EST 1.0 {tablet_after_meals} active Pyridium 200 MG eCW1 ([facility]) Phenazopyridine hydrochloride 200 MG Oral Tablet [Pyri dium] Pyridium 200 MG Pyridium 200 MG 08/16/2020 12:00:00 AM EST 1.0 {tablet_after_meals} active Pyridium 200 MG eCW1 ([facility]) Phenazopyridine hydrochloride 200 MG Oral Tablet [Pyri dium] Pyridium 200 MG Pyridium 200 MG 08/16/2020 12:00:00 AM EST 1.0 {tablet_after_meals} active Pyridium 200 MG eCW1 ([facility]) NITROFURANTOIN, MACROCRYSTALS 25 MG / Ni trofurantoin, Monohydrate 75 MG Oral Capsule [Macrobid] Macrobid 100 MG Macrobid 100 MG 08/08/2020 12:00:00 AM EST active Macrobid 100 MG eCW1 ([facility]) NITROFURANTOIN, MACROCRYSTALS 25 MG / Ni trofurantoin, Monohydrate 75 MG Oral Capsule [Macrobid] Macrobid 100 MG Macrobid 100 MG 08/08/2020 12:00:00 AM EST active Macrobid 100 MG eCW1 ([facility]) NITROFURANTOIN, MACROCRYSTALS 25 MG / Ni trofurantoin, Monohydrate 75 MG Oral Capsule [Macrobid] Macrobid 100 MG Macrobid 100 MG 08/08/2020 12:00:00 AM EST suspended Macrobid 100 MG eCW1 ( [facility]) NITROFURANTOIN, MACROCRYSTALS 25 MG / Ni trofurantoin, Monohydrate 75 MG Oral Capsule [Macrobid] Macrobid 100 MG Macrobid 100 MG 08/08/2020 12:00:00 AM EST suspended Macrobid 100 MG eCW1 ( [facility]) NITROFURANTOIN, MACROCRYSTALS 25 MG / Ni trofurantoin, Monohydrate 75 MG Oral Capsule [Macrobid] Macrobid 100 MG Macrobid 100 MG 08/08/2020 12:00:00 AM EST suspended Macrobid 100 MG eCW1 ( [facility]) NITROFURANTOIN, MACROCRYSTALS 25 MG / Ni trofurantoin, Monohydrate 75 MG Oral Capsule [Macrobid] Macrobid 100 MG Macrobid 100 MG 08/08/2020 12:00:00 AM EST suspended Macrobid 100 MG eCW1 ( [facility]) NITROFURANTOIN, MACROCRYSTALS 25 MG / Ni trofurantoin, Monohydrate 75 MG Oral Capsule [Macrobid] Macrobid 100 MG Macrobid 100 MG 08/08/2020 12:00:00 AM EST suspended Macrobid 100 MG eCW1 ( [facility]) NITROFURANTOIN, MACROCRYSTALS 25 MG / Ni trofurantoin, Monohydrate 75 MG Oral Capsule [Macrobid] Macrobid 100 MG Macrobid 100 MG 08/08/2020 12:00:00 AM EST suspended Macrobid 100 MG eCW1 ( [facility]) NITROFURANTOIN, MACROCRYSTALS 25 MG / Ni trofurantoin, Monohydrate 75 MG Oral Capsule [Macrobid] Macrobid 100 MG Macrobid 100 MG 08/08/2020 12:00:00 AM EST suspended Macrobid 100 MG eCW1 ( [facility]) NITROFURANTOIN, MACROCRYSTALS 25 MG / Ni trofurantoin, Monohydrate 75 MG Oral Capsule [Macrobid] Macrobid 100 MG Macrobid 100 MG 08/08/2020 12:00:00 AM EST suspended Macrobid 100 MG eCW1 ( [facility]) NITROFURANTOIN, MACROCRYSTALS 25 MG / Ni trofurantoin, Monohydrate 75 MG Oral Capsule [Macrobid] Macrobid 100 MG Macrobid 100 MG 08/08/2020 12:00:00 AM EST active Macrobid 100 MG eCW1 ([facility]) NITROFURANTOIN, MACROCRYSTALS 25 MG / Ni trofurantoin, Monohydrate 75 MG Oral Capsule [Macrobid] Macrobid 100 MG Macrobid 100 MG 08/08/2020 12:00:00 AM EST suspended Macrobid 100 MG eCW1 ( [facility]) NITROFURANTOIN, MACROCRYSTALS 25 MG / Ni trofurantoin, Monohydrate 75 MG Oral Capsule [Macrobid] Macrobid 100 MG Macrobid 100 MG 08/08/2020 12:00:00 AM EST suspended Macrobid 100 MG eCW1 ( [facility]) Ciprofloxacin 500 MG Oral Tablet [Cipro] Cipro 500 MG Cipro 500 MG 07/17/2020 12:00:00 AM EDT 1.0 {tablet} suspended Cipro 500 MG eCW1 ([facility]) Ciprofloxacin 500 MG Oral Tablet [Cipro] Cipro 500 MG Cipro 500 MG 07/17/2020 12:00:00 AM EDT 1.0 {tablet} active Ci pro 500 MG eCW1 ([facility]) Ciprofloxacin 500 MG Oral Tablet [Cipro] Cipro 500 MG Cipro 500 MG 07/17/2020 12:00:00 AM EDT 1.0 {tablet} suspended Cipro 500 MG eCW1 ([facility]) Ciprofloxacin 500 MG Oral Tablet [Cipro] Cipro 500 MG Cipro 500 MG 07/17/2020 12:00:00 AM EDT 1.0 {tablet} suspended Cipro 500 MG eCW1 ([facility]) Ciprofloxacin 500 MG Oral Tablet [Cipro] Cipro 500 MG Cipro 500 MG 07/17/2020 12:00:00 AM EDT 1.0 {tablet} suspended Cipro 500 MG eCW1 ([facility]) Ciprofloxacin 500 MG Oral Tablet [Cipro] Cipro 500 MG Cipro 500 MG 07/17/2020 12:00:00 AM EDT 1.0 {tablet} suspended Cipro 500 MG eCW1 ([facility]) Ciprofloxacin 500 MG Oral Tablet [Cipro] Cipro 500 MG Cipro 500 MG 07/17/2020 12:00:00 AM EDT 1.0 {tablet} suspended Cipro 500 MG eCW1 ([facility]) Ciprofloxacin 500 MG Oral Tablet [Cipro] Cipro 500 MG Cipro 500 MG 07/17/2020 12:00:00 AM EDT 1.0 {tablet} suspended Cipro 500 MG eCW1 ([facility]) Ciprofloxacin 500 MG Oral Tablet [Cipro] Cipro 500 MG Cipro 500 MG 07/17/2020 12:00:00 AM EDT 1.0 {tablet} suspended Cipro 500 MG eCW1 ([facility]) Ciprofloxacin 500 MG Oral Tablet [Cipro] Cipro 500 MG Cipro 500 MG 07/17/2020 12:00:00 AM EDT 1.0 {tablet} suspended Cipro 500 MG eCW1 ([facility]) Ciprofloxacin 500 MG Oral Tablet [Cipro] Cipro 500 MG Cipro 500 MG 07/17/2020 12:00:00 AM EDT 1.0 {tablet} suspended Cipro 500 MG eCW1 ([facility]) Ciprofloxacin 500 MG Oral Tablet [Cipro] Cipro 500 MG Cipro 500 MG 07/17/2020 12:00:00 AM EDT 1.0 {tablet} active Ci pro 500 MG eCW1 ([facility]) Ciprofloxacin 500 MG Oral Tablet [Cipro] Cipro 500 MG Cipro 500 MG 07/17/2020 12:00:00 AM EDT 1.0 {tablet} suspended Cipro 500 MG eCW1 ([facility]) Ciprofloxacin 500 MG Oral Tablet [Cipro] Cipro 500 MG Cipro 500 MG 07/17/2020 12:00:00 AM EDT 1.0 {tablet} suspended Cipro 500 MG eCW1 ([facility]) Ciprofloxacin 500 MG Oral Tablet [Cipro] Cipro 500 MG Cipro 500 MG 07/17/2020 12:00:00 AM EDT 1.0 {tablet} suspended Cipro 500 MG eCW1 ([facility]) NITROFURANTOIN, MACROCRYSTALS 100 MG Ora l Capsule Nitrofurantoin Macrocrystal 100 MG Nitrofurantoin Macrocrystal 100 MG 07/07/2020 12:00:00 AM EDT suspended Nitrofurantoin Macrocrystal 100 MG eCW1 ([facility]) NITROFURANTOIN, MACROCRYSTALS 100 MG Ora l Capsule Nitrofurantoin Macrocrystal 100 MG Nitrofurantoin Macrocrystal 100 MG 07/07/2020 12:00:00 AM EDT suspended Nitrofurantoin Macrocrystal 100 MG eCW1 ([facility]) NITROFURANTOIN, MACROCRYSTALS 100 MG Ora l Capsule Nitrofurantoin Macrocrystal 100 MG Nitrofurantoin Macrocrystal 100 MG 07/07/2020 12:00:00 AM EDT active Nitrofurantoin Macrocrystal 100 MG eCW1 ([facility]) NITROFURANTOIN, MACROCRYSTALS 100 MG Ora l Capsule Nitrofurantoin Macrocrystal 100 MG Nitrofurantoin Macrocrystal 100 MG 07/07/2020 12:00:00 AM EDT active Nitrofurantoin Macrocrystal 100 MG eCW1 ([facility]) NITROFURANTOIN, MACROCRYSTALS 100 MG Ora l Capsule Nitrofurantoin Macrocrystal 100 MG Nitrofurantoin Macrocrystal 100 MG 07/07/2020 12:00:00 AM EDT suspended Nitrofurantoin Macrocrystal 100 MG eCW1 ([facility]) NITROFURANTOIN, MACROCRYSTALS 100 MG Ora l Capsule Nitrofurantoin Macrocrystal 100 MG Nitrofurantoin Macrocrystal 100 MG 07/07/2020 12:00:00 AM EDT active Nitrofurantoin Macrocrystal 100 MG eCW1 ([facility]) NITROFURANTOIN, MACROCRYSTALS 100 MG Ora l Capsule Nitrofurantoin Macrocrystal 100 MG Nitrofurantoin Macrocrystal 100 MG 07/07/2020 12:00:00 AM EDT active Nitrofurantoin Macrocrystal 100 MG eCW1 ([facility]) NITROFURANTOIN, MACROCRYSTALS 100 MG Ora l Capsule Nitrofurantoin Macrocrystal 100 MG Nitrofurantoin Macrocrystal 100 MG 07/07/2020 12:00:00 AM EDT suspended Nitrofurantoin Macrocrystal 100 MG eCW1 ([facility]) NITROFURANTOIN, MACROCRYSTALS 100 MG Ora l Capsule Nitrofurantoin Macrocrystal 100 MG Nitrofurantoin Macrocrystal 100 MG 07/07/2020 12:00:00 AM EDT suspended Nitrofurantoin Macrocrystal 100 MG eCW1 ([facility]) NITROFURANTOIN, MACROCRYSTALS 100 MG Ora l Capsule Nitrofurantoin Macrocrystal 100 MG Nitrofurantoin Macrocrystal 100 MG 07/07/2020 12:00:00 AM EDT suspended Nitrofurantoin Macrocrystal 100 MG eCW1 ([facility]) NITROFURANTOIN, MACROCRYSTALS 100 MG Ora l Capsule Nitrofurantoin Macrocrystal 100 MG Nitrofurantoin Macrocrystal 100 MG 07/07/2020 12:00:00 AM EDT suspended Nitrofurantoin Macrocrystal 100 MG eCW1 ([facility]) NITROFURANTOIN, MACROCRYSTALS 100 MG Ora l Capsule Nitrofurantoin Macrocrystal 100 MG Nitrofurantoin Macrocrystal 100 MG 07/07/2020 12:00:00 AM EDT suspended Nitrofurantoin Macrocrystal 100 MG eCW1 ([facility]) NITROFURANTOIN, MACROCRYSTALS 100 MG Ora l Capsule Nitrofurantoin Macrocrystal 100 MG Nitrofurantoin Macrocrystal 100 MG 07/07/2020 12:00:00 AM EDT suspended Nitrofurantoin Macrocrystal 100 MG eCW1 ([facility]) NITROFURANTOIN, MACROCRYSTALS 100 MG Ora l Capsule Nitrofurantoin Macrocrystal 100 MG Nitrofurantoin Macrocrystal 100 MG 07/07/2020 12:00:00 AM EDT suspended Nitrofurantoin Macrocrystal 100 MG eCW1 ([facility]) NITROFURANTOIN, MACROCRYSTALS 100 MG Ora l Capsule Nitrofurantoin Macrocrystal 100 MG Nitrofurantoin Macrocrystal 100 MG 07/07/2020 12:00:00 AM EDT suspended Nitrofurantoin Macrocrystal 100 MG eCW1 ([facility]) NITROFURANTOIN, MACROCRYSTALS 100 MG Ora l Capsule Nitrofurantoin Macrocrystal 100 MG Nitrofurantoin Macrocrystal 100 MG 07/07/2020 12:00:00 AM EDT suspended Nitrofurantoin Macrocrystal 100 MG eCW1 ([facility]) NITROFURANTOIN, MACROCRYSTALS 100 MG Ora l Capsule Nitrofurantoin Macrocrystal 100 MG Nitrofurantoin Macrocrystal 100 MG 07/07/2020 12:00:00 AM EDT suspended Nitrofurantoin Macrocrystal 100 MG eCW1 ([facility]) Ampicillin 500 MG Oral Capsule Ampicillin 500 MG 06/20/2020 12:00:00 AM EDT suspended Ampicillin 500 MG eC W1 ([facility]) Ampicillin 500 MG Oral Capsule Ampicillin 500 MG 06/20/2020 12:00:00 AM EDT suspended Ampicillin 500 MG eC W1 ([facility]) Ampicillin 500 MG Oral Capsule Ampicillin 500 MG 06/20/2020 12:00:00 AM EDT suspended Ampicillin 500 MG eC W1 ([facility]) Ampicillin 500 MG Oral Capsule Ampicillin 500 MG 06/20/2020 12:00:00 AM EDT suspended Ampicillin 500 MG eC W1 ([facility]) Ampicillin 500 MG Oral Capsule Ampicillin 500 MG 06/20/2020 12:00:00 AM EDT suspended Ampicillin 500 MG eC W1 ([facility]) Ampicillin 500 MG Oral Capsule Ampicillin 500 MG 06/20/2020 12:00:00 AM EDT active Ampicillin 500 MG eC W1 ([facility]) Ampicillin 500 MG Oral Capsule Ampicillin 500 MG 06/20/2020 12:00:00 AM EDT suspended Ampicillin 500 MG eC W1 ([facility]) Ampicillin 500 MG Oral Capsule Ampicillin 500 MG 06/20/2020 12:00:00 AM EDT suspended Ampicillin 500 MG eC W1 ([facility]) Ampicillin 500 MG Oral Capsule Ampicillin 500 MG 06/20/2020 12:00:00 AM EDT suspended Ampicillin 500 MG eC W1 ([facility]) Ampicillin 500 MG Oral Capsule Ampicillin 500 MG 06/20/2020 12:00:00 AM EDT suspended Ampicillin 500 MG eC W1 ([facility]) Ampicillin 500 MG Oral Capsule Ampicillin 500 MG 06/20/2020 12:00:00 AM EDT suspended Ampicillin 500 MG eC W1 ([facility]) Ampicillin 500 MG Oral Capsule Ampicillin 500 MG 06/20/2020 12:00:00 AM EDT suspended Ampicillin 500 MG eC W1 ([facility]) Ampicillin 500 MG Oral Capsule Ampicillin 500 MG 06/20/2020 12:00:00 AM EDT suspended Ampicillin 500 MG eC W1 ([facility]) Ampicillin 500 MG Oral Capsule Ampicillin 500 MG 06/20/2020 12:00:00 AM EDT suspended Ampicillin 500 MG eC W1 ([facility]) Ampicillin 500 MG Oral Capsule Ampicillin 500 MG 06/20/2020 12:00:00 AM EDT suspended Ampicillin 500 MG eC W1 ([facility]) Ampicillin 500 MG Oral Capsule Ampicillin 500 MG 06/20/2020 12:00:00 AM EDT suspended Ampicillin 500 MG eC W1 ([facility]) Ampicillin 500 MG Oral Capsule Ampicillin 500 MG 06/20/2020 12:00:00 AM EDT suspended Ampicillin 500 MG eC W1 ([facility]) Ampicillin 500 MG Oral Capsule Ampicillin 500 MG 06/20/2020 12:00:00 AM EDT suspended Ampicillin 500 MG eC W1 ([facility]) Administration Of Flu Vaccine 06/16/2020 12:00:00 AM EDT completed MEDENT ([place] [facility]) Medication administered onsite Levetiracetam 500 MG Oral Tablet Levetiracetam 05/16/2020 12:00:00 AM EDT ORAL active MEDENT ([facility]) Aspirin 325 MG Oral Tablet Aspirin Adult 03/24/2020 12:00:00 AM EDT active MEDENT ([facility]) Levetiracetam 750 MG Oral Tablet Levetiracetam 03/24/2020 12:00:00 AM EDT ORAL completed [facility] (No [facility]) atorvastatin 40 MG Oral Tablet Atorvastatin Calcium 03/16/2020 1 2:00:00 AM EDT ORAL active [facility] ( [facility]) Levetiracetam 1000 MG Oral Tablet Levetiracetam 03/16/2020 12:00:00 A M EDT ORAL completed [facility] ([facility]) Insurance Providers Payer name Policy type / Coverage type Policy ID Covered libertarian ID Covered libertarian's relationship to ellington Policy [place] Plan Information [place] [address] [id number] SP [id number] MEDICARE [id number] SP [id number] FOR LIFE [id number] SP [id number] [place] [address] [id number] SP [id number] [place] [address] [id number] SP [id number] MEDICARE C [id number] S [id number] EXCELLUS BCBS B [id number] S XXP [id number] FOR LIFE O [id number] S [id number] ANSI-Commercial [id number] ANSI-Medicare Part B [id number] ANSI-Commercial [id number] WPS For Life Medigap Part B [id number] Family Depende nt [id number] [facility] Trad/MX Medigap Part B [id number] Self [id number] Medicare Natl Govt Servic Medicare Primary [id number] Self [id number] [place] [address] [id number] SP [id number] MEDICARE [id number] SP [id number] A [place] [facility] (TFL) Medigap Part B [id number] Self [id number] [facility] Federal Service Medigap Part B [id number] Family De pendent [id number] BS [place] Medigap Part B [id number] Self [id number] [place] Primary [id number] Self [id number] BS [place] Medigap Part B [id number] Self [id number] ANSI-Medicare Part B [id number] ANSI-Commercial [id number] ANSI-Commercial [id number] FOR LIFE [id number] [facility] [id number] BCBS [facility] 200/700 [id number] SP [id number] [place] P[place] 302/307 [id number] SP [id number] FOR LIFE [id number] SP [id number] [place] P[place] 302/307 [id number] SP [id number] [place] [facility] (TFL) Medigap Part B [id number] Self [id number] [facility] Service Medigap Part B [id number] Family De pendent [id number] BS [place] Medigap Part B [id number] Self [id number] Medicare [place] Medicare Primary [id number] Self [id number] [place] [facility] (TFL) Medigap Part B [id number] Self [id number] [facility] Service Medigap Part B [id number] Family De pendent [id number] BS [place] Medigap Part B [id number] Self [id number] [place] Medicare Primary [id number] Self [id number] WPS For Life Medigap Part B [id number] Family Depende nt [id number] [place] Trad/[place] Commercial [id number] Self [id number] Medicare Natl Govt Servic Medicare Primary [id number] Self [id number] [facility] Serv (TFL) Medigap Part B [id number] Self [id number] [facility] Medigap Part B [id number] Family De pendent [id number] BS [facility] Medigap Part B [id number] Self [id number] Medicare [facility] Medicare Primary [id number] Self [id number] WPS For Life Medigap Part B [id number] Family Depende nt [id number] [place] Trad/[place] Commercial [id number] Self [id number] Medicare Natl Govt Servic Medicare Primary [id number] Self [id number] For Life WPS Medigap Part B [id number] Family Depende nt [id number] BCBS/Blue Card Medigap Part B [id number] Self [id number] Medicare Natl Gov't Servi Medicare Primary [id number] Self [id number] MEDICARE [id number] S [id number] A [place] 200/700 [id number] SP [id number] FOR LIFE [id number] SP [id number] MEDICARE [id number] SP [id number] A [place] 200/700 [id number] SP [id number] WPS For Life Medigap Part B [id number] Family Depende nt [id number] BS [place] Trad/[place] Commercial [id number] Self [id number] Medicare [facility] Govt Servic Medicare Primary [id number] Self [id number] BLUE CROSS BLUE SHIELD-O/P [id number] 18 [id number] MEDICARE -O/P [id number] 18 [id number] EXCELLUS BCBS B [id number] S XXP [id number] [place] 200/700 [id number] SP [id number] FOR LIFE [id number] SP [id number] WPS For Life Medigap Part B Excellus BCBS Medigap Part B Self Medicare [place]/[facility] Medicare Primary Self WPS For Life Medigap Part B Family Depende nt BS [place] Trad/[place] Commercial 200 Self 200 Medicare Natl Govt Servic Medicare Primary Self [place] 306/806 [id number] SP [id number] MEDICARE [id number] SP [id number] A For Life Medigap Part B Family Dependent BC/BS Of [place] Medigap Part B Self Medicare [facility] Medicare Primary Self [id number] A Problems, Conditions, and Diagnoses Code Display Name Description Problem Type Effective Dates Data Source(s) N32.1 Colovesical fistula Colovesical fistula Problem 0 09/21/2020 12:00:00 AM EST eCW1 ([facility]) R31.29 [id number] Other microscopic hematuria Problem 09/21/19 12:00:00 AM EST eCW1 ([facility]) N30.91 [id number] Hematuria due to cystitis Problem 09/21/2020 12:00:00 AM EST eCW1 ([facility]) N32.89 [id number] Bladder spasms Problem 08/19/2020 12:00:00 A M EST eCW1 ([facility]) [id number] Dementia Dementia Problem 03/24/2020 12:00:00 AM ED T MEDENT ([facility], ) [id number] Intracranial meningioma Intracranial meningioma Proble m 03/24/2020 12:00:00 AM EDT MED[facility] ([facility], ) [id number] Transient cerebral ischemia Transient cerebral ischemi a Problem 03/24/2020 12:00:00 AM EDT MED[facility] ([facility], ) [id number] Seizure Seizure Problem 03/24/2020 12:00:00 AM ED T MED[facility] ([facility], ) Surgeries/Procedures Procedure Description Date Indications Data Source(s) MRI Brain W/O Contrast, Followed By Contrast 0 12:00:00 AM EDT MED[facility] ([facility], ) MRI Brain W/O Contrast, Followed By Contrast 0 12:00:00 AM EDT MED[facility] ([facility] ) ECG ROUTINE ECG W/LEAST 12 LDS W/I&R 06/16/2020 12:00: 00 AM EDT MEDENT ([facility]) TSTG ANS FUNCJ CARDIOVAGAL INNERVAJ PARASYMP 0 12:00:00 AM EDT MEDENT ([facility] ) TSTG ANS FUNCJ CARDIOVAGAL INNERVAJ PARASYMP 0 12:00:00 AM EDT MED[facility] ([facility], ) TESTING AUTONOMIC NERVOUS SYSTEM FUNCTION 05/25/2020 1 2:00:00 AM EDT MED[facility] ([facility], ) TESTING AUTONOMIC NERVOUS SYSTEM FUNCTION 05/25/2020 1 2:00:00 AM EDT MED[facility] ([facility] ) ELECTROENCEPHALOGRAM W/REC AWAKE&ASLEEP 04/13/2020 12: 00:00 AM EDT MED[facility] ([facility] ) ELECTROENCEPHALOGRAM W/REC AWAKE&ASLEEP 04/13/2020 12: 00:00 AM EDT MED[facility] ([facility] ) Results ID Date Data Source Basic Metabolic Profile (BMP) 08/25/2020 12:00:00 AM EST eCW 1 ([facility]) Name Value Range Interpretation Code Description Data Payton rce(s) Supporting Document(s) 0.95 0.55-1.30 CREATININE FOR GFR eCW1 ([facility]) 99 70-100 GLUCOSE, FASTING eCW1 ([facility]) 10 7-18 BLOOD UREA NITROGEN eCW1 ([facility]) 133 136-145 SODIUM LEVEL eCW1 ([facility]) 4.5 3.5-5.1 POTASSIUM SERUM eCW1 ([facility]) 101 98-107 CHLORIDE LEVEL eCW1 ([facility]) > 60.0 >32 GLOMERULAR FILTRATION RATE eCW 1 ([facility]) 25 21-32 CARBON DIOXIDE LEVEL eCW1 ([facility]) 8.7 8.8-10.2 CALCIUM LEVEL eCW1 ([facility]) ID Date Data Source URINE CULTURE 08/19/2020 12:00:00 AM EST eCW1 ([facility]) Name Value Range Interpretation Code Description Data Payton rce(s) Supporting Document(s) URINE CULTURE eCW1 ([facility]) ID Date Data Source MICROSCOPIC, URINE (Non-Orderable) 08/08/2020 12:00:00 AM ES T eCW1 ([facility]) Name Value Range Interpretation Code Description Data Payton rce(s) Supporting Document(s) 30-40 0-3 WBC, URINE eCW1 ([facility]) MOD AMOUNT NONE TRIPLE PHOSPHATE CRYSTAL, URINE eCW1 ([facility]) SMALL AMOUNT SMALL AMT SQUAMOUS EPITHELIAL COSMO L URINE eCW1 ([facility]) LARGE AMOUNT NONE BACTERIA, URINE eCW1 ([facility]) 20-30 0-3 RBC, URINE eCW1 ([facility]) NONE SEEN 0-1 HYALINE CAST, URINE eCW1 ([facility]) UNSPUN MICROSCOPIC EXAM eCW1 ([facility]) ID Date Data Source 'LAB ONLY' UA URINALYSIS MANUAL (Not Orderable) 08/08/2020 1 2:00:00 AM EST eCW1 ([facility]) Name Value Range Interpretation Code Description Data Payton rce(s) Supporting Document(s) 'LAB ONLY' UA URINALYSIS MANUAL (Not Orderable) eCW1 ([facility]) ID Date Data Source [id number] 06/16/2020 11:20:00 AM EDT MED[facility] ([facility]) Name Value Range Interpretation Code Description Data Payton rce(s) Supporting Document(s) Thyrotropin [Units/volume] in Serum or Plasma by Detec tion limit <= 0.05 mIU/L 1.32 uIU/mL 0.36-3.74 MEDENT ([facility] ) ID Date Data Source [id number] 06/16/2020 11:20:00 AM EDT MED[facility] ([facility]) Name Value Range Interpretation Code Description Data Payton rce(s) Supporting Document(s) Cholesterol in HDL [Mass/volume] in Serum or Plasma 58 mg/dL 35-60 [facility] ([facility]) Cholesterol [Mass/volume] in Serum or Plasma 117 mg/dL 131-200 [facility] ([facility]) Triglyceride [Mass/volume] in Serum or Plasma 69 mg/dL 30-150 [facility] ([facility]) Cholesterol in LDL [Mass/volume] in Serum or Plasma by calcu lation 45 CALC 50-159 [facility] ([facility]) ID Date Data Source [id number] 06/16/2020 11:20:00 AM EDT MED[facility] ([facility]) Name Value Range Interpretation Code Description Data Payton rce(s) Supporting Document(s) Urea nitrogen [Mass/volume] in Serum or Plasma 10 mg/dL 7-18 [facility] ([facility]) Glucose [Mass/volume] in Serum or Plasma 132 mg/dL 74-99 [facility] ([facility]) 100-125 mg/dL PRE-DIABETES/FASTING >126 mg/dL DIABETES/FASTING Sodium [Moles/volume] in Serum or Plasma 138 meq/L 136-145 MED[facility] ([facility]) Creatinine 0.8 mg/dL 0.6-1.3 [facility] Potassium [Moles/volume] in Serum or Plasma 3.6 meq/L 3.5-5.1 MED[facility] ([facility]) Chloride [Moles/volume] in Serum or Plasma 102 meq/L 98-107 MED[facility] ([facility]) Carbon dioxide, total [Moles/volume] in Serum or Plasma 27 meq/L 21 -32 MED[facility] ([facility]) Calcium [Mass/volume] in Serum or Plasma 8.8 mg/dL 8.5-10.1 [facility] ([facility]) Aspartate aminotransferase [Enzymatic activity/volume] in Serum or Plasma 14 U/L 15-37 MED[facility] ([facility] ) Alkaline phosphatase isoenzyme [Units/volume] in Serum or Pl asma 86 mg/dL 46-116 [facility] ([facility]) Alanine aminotransferase [Enzymatic activity/volume] in Seru m or Plasma 19 U/L 12-78 [facility] ([facility]) Total Bilirubin 0.4 mg/dL 0.2-1.0 MED[facility] ([facility]) A/G Ratio 0.94 CALC 1.00-1.90 [facility] ([facility]) Proteinase 3 Ab [Units/volume] in Serum 6.8 g/dL 6.4-8.2 [facility] ([facility]) Albumin [Mass/volume] in Serum or Plasma 3.3 g/dL 3.4-5.0 [facility] Glomerular filtration rate/1.73 sq M pre dicted among non-blacks [Volume Rate/Area] in Serum or Plasma by Creatinine-based formula (MDRD) Laboratory test result [facility] Glomerular filtration rate/1.73 sq M pre dicted among blacks [Volume Rate/Area] in Serum or Plasma by Creatinine-based formula (MDRD) Laboratory test result [facility] [facility] <content>CHRONIC KIDNEY DISEASE STAGING PER NKF</content>
<content></content>
<content>STAGE I & II GFR >= 60 NORMAL TO MILDLY DECREASED</content>
<content>STAGE III GFR 30-59 MODERATELY DECREASED</content>
<content>STAGE IV GFR 15-29 SEVERELY DECREASED</content>
<content>STAGE V GFR <15 VERY LITTLE GFR LEFT</content>
<content>ESRD GFR <15 ON DESKTOP TECHNICIAN</content>
<content></content> ID Date Data Source [id number] 06/16/2020 11:20:00 AM [facility] Name Value Range Interpretation Code Description Data Payton rce(s) Supporting Document(s) Leukocytes [#/volume] in Blood by Automated count 10.5 x10*3/UL 4.1-1 0.9 [facility] [facility] NOTE: RESULT VERIFIED. Hematocrit [Volume Fraction] of Blood by Automated count 34.3 % 3 7.0-51.0 [facility] Erythrocytes [#/volume] in Blood by Automated count 4.20 x10*6/UL 4.2 0-6.30 [facility] Hemoglobin [Mass/volume] in Blood 12.0 g/dL 12.0-18.0 [facility] ([facility]) MCHC 35.0 g/dL 31.0-38.0 [facility] [facility] MCV 80.8 fL 80.0-97.0 [facility] MCH 28.3 pg 26.0-32.0 [facility] [facility] Erythrocyte distribution width [Ratio] by Automated count 12.7 % 11.6-13.7 [facility] ([facility]) Platelets [#/volume] in Blood by Automated count 365 x10*3/UL 140-440 [facility] ([facility]) MPV 7.2 FL 7.8-11.0 [facility] [facility] Neut % 57.5 % 37.0-92.0 [facility] [facility] Lymph % 34.4 % 10.0-58.5 [facility] ([place] [facility]) Mid % 8.1 % 1.7-9.3 [facility] ([place] [facility]) Mid # 0.9 x10*3/UL 0.1-0.6 [facility] ([facility]) Neut # 6.0 x10*3/UL 2.0-7.8 [facility] ([facility]) Lymph # 3.6 x10*3/UL 0.6-4.1 [facility] ([facility]) ID Date Data Source [id number] 05/08/2020 09:00:00 AM EDT MEDENT ([facility]) Name Value Range Interpretation Code Description Data Payton rce(s) Supporting Document(s) Urine Culture Laboratory test result MED ENT ([facility]) <content>FULL REPORT IN LAB NOTES (eCW [...] FOR ESBL</content>
<content></content> ID Date Data Source [id number] 05/08/2020 09:00:00 AM EDT [facility] Name Value Range Interpretation Code Description Data Payton rce(s) Supporting Document(s) Appearance, Urine Laboratory test result [facility] ([facility]) Color, Urine Laboratory test result MED[facility] NT [facility] [facility] PH,Urine 5.0 units 5.0-9.0 [facility] ([facility]) Specific [place] Urine Auto 1.017 1.002-1.035 [facility] [facility] Protein, Urine Auto Laboratory test result [facility] Urobilinogen, Urine Auto 2.0 mg/dL 0.0-2.0 MED[facility] T [facility] [facility] Glucose, Urine (Ua) Auto Laboratory test result [facility] [facility] Ketone, Urine Auto Laboratory test result [facility] [facility] Nitrite, Urine Auto Laboratory test result [facility] [facility] Bilirubin, Urine Auto Laboratory test result [facility] [facility] Leukocyte Esterase, Urine Auto Laboratory test result [facility] [facility] WBC, Urine Auto 125 /HPF 0-3 MED[facility] ([facility]) Blood, Urine Blood Laboratory test result [facility] [facility] Bacteria, Urine Auto Laboratory test result [facility] [facility] RBC, Urine Auto 4 /HPF 0-3 MED[facility] ([facility]) Hyaline Cast, Urine Auto 0 /LPF 0-1 MEDEN T [facility] [facility] Mucus, Urine Laboratory test result MEDE NT ([facility] [facility] Squamous Epithelial Cell Ur AU 4 /HPF 0-6 [facility] [facility] Uric Acid Crystals Laboratory test result [facility] [facility] ID Date Data Source [id number] 05/06/2020 10:40:00 PM EDT [facility]) Name Value Range Interpretation Code Description Data Payton rce(s) Supporting Document(s) Respiratory Panel Laboratory test result [facility] ([facility]) This respiratory PCR panel detects Influ [...] - SARS-CoV-2 (COVID19) ID Date Data Source [id number] 05/06/2020 07:46:00 PM EDT [facility]) Name Value Range Interpretation Code Description Data Payton rce(s) Supporting Document(s) Blood Culture Laboratory test result [facility] ([facility]) No growth after 72 hours . All specimens observed for 5 days. Results final at that time. No growth after 48 hours . All specimens observed for 5 days. Results final at that time. No growth after 24 hours . All specimens observed for 5 days. Results final at that time. NO GROWTH AFTER 5 DAYS ID Date Data Source [id number] 05/06/2020 07:33:00 PM EDT [facility]) Name Value Range Interpretation Code Description Data Payton rce(s) Supporting Document(s) Blood Culture Laboratory test result [facility] ([facility]) No growth after 72 hours . All specimens observed for 5 days. Results final at that time. No growth after 48 hours . All specimens observed for 5 days. Results final at that time. No growth after 24 hours . All specimens observed for 5 days. Results final at that time. NO GROWTH AFTER 5 DAYS ID Date Data Source [id number] 05/06/2020 07:33:00 PM EDT [facility]) Name Value Range Interpretation Code Description Data Payton rce(s) Supporting Document(s) Thyrotropin [Units/volume] in Serum or Plasma by Detec tion limit <= 0.05 mIU/L 0.683 uIU/ML 0.358-3.740 [facility] ) ID Date Data Source [id number] 05/06/2020 07:33:00 PM EDT [facility]) Name Value Range Interpretation Code Description Data Payton rce(s) Supporting Document(s) Glomerular Filtration Rate Laboratory [facility]) <content>Units are mL/min/1.73 m2</content>
<content></content>
<content>Chronic Kidney Disease Staging per NKF:</content>
<content></content>
<content>Stage I & II GFR >=60 Normal to Mildly Decreased</content>
<content>Stage III GFR 30- 59 Moderately Decreased</content>
<content>Stage IV GFR 15-29 Severely Decreased</content>
<content>Stage V GFR <15 Very Little GFR Left</content>
<content>ESRD GFR <15 on DESKTOP TECHNICIAN</content>
<content></content> Creatinine For GFR 0.74 mg/dL 0.55-1.30 [facility] ([facility]) Glucose, Fasting 117 mg/dL 70-100 [facility] ([facility]) Blood Urea Nitrogen 11 mg/dL 7-18 [facility] ([facility]) Sodium Level 135 meq/L 136-145 [facility] ([facility]) Chloride Level 103 meq/L 98-107 [facility] ([facility]) Potassium Serum 3.6 meq/L 3.5-5.1 [facility] ([facility]) Carbon Dioxide Level 25 meq/L 21-32 [facility] ([facility]) Anion Gap 7 meq/L 8-16 [facility] ([facility]) Calcium Level 8.6 mg/dL 8.8-10.2 [facility] ([facility]) ID Date Data Source [id number] 05/06/2020 07:33:00 PM EDT [facility] Name Value Range Interpretation Code Description Data Payton rce(s) Supporting Document(s) Alkaline Phosphatase 94 U/L 45-117 [facility] ([facility]) Ast/Sgot 15 U/L 7-37 [facility] ([facility] Alt/SGPT 17 U/L 12-78 [facility] ([facility] [place]) Bilirubin,Direct 0.1 mg/dL 0.0-0.2 [facility] ([facility]) Albumin 3.3 GM/DL 3.2-5.2 [facility] ([facility] [place]) Total Protein 6.4 GM/DL 6.4-8.2 [facility] ([facility]) Bilirubin,Total 0.5 mg/dL 0.2-1.0 [facility] ([facility]) Albumin/Globulin Ratio 1.1 1.2-2.2 [facility] ([facility]) ID Date Data Source [id number] 05/06/2020 07:33:00 PM EDT [facility]) Name Value Range Interpretation Code Description Data [facility](s) Supporting Document(s) CPK Creatine Phosphokinase 54 U/L 26-192 MED E[facility] ([facility]) MB/CK Relative Index 1.85 [facility] ([facility]) <content>DIAGNOSIS CRITERIA</content>
<content>MMB ng/ml Relative Index (RI)</content>
<content>NON-AMI < or = 5 N/A</content>
<content>AGUILAR ZONE > 5 < or = 4</content>
<content>AMI > 5 > 4</content>
<content></content> CK-MB Value Mass Laboratory test result [facility] ([facility]) Troponin I Laboratory test result [facility] ([facility]) <content>Troponin I Reference Interval f or Siemens [place] LOCI:</content>
<content></content>
<content>99th Percentile= 0.00-0.045 ng/ml</content>
<content></content>
<content>Risk Stratification:</content>
<content><= 0.10 ng/ml Decreased Risk for Adverse Clinical</content>
<content>Events.</content>
<content>0.10-1.50 ng/ml Increased Risk for Adverse Clinical</content>
<content>Events. Evaluation of additional</content>
<content>criterion and/or repeat testing in 2-6</content>
<content>hours is suggested to rule out myocardial</content>
<content>damage.</content>
<content>>= 1.50 ng/ml Indicative of Myocardial Injury.</content>
<content></content> ID Date Data Source [id number] 05/06/2020 07:33:00 PM EDT [facility] ([facility]) Name Value Range Interpretation Code Description Data Payton rce(s) Supporting Document(s) Levetiracetam [Mass/volume] in Serum or Plasma 20.2 ug/mL 10.0-40.0 [facility] ([facility]) This test was developed and its performa nce characteristics determined by [facility]. It has not been cleared or approved by the Food and Drug Administration. Performed at: [address] [id number] [employer] Monitor Chassis: Willard Sharma MD, Phone: [phone] Lactate [Mass/volume] in Serum or Plasma 1.2 mmol/L 0.4-2.0 [facility] ([facility]) Y/N query for Sepsis Lactate Rule: Y ID Date Data Source [id number] 05/06/2020 07:33:00 PM EDT [facility] ([facility]) Name Value Range Interpretation Code Description Data Payton rce(s) Supporting Document(s) Red Blood Count 4.11 10 4.00-5.40 [facility] ([facility]) White Blood Count 12.7 10 4.0-10.0 [facility] ([facility]) Hemoglobin 11.8 g/dL 12.0-15.5 [facility] ([facility]) Mean Corpuscular Volume 86.9 fl 80.0-96.0 [facility] ([facility]) Hematocrit 35.7 % 36.0-47.0 [facility] [facility] Mean Corpuscular Hemoglobin 28.7 pg 27.0-33.0 ME DENT ([facility]) Mean Corpuscular HGB Conc 33.1 g/dL 32.0-36.5 MEDE NT ([facility]) Red Cell Distribution Width 12.6 % 11.5-14.5 ME [facility] ([facility]) Platelet Count, Automated 235 10 150-450 MEDE NT ([facility]) Lymph % 12.5 % 24.0-44.0 [facility] ([facility] [facility]) Neutrophils % 79.2 % 36.0-66.0 [facility] ([facility] [facility]) Schley % 7.6 % 0.0-5.0 MEDENT ([facility]) Eos % 0.1 % 0.0-3.0 [facility] ([facility] Baso % 0.2 % 0.0-1.0 [facility] Nucleated Red Blood Cell % 0.0 % 0-0 MED ENT ([facility]) Immature Granulocyte % 0.4 % 0-3.0 MEDENT ([facility]) Schley # 1.0 10 0.0-0.8 [facility] ([facility] Lymph # 1.6 10 1.5-5.0 MED[facility] ([facility] Neutrophils # 10.1 10 1.5-8.5 MEDENT ([facility]) Eos # 0.0 10 0.0-0.5 MED[facility] ([facility] Baso # 0.0 10 0.0-0.2 [facility] ([facility] Procedure Social History Code Duration Value Status Description Data Source(s ) Smoking 10/29/2020 12:00:00 AM EST Patient is a former smoker completed Patient is a former smoker MEDENT ([facility], [facility]) Vital Signs ID Date Data Source UNK Name Value Range Interpretation Code Description Data Source(s) Body mass index (BMI) [Ratio] 21.1 kg/m2 21.1 k g/m2 MEDENT ([facility], [facility]) Body height 69 [in_i] 69 [in_i] MEDENT ([facility]) 5'9" Body weight 143.00 [lb_av] 143.00 [lb_av] MEDEN T ([facility]) Body temperature 97.7 [degF] 97.7 [degF] MEDENT ([facility], [facility]) Oxygen saturation in Arterial blood by Pulse oximetry 98 % 98 % MEDENT ([facility], [facility]) Respiratory rate 14 /min 14 /min MEDENT ( [facility]) Heart rate 98 /min 98 /min MEDENT ([facility], [facility]) Diastolic blood pressure 75 mm[Hg] 75 mm[Hg] MEDENT ([facility]) Systolic blood pressure 146 mm[Hg] 146 mm[Hg] M EDENT ([facility], [facility]) [place] body weight 145 [lb_av] 145 [lb_av] MEDEN T ([facility], ) Body mass index (BMI) [Ratio] 22.0 kg/m2 22.0 k g/m2 MEDENT ([facility], ) Body weight 149.00 [lb_av] 149.00 [lb_av] MEDEN T ([facility], ) Body height 69 [in_i] 69 [in_i] MEDENT ([facility], ) 5'9" Respiratory rate 12 /min 12 /min MEDENT ( [facility], ) Diastolic blood pressure 68 mm[Hg] 68 mm[Hg] eCW1 ([facility]) Systolic blood pressure 122 mm[Hg] 122 mm[Hg] e CW1 ([facility]) Body temperature 98.5 [degF] 98.5 [degF] eCW1 ( [facility]) Respiratory rate 18 /min 18 /min eCW1 ([facility]) Heart rate 85 /min 85 /min eCW1 ([facility]) Body mass index (BMI) [Ratio] 22.53 kg/m2 22.53 kg/m2 eCW1 ([facility]) Body height 67.5 [in_i] 67.5 [in_i] eCW1 ([facility]) Body weight 146 [lb_av] 146 [lb_av] eCW1 ([facility]) Diastolic blood pressure 74 mm[Hg] 74 mm[Hg] eCW1 ([facility]) Systolic blood pressure 128 mm[Hg] 128 mm[Hg] e CW1 ([facility]) Body temperature 97.4 [degF] 97.4 [degF] eCW1 ( [facility]) Respiratory rate 18 /min 18 /min eCW1 ([facility]) Heart rate 84 /min 84 /min eCW1 ([facility]) Body mass index (BMI) [Ratio] 22.56 kg/m2 22.56 kg/m2 eCW1 ([facility]) Body height 67.5 [in_i] 67.5 [in_i] eCW1 ([facility]) Body weight 146.2 [lb_av] 146.2 [lb_av] eCW1 ([facility]) Diastolic blood pressure 84 mm[Hg] 84 mm[Hg] eCW1 ([facility]) Systolic blood pressure 121 mm[Hg] 121 mm[Hg] e CW1 ([facility]) Body mass index (BMI) [Ratio] 23.92 kg/m2 23.92 kg/m2 eCW1 ([facility]) Body height 67.5 [in_i] 67.5 [in_i] eCW1 ([facility]) Body weight 70.31 kg 70.31 kg eCW1 ([facility]) Body weight 155 [lb_av] 155 [lb_av] eCW1 ([facility]) Diastolic blood pressure 67 mm[Hg] 67 mm[Hg] eCW1 ([facility]) Systolic blood pressure 102 mm[Hg] 102 mm[Hg] e CW1 ([facility]) Body mass index (BMI) [Ratio] 24.07 kg/m2 24.07 kg/m2 W1 ([facility]) Body height 67.5 [in_i] 67.5 [in_i] eCW1 ([facility]) Body weight 70.76 kg 70.76 kg W1 ([facility]) Body weight 156 [lb_av] 156 [lb_av] eCW1 ([facility]) Diastolic blood pressure 68 mm[Hg] 68 mm[Hg] eCW1 ([facility]) Systolic blood pressure 146 mm[Hg] 146 mm[Hg] e CW1 ([facility]) Body mass index (BMI) [Ratio] 24.07 kg/m2 24.07 kg/m2 W1 ([facility]) Body height 67.5 [in_i] 67.5 [in_i] eCW1 ([facility]) Body weight 70.76 kg 70.76 kg eCW1 ([facility]) Body weight 156 [lb_av] 156 [lb_av] eCW1 ([facility]) Body mass index (BMI) [Ratio] 22.5 kg/m2 22.5 k g/m2 MEDENT ([facility]) Body weight 148.25 [lb_av] 148.25 [lb_av] MEDEN T ([facility]) Body height 68 [in_i] 68 [in_i] MEDENT ([facility]) 5'8" Diastolic blood pressure 70 mm[Hg] 70 mm[Hg] MEDENT ([facility]) Systolic blood pressure 130 mm[Hg] 130 mm[Hg] M EDENT ([facility]) [place] body weight 145 [lb_av] 145 [lb_av] MEDEN T ([facility], ) Body mass index (BMI) [Ratio] 22.7 kg/m2 22.7 k g/m2 MEDENT ([facility], ) Body weight 154.00 [lb_av] 154.00 [lb_av] MEDEN T ([facility], ) Body height 69 [in_i] 69 [in_i] MEDENT ([facility], ) 5'9" Respiratory rate 12 /min 12 /min MEDENT ( [facility]) [place] body weight 145 [lb_av] 145 [lb_av] MEDEN T ([facility]) Body mass index (BMI) [Ratio] 22.7 kg/m2 22.7 k g/m2 MEDENT ([facility]) Body weight 154.00 [lb_av] 154.00 [lb_av] MEDEN T ([facility]) Body height 69 [in_i] 69 [in_i] MEDENT ([facility]) 5'9" Respiratory rate 12 /min 12 /min MEDENT ( [facility]) Body mass index (BMI) [Ratio] 23.3 kg/m2 23.3 k g/m2 MEDENT ([facility]) Body weight 153.00 [lb_av] 153.00 [lb_av] MEDEN T ([facility]) Body height 68 [in_i] 68 [in_i] MEDENT ([facility]) 5'8" Heart rate 68 /min 68 /min MEDENT ([facility]) Diastolic blood pressure 58 mm[Hg] 58 mm[Hg] MEDENT ([facility]) Systolic blood pressure 102 mm[Hg] 102 mm[Hg] EDENT ([facility]) Patient Treatment Plan of Care Planned Activity Planned Date Details Description Data Source (s) Sulfamethoxazole 800 MG / Trimethoprim 160 MG Oral Tab let [Bactrim] 10/22/2020 12:00:00 AM EST eCW1 ([facility]) Phenazopyridine hydrochloride 100 MG Oral Tablet [Pyri dium] 10/22/2020 12:00:00 AM EST eCW1 ([facility]) Sulfamethoxazole 800 MG / Trimethoprim 160 MG Oral Tab let [Bactrim] 10/22/2020 12:00:00 AM EST eCW1 ([facility]) Phenazopyridine hydrochloride 100 MG Oral Tablet [Pyri dium] 10/22/2020 12:00:00 AM EST eCW1 ([facility]) Minocycline 50 MG Oral Capsule 09/21/2020 12:00:00 AM EST eCW1 ([facility]) Minocycline 50 MG Oral Capsule 09/21/2020 12:00:00 AM EST eCW1 ([facility]) Minocycline 50 MG Oral Capsule 09/21/2020 12:00:00 AM EST eCW1 ([facility]) Minocycline 50 MG Oral Capsule 09/21/2020 12:00:00 AM EST eCW1 ([facility]) Sulfamethoxazole 800 MG / Trimethoprim 160 MG Oral Tab let [Bactrim] 08/25/2020 12:00:00 AM EST eCW1 ([facility]) Sulfamethoxazole 800 MG / Trimethoprim 160 MG Oral Tab let [Bactrim] 08/25/2020 12:00:00 AM EST eCW1 ([facility]) Sulfamethoxazole 800 MG / Trimethoprim 160 MG Oral Tab let [Bactrim] 08/25/2020 12:00:00 AM EST eCW1 ([facility]) Fosfomycin 33.3 MG/ML Oral Suspension [Monurol] 08/19/2020 12:00:00 AM EST eCW1 ([facility]) Fosfomycin 33.3 MG/ML Oral Suspension [Monurol] 08/19/2020 12:00:00 AM EST eCW1 ([facility]) Fosfomycin 33.3 MG/ML Oral Suspension [Monurol] 08/19/2020 12:00:00 AM EST eCW1 ([facility]) Phenazopyridine hydrochloride 200 MG Oral Tablet [Pyri dium] 08/16/2020 12:00:00 AM EST eCW1 ([facility]) Phenazopyridine hydrochloride 200 MG Oral Tablet [Pyri dium] 08/16/2020 12:00:00 AM EST eCW1 ([facility]) Phenazopyridine hydrochloride 200 MG Oral Tablet [Pyri dium] 08/16/2020 12:00:00 AM EST eCW1 ([facility]) NITROFURANTOIN, MACROCRYSTALS 25 MG / Ni trofurantoin, Monohydrate 75 MG Oral Capsule [Macrobid] 08/08/2020 12:00:00 AM EST eC W1 ([facility]) NITROFURANTOIN, MACROCRYSTALS 25 MG / Ni trofurantoin, Monohydrate 75 MG Oral Capsule [Macrobid] 08/08/2020 12:00:00 AM EST eC W1 ([facility]) NITROFURANTOIN, MACROCRYSTALS 25 MG / Ni trofurantoin, Monohydrate 75 MG Oral Capsule [Macrobid] 08/08/2020 12:00:00 AM EST eC W1 ([facility]) Ciprofloxacin 500 MG Oral Tablet [Cipro] 07/17/2020 12:00:00 AM EDT eCW1 ([facility]) Ciprofloxacin 500 MG Oral Tablet [Cipro] 07/17/2020 12:00:00 AM EDT eCW1 ([facility]) NITROFURANTOIN, MACROCRYSTALS 100 MG Oral Capsule 07/07/2020 12: 00:00 AM EDT eCW1 ([facility]) NITROFURANTOIN, MACROCRYSTALS 100 MG Oral Capsule 07/07/2020 12: 00:00 AM EDT eCW1 ([facility]) NITROFURANTOIN, MACROCRYSTALS 100 MG Oral Capsule 07/07/2020 12: 00:00 AM EDT eCW1 ([facility]) NITROFURANTOIN, MACROCRYSTALS 100 MG Oral Capsule 07/07/2020 12: 00:00 AM EDT eCW1 ([facility]) Ampicillin 500 MG Oral Capsule 06/20/2020 12:00:00 AM EDT eCW1 ([facility])
[2020-10-29 20:45] LABS: CALCIUM LEVEL 8.9 MG/DL (8.8-10.2); CREATININE FOR GFR 1.07 MG/DL (0.55-1.30); GLOMERULAR FILTRATION RATE 52.4 (>32); POTASSIUM SERUM 3.6 MEQ/L (3.5-5.1)
[2020-10-29] MEDS ORDERED: NS 1,000 ML IV SCH (21:30)
--- NOTE | 2020-10-29 21:52 | HPEPDOC ---
General Date of Admission Oct 29, 2020 at 20:14 Date of Service: Oct 29, 2020 Chief Complaint The patient is a 80-year-old female admitted with a reason for visit of Sepsis,Urinary Fistula,Uti. Source: Patient, Old records Exam Limitations: Dementia, Mild cognitive slowing Timing/Duration: Week(s) Severity: Mild, Moderate History of Present Illness Patient is a 80 yo female who has a hx of bladder fistulization and hyponatremia presented to [facility] ED due to dysuria started yesterday as well as worsening brown colored urine. Patient is a poor historian and her stories are inconsistent throughout interview. She reported she was sent from urgent care. She reported that she has brown color urine for 6 months and it has been worsening. She denies any fever or chils. She denies any abdominal pain, nausea, or vomiting. She denies abdominal pain but indicated abdominal discomfort in lower abdomen starting 2 days. Patient reported loose bowel movement with BM being yesterday. She denies blood in stool. She reported she had seen a urologist on Sep 21, 2020 and had a cystoscope with planned colonoscopy this coming week, followed by possible surgery afterwards depending on the results of the colonoscopy. She reported dysuria, urinary hestitencyX1 week, urinary frequency X 2weeks. Denies pain in her back/flank region. Reported only having 1 UTI since November 2019. Patient denies any numbness/tingling/loss of sensation. Home Medications Scheduled Aspirin (Aspirin) 325 Mg Tablet, 325 MG PO DAILY, (Reported) Atorvastatin Calcium (Atorvastatin Calcium) 40 Mg Tablet, 40 MG PO QPM, (Reported) Calcium Carbonate/Vitamin D3 (Calcium 600-Vit D3 400 Tablet) 1 Tab Tab, 1 TAB PO QPM, (Reported) Levothyroxine Sodium (Synthroid) 50 Mcg Tab, 50 MCG PO DAILY, (Reported) Multivitamins (Thera M Plus Tablet) 1 Tab Tab, 1 TAB PO DAILY, (Reported) @ 1500 [place]-3/Dha/Epa/Fish Oil (Fish Oil 1,000 mg Softgel) 1 Each Capsule, 1 CAP PO QPM, (Reported) Sulfamethoxazole/Trimethoprim (Sulfamethoxazole-Tmp Ds Tablet) 1 Each Tablet, 1 TAB PO BID, (Reported) Timolol Maleate (Timolol Maleate) 0.25% Katia.gel, 1 DROP OU DAILY, (Reported) Travoprost (Travatan Z) 50 Drop/2.5 Ml Soln, 1 DROP OU QHS, (Reported) Triamterene/Hydrochlorothiazid (Triamterene-Hctz 37.5-25 mg Tb) 1 Tab Tab, 1 TAB PO DAILY, (Reported) @ 1500 Scheduled PRN Phenazopyridine HCl (Phenazopyridine HCl) 100 Mg Tablet, 100 MG PO TID PRN for PAIN OR DISCOMFORT, (Reported) Allergies Coded Allergies: levofloxacin (Verified Adverse Reaction, Intermediate, 05/06/20) Past Medical History Medical History hypertension hypothyroidism hyperlipidemia former right breast nodule s/p removal history of gram-negative bacteremia requiring hospitalization in 2016 Uterine prolapse with pessary diverticulosis Postmenopause UTI Fx femur right 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 fib, neuropathy Sister's daughter-unspecified cancer per patient Social History * Smoker: former Smoker Alcohol: Denies A-FIB/CHADSVASC A-FIB History Current/History of A-Fib/PAF?: No Review of Systems Constitutional: Denies: Chills, Fever Eyes: Reports: Other (Denies dry eye) ENT: Denies: Dysphagia, Sore Throat Skin: Denies: Rash Pulmonary: Denies: Dyspnea Cardiovascular: Denies: Chest Pain, Palpitations Gastrointestinal: Reports: Diarrhea, Other Symptoms (abdominal discomfort); Denies: Nausea, Vomiting, Abdominal Pain, Hematochezia Genitourinary: Reports: Dysuria, Frequency, Other Symptoms (urinary hesitancy); Denies: Hematuria Neurological: Denies: Weakness, Numbness Psych: Reports: Depression (mild per patient) Physical Examination General Exam: Positive: Alert, No Acute Distress Eye Exam: Positive: Conjunctiva & lids normal; Negative: Sclera icteric ENT Exam: Positive: Atraumatic, Other ENT (Mucous membrane mildly dry) Chest Exam: Positive: Clear to auscultation, Normal air movement; Negative: Rales, Rhonchi Heart Exam: Positive: Rate Normal, Regular Rhythm, Normal S1, Normal S2 Abdomen Exam: Positive: Normal bowel sounds, BS Hypoactive, Soft; Negative: Tenderness Skin Exam: Positive: Nl turgor and temperature Neuro Exam: Positive: Normal Tone, Other (Moving all 4 extremities spontaneously. Able to carry conversation but is poor historian/avoidant of answering questions) Psych Exam: Positive: Mood NL Vital Signs Vital Signs Date Time Temp Pulse Resp B/P (MAP) Pulse Ox O2 Delivery O2 Flow Rate FiO2 10/29/20 17:42 10/29/20 15:33 98.3 108 20 98 Room Air Laboratory Data Labs 24H Laboratory Tests 2 10/29/20 16:56: Urine Color (HILARIO) BROWNH, Urine Appearance (HILARIO) TURBIDH, Urine pH (HILARIO) 7.5, Urine Specific [place] (HILARIO) 1.010, Bedside Urine Glucose (UA) NEGATIVE, Bedside Urine Ketones (LAB) 1+H, Bedside Urine Blood POSITIVEH, Bedside Urine Nitrite (LAB) POSITIVEH, Bedside Urine Bilirubin (LAB) NEGATIVE, Bedside Urine Urobilinogen (LAB) NORMAL, Bedside Urine Leukocyte Esterase (L POSITIVEH, Urine Sediment Examination PERFORMED, Urine RBC 10-15H, Urine WBC TNTCH, Urine Squamous Epithelial Cells SMALL AMOUNT, Urine Amorphous Sediment LARGE AMOUNTH, Urine Bacteria LARGE AMOUNTH, Urine Hyaline Casts NONE SEEN, Anion Gap 9, Glomerular Filtration Rate 52.4, Osmolality 264L, Calcium Level 8.9 10/29/20 17:00: Immature Granulocyte % (Auto) 0.5, Neutrophils (%) (Auto) 86.2H, Lymphocytes (%) (Auto) 8.1L, Monocytes (%) (Auto) 4.9, Eosinophils (%) (Auto) 0.1, Basophils (%) (Auto) 0.2, Neutrophils # (Auto) 15.2H, Lymphocytes # (Auto) 1.4L, Monocytes # (Auto) 0.9H, Eosinophils # (Auto) 0.0, Basophils # (Auto) 0.0, Nucleated Red Blood Cells % (auto) 0.0, Lactic Acid Level 2.2*H 10/29/20 17:13: POC Glucose (Misc Panel) 123H, POC Sodium (Misc Panel) 127L, POC Potassium (Misc Panel) 3.7, POC Chloride (Misc Panel) 90L, POC Total CO2 (Misc Panel) 25.0, POC Blood Urea Nitrogen (Misc Panel 11, POC Ionized Calcium (Misc Panel) 4.3L, POC Creatinine (Misc Panel) 0.9, POC Hematocrit (Misc Panel) 42.0 10/29/20 19:21: Coronavirus (COVID-19)(PCR) NEGATIVE, Influenza Type A (RT-PCR) NEGATIVE, Influenza Type B (RT-PCR) NEGATIVE, Respiratory Syncytial Virus (PCR) NEGATIVE 10/29/20 21:31: CBC/BMP Laboratory Tests 10/29/20 16:56 10/29/20 17:00 Microbiology Microbiology 10/29/20 Urine Culture, Received Pending 10/29/20 Blood Culture, Received Pending 10/29/20 Blood Culture, Received Pending Assessment/Plan 1. UTI likely 2/ bladder fistulization -UA indicated UTI, history of bladder fistulization shown on prior CT abd/pelvis on 09/04, follow up urine cx -Pt voiced no abdominal pain, nausea, vomiting, fever, or chills but has lower abdominal discomfort and loose stool. KUB done in ER neg, CT abd/pelvis ordered to r/o diverticulitis/abscess -Start Zosyn to cover UTI and possible diverticulitis -I&O, daily weight 2. Hyponatremia, acute -Na of 126 upon ER arrival, received 500ml NS bolus in ER, repeat BMP showed Na of 129 -Will start NS 60ml/hr, full liquid diet as patient appears to be mildly dehydrated -Serum osmo, urine Na/osmo ordered -BMP Q6H, seizure precaution/fall precaution, neuro checks 3. Sepsis 2/2 UTI -2/4 SIRS -lactic 2.2 and 2.3, BP stable -start IVF, full liquid diet -vital signs. Follow up lactic acid, blood cx, urine cx 4. Hypothyroidism -Continue home med Synthroid 5. Hyperlipidemia -Continue home med Lipitor DVT prophylaxis: lovenox, SCD, TEDS Plan / VTE VTE Prophylaxis Ordered?: Yes GME ATTESTATION GME ATTESTATION My faculty preceptor for this patient encounter was physically present during the encounter and was fully available. All aspects of the patient interview, examination, medical decision making process, and medical care plan development were reviewed and approved by the faculty preceptor. The faculty preceptor is aware and concurs with the plan as stated in the body of this note and will attest to such by his/her cosignature. ATTENDING NOTE I, Mia Patel DO, performed a history and physical examination of the patient and discussed his management with the resident, Beverly Bejarano DO. I reviewed the resident's note and agree with the documented findings and plan of care. Addendum I spoke with general surgery and GI about case. Recommended treating the infection. No colonoscopy inpatient. Colonoscopy will have to be done outpatient. BEVERLY BEJARANO DO Oct 29, 2020 21:52 MARMIA DO Oct 30, 2020 06:43
[2020-10-29 22:24] VITALS: BP 124/58
[2020-10-29] MEDS: GASTROGRAFIN SOLUTION 30ML PO SCH ×2 (22:50→23:20)
[2020-10-30] VITALS: BP 118/58
[2020-10-30] MEDS ORDERED: ISOVUE-370 76% 100ML VIAL As Ordered ONE (00:07)
[2020-10-30] MEDS: PIPERACILLIN/TAZOBACTAM SOD 3.375 GM in D5W MINI-BAG PLUS 50 ML IV SCH ×5 (01:11→23:00)
--- NOTE | 2020-10-30 01:11 | REPVR ---
PROCEDURE INFORMATION: Exam: CT Abdomen And Pelvis With Contrast Exam date and time: 10/30/2020 12:30 AM Age: 80 years old Clinical indication: Abnormal findings; Abnormal lab test; Elevated wbc; Additional info: HX of fistula, R/O abscess/diverticulitis TECHNIQUE: Imaging protocol: Computed tomography of the abdomen and pelvis with contrast. Radiation optimization: All CT scans at this facility use at least one of these dose optimization techniques: automated exposure control; mA and/or kV adjustment per patient size (includes targeted exams where dose is matched to clinical indication); or iterative reconstruction. Contrast material: ISOVUE 370; Contrast volume: 100 ml; Contrast route: INTRAVENOUS (IV); COMPARISON: CT ABD PELVIS W/O FOL BY WIT 09/01/2020 3:03 PM FINDINGS: Lungs: The imaged portions of the lung bases are clear. The lungs were not fully imaged. Heart: No cardiomegaly or pericardial effusion. Mitral annular calcifications are present. Mediastinal space: There is a small sliding hiatal hernia. Liver: There is an 8 mm low-attenuation lesion in the superolateral segment 2 of the left hepatic lobe, which is unchanged compared to the prior CT abdomen and pelvis on 09/01/2020. No hepatomegaly. Gallbladder and bile ducts: No calcified gallstones are noted. No gallbladder wall thickening, pericholecystic fluid, or pericholecystic inflammatory changes are identified. No dilation of the bile ducts is noted. No calcified stones are seen in the common bile duct. Pancreas: Normal. No dilation of the main pancreatic duct is noted. There is no inflammatory fat stranding around the pancreas to suggest acute pancreatitis. Spleen: There are two 7 mm cyst in the spleen, which are unchanged compared to the prior CT abdomen and pelvis on 09/01/2020. No splenomegaly. Adrenal glands: Normal. No adrenal mass is noted. Kidneys and ureters: The kidneys are normal in appearance. No renal lesion is noted. No stones are noted in the kidneys or ureters. There is no hydronephrosis or hydroureter. There is a mildly dilated extrarenal pelvis bilaterally.There are no wedge-shaped areas of low attenuation in the kidneys to suggest pyelonephritis. There is no renal abscess or perinephric fluid collection. Stomach and bowel: The intra-abdominal portion of the stomach is decompressed, limiting its optimal evaluation. The small bowel is unremarkable. There is colonic diverticulosis that is most severe involving the sigmoid colon and there is inflammatory fat stranding around sigmoid diverticula and thickening of the wall of the sigmoid colon, which are findings compatible with sigmoid diverticulitis. 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 Appendix: The retrocecal appendix is normal. No evidence for appendicitis. Intraperitoneal space: No free air. No ascites. No abscess. Retroperitoneal space: No fluid collection. No mass. Vasculature: The abdominal aorta is patent, normal in caliber, and there is no dissection. The iliac arteries, common femoral arteries, renal arteries, celiac artery, superior mesenteric artery, and inferior mesenteric artery are patent. There are extensive atherosclerotic calcifications. The hepatic veins, portal veins, splenic vein, superior mesenteric vein, inferior mesenteric vein, and renal veins are patent. Lymph nodes: No enlarged lymph nodes. Urinary bladder: There is a large amount of gas in the urinary bladder secondary to a colovesical fistula. There is thickening of the wall of the bladder and fat stranding around the bladder, which are findings compatible with cystitis. There is a diverticulum arising from the left posterolateral aspect of the urinary bladder. Reproductive: The uterus is anterverted and unremarkable. The ovaries are unremarkable. Bones/joints: There is no acute fracture or dislocation. There is a chronic mild anterior wedge compression fracture of T12, which is stable compared to the prior CT abdomen and pelvis on 09/01/2020. With the fixation hardware is noted in the imaged portion of the right proximal femur, which causes streak artifact. There are degenerative changes in the lumbar spine. No suspicious osteolytic or osteoblastic lesion is noted. Soft tissues: There is a small fat containing umbilical hernia. IMPRESSION: Sigmoid diverticulitis complicated by a colovesical fistula and cystitis. No abscess or free air. Electronically signed by: Saurav Saha On 10/30/2020 01:11:15 AM
[2020-10-30] MEDS: OMEGA-3 1000MG CAPSULE PO SCH ×2 (01:12→17:44)
[2020-10-30] MEDS: MULTIVITAMINS/MINERALS THERAP 1 TAB PO SCH ×2 (01:12→15:00)
[2020-10-30] MEDS: ATORVASTATIN 20 MG TAB PO SCH ×2 (01:12→17:44)
[2020-10-30] MEDS: CALCIUM/VITAMIN D 500 MG TAB PO SCH ×2 (01:12→17:44)
[2020-10-30] MEDS: LATANOPROST 0.005% OPHTH SOLN 2.5 ML OU SCH ×2 (01:12→23:00)
[2020-10-30 02:47] LABS: BLOOD UREA NITROGEN 8 MG/DL (7-18); CALCIUM LEVEL 8.3 MG/DL (8.8-10.2); CARBON DIOXIDE LEVEL 25 MEQ/L (21-32); CHLORIDE LEVEL 102 MEQ/L (98-107); CREATININE FOR GFR 0.75 MG/DL (0.55-1.30); GLOMERULAR FILTRATION RATE > 60.0 (>32); GLUCOSE, FASTING 90 MG/DL (70-100); POTASSIUM SERUM 4.3 MEQ/L (3.5-5.1); SODIUM LEVEL 134 MEQ/L (136-145)
[2020-10-30 04:00] VITALS: BP 115/51
[2020-10-30 05:26] LABS: HEMATOCRIT 33.7 % (36.0-47.0); MEAN CORPUSCULAR HEMOGLOBIN 27.8 pg (27.0-33.0); MEAN CORPUSCULAR HGB CONC 32.6 g/dl (32.0-36.5); MEAN CORPUSCULAR VOLUME 85.3 fl (80.0-96.0); PLATELET COUNT, AUTOMATED 241 10^3/uL (150-450); RED BLOOD COUNT 3.95 10^6/uL (4.00-5.40); WHITE BLOOD COUNT 7.7 10^3/uL (4.0-10.0)
[2020-10-30 05:42] LABS: ALBUMIN 2.9 GM/DL (3.2-5.2); BILIRUBIN,DIRECT 0.1 MG/DL (0.0-0.2); BILIRUBIN,TOTAL 0.3 MG/DL (0.2-1.0); TOTAL PROTEIN 5.5 GM/DL (6.4-8.2)
[2020-10-30 08:00] VITALS: BP 127/60
[2020-10-30] MEDS: ASPIRIN 325 MG TAB PO SCH (09:24)
[2020-10-30] MEDS: ENOXAPARIN 40MG/0.4ML SYRINGE (J1650 PER 10MG) SC SCH (09:25)
[2020-10-30] MEDS: LEVOTHYROXINE 50MCG TABLET (0.05MG) PO SCH (09:25)
[2020-10-30 09:41] LABS: BLOOD UREA NITROGEN 7 MG/DL (7-18); CALCIUM LEVEL 8.1 MG/DL (8.8-10.2); CARBON DIOXIDE LEVEL 26 MEQ/L (21-32); CHLORIDE LEVEL 102 MEQ/L (98-107); CREATININE FOR GFR 0.88 MG/DL (0.55-1.30); GLOMERULAR FILTRATION RATE > 60.0 (>32); GLUCOSE, FASTING 116 MG/DL (70-100); POTASSIUM SERUM 3.8 MEQ/L (3.5-5.1); SODIUM LEVEL 135 MEQ/L (136-145)
[2020-10-30] MEDS: TIMOLOL MALEATE 0.25% OPHTH SOLN 5 ML OU SCH (09:55)
[2020-10-30] MEDS ORDERED: SLF 3 ML SYR IV PRN (11:15)
[2020-10-30 12:00] VITALS: BP 121/58
--- NOTE | 2020-10-30 12:07 | IPNPDOC ---
Text Note Date of Service The patient was seen on 10/30/20. NOTE Subjective: No any acute events overnight. Patient denies fever, chills, nausea, vomiting Objective: GENERAL APPEARANCE: NAD HEENT: no scleral icterus, no JVD, EOMI CARDIOVASCULAR: S1S2 LUNGS: CTA ABDOMEN: soft & not tender w palpitation MUSCULOSKELETAL: no cyanosis, no swelling INTEGUMENT: no generalized pallor NEUROLOGICAL: cranial nerve function from 2-12 intact intact, follows commands, speech not dysarthric Assessment and plan Patient is 80 years old female with hypertension, hyperlipidemia, diverticulosis, uterine prolapse presented hospital with UTI secondary to colovesical fistula UTI Most likely secondary to colovesical fistula Continue Zosyn IV Await urine culture Await blood culture Colovesical fistula GI team will proceed with colonoscopy tomorrow Sepsis Secondary to UTI Patient had tachycardia, lactic acidosis and leukocytosis on admission Resolved Hyponatremia Resolved Hypothyroidism Continue Synthroid Hyperlipidemia Continue statin VS,Fishbone, I+O VS, Fishbone, I+O Laboratory Tests 10/29/20 16:56 10/29/20 17:00 10/30/20 02:06 10/30/20 04:47 10/30/20 09:00 Vital Signs Date Time Temp Pulse Resp B/P (MAP) Pulse Ox O2 Delivery O2 Flow Rate FiO2 10/30/20 08:00 98.7 92 18 127/60 (82) 96 Room Air I&O- Last 24 Hours up to 6 AM 10/30/20 06:00 Intake Total 2350 ml Output Total 600 ml Balance 1750 ml ROXY NEIL DO Oct 30, 2020 12:07
[2020-10-30 13:14] VITALS: BP 122/65
[2020-10-30] MEDS ORDERED: GOLYTELY SOLN 4000 ML BTL PO ONE (14:00)
[2020-10-30] MEDS: SLF 3 ML SYR IV SCH ×2 (14:10→21:31)
[2020-10-30] MEDS ORDERED: BISACODYL 5 MG TAB PO ONE (17:00)
[2020-10-30 17:55] LABS: BLOOD UREA NITROGEN 7 MG/DL (7-18); CALCIUM LEVEL 7.9 MG/DL (8.8-10.2); CARBON DIOXIDE LEVEL 27 MEQ/L (21-32); CHLORIDE LEVEL 101 MEQ/L (98-107); GLOMERULAR FILTRATION RATE > 60.0 (>32); GLUCOSE, FASTING 83 MG/DL (70-100); POTASSIUM SERUM 3.5 MEQ/L (3.5-5.1); SODIUM LEVEL 136 MEQ/L (136-145)
[2020-10-30] MEDS ORDERED: PHENAZOPYRIDINE 100 MG TAB PO PRN (21:30)
[2020-10-30 21:31] LABS: BLOOD UREA NITROGEN 5 MG/DL (7-18); CALCIUM LEVEL 8.5 MG/DL (8.8-10.2); CARBON DIOXIDE LEVEL 28 MEQ/L (21-32); CHLORIDE LEVEL 101 MEQ/L (98-107); CREATININE FOR GFR 0.78 MG/DL (0.55-1.30); GLOMERULAR FILTRATION RATE > 60.0 (>32); GLUCOSE, FASTING 88 MG/DL (70-100); POTASSIUM SERUM 3.5 MEQ/L (3.5-5.1); SODIUM LEVEL 136 MEQ/L (136-145)
[2020-10-30] MEDS: traMADol 50 MG TAB PO PRN (21:31)
[2020-10-30 22:00] VITALS: BP 139/68
[2020-10-31] VITALS (9 sets, daily range): BP systolic 130–152; BP diastolic 61–85
[2020-10-31] MEDS: PIPERACILLIN/TAZOBACTAM SOD 3.375 GM in D5W MINI-BAG PLUS 50 ML IV SCH ×4 (05:29→23:29)
[2020-10-31] MEDS: SLF 3 ML SYR IV SCH ×3 (05:30→20:24)
[2020-10-31 06:24] LABS: BASO % 0.4 % (0.0-1.0); EOS # 0.1 10^3/uL (0.0-0.5); EOS % 0.8 % (0.0-3.0); HEMATOCRIT 32.1 % (36.0-47.0); HEMOGLOBIN 10.5 g/dl (12.0-15.5); LYMPH % 23.9 % (24.0-44.0); MEAN CORPUSCULAR HGB CONC 32.7 g/dl (32.0-36.5); MEAN CORPUSCULAR VOLUME 85.6 fl (80.0-96.0); MONO # 0.9 10^3/uL (0.0-0.8); MONO % 10.6 % (2.0-8.0); NEUTROPHILS # 5.3 10^3/uL (1.5-8.5); NEUTROPHILS % 63.9 % (36.0-66.0); PLATELET COUNT, AUTOMATED 223 10^3/uL (150-450); RED BLOOD COUNT 3.75 10^6/uL (4.00-5.40); WHITE BLOOD COUNT 8.3 10^3/uL (4.0-10.0)
[2020-10-31 06:48] LABS: ALBUMIN 2.9 GM/DL (3.2-5.2); ALT/SGPT 16 U/L (12-78); BILIRUBIN,TOTAL 0.5 MG/DL (0.2-1.0); BLOOD UREA NITROGEN 5 MG/DL (7-18); CALCIUM LEVEL 8.1 MG/DL (8.8-10.2); CARBON DIOXIDE LEVEL 29 MEQ/L (21-32); CHLORIDE LEVEL 102 MEQ/L (98-107); CREATININE FOR GFR 0.72 MG/DL (0.55-1.30); GLOMERULAR FILTRATION RATE > 60.0 (>32); GLUCOSE, FASTING 102 MG/DL (70-100); MAGNESIUM LEVEL 1.7 MG/DL (1.8-2.4); POTASSIUM SERUM 3.7 MEQ/L (3.5-5.1); SODIUM LEVEL 137 MEQ/L (136-145); TOTAL PROTEIN 5.4 GM/DL (6.4-8.2)
[2020-10-31] MEDS: traMADol 50 MG TAB PO PRN (06:52)
[2020-10-31] MEDS: LATANOPROST 0.005% OPHTH SOLN 2.5 ML OU SCH (08:36)
[2020-10-31] MEDS: TIMOLOL MALEATE 0.25% OPHTH SOLN 5 ML OU SCH (08:45)
--- NOTE | 2020-10-31 11:01 | IPNPDOC ---
Text Note Date of Service The patient was seen on 10/31/20. NOTE Subjective: Patient doing better today. Await colonoscopy today Objective: GENERAL APPEARANCE: NAD HEENT: no scleral icterus, no JVD, EOMI CARDIOVASCULAR: S1S2 LUNGS: CTA ABDOMEN: soft & not tender w palpitation MUSCULOSKELETAL: no cyanosis, no swelling INTEGUMENT: no generalized pallor NEUROLOGICAL: cranial nerve function from 2-12 intact intact, follows commands, speech not dysarthric Assessment and plan Patient is 80 years old female with hypertension, hyperlipidemia, diverticulosis, uterine prolapse presented hospital with UTI secondary to colovesical fistula UTI Most likely secondary to colovesical fistula Continue Zosyn IV Await urine culture Await blood culture Colovesical fistula GI team will proceed with colonoscopy today Sepsis Secondary to UTI Patient had tachycardia, lactic acidosis and leukocytosis on admission Resolved Hyponatremia Resolved Hypothyroidism Continue Synthroid Hyperlipidemia Continue statin VS,Fishbone, I+O VS, Fishbone, I+O Laboratory Tests 10/30/20 15:42 10/30/20 20:51 10/31/20 05:46 Vital Signs Date Time Temp Pulse Resp B/P (MAP) Pulse Ox O2 Delivery O2 Flow Rate FiO2 10/31/20 08:36 20 Room Air 10/31/20 06:00 98.8 95 138/67 (90) 97 I&O- Last 24 Hours up to 6 AM 10/31/20 06:00 Intake Total 1240 ml Output Total 100 ml Balance 1140 ml ROXY NEIL DO Oct 31, 2020 11:01
--- NOTE | 2020-10-31 11:09 | CR.PDOC ---
General Date of Consultation: Oct 31, 2020 Referring Provider: ROXY NEIL DO Attending Physician: RODOLFO GARCIA MD Consultation Referring physician/ hospitalist: Dr. Neil Reason for consult: Lena-vesicular fistula HPI: 80 year old female with hypertension, hypothyroidism, hyperlipidemia, uterine prolapse with pessary, diverticulosis, and suspected bladder fistula ( based on cystoscopy) presented to the hospital due to 1 week of dysuria and pelvic pain. She also notes brown specks in her urine which have been present for approximately 6 months. This was initially thought to be blood in the urine and she was worked up by Dr. Babb of urology with a CT scan and cystoscopy. 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 She was set up for outpatient colonoscopy which was scheduled for next week. However, due to her worsening dysuria and pelvic discomfort she presented to the [facility] ED. She notes her last UTI was in November 2019 which was treated with antibiotics. Pertinent negative GI symptoms: Patient denies nausea, vomiting, diarrhea, abdominal pain, loss of appetite, early satiety, unintentional weight loss, hematemesis, melena, or hematochezia. Patient reports regular bowel movements. Review of Systems: GI: as stated above CVS: No chest pain. No palpitations. No leg swelling. RS: No shortness of breath. No Wheezing. No cough. 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 No focal motor or sensory loss. Hematology: No easy bruising. No gum bleeding. Musculoskeletal: No joint pain, ambulating well. : As stated above ENT: No ear discharge/pain. No dysphagia. Eyes: No photophobia. Skin: No rash Home medications: reviewed. No anticoagulants. On aspirin 325 mg daily. Medical h/o: As above. Surgical h/o: None on abdomen. Social h/o: Former smoker 1/2 ppd for about 40 years, quit 20 years ago. No alcohol in the past 5-6 years. Denies any IVDA/other illicit substances Family h/o of GI cancers - Father had throat cancer Prior Endoscopies: screening colonoscopy in [place] 2 years ago, patient does not remember being told of any abnormalities Prior GI evaluations: None Exam: Vitals: reviewed General: Alert and oriented x 3, not in acute distress HEENT: No pallor, no icterus. Normal oropharynx, No cervical lymphadenopathy. Chest: symmetric with bilateral air entry, clear to auscultation. CVS: S1 and S2 heard, normal, no murmurs. Abdomen: non-distended, soft, non-tender, no rigidity or guarding, no palpable masses, normal bowel sounds auscultated. Rectal exam: Deferred at this time. Extremities: Pulses palpable, no pedal edema. 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 Moves all extremities Skin: No rash. Labs: reviewed. Imaging: reviewed. 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 Needs further evaluation for diverticular disease vs IBD vs colon cancer Recommendations: -- Clear liquid diet and NPO for 4 hours prior to procedure. -- Continue antibiotic therapy as per primary team. -- Will scheduled for colonoscopy for further evaluation. Patient is educated about the procedure, indication, risks, benefits and alternatives. All questions answered. -- Follow up operative note for post procedure recommendations. -- Surgery evaluation for definitive therapy of the fistula. Plan of care discussed with patient and primary team. Patient verbalized understanding and agreed with the plan. Vital Signs/I&O Vital Signs Date Time Temp Pulse Resp B/P (MAP) Pulse Ox O2 Delivery O2 Flow Rate FiO2 10/31/20 08:36 20 Room Air 10/31/20 06:00 98.8 95 138/67 (90) 97 I&O- Last 24 Hours up to 6 AM 10/31/20 06:00 Intake Total 1240 ml Output Total 100 ml Balance 1140 ml Laboratory Data Labs 24H Laboratory Tests 2 10/30/20 15:42: Anion Gap 8, Glomerular Filtration Rate > 60.0, Calcium Level 7.9L 10/30/20 20:51: Anion Gap 7L, Glomerular Filtration Rate > 60.0, Calcium Level 8.5L 10/31/20 05:46: Anion Gap 6L, Glomerular Filtration Rate > 60.0, Calcium Level 8.1L, Immature Granulocyte % (Auto) 0.4, Neutrophils (%) (Auto) 63.9, Lymphocytes (%) (Auto) 23.9L, Monocytes (%) (Auto) 10.6H, Eosinophils (%) (Auto) 0.8, Basophils (%) (Auto) 0.4, Neutrophils # (Auto) 5.3, Lymphocytes # (Auto) 2.0, Monocytes # (Auto) 0.9H, Eosinophils # (Auto) 0.1, Basophils # (Auto) 0.0, Nucleated Red Blood Cells % (auto) 0.0, Magnesium Level 1.7L, Total Bilirubin 0.5#, Aspartate Amino Transf (AST/SGOT) 13, Alanine Aminotransferase (ALT/SGPT) 16, Alkaline Phosphatase 74, Total Protein 5.4L, Albumin 2.9L, Albumin/Globulin Ratio 1.2 CBC/BMP Laboratory Tests 10/30/20 15:42 10/30/20 20:51 10/31/20 05:46 Microbiology Microbiology 10/29/20 Urine Culture - Final, Complete 10/29/20 Blood Culture - Preliminary, Resulted No growth after 24 hours . All specim... 10/29/20 Blood Culture - Preliminary, Resulted No growth after 24 hours . All specim... Allergies Coded Allergies: levofloxacin (Verified Adverse Reaction, Intermediate, 05/06/20) Home Medications Scheduled Aspirin (Aspirin) 325 Mg Tablet, 325 MG PO DAILY, (Reported) Atorvastatin Calcium (Atorvastatin Calcium) 40 Mg Tablet, 40 MG PO QPM, (Reported) Calcium Carbonate/Vitamin D3 (Calcium 600-Vit D3 400 Tablet) 1 Tab Tab, 1 TAB PO QPM, (Reported) Doxycycline Monohydrate (Doxycycline) 100 Mg Capsule, 1 CAP PO BID for 10 Days, #20 Levothyroxine Sodium (Synthroid) 50 Mcg Tab, 50 MCG PO DAILY, (Reported) Multivitamins (Thera M Plus Tablet) 1 Tab Tab, 1 TAB PO DAILY, (Reported) @ 1500 [place]-3/Dha/Epa/Fish Oil (Fish Oil 1,000 mg Softgel) 1 Each Capsule, 1 CAP PO QPM, (Reported) Timolol Maleate (Timolol Maleate) 0.25% Katia.gel, 1 DROP OU DAILY, (Reported) Travoprost (Travatan Z) 50 Drop/2.5 Ml Soln, 1 DROP OU QHS, (Reported) Triamterene/Hydrochlorothiazid (Triamterene-Hctz 37.5-25 mg Tb) 1 Tab Tab, 1 TAB PO DAILY, (Reported) @ 1500 Scheduled PRN Phenazopyridine HCl (Phenazopyridine HCl) 100 Mg Tablet, 100 MG PO TID PRN for PAIN OR DISCOMFORT, (Reported) MIGUEL ANGEL PAGAN D.O. Oct 31, 2020 10:43 RODOLFO GARCIA MD Nov 04, 2020 08:05
[2020-10-31] MEDS ORDERED: propofoL 200 MG/20 ML VIAL As Ordered ONE (11:32)
--- NOTE | 2020-10-31 12:59 | ROOR ---
Patient Name: Fabiola Peraza Procedure Date: 10/31/2020 12:02 PM Date of : 1940 Age: 80 Room: [facility] Gender: Female Note Status: Finalized Procedure: Colonoscopy Indications: Abnormal CT of the GI tract, Preoperative assessment, Colovesical fistula Providers: Pablo Lopez MD Referring MD: Steve Brennan MD Requesting Provider: Medicines: Monitored Anesthesia Care Complications: No immediate complications. Procedure: Pre-Anesthesia Assessment: - Prior to the procedure, a History and Physical was performed, and patient medications and allergies were reviewed. The patient is competent. The risks and benefits of the procedure and the sedation options and risks were discussed with the patient. All questions were answered and informed consent was obtained. Patient identification and proposed procedure were verified by the physician, the nurse and the anesthesiologist in the procedure room. Mental Status Examination: alert and oriented. Airway Examination: normal oropharyngeal airway and neck mobility. Respiratory Examination: clear to auscultation. CV Examination: normal. Prophylactic Antibiotics: The patient does not require prophylactic antibiotics. Prior Anticoagulants: The patient has taken no previous anticoagulant or antiplatelet agents. ASA Grade Assessment: III - A patient with severe systemic disease. After reviewing the risks and benefits, the patient was deemed in satisfactory condition to undergo the procedure. The anesthesia plan was to use monitored anesthesia care (MAC). Immediately prior to administration of medications, the patient was re-assessed for adequacy to receive sedatives. The heart rate, respiratory rate, oxygen saturations, blood pressure, adequacy of pulmonary ventilation, and response to care were monitored throughout the procedure. The physical status of the patient was re-assessed after the procedure. The Colonoscope was introduced through the anus and advanced to the cecum, identified by appendiceal orifice and ileocecal valve. The colonoscopy was performed without difficulty. The patient tolerated the procedure well. The quality of the bowel preparation was good. The ileocecal valve, appendiceal orifice, and rectum were photographed. Scope insertion time was 4 minutes. Scope withdrawal time was 10 minutes. The total duration of the procedure was 15 minutes. Findings: The perianal and digital rectal examinations were normal. A 10 mm polyp was found in the ascending colon. The polyp was sessile. The polyp was removed with a cold snare. Resection and retrieval were complete. Verification of patient identification for the specimen was done by the physician and nurse using the patient's name, date and medical record number. Estimated blood loss was minimal. A 15 mm polyp was found in the descending colon. The polyp was semi-pedunculated and sessile. The polyp was removed with a hot snare. Resection and retrieval were complete. Multiple small and large-mouthed diverticula were found from sigmoid to ascending colon. Claribel-diverticular erythema was seen in sigmoid colon. No diverticular bleeding. Non-bleeding external and internal hemorrhoids were found during retroflexion. The hemorrhoids were large. Impression: - One 10 mm polyp in the ascending colon, removed with a cold snare. Resected and retrieved. - One 15 mm polyp in the descending colon, removed with a hot snare. Resected and retrieved. - Severe diverticulosis from sigmoid to ascending colon. Claribel-diverticular erythema was seen in sigmoid colon. No diverticular bleeding. - Non-bleeding external and internal hemorrhoids. Recommendation: - Patient has a contact number available for emergencies. The signs and symptoms of potential delayed complications were discussed with the patient. Return to normal activities tomorrow. Written discharge instructions were provided to the patient. - High fiber diet. - Use original regular Metamucil one teaspoon PO BID. - Await pathology results. - Refer to a surgeon as previously scheduled. - Repeat colonoscopy in 3 - 5 years for surveillance based on pathology results and depending on clinical and functional status. - Telephone GI clinic for pathology results in 1 week. - Return to primary care physician. Procedure Code(s): --- Professional --- 16271, Colonoscopy, flexible; with removal of tumor(s), polyp(s), or other lesion(s) by snare technique Diagnosis Code(s): --- Professional --- K63.5, Polyp of colon K64.8, Other hemorrhoids Z01.818, Encounter for other preprocedural examination N32.1, Vesicointestinal fistula R93.3, Abnormal findings on diagnostic imaging of other parts of digestive tract CPT copyright 2019 [employer]. All rights reserved. The codes documented in this report are preliminary and upon reconciliation manager review may be revised to meet current compliance requirements. Pablo Lopez MD Pablo Lopez MD 10/31/2020 12:59:08 PM Electronically signed by Pablo Lopez MD Number of Addenda: 0 Note Initiated On: 10/31/2020 12:02 PM Estimated Blood Loss: Estimated blood loss was minimal.
[2020-10-31] MEDS: ENOXAPARIN 40MG/0.4ML SYRINGE (J1650 PER 10MG) SC SCH (15:25)
[2020-10-31] MEDS: MULTIVITAMINS/MINERALS THERAP 1 TAB PO SCH (15:26)
[2020-10-31] MEDS: LEVOTHYROXINE 50MCG TABLET (0.05MG) PO SCH (15:26)
[2020-10-31] MEDS: ASPIRIN 325 MG TAB PO SCH (15:26)
[2020-10-31] MEDS: ATORVASTATIN 20 MG TAB PO SCH (18:02)
[2020-10-31] MEDS: CALCIUM/VITAMIN D 500 MG TAB PO SCH (18:02)
[2020-10-31] MEDS: OMEGA-3 1000MG CAPSULE PO SCH (18:02)
[2020-11-01 02:00] VITALS: BP 134/74
[2020-11-01 06:00] VITALS: BP 150/89
[2020-11-01] MEDS: PIPERACILLIN/TAZOBACTAM SOD 3.375 GM in D5W MINI-BAG PLUS 50 ML IV SCH ×2 (06:05→11:15)
[2020-11-01] MEDS: SLF 3 ML SYR IV SCH (06:06)
[2020-11-01 07:48] LABS: BASO % 0.3 % (0.0-1.0); EOS # 0.1 10^3/uL (0.0-0.5); EOS % 1.8 % (0.0-3.0); LYMPH # 2.1 10^3/uL (1.5-5.0); MEAN CORPUSCULAR HGB CONC 32.4 g/dl (32.0-36.5); MEAN CORPUSCULAR VOLUME 86.5 fl (80.0-96.0); MONO # 0.6 10^3/uL (0.0-0.8); MONO % 9.5 % (2.0-8.0); NEUTROPHILS # 3.2 10^3/uL (1.5-8.5); NEUTROPHILS % 52.9 % (36.0-66.0); PLATELET COUNT, AUTOMATED 243 10^3/uL (150-450); RED BLOOD COUNT 3.93 10^6/uL (4.00-5.40); WHITE BLOOD COUNT 6.1 10^3/uL (4.0-10.0)
[2020-11-01 07:55] LABS: ALBUMIN 2.8 GM/DL (3.2-5.2); ALT/SGPT 13 U/L (12-78); BILIRUBIN,TOTAL 0.6 MG/DL (0.2-1.0); BLOOD UREA NITROGEN 5 MG/DL (7-18); CALCIUM LEVEL 8.6 MG/DL (8.8-10.2); CARBON DIOXIDE LEVEL 28 MEQ/L (21-32); CHLORIDE LEVEL 103 MEQ/L (98-107); CREATININE FOR GFR 0.69 MG/DL (0.55-1.30); GLOMERULAR FILTRATION RATE > 60.0 (>32); GLUCOSE, FASTING 95 MG/DL (70-100); MAGNESIUM LEVEL 1.9 MG/DL (1.8-2.4); POTASSIUM SERUM 3.2 MEQ/L (3.5-5.1); SODIUM LEVEL 137 MEQ/L (136-145); TOTAL PROTEIN 5.8 GM/DL (6.4-8.2)
[2020-11-01 08:00] VITALS: BP 127/62
[2020-11-01] MEDS ORDERED: POTASSIUM CHLORIDE 10 MEQ SR TABLET PO SCH (09:00)
[2020-11-01] MEDS: LEVOTHYROXINE 50MCG TABLET (0.05MG) PO SCH (09:30)
[2020-11-01] MEDS: ENOXAPARIN 40MG/0.4ML SYRINGE (J1650 PER 10MG) SC SCH (09:30)
[2020-11-01] MEDS: ASPIRIN 325 MG TAB PO SCH (09:30)
[2020-11-01 10:00] VITALS: BP 126/85
[2020-11-01] MEDS: TIMOLOL MALEATE 0.25% OPHTH SOLN 5 ML OU SCH (10:50)
[2020-11-01] MEDS ORDERED: DOXY-350 PO (11:11)
[2020-11-01 11:30] VITALS: BP 128/70
--- NOTE | 2020-11-01 16:57 | DS.PDOC ---
Discharge Summary General Date of Admission Oct 29, 2020 at 20:14 Date of Discharge 11/01/20 Discharge Summary PROCEDURES PERFORMED DURING STAY: Colonoscopy ADMITTING DIAGNOSES: UTI Colovesical fistula Sepsis Hypothyroidism Hyperlipidemia DISCHARGE DIAGNOSES: UTI Colovesical fistula Sepsis Hypothyroidism Hyperlipidemia COMPLICATIONS/CHIEF COMPLAINT: Sepsis,Urinary Fistula,Uti. HISTORY OF PRESENT ILLNESS: Patient is 80 years old female with hypertension, hyperlipidemia, diverticulosis, uterine prolapse presented hospital with UTI secondary to colovesical fistula HOSPITAL COURSE: During hospital stay the following issue addressed UTI Most likely secondary to colovesical fistula Patient received Zosyn IV blood culture negative Colovesical fistula colonoscopy showed One 10 mm polyp in the ascending colon, removed with a cold snare. Resected and retrieved. - One 15 mm polyp in the descending colon, removed with a hot snare. Resected and retrieved. - Severe diverticulosis from sigmoid to ascending colon. Claribel-diverticular erythema was seen in sigmoid colon. No diverticular bleeding. - Non-bleeding external and internal hemorrhoids. Sepsis Secondary to UTI Patient had tachycardia, lactic acidosis and leukocytosis on admission Resolved Hypothyroidism Continue Synthroid Hyperlipidemia Continue statin DISCHARGE MEDICATIONS: Please see below. ALLERGIES: Please see below. PHYSICAL EXAMINATION ON DISCHARGE: VITAL SIGNS: Please see below. GENERAL APPEARANCE: NAD HEENT: no scleral icterus, no JVD, EOMI CARDIOVASCULAR: S1S2 LUNGS: CTA ABDOMEN: soft & not tender w palpitation MUSCULOSKELETAL: no cyanosis, no swelling INTEGUMENT: no generalized pallor NEUROLOGICAL: cranial nerve function from 2-12 intact intact, follows commands, speech not dysarthric LABORATORY DATA: Please see below. PROGNOSIS: Fair ACTIVITY: [As tolerated]. DIET: Cardiac DISPOSITION: 01 Home, Self-Care. ITEMS TO FOLLOWUP ON ON OUTPATIENT: Follow-up with surgical team next week DISCHARGE CONDITION: [Stable]. TIME SPENT ON DISCHARGE:40 minutes. Vital Signs/I&Os Vital Signs Date Time Temp Pulse Resp B/P (MAP) Pulse Ox O2 Delivery O2 Flow Rate FiO2 11/01/20 11:30 98.1 76 16 128/70 (89) 99 Room Air I&O- Last 24 Hours up to 6 AM 11/01/20 06:00 Intake Total 1200 ml Balance 1200 ml Laboratory Data Labs 24H Laboratory Tests 2 11/01/20 07:06: Immature Granulocyte % (Auto) 0.5, Neutrophils (%) (Auto) 52.9, Lymphocytes (%) (Auto) 35.0, Monocytes (%) (Auto) 9.5H, Eosinophils (%) (Auto) 1.8, Basophils (%) (Auto) 0.3, Neutrophils # (Auto) 3.2, Lymphocytes # (Auto) 2.1, Monocytes # (Auto) 0.6, Eosinophils # (Auto) 0.1, Basophils # (Auto) 0.0, Nucleated Red Blood Cells % (auto) 0.0, Anion Gap 6L, Glomerular Filtration Rate > 60.0, Calcium Level 8.6L, Magnesium Level 1.9, Total Bilirubin 0.6, Aspartate Amino Transf (AST/SGOT) 8, Alanine Aminotransferase (ALT/SGPT) 13, Alkaline Phosphatase 81, Total Protein 5.8L, Albumin 2.8L, Albumin/Globulin Ratio 0.9L CBC/BMP Laboratory Tests 11/01/20 07:06 Microbiology Microbiology 10/29/20 Urine Culture - Final, Complete 10/29/20 Blood Culture - Preliminary, Resulted No Growth after 48 hours. All Specime... 10/29/20 Blood Culture - Preliminary, Resulted No Growth after 48 hours. All Specime... Discharge Medications Scheduled Aspirin (Aspirin) 325 Mg Tablet, 325 MG PO DAILY, (Reported) Atorvastatin Calcium (Atorvastatin Calcium) 40 Mg Tablet, 40 MG PO QPM, (Reported) Calcium Carbonate/Vitamin D3 (Calcium 600-Vit D3 400 Tablet) 1 Tab Tab, 1 TAB PO QPM, (Reported) Doxycycline Monohydrate (Doxycycline) 100 Mg Capsule, 1 CAP PO BID Levothyroxine Sodium (Synthroid) 50 Mcg Tab, 50 MCG PO DAILY, (Reported) Multivitamins (Thera M Plus Tablet) 1 Tab Tab, 1 TAB PO DAILY, (Reported) @ 1500 [place]-3/Dha/Epa/Fish Oil (Fish Oil 1,000 mg Softgel) 1 Each Capsule, 1 CAP PO QPM, (Reported) Timolol Maleate (Timolol Maleate) 0.25% Katia.gel, 1 DROP OU DAILY, (Reported) Travoprost (Travatan Z) 50 Drop/2.5 Ml Soln, 1 DROP OU QHS, (Reported) Triamterene/Hydrochlorothiazid (Triamterene-Hctz 37.5-25 mg Tb) 1 Tab Tab, 1 TAB PO DAILY, (Reported) @ 1500 Scheduled PRN Phenazopyridine HCl (Phenazopyridine HCl) 100 Mg Tablet, 100 MG PO TID PRN for PAIN OR DISCOMFORT, (Reported) Allergies Coded Allergies: levofloxacin (Verified Adverse Reaction, Intermediate, 05/06/20) ROXY NEIL DO Nov 01, 2020 16:57
== END 2020-11-01 13:13 | disposition home or self-care (01) | DRG 872 ==
LOC: M ED 15:32 → M ED INP 20:14 → M PCU 22:24 → M MSPAV 10-30 13:10
PROVIDERS: ADMIT Internal Medicine; ATTEND Internal Medicine
PROC: 0DBM8ZX Excision of Descending Colon, Via Natural or Artificial Opening Endoscopic, Diagnostic (ICD-10-PCS; 2020-10-31)
PROC: 0DBK8ZX Excision of Ascending Colon, Via Natural or Artificial Opening Endoscopic, Diagnostic (ICD-10-PCS; principal; 2020-10-31 12:00)
DX: A41.9 Sepsis, unspecified organism (principal); N32.1 Vesicointestinal fistula; N39.0 Urinary tract infection, site not specified; E87.1 Hypo-osmolality and hyponatremia; E87.2 Acidosis; E03.9 Hypothyroidism, unspecified; E78.5 Hyperlipidemia, unspecified; K57.30 Diverticulosis of large intestine without perforation or abscess without bleeding; Z79.899 Other long term (current) drug therapy; Z79.82 Long term (current) use of aspirin; Z88.8 Allergy status to other drugs, medicaments and biological substances; K63.5 Polyp of colon; K64.8 Other hemorrhoids

== ENCOUNTER 2020-11-08 17:16 | Emergency (ER) | payer MEDICARE, BC, OTHER ==
[~2020-11-08] VITALS: Ht 172.7 cm; Wt 150.0 kg
[~2020-11-08 17:16] MED LIST changes: +ATOR40TA75 PO; +BAYE325T13 PO; +DOXY-350 PO; +MINO50CA3; +OMEG10002 PO; +PHEN1TAB73 PO; +SULF1TAB93 PO; +TIMOXEOPD OU
[2020-11-08 17:17] VITALS: BP 137/69
--- OUTSIDE RECORDS SUMMARY | 2020-11-08 17:23 | CCD | Continuity of Care Document ---
Author Author Fabiola BEST PA Organization Unknown Address [address] [place] [address] [place] [address] Phone [phone] Care Team Providers Care Hanger Off Name Role Phone Steve Brennan MD [facility] [phone] Problems Description No Information Available Social History Type Date Description Comments Sex Unknown ETOH Use Denies alcohol use Tobacco Use Start: Unknown End: Unknown Patient is a former smoker quit 80's Smoking Status Reviewed: 10/29/20 Patient is a former smoker qu it 80's Allergies, Adverse Reactions, Alerts Active Allergies Reaction Severity Comments Date Codeine 03/20/2017 Medications Active Medications SIG Qnty Indications Ordering Provide r Date Vitamin B1 Unknown Folic Acid Xtra Unknown 0 Synthroid Unknown Simvastatin Unknown Aspir-[address] mcpherson y day Unknown Centrum Silver Ultra Womens Unknown Calcium 1000 + D Unknown Fish Oil Unknown Triamterene/Hydrochlorothiazide 37.5-25mg Capsules Steve Brennan MD 00 Levothyroxine Sodium 50mcg Tablets Steve Brennan MD Levetiracetam 500mg Tablets Unknown Atorvastatin Calcium 40mg Tablets Steve Brennan MD Immunizations Description No Information Available Vital Signs Date Vital Result Comment 10/29/2020 2:54pm BP Systolic 146 mmHg BP Diastolic 75 mmHg Heart Rate 98 /min Respiratory Rate 14 /min O2 % BldC Oximetry 98 % Body Temperature 97.7 F Weight 143.00 lb Height 69 inches 5'9" BMI (Body Mass Index) 21.1 kg/m2 Pain Level 10 03/20/2017 1:36pm BP Systolic 111 mmHg BP Diastolic 67 mmHg Heart Rate 82 /min O2 % BldC Oximetry 98 % Body Temperature 97.9 F Weight 143.00 lb Height 67 inches 5'7" BMI (Body Mass Index) 22.4 kg/m2 Pain Level 0 Results Description No Information Available Procedures Description No Information Available Medical Devices Description No Information Available Encounters Description No Information Available Assessments Date Code Description Provider 10/29/2020 R30.0 Dysuria TOMMIE Shepard 10/29/2020 R30.0 Dysuria Kamryn Cazares Plan of Treatment 10/29/2020 - Kamryn Appiah* R30.0 Dysuria* Comments:* Upon obtaining urine sample from patient, urine sample was grossly contaminated with feces.UA was deferred.Given significant pain and fecaluria it was advised patient go to ED for further eval and treatment.Patient verbalized understanding and was very agreeable to going.Attempted to call [facility] ED to give report to judo teacher, remained on hold for extended period of time and was not able to speak with judo teacher. Functional Status Description No Information Available Mental Status Description No Information Available Referrals Description No Information Available
--- OUTSIDE RECORDS SUMMARY | 2020-11-08 17:23 | CCD | Continuity of Care Document ---
Author Author Fabiola BEST PA Organization Unknown Address [address] [place] [address] [place] [address] Phone [phone] Care Team Providers Care Cloth Mercerizer Back Tender Name Role Phone Steve Brennan MD [facility] [phone] Problems Description No Information Available Social History [...] Date Code Description Provider 10/29/2020 R30.0 Dysuria Kamryn Cazares Plan of Treatment 10/29/2020 - Kamryn Appiah* R30.0 Dysuria* Comments:* Upon obtaining urine sample from patient, urine sample was grossly contaminated with feces.UA was deferred.Given significant pain and fecaluria it was advised patient go to ED for further eval and treatment.Patient verbalized understanding and was very agreeable to going.Attempted to call [facility] ED to give report to senior health physics technician, remained on hold for extended period of time and was not able to speak with senior health physics technician. Functional Status Description No Information Available Mental Status Description No Information Available Referrals Description No Information Available
--- OUTSIDE RECORDS SUMMARY | 2020-11-08 17:24 | CCD ---
Author Author [facility] Organization [facility] Address Unknown Phone Unavailable Care Team Providers Care Fitness Sales Associate Name Role Phone James LOVELACE JR, PA-C Unavailable Unavailable James LOVELACE JRC Unavailable Unavailable James LOVELACE JRC Unavailable Unavailable PICKJames VANEGAS JR-C Unavailable Unavailable PICKJames VANEGAS JR-C Unavailable Unavailable PICKERAL James TROY-C Unavailable Unavailable PICKJames VANEGAS JR PA-C Unavailable Unavailable PICKJames VANEGAS JR-C Unavailable Unavailable PICKJames VANEGAS JR PA-C Unavailable Unavailable James LOVELACE JR-C Unavailable Unavailable James LOVELACE JR PA-C Unavailable Unavailable James LOVELACE JR PA-C Unavailable Unavailable James LOVELACE JR PA-C Unavailable Unavailable James LOVELACE JR PA-C Unavailable Unavailable James LOVELACE JR PA-C Unavailable Unavailable James LOVELACE JRC Unavailable Unavailable PICKJames VANEGAS JR-C Unavailable Unavailable PICKJames VANEGAS JR PA-C Unavailable Unavailable PICKERAL JR, J KEIRA PA-C Unavailable Unavailable PICKERAL JR, J KEIRA PA-C Unavailable Unavailable PICKERAL JR, J KEIRA PA-C Unavailable Unavailable Garett [...] is protected by Article 27-F of the [facility] Public Health law. If you continue you may have access to information: Regarding HIV / AIDS; Provided by facilities licensed or operated by the [facility] Office of Mental Health; or Provided by the [facility] Office for People With Developmental Disabilities. If such information is present, then the following [facility] mandated warning applies: This information has been [...] [facility]) Unknown Unknown Problem MEDENT ([facility] Unknown Unknown Problem MEDENT ([facility]) Unknown Female Problem MEDENT ([facility]) Unknown Unknown Encounters Encounter Providers Location Date Indications Data Source(s ) Unknown [address] [facility] [place] [address] 10/22/2020 12:00:00 AM EST [facility]CW1 [facility]) Unknown [address] [facility] [place] [address] 10/21/2020 12:00:00 AM EST [facility]CW1 [facility]) Unknown [address] [facility] [place] [address] 09/23/2020 12:00:00 AM EST eCW1 ([facility]) Outpatient Attender: Andrew Torres MD Main office - [facility] 09/22/2020 10:00:00 AM EST MEDENT ([facility]) (Cysto1) Urology [address] [place] [address] 09/21/2020 12:00:00 AM EST eCW1 ([facility]) Unknown [address] [facility] [address] 09/02/2020 12:00:00 AM EST eCW1 ([facility]) Outpatient [address] [facility] [place] [address] 08/25/2020 12:00:00 AM EST eCW1 ([facility]) Unknown [address] [facility] [place] [address] 08/25/2020 12:00:00 AM EST eCW1 ([facility]) Unknown [address] [facility] [place] [address] 08/22/2020 12:00:00 AM EST eCW1 ([facility]) Outpatient [address] [facility] Y [address] 08/19/2020 12:00:00 AM EST eCW1 ([facility]) Unknown [address] [facility] [place] [address] 08/18/2020 12:00:00 AM EST eCW1 ([facility]) Unknown [address] [facility] [place] [address] 08/16/2020 12:00:00 AM EST eCW1 ([facility]) Unknown [address] [facility] Y [address] 08/15/2020 12:00:00 AM EST eCW1 ([facility]) Office Visit, Est Pt., Level 3 PC [address] [place] [address] 08/08/2020 12:00:00 AM EST eCW1 ([facility]) Unknown [address] [facility] Y [address] 07/17/2020 12:00:00 AM EDT eCW1 ([facility]) Unknown [address] [facility] Y [address] 07/17/2020 12:00:00 AM EDT eCW1 ([facility]) Unknown [address] [facility], [place] [address] 07/07/2020 12:00:00 AM EDT eCW1 ([facility]) ([id number]) 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 [address] [place] [address] 07/05/2020 12:00:00 AM EDT eCW1 ([facility]) Unknown [address] [facility] [place] [address] 06/20/2020 12:00:00 AM EDT eCW1 ([facility]) Outpatient Attender: KEIRA Michelle 1 10:40:00 AM EDT MEDENT ([facility] ) Office Visit Attender: Andrew Torres MD [facility] office - [facility] 06/06/2020 01:15:00 PM EDT MEDENT ([facility] Ivanna dos santos ) [facility] [address] [place] [address] 04/22/2020 12:00:00 AM EDT eCW1 ([facility]) Outpatient Attender: Andrew Torres MD [facility] - [facility] 03/24/2020 09:30:00 AM EDT MEDENT ([facility]anna dos [facility]antos ) Outpatient Attender: KEIRA Michelle 0 03/16/2020 10:20:00 AM EDT MEDENT ([facility] ) Immunizations Vaccine Date Status Description Data Source(s) COVID-19 VACCINE, MRNA, [id number], LNP-S (PFIZER)/PF 11/05/19 12:00:00 AM EST completed [facility] COVID-19 VACCINE, MRNA, [id number], LNP-S (PFIZER)/PF 10/15/19 12:00:00 AM EST completed [facility] Influenza, injectable, MDCK, preservative free, marcos valent 06/16/2020 03:20:00 PM EDT completed [facility] ([facility]) Medications Medication Brand Name Start Date Product Form Dose Route Admi nistrative Instructions Pharmacy Instructions Status Indications Reaction Description Data Source(s) Phenazopyridine hydrochloride 100 MG Oral Tablet [Pyri dium] Pyridium 100 MG Pyridium 100 MG 10/22/2020 12:00:00 AM EST 1.0 {tablet_after_meals} active Pyridium 100 MG eCW1 ([facility]) Phenazopyridine hydrochloride 100 MG Oral Tablet [Pyri dium] Pyridium 100 MG Pyridium 100 MG 10/22/2020 12:00:00 AM EST 1.0 {tablet_after_meals} active Pyridium 100 MG eCW1 ([facility]) Sulfamethoxazole 800 MG / Trimethoprim 1 60 MG Oral Tablet [Bactrim] Bactrim DS 800-160 MG Bactrim DS 800-160 MG 10/22/2020 12:00:00 AM EST 1.0 {table t} active Bactrim DS 800-160 MG eCW1 ( [facility]) Sulfamethoxazole 800 MG / Trimethoprim 1 60 MG Oral Tablet [Bactrim] Bactrim DS 800-160 MG Bactrim DS 800-160 MG 10/22/2020 12:00:00 AM EST 1.0 {table t} active Bactrim DS 800-160 MG eCW1 ( [facility]) Minocycline 50 MG Oral Capsule Minocycline HCl 50 MG Minocyc line HCl 50 MG 09/21/2020 12:00:00 AM EST 1.0 {capsule} active Minocycline HCl 50 MG eCW1 ([facility]) Minocycline 50 MG Oral Capsule Minocycline HCl 50 MG Minocyc line HCl 50 MG 09/21/2020 12:00:00 AM EST 1.0 {capsule} active Minocycline HCl 50 MG eCW1 ([facility]) Minocycline 50 MG Oral Capsule Minocycline HCl 50 MG Minocyc line HCl 50 MG 09/21/2020 12:00:00 AM EST 1.0 {capsule} active Minocycline HCl 50 MG eCW1 ([facility]) Minocycline 50 MG Oral Capsule Minocycline HCl 50 MG Minocyc line HCl 50 MG 09/21/2020 12:00:00 AM EST 1.0 {capsule} active Minocycline HCl 50 MG eCW1 ([facility]) Sulfamethoxazole 800 MG / Trimethoprim 1 60 MG Oral Tablet [Bactrim] Bactrim DS 800-160 MG Bactrim DS 800-160 MG 08/25/2020 12:00:00 AM EST 1.0 {table t} active Bactrim DS 800-160 MG eCW1 ( [facility]) Sulfamethoxazole 800 MG / Trimethoprim 1 60 MG Oral Tablet [Bactrim] Bactrim DS 800-160 MG Bactrim DS 800-160 MG 08/25/2020 12:00:00 AM EST 1.0 {table t} active Bactrim DS 800-160 MG eCW1 ( [facility]) Sulfamethoxazole 800 MG / Trimethoprim 1 60 MG Oral Tablet [Bactrim] Bactrim DS 800-160 MG Bactrim DS 800-160 MG 08/25/2020 12:00:00 AM EST 1.0 {table t} active Bactrim DS 800-160 MG eCW1 ( [facility]) Sulfamethoxazole 800 MG / Trimethoprim 1 60 MG Oral Tablet [Bactrim] Bactrim DS 800-160 MG Bactrim DS 800-160 MG 08/25/2020 12:00:00 AM EST 1.0 {table t} active Bactrim DS 800-160 MG eCW1 ( [facility]) Sulfamethoxazole 800 MG / Trimethoprim 1 60 MG Oral Tablet [Bactrim] Bactrim DS 800-160 MG Bactrim DS 800-160 MG 08/25/2020 12:00:00 AM EST 1.0 {table t} active Bactrim DS 800-160 MG eCW1 ( [facility]) Sulfamethoxazole 800 MG / Trimethoprim 1 60 MG Oral Tablet [Bactrim] Bactrim DS 800-160 MG Bactrim DS 800-160 MG 08/25/2020 12:00:00 AM EST 1.0 {table t} active Bactrim DS 800-160 MG eCW1 ( [facility]) Sulfamethoxazole 800 MG / Trimethoprim 1 60 MG Oral Tablet [Bactrim] Bactrim DS 800-160 MG Bactrim DS 800-160 MG 08/25/2020 12:00:00 AM EST 1.0 {table t} active Bactrim DS 800-160 MG eCW1 ( [facility]) Fosfomycin 33.3 MG/ML Oral Suspension [Monurol] Monurol 3 GM Monurol 3 GM 08/19/2020 12:00:00 AM EST suspended Monurol 3 GM eCW1 ([facility]) Fosfomycin 33.3 MG/ML Oral Suspension [Monurol] Monurol 3 GM Monurol 3 GM 08/19/2020 12:00:00 AM EST active Monurol 3 GM eCW1 ([facility]) Fosfomycin 33.3 MG/ML Oral Suspension [Monurol] Monurol 3 GM Monurol 3 GM 08/19/2020 12:00:00 AM EST suspended Monurol 3 GM eCW1 ([facility]) Fosfomycin 33.3 MG/ML Oral Suspension [Monurol] Monurol 3 GM Monurol 3 GM 08/19/2020 12:00:00 AM EST suspended Monurol 3 GM eCW1 ([facility]) Fosfomycin 33.3 MG/ML Oral Suspension [Monurol] Monurol 3 GM Monurol 3 GM 08/19/2020 12:00:00 AM EST active Monurol 3 GM eCW1 ([facility]) Fosfomycin 33.3 MG/ML Oral Suspension [Monurol] Monurol 3 GM Monurol 3 GM 08/19/2020 12:00:00 AM EST suspended Monurol 3 GM eCW1 ([facility]) Fosfomycin 33.3 MG/ML Oral Suspension [Monurol] Monurol 3 GM Monurol 3 GM 08/19/2020 12:00:00 AM EST active Monurol 3 GM eCW1 ([facility]) Fosfomycin 33.3 MG/ML Oral Suspension [Monurol] Monurol 3 GM Monurol 3 GM 08/19/2020 12:00:00 AM EST suspended Monurol 3 GM eCW1 ([facility]) Fosfomycin 33.3 MG/ML Oral Suspension [Monurol] Monurol 3 GM Monurol 3 GM 08/19/2020 12:00:00 AM EST suspended Monurol 3 GM eCW1 ([facility]) Fosfomycin 33.3 MG/ML Oral Suspension [Monurol] Monurol 3 GM Monurol 3 GM 08/19/2020 12:00:00 AM EST suspended Monurol 3 GM eCW1 ([facility]) Phenazopyridine hydrochloride 200 MG Oral Tablet [Pyri dium] Pyridium 200 MG Pyridium 200 MG 08/16/2020 12:00:00 AM EST 1.0 {tablet_after_meals} active Pyridium 200 MG eCW1 ([facility]) Phenazopyridine hydrochloride 200 MG Oral Tablet [Pyri dium] Pyridium 200 MG Pyridium 200 MG 08/16/2020 12:00:00 AM EST 1.0 {tablet_after_meals} active Pyridium 200 MG eCW1 ([facility]) Phenazopyridine hydrochloride 200 MG Oral Tablet [Pyri dium] Pyridium 200 MG Pyridium 200 MG 08/16/2020 12:00:00 AM EST 1.0 {tablet_after_meals} active Pyridium 200 MG eCW1 ([facility]) Phenazopyridine hydrochloride 200 MG Oral Tablet [Pyri dium] Pyridium 200 MG Pyridium 200 MG 08/16/2020 12:00:00 AM EST 1.0 {tablet_after_meals} active Pyridium 200 MG eCW1 ([facility]) Phenazopyridine hydrochloride 200 MG Oral Tablet [Pyri dium] Pyridium 200 MG Pyridium 200 MG 08/16/2020 12:00:00 AM EST 1.0 {tablet_after_meals} active Pyridium 200 MG eCW1 ([facility]) Phenazopyridine hydrochloride 200 MG Oral Tablet [Pyri dium] Pyridium 200 MG Pyridium 200 MG 08/16/2020 12:00:00 AM EST 1.0 {tablet_after_meals} active Pyridium 200 MG eCW1 ([facility]) Phenazopyridine hydrochloride 200 MG Oral Tablet [Pyri dium] Pyridium 200 MG Pyridium 200 MG 08/16/2020 12:00:00 AM EST 1.0 {tablet_after_meals} active Pyridium 200 MG eCW1 ([facility]) Phenazopyridine hydrochloride 200 MG Oral Tablet [Pyri dium] Pyridium 200 MG Pyridium 200 MG 08/16/2020 12:00:00 AM EST 1.0 {tablet_after_meals} active Pyridium 200 MG eCW1 ([facility]) Phenazopyridine hydrochloride 200 MG Oral Tablet [Pyri dium] Pyridium 200 MG Pyridium 200 MG 08/16/2020 12:00:00 AM EST 1.0 {tablet_after_meals} active Pyridium 200 MG eCW1 ([facility]) Phenazopyridine hydrochloride 200 MG Oral Tablet [Pyri dium] Pyridium 200 MG Pyridium 200 MG 08/16/2020 12:00:00 AM EST 1.0 {tablet_after_meals} active Pyridium 200 MG eCW1 ([facility]) Phenazopyridine hydrochloride 200 MG Oral Tablet [Pyri dium] Pyridium 200 MG Pyridium 200 MG 08/16/2020 12:00:00 AM EST 1.0 {tablet_after_meals} active Pyridium 200 MG eCW1 ([facility]) Phenazopyridine hydrochloride 200 MG Oral Tablet [Pyri dium] Pyridium 200 MG Pyridium 200 MG 08/16/2020 12:00:00 AM EST 1.0 {tablet_after_meals} active Pyridium 200 MG eCW1 ([facility]) Phenazopyridine hydrochloride 200 MG Oral Tablet [Pyri dium] Pyridium 200 MG Pyridium 200 MG 08/16/2020 12:00:00 AM EST 1.0 {tablet_after_meals} active Pyridium 200 MG eCW1 ([facility]) NITROFURANTOIN, MACROCRYSTALS 25 MG / Ni trofurantoin, Monohydrate 75 MG Oral Capsule [Macrobid] Macrobid 100 MG Macrobid 100 MG 08/08/2020 12:00:00 AM EST active Macrobid 100 MG eCW1 ([facility]) NITROFURANTOIN, MACROCRYSTALS 25 MG / Ni trofurantoin, Monohydrate 75 MG Oral Capsule [Macrobid] Macrobid 100 MG Macrobid 100 MG 08/08/2020 12:00:00 AM EST active Macrobid 100 MG eCW1 ([facility]) NITROFURANTOIN, MACROCRYSTALS 25 MG / Ni trofurantoin, Monohydrate 75 MG Oral Capsule [Macrobid] Macrobid 100 MG Macrobid 100 MG 08/08/2020 12:00:00 AM EST suspended Macrobid 100 MG eCW1 ( [facility]) NITROFURANTOIN, MACROCRYSTALS 25 MG / Ni trofurantoin, Monohydrate 75 MG Oral Capsule [Macrobid] Macrobid 100 MG Macrobid 100 MG 08/08/2020 12:00:00 AM EST suspended Macrobid 100 MG eCW1 ( [facility]) NITROFURANTOIN, MACROCRYSTALS 25 MG / Ni trofurantoin, Monohydrate 75 MG Oral Capsule [Macrobid] Macrobid 100 MG Macrobid 100 MG 08/08/2020 12:00:00 AM EST suspended Macrobid 100 MG eCW1 ( [facility]) NITROFURANTOIN, MACROCRYSTALS 25 MG / Ni trofurantoin, Monohydrate 75 MG Oral Capsule [Macrobid] Macrobid 100 MG Macrobid 100 MG 08/08/2020 12:00:00 AM EST suspended Macrobid 100 MG eCW1 ( [facility]) NITROFURANTOIN, MACROCRYSTALS 25 MG / Ni trofurantoin, Monohydrate 75 MG Oral Capsule [Macrobid] Macrobid 100 MG Macrobid 100 MG 08/08/2020 12:00:00 AM EST suspended Macrobid 100 MG eCW1 ( [facility]) NITROFURANTOIN, MACROCRYSTALS 25 MG / Ni trofurantoin, Monohydrate 75 MG Oral Capsule [Macrobid] Macrobid 100 MG Macrobid 100 MG 08/08/2020 12:00:00 AM EST suspended Macrobid 100 MG eCW1 ( [facility]) NITROFURANTOIN, MACROCRYSTALS 25 MG / Ni trofurantoin, Monohydrate 75 MG Oral Capsule [Macrobid] Macrobid 100 MG Macrobid 100 MG 08/08/2020 12:00:00 AM EST suspended Macrobid 100 MG eCW1 ( [facility]) NITROFURANTOIN, MACROCRYSTALS 25 MG / Ni trofurantoin, Monohydrate 75 MG Oral Capsule [Macrobid] Macrobid 100 MG Macrobid 100 MG 08/08/2020 12:00:00 AM EST suspended Macrobid 100 MG eCW1 ( [facility]) NITROFURANTOIN, MACROCRYSTALS 25 MG / Ni trofurantoin, Monohydrate 75 MG Oral Capsule [Macrobid] Macrobid 100 MG Macrobid 100 MG 08/08/2020 12:00:00 AM EST active Macrobid 100 MG eCW1 ([facility]) NITROFURANTOIN, MACROCRYSTALS 25 MG / Ni trofurantoin, Monohydrate 75 MG Oral Capsule [Macrobid] Macrobid 100 MG Macrobid 100 MG 08/08/2020 12:00:00 AM EST suspended Macrobid 100 MG eCW1 ( [facility]) NITROFURANTOIN, MACROCRYSTALS 25 MG / Ni trofurantoin, Monohydrate 75 MG Oral Capsule [Macrobid] Macrobid 100 MG Macrobid 100 MG 08/08/2020 12:00:00 AM EST suspended Macrobid 100 MG eCW1 ( [facility]) Ciprofloxacin 500 MG Oral Tablet [Cipro] Cipro 500 MG Cipro 500 MG 07/17/2020 12:00:00 AM EDT 1.0 {tablet} suspended Cipro 500 MG eCW1 ([facility]) Ciprofloxacin 500 MG Oral Tablet [Cipro] Cipro 500 MG Cipro 500 MG 07/17/2020 12:00:00 AM EDT 1.0 {tablet} active Ci pro 500 MG eCW1 ([facility]) Ciprofloxacin 500 MG Oral Tablet [Cipro] Cipro 500 MG Cipro 500 MG 07/17/2020 12:00:00 AM EDT 1.0 {tablet} suspended Cipro 500 MG eCW1 ([facility]) Ciprofloxacin 500 MG Oral Tablet [Cipro] Cipro 500 MG Cipro 500 MG 07/17/2020 12:00:00 AM EDT 1.0 {tablet} suspended Cipro 500 MG eCW1 ([facility]) Ciprofloxacin 500 MG Oral Tablet [Cipro] Cipro 500 MG Cipro 500 MG 07/17/2020 12:00:00 AM EDT 1.0 {tablet} suspended Cipro 500 MG eCW1 ([facility]) Ciprofloxacin 500 MG Oral Tablet [Cipro] Cipro 500 MG Cipro 500 MG 07/17/2020 12:00:00 AM EDT 1.0 {tablet} suspended Cipro 500 MG eCW1 ([facility]) Ciprofloxacin 500 MG Oral Tablet [Cipro] Cipro 500 MG Cipro 500 MG 07/17/2020 12:00:00 AM EDT 1.0 {tablet} suspended Cipro 500 MG eCW1 ([facility]) Ciprofloxacin 500 MG Oral Tablet [Cipro] Cipro 500 MG Cipro 500 MG 07/17/2020 12:00:00 AM EDT 1.0 {tablet} suspended Cipro 500 MG eCW1 ([facility]) Ciprofloxacin 500 MG Oral Tablet [Cipro] Cipro 500 MG Cipro 500 MG 07/17/2020 12:00:00 AM EDT 1.0 {tablet} suspended Cipro 500 MG eCW1 ([facility]) Ciprofloxacin 500 MG Oral Tablet [Cipro] Cipro 500 MG Cipro 500 MG 07/17/2020 12:00:00 AM EDT 1.0 {tablet} suspended Cipro 500 MG eCW1 ([facility]) Ciprofloxacin 500 MG Oral Tablet [Cipro] Cipro 500 MG Cipro 500 MG 07/17/2020 12:00:00 AM EDT 1.0 {tablet} suspended Cipro 500 MG eCW1 ([facility]) Ciprofloxacin 500 MG Oral Tablet [Cipro] Cipro 500 MG Cipro 500 MG 07/17/2020 12:00:00 AM EDT 1.0 {tablet} active Ci pro 500 MG eCW1 ([facility]) Ciprofloxacin 500 MG Oral Tablet [Cipro] Cipro 500 MG Cipro 500 MG 07/17/2020 12:00:00 AM EDT 1.0 {tablet} suspended Cipro 500 MG eCW1 ([facility]) Ciprofloxacin 500 MG Oral Tablet [Cipro] Cipro 500 MG Cipro 500 MG 07/17/2020 12:00:00 AM EDT 1.0 {tablet} suspended Cipro 500 MG eCW1 ([facility]) Ciprofloxacin 500 MG Oral Tablet [Cipro] Cipro 500 MG Cipro 500 MG 07/17/2020 12:00:00 AM EDT 1.0 {tablet} suspended Cipro 500 MG eCW1 ([facility]) NITROFURANTOIN, MACROCRYSTALS 100 MG Ora l Capsule Nitrofurantoin Macrocrystal 100 MG Nitrofurantoin Macrocrystal 100 MG 07/07/2020 12:00:00 AM EDT suspended Nitrofurantoin Macrocrystal 100 MG eCW1 ([facility]) NITROFURANTOIN, MACROCRYSTALS 100 MG Ora l Capsule Nitrofurantoin Macrocrystal 100 MG Nitrofurantoin Macrocrystal 100 MG 07/07/2020 12:00:00 AM EDT suspended Nitrofurantoin Macrocrystal 100 MG eCW1 ([facility]) NITROFURANTOIN, MACROCRYSTALS 100 MG Ora l Capsule Nitrofurantoin Macrocrystal 100 MG Nitrofurantoin Macrocrystal 100 MG 07/07/2020 12:00:00 AM EDT active Nitrofurantoin Macrocrystal 100 MG eCW1 ([facility]) NITROFURANTOIN, MACROCRYSTALS 100 MG Ora l Capsule Nitrofurantoin Macrocrystal 100 MG Nitrofurantoin Macrocrystal 100 MG 07/07/2020 12:00:00 AM EDT active Nitrofurantoin Macrocrystal 100 MG eCW1 ([facility]) NITROFURANTOIN, MACROCRYSTALS 100 MG Ora l Capsule Nitrofurantoin Macrocrystal 100 MG Nitrofurantoin Macrocrystal 100 MG 07/07/2020 12:00:00 AM EDT suspended Nitrofurantoin Macrocrystal 100 MG eCW1 ([facility]) NITROFURANTOIN, MACROCRYSTALS 100 MG Ora l Capsule Nitrofurantoin Macrocrystal 100 MG Nitrofurantoin Macrocrystal 100 MG 07/07/2020 12:00:00 AM EDT active Nitrofurantoin Macrocrystal 100 MG eCW1 ([facility]) NITROFURANTOIN, MACROCRYSTALS 100 MG Ora l Capsule Nitrofurantoin Macrocrystal 100 MG Nitrofurantoin Macrocrystal 100 MG 07/07/2020 12:00:00 AM EDT active Nitrofurantoin Macrocrystal 100 MG eCW1 ([facility]) NITROFURANTOIN, MACROCRYSTALS 100 MG Ora l Capsule Nitrofurantoin Macrocrystal 100 MG Nitrofurantoin Macrocrystal 100 MG 07/07/2020 12:00:00 AM EDT suspended Nitrofurantoin Macrocrystal 100 MG eCW1 ([facility]) NITROFURANTOIN, MACROCRYSTALS 100 MG Ora l Capsule Nitrofurantoin Macrocrystal 100 MG Nitrofurantoin Macrocrystal 100 MG 07/07/2020 12:00:00 AM EDT suspended Nitrofurantoin Macrocrystal 100 MG eCW1 ([facility]) NITROFURANTOIN, MACROCRYSTALS 100 MG Ora l Capsule Nitrofurantoin Macrocrystal 100 MG Nitrofurantoin Macrocrystal 100 MG 07/07/2020 12:00:00 AM EDT suspended Nitrofurantoin Macrocrystal 100 MG eCW1 ([facility]) NITROFURANTOIN, MACROCRYSTALS 100 MG Ora l Capsule Nitrofurantoin Macrocrystal 100 MG Nitrofurantoin Macrocrystal 100 MG 07/07/2020 12:00:00 AM EDT suspended Nitrofurantoin Macrocrystal 100 MG eCW1 ([facility]) NITROFURANTOIN, MACROCRYSTALS 100 MG Ora l Capsule Nitrofurantoin Macrocrystal 100 MG Nitrofurantoin Macrocrystal 100 MG 07/07/2020 12:00:00 AM EDT suspended Nitrofurantoin Macrocrystal 100 MG eCW1 ([facility]) NITROFURANTOIN, MACROCRYSTALS 100 MG Ora l Capsule Nitrofurantoin Macrocrystal 100 MG Nitrofurantoin Macrocrystal 100 MG 07/07/2020 12:00:00 AM EDT suspended Nitrofurantoin Macrocrystal 100 MG eCW1 ([facility]) NITROFURANTOIN, MACROCRYSTALS 100 MG Ora l Capsule Nitrofurantoin Macrocrystal 100 MG Nitrofurantoin Macrocrystal 100 MG 07/07/2020 12:00:00 AM EDT suspended Nitrofurantoin Macrocrystal 100 MG eCW1 ([facility]) NITROFURANTOIN, MACROCRYSTALS 100 MG Ora l Capsule Nitrofurantoin Macrocrystal 100 MG Nitrofurantoin Macrocrystal 100 MG 07/07/2020 12:00:00 AM EDT suspended Nitrofurantoin Macrocrystal 100 MG eCW1 ([facility]) NITROFURANTOIN, MACROCRYSTALS 100 MG Ora l Capsule Nitrofurantoin Macrocrystal 100 MG Nitrofurantoin Macrocrystal 100 MG 07/07/2020 12:00:00 AM EDT suspended Nitrofurantoin Macrocrystal 100 MG eCW1 ([facility]) NITROFURANTOIN, MACROCRYSTALS 100 MG Ora l Capsule Nitrofurantoin Macrocrystal 100 MG Nitrofurantoin Macrocrystal 100 MG 07/07/2020 12:00:00 AM EDT suspended Nitrofurantoin Macrocrystal 100 MG eCW1 ([facility]) Ampicillin 500 MG Oral Capsule Ampicillin 500 MG 06/20/2020 12:00:00 AM EDT suspended Ampicillin 500 MG eC W1 ([facility]) Ampicillin 500 MG Oral Capsule Ampicillin 500 MG 06/20/2020 12:00:00 AM EDT suspended Ampicillin 500 MG eC W1 ([facility]) Ampicillin 500 MG Oral Capsule Ampicillin 500 MG 06/20/2020 12:00:00 AM EDT suspended Ampicillin 500 MG eC W1 ([facility]) Ampicillin 500 MG Oral Capsule Ampicillin 500 MG 06/20/2020 12:00:00 AM EDT suspended Ampicillin 500 MG eC W1 ([facility]) Ampicillin 500 MG Oral Capsule Ampicillin 500 MG 06/20/2020 12:00:00 AM EDT suspended Ampicillin 500 MG eC W1 ([facility]) Ampicillin 500 MG Oral Capsule Ampicillin 500 MG 06/20/2020 12:00:00 AM EDT active Ampicillin 500 MG eC W1 ([facility]) Ampicillin 500 MG Oral Capsule Ampicillin 500 MG 06/20/2020 12:00:00 AM EDT suspended Ampicillin 500 MG eC W1 ([facility]) Ampicillin 500 MG Oral Capsule Ampicillin 500 MG 06/20/2020 12:00:00 AM EDT suspended Ampicillin 500 MG eC W1 ([facility]) Ampicillin 500 MG Oral Capsule Ampicillin 500 MG 06/20/2020 12:00:00 AM EDT suspended Ampicillin 500 MG eC W1 ([facility]) Ampicillin 500 MG Oral Capsule Ampicillin 500 MG 06/20/2020 12:00:00 AM EDT suspended Ampicillin 500 MG eC W1 ([facility]) Ampicillin 500 MG Oral Capsule Ampicillin 500 MG 06/20/2020 12:00:00 AM EDT suspended Ampicillin 500 MG eC W1 ([facility]) Ampicillin 500 MG Oral Capsule Ampicillin 500 MG 06/20/2020 12:00:00 AM EDT suspended Ampicillin 500 MG eC W1 ([facility]) Ampicillin 500 MG Oral Capsule Ampicillin 500 MG 06/20/2020 12:00:00 AM EDT suspended Ampicillin 500 MG eC W1 ([facility]) Ampicillin 500 MG Oral Capsule Ampicillin 500 MG 06/20/2020 12:00:00 AM EDT suspended Ampicillin 500 MG eC W1 ([facility]) Ampicillin 500 MG Oral Capsule Ampicillin 500 MG 06/20/2020 12:00:00 AM EDT suspended Ampicillin 500 MG eC W1 ([facility]) Ampicillin 500 MG Oral Capsule Ampicillin 500 MG 06/20/2020 12:00:00 AM EDT suspended Ampicillin 500 MG eC W1 ([facility]) Ampicillin 500 MG Oral Capsule Ampicillin 500 MG 06/20/2020 12:00:00 AM EDT suspended Ampicillin 500 MG eC W1 ([facility]) Ampicillin 500 MG Oral Capsule Ampicillin 500 MG 06/20/2020 12:00:00 AM EDT suspended Ampicillin 500 MG eC W1 ([facility]) Administration Of Flu Vaccine 06/16/2020 12:00:00 AM EDT completed [facility] ([facility] Medication administered onsite Levetiracetam 500 MG Oral Tablet Levetiracetam 05/16/2020 12:00:00 AM EDT ORAL active MEDENT ([facility]) Aspirin 325 MG Oral Tablet Aspirin Adult 03/24/2020 12:00:00 AM EDT active MEDENT ([facility]) Levetiracetam 750 MG Oral Tablet Levetiracetam 03/24/2020 12:00:00 AM EDT ORAL completed [facility] ([facility]) atorvastatin 40 MG Oral Tablet Atorvastatin Calcium 03/16/2020 1 2:00:00 AM EDT ORAL active MED[facility] ( [facility]) Levetiracetam 1000 MG Oral Tablet Levetiracetam 03/16/2020 12:00:00 A M EDT ORAL completed MEDENT ([facility]) Insurance Providers Payer name Policy type / Coverage type Policy ID Covered green party ID Covered green party's relationship to ellington Policy [place] Plan Information [place] [address] [id number] SP [id number] MEDICARE [id number] SP [id number] FOR LIFE [id number] SP [id number] [place] [address]69 [id number] SP [id number] [place] 40169 [id number] SP [id number] MEDICARE C [id number] S [id number] EXCELLUS BCBS B [id number] S XXP [id number] FOR LIFE O [id number] S [id number] ANSI-Commercial [id number] ANSI-Medicare Part B [id number] ANSI-Commercial [id number] WPS For Life Medigap Part B [id number] Family Depende nt [id number] BS [place] Trad/[place] Medigap Part B [id number] Self [id number] Medicare Natl Govt Servic Medicare Primary [id number] Self [id number] [place] [address]69 [id number] SP [id number] MEDICARE [id number] SP [id number] A [place] Phy Serv (TFL) Medigap Part B [id number] Self [id number] [facility] Federal Service Medigap Part B [id number] Family De pendent [id number] BS [place] Medigap Part B [id number] Self [id number] [place] Primary [id number] Self [id number] BS [place] Medigap Part B [id number] Self [id number] ANSI-Medicare Part B [id number] ANSI-Commercial [id number] ANSI-Commercial [id number] FOR LIFE [id number] [facility] [id number] BCBS [facility] 200/700 [id number] SP [id number] [place] P[place] 302/307 [id number] SP [id number] FOR LIFE [id number] SP [id number] [place] P[place] 302/307 [id number] SP [id number] [place] Phy Serv (TFL) Medigap Part B [id number] Self [id number] [facility] Federal Service Medigap Part B [id number] Family De pendent [id number] BS [place] Medigap Part B [id number] Self [id number] Medicare [place] Medicare Primary [id number] Self [id number] [place] [facility] (TFL) Medigap Part B [id number] Self [id number] [facility] Service Medigap Part B [id number] Family De pendent [id number] BS [place] Medigap Part B [id number] Self [id number] Medicare [place] Medicare Primary [id number] Self [id number] WPS For Life Medigap Part B [id number] Family Depende nt [id number] BS [place] Trad/[place] Commercial [id number] Self [id number] Medicare [facility] Govt Servic Medicare Primary [id number] Self [id number] [facility] Serv (TFL) Medigap Part B [id number] Self [id number] [facility] Federal [facility] Medigap Part B [id number] Family De pendent [id number] [facility] Medigap Part B [id number] Self [id number] [place] Medicare Primary [id number] Self [id number] WPS For Life Medigap Part B [id number] Family Depende nt [id number] BS [place] Trad/[place] Commercial [id number] Self [id number] Medicare Natl Govt Servic Medicare Primary [id number] Self [id number] For Life WPS Medigap Part B [id number] Family Depende nt [id number] BCBS/Blue Card Medigap Part B [id number] Self [id number] Medicare Natl Gov't Servi Medicare Primary [id number] Self [id number] MEDICARE C [id number] S [id number] A [place] 200/700 [id number] SP [id number] FOR LIFE [id number] SP [id number] MEDICARE [id number] SP [id number] A [place] 200/700 [id number] SP [id number] WPS For Life Medigap Part B [id number] Family Depende nt [id number] BS [place] Trad/[place] Commercial [id number] Self [id number] Medicare Natl Govt Servic Medicare Primary [id number] Self [id number] BLUE CROSS BLUE SHIELD-O/P [id number] 18 [id number] MEDICARE -O/P [id number] 18 [id number] EXCELLUS BCBS B [id number] S XXP [id number] [place] 200/700 [id number] SP [id number] FOR LIFE [id number] SP [id number] WPS For Life Medigap Part B Excellus BCBS Medigap Part B Self Medicare [place]/NGS Medicare Primary Self WPS For Life Medigap Part B Family Depende nt BS [place] Trad/[place] Commercial 200 Self 200 Medicare Natl Govt Servic Medicare Primary Self [place] 306/806 [id number] SP [id number] MEDICARE [id number] SP [id number] A For Life Medigap Part B Family Dependent BC/BS Of [place] Medigap Part B Self Medicare [facility] Medicare Primary Self [id number] A Problems, Conditions, and Diagnoses Code Display Name Description Problem Type Effective Dates Data Source(s) N32.1 Colovesical fistula Colovesical fistula Problem 0 09/21/2020 12:00:00 AM EST eCW1 ([facility]) R31.29 [id number] Other microscopic hematuria Problem 09/21/19 12:00:00 AM EST eCW1 ([facility]) N30.91 [id number] Hematuria due to cystitis Problem 09/21/2020 12:00:00 AM EST eCW1 ([facility]) N32.89 [id number] Bladder spasms Problem 08/19/2020 12:00:00 A EST eCW1 ([facility]) [id number] Dementia Dementia Problem 03/24/2020 12:00:00 AM ED T MEDENT ([facility] ) [id number] Intracranial meningioma Intracranial meningioma Proble m 03/24/2020 12:00:00 AM EDT MEDENT ([facility] ) [id number] Transient cerebral ischemia Transient cerebral ischemi a Problem 03/24/2020 12:00:00 AM EDT MEDENT ([facility] ) [id number] Seizure Seizure Problem 03/24/2020 12:00:00 AM ED T MEDENT ([facility] ) Surgeries/Procedures Procedure Description Date Indications Data Source(s) MRI Brain W/O Contrast, Followed By Contrast 0 12:00:00 AM EDT MEDENT ([facility] ) MRI Brain W/O Contrast, Followed By Contrast 0 12:00:00 AM EDT MEDENT ([facility] ) ECG ROUTINE ECG W/LEAST 12 LDS W/I&R 06/16/2020 12:00: 00 AM EDT MEDENT ([facility]) TSTG ANS FUNCJ CARDIOVAGAL INNERVAJ PARASYMP 0 12:00:00 AM EDT MEDENT ([facility] ) TSTG ANS FUNCJ CARDIOVAGAL INNERVAJ PARASYMP 0 12:00:00 AM EDT MEDENT ([facility] ) TESTING AUTONOMIC NERVOUS SYSTEM FUNCTION 05/25/2020 1 2:00:00 AM EDT MEDENT ([facility] ) TESTING AUTONOMIC NERVOUS SYSTEM FUNCTION 05/25/2020 1 2:00:00 AM EDT MEDENT ([facility] ) ELECTROENCEPHALOGRAM W/REC AWAKE&ASLEEP 04/13/2020 12: 00:00 AM EDT MEDENT ([facility] ) ELECTROENCEPHALOGRAM W/REC AWAKE&ASLEEP 04/13/2020 12: 00:00 AM EDT MEDENT ([facility] ) Results ID Date Data Source [id number] 10/29/2020 07:21:00 PM EST [facility] Name Value Range Interpretation Code Description Data Payton rce(s) Supporting Document(s) SARS coronavirus 2 RNA [Presence] in Res piratory specimen by ELIZABETH with probe detection NEGATIVE [facility] This lab was ordered by [facility] a nd reported by [facility]. ID Date Data Source Basic Metabolic Profile (BMP) 08/25/2020 12:00:00 AM EST eCW 1 ([facility]) Name Value Range Interpretation Code Description Data Payton rce(s) Supporting Document(s) 0.95 0.55-1.30 CREATININE FOR GFR eCW1 ([facility]) 99 70-100 GLUCOSE, FASTING eCW1 ([facility]) 10 7-18 BLOOD UREA NITROGEN eCW1 ([facility]) 133 136-145 SODIUM LEVEL eCW1 ([facility]) 4.5 3.5-5.1 POTASSIUM SERUM eCW1 ([facility]) 101 98-107 CHLORIDE LEVEL eCW1 ([facility]) > 60.0 >32 GLOMERULAR FILTRATION RATE eCW 1 ([facility]) 25 21-32 CARBON DIOXIDE LEVEL eCW1 ([facility]) 8.7 8.8-10.2 CALCIUM LEVEL eCW1 ([facility]) ID Date Data Source URINE CULTURE 08/19/2020 12:00:00 AM EST eCW1 ([facility]) Name Value Range Interpretation Code Description Data Payton rce(s) Supporting Document(s) URINE CULTURE eCW1 ([facility]) ID Date Data Source MICROSCOPIC, URINE (Non-Orderable) 08/08/2020 12:00:00 AM ES T eCW1 ([facility]) Name Value Range Interpretation Code Description Data Payton rce(s) Supporting Document(s) 30-40 0-3 WBC, URINE eCW1 ([facility]) MOD AMOUNT NONE TRIPLE PHOSPHATE CRYSTAL, URINE eCW1 ([facility]) SMALL AMOUNT SMALL AMT SQUAMOUS EPITHELIAL COSMO L URINE eCW1 ([facility]) LARGE AMOUNT NONE BACTERIA, URINE eCW1 ([facility]) 20-30 0-3 RBC, URINE eCW1 ([facility]) NONE SEEN 0-1 HYALINE CAST, URINE eCW1 ([facility]) UNSPUN MICROSCOPIC EXAM eCW1 ([facility]) ID Date Data Source 'LAB ONLY' UA URINALYSIS MANUAL (Not Orderable) 08/08/2020 1 2:00:00 AM EST eCW1 ([facility]) Name Value Range Interpretation Code Description Data Payton rce(s) Supporting Document(s) 'LAB ONLY' UA URINALYSIS MANUAL (Not Orderable) eCW1 ([facility]) ID Date Data Source [id number] 06/16/2020 11:20:00 AM EDT GILLIAN ([facility]) Name Value Range Interpretation Code Description Data Payton rce(s) Supporting Document(s) Thyrotropin [Units/volume] in Serum or Plasma by Detec tion limit <= 0.05 mIU/L 1.32 uIU/mL 0.36-3.74 GILLIAN ([facility] ) ID Date Data Source [id number] 06/16/2020 11:20:00 AM EDT MEDENT ([facility]) Name Value Range Interpretation Code Description Data Payton rce(s) Supporting Document(s) Cholesterol in HDL [Mass/volume] in Serum or Plasma 58 mg/dL 35-60 MEDENT ([facility]) Cholesterol [Mass/volume] in Serum or Plasma 117 mg/dL 131-200 MED[facility] ([facility]) Triglyceride [Mass/volume] in Serum or Plasma 69 mg/dL 30-150 MED[facility] ([facility]) Cholesterol in LDL [Mass/volume] in Serum or Plasma by calcu lation 45 CALC 50-159 MEDENT ([facility]) ID Date Data Source [id number] 06/16/2020 11:20:00 AM EDT MEDENT ([facility]) Name Value Range Interpretation Code Description Data Payton rce(s) Supporting Document(s) Urea nitrogen [Mass/volume] in Serum or Plasma 10 mg/dL 7-18 MEDENT ([facility]) Glucose [Mass/volume] in Serum or Plasma 132 mg/dL 74-99 MEDENT ([facility]) 100-125 mg/dL PRE-DIABETES/FASTING >126 mg/dL DIABETES/FASTING Sodium [Moles/volume] in Serum or Plasma 138 meq/L 136-145 MEDENT ([facility]) Creatinine 0.8 mg/dL 0.6-1.3 [facility] Potassium [Moles/volume] in Serum or Plasma 3.6 meq/L 3.5-5.1 MED[facility] ([facility]) Chloride [Moles/volume] in Serum or Plasma 102 meq/L 98-107 MED[facility] ([facility]) Carbon dioxide, total [Moles/volume] in Serum or Plasma 27 meq/L 21 -32 MED[facility] ([facility]) Calcium [Mass/volume] in Serum or Plasma 8.8 mg/dL 8.5-10.1 [facility] ([facility]) Aspartate aminotransferase [Enzymatic activity/volume] in Serum or Plasma 14 U/L 15-37 MED[facility] ([facility] ) Alkaline phosphatase isoenzyme [Units/volume] in Serum or Pl asma 86 mg/dL 46-116 [facility] ([facility]) Alanine aminotransferase [Enzymatic activity/volume] in Seru m or Plasma 19 U/L 12-78 [facility] ([facility]) Total Bilirubin 0.4 mg/dL 0.2-1.0 [facility] ([facility]) A/G Ratio 0.94 CALC 1.00-1.90 [facility]) Proteinase 3 Ab [Units/volume] in Serum 6.8 g/dL 6.4-8.2 [facility] ([facility]) Albumin [Mass/volume] in Serum or Plasma 3.3 g/dL 3.4-5.0 [facility] ([facility]) Glomerular filtration rate/1.73 sq M pre dicted among non-blacks [Volume Rate/Area] in Serum or Plasma by Creatinine-based formula (MDRD) Laboratory test result [facility] Glomerular filtration rate/1.73 sq M pre dicted among blacks [Volume Rate/Area] in Serum or Plasma by Creatinine-based formula (MDRD) Laboratory test result [facility] ([facility]) <content>CHRONIC KIDNEY DISEASE STAGING PER NKF</content>
<content></content>
<content>STAGE I & II GFR >= 60 NORMAL TO MILDLY DECREASED</content>
<content>STAGE III GFR 30-59 MODERATELY DECREASED</content>
<content>STAGE IV GFR 15-29 SEVERELY DECREASED</content>
<content>STAGE V GFR <15 VERY LITTLE GFR LEFT</content>
<content>ESRD GFR <15 ON PROGRAM SUPPORT CLERK</content>
<content></content> ID Date Data Source [id number] 06/16/2020 11:20:00 AM EDT [facility] ([facility]) Name Value Range Interpretation Code Description Data Payton rce(s) Supporting Document(s) Leukocytes [#/volume] in Blood by Automated count 10.5 x10*3/UL 4.1-1 0.9 [facility] ([facility]) NOTE: RESULT VERIFIED. Hematocrit [Volume Fraction] of Blood by Automated count 34.3 % 3 7.0-51.0 [facility] Erythrocytes [#/volume] in Blood by Automated count 4.20 x10*6/UL 4.2 0-6.30 [facility] ([facility] Hemoglobin [Mass/volume] in Blood 12.0 g/dL 12.0-18.0 [facility] ([facility]) MCHC 35.0 g/dL 31.0-38.0 [facility] [facility] MCV 80.8 fL 80.0-97.0 [facility] ([place] [facility]) MCH 28.3 pg 26.0-32.0 [facility] ([place] [facility]) Erythrocyte distribution width [Ratio] by Automated count 12.7 % 11.6-13.7 [facility] Platelets [#/volume] in Blood by Automated count 365 x10*3/UL 140-440 [facility] ([facility]) MPV 7.2 FL 7.8-11.0 [facility] ([place] [facility]) Neut % 57.5 % 37.0-92.0 [facility] ([place] [facility]) Lymph % 34.4 % 10.0-58.5 [facility] ([place] [facility]) Mid % 8.1 % 1.7-9.3 [facility] ([place] [facility]) Mid # 0.9 x10*3/UL 0.1-0.6 [facility] ([facility]) Neut # 6.0 x10*3/UL 2.0-7.8 [facility] ([facility]) Lymph # 3.6 x10*3/UL 0.6-4.1 [facility] ([facility]) ID Date Data Source [id number] 05/08/2020 09:00:00 AM EDT MED[facility] ([facility]) Name Value Range Interpretation Code Description Data Payton rce(s) Supporting Document(s) Urine Culture Laboratory test result [facility] ([facility]) <content>FULL REPORT IN LAB NOTES (eCW [...] FOR ESBL</content>
<content></content> ID Date Data Source [id number] 05/08/2020 09:00:00 AM EDT MED[facility] Name Value Range Interpretation Code Description Data Payton rce(s) Supporting Document(s) Appearance, Urine Laboratory test result [facility] ([facility]) Color, Urine Laboratory test result MEDE NT ([facility]) PH,Urine 5.0 units 5.0-9.0 [facility]) Specific [place] Urine Auto 1.017 1.002-1.035 [facility] Protein, Urine Auto Laboratory test result [facility] Urobilinogen, Urine Auto 2.0 mg/dL 0.0-2.0 MEDEN T ([facility]) Glucose, Urine (Ua) Auto Laboratory test result [facility] ([facility]) Ketone, Urine Auto Laboratory test result [facility] ([facility]) Nitrite, Urine Auto Laboratory test result [facility] Bilirubin, Urine Auto Laboratory test result [facility] Leukocyte Esterase, Urine Auto Laboratory test result [facility] WBC, Urine Auto 125 /HPF 0-3 MED[facility] ([facility] Blood, Urine Blood Laboratory test result MEDENT ([facility]) Bacteria, Urine Auto Laboratory test result MEDENT ([facility]) RBC, Urine Auto 4 /HPF 0-3 [facility] Hyaline Cast, Urine Auto 0 /LPF 0-1 MEDEN T ([facility] Mucus, Urine Laboratory test result MEDE NT ([facility] Squamous Epithelial Cell Ur AU 4 /HPF 0-6 [facility] Uric Acid Crystals Laboratory test result MEDENT ([facility]) ID Date Data Source [id number] 05/06/2020 10:40:00 PM EDT MEDENT ([facility]) Name Value Range Interpretation Code Description Data Payton rce(s) Supporting Document(s) Respiratory Panel Laboratory test result [facility] ([facility]) This respiratory PCR panel detects [...] - SARS-CoV-2 (COVID19) ID Date Data Source [id number] 05/06/2020 07:46:00 PM EDT [facility]) Name Value Range Interpretation Code Description Data Payton rce(s) Supporting Document(s) Blood Culture Laboratory test result MED E[facility] ([facility]) No growth after 72 hours . All specimens observed for 5 days. Results final at that time. No growth after 48 hours . All specimens observed for 5 days. Results final at that time. No growth after 24 hours . All specimens observed for 5 days. Results final at that time. NO GROWTH AFTER 5 DAYS ID Date Data Source [id number] 05/06/2020 07:33:00 PM EDT [facility] ([facility]) Name Value Range Interpretation Code Description Data Payton rce(s) Supporting Document(s) Blood Culture Laboratory test result [facility] No growth after 72 hours . All specimens observed for 5 days. Results final at that time. No growth after 48 hours . All specimens observed for 5 days. Results final at that time. No growth after 24 hours . All specimens observed for 5 days. Results final at that time. NO GROWTH AFTER 5 DAYS ID Date Data Source [id number] 05/06/2020 07:33:00 PM EDT MEDENT [facility] Name Value Range Interpretation Code Description Data Payton rce(s) Supporting Document(s) Thyrotropin [Units/volume] in Serum or Plasma by Detec tion limit <= 0.05 mIU/L 0.683 uIU/ML 0.358-3.740 [facility] [facility] ID Date Data Source [id number] 05/06/2020 07:33:00 PM EDT [facility] Name Value Range Interpretation Code Description Data Payton rce(s) Supporting Document(s) Glomerular Filtration Rate Laboratory test result [facility] ([facility]) <content>Units are mL/min/1.73 m2</content>
<content></content>
<content>Chronic Kidney Disease Staging per NKF:</content>
<content></content>
<content>Stage I & II GFR >=60 Normal to Mildly Decreased</content>
<content>Stage III GFR 30- 59 Moderately Decreased</content>
<content>Stage IV GFR 15-29 Severely Decreased</content>
<content>Stage V GFR <15 Very Little GFR Left</content>
<content>ESRD GFR <15 on PROGRAM SUPPORT CLERK</content>
<content></content> Creatinine For GFR 0.74 mg/dL 0.55-1.30 MEDENT ([facility]) Glucose, Fasting 117 mg/dL 70-100 [facility] ([facility]) Blood Urea Nitrogen 11 mg/dL 7-18 [facility] ([facility] Sodium Level 135 meq/L 136-145 [facility] ([facility]) Chloride Level 103 meq/L 98-107 [facility] ([facility]) Potassium Serum 3.6 meq/L 3.5-5.1 MED[facility] ([facility]) Carbon Dioxide Level 25 meq/L 21-32 MED[facility] ([facility]) Anion Gap 7 meq/L 8-16 MED[facility] ([facility]) Calcium Level 8.6 mg/dL 8.8-10.2 MED[facility] ([facility]) ID Date Data Source [id number] 05/06/2020 07:33:00 PM EDT MEDENT ([facility]) Name Value Range Interpretation Code Description Data Payton rce(s) Supporting Document(s) Alkaline Phosphatase 94 U/L 45-117 MED[facility] ([facility]) Ast/Sgot 15 U/L 7-37 MED[facility] ([facility]) Alt/SGPT 17 U/L 12-78 MED[facility] ([facility]) Bilirubin,Direct 0.1 mg/dL 0.0-0.2 [facility] ([facility]) Albumin 3.3 GM/DL 3.2-5.2 MED[facility] ([facility]) Total Protein 6.4 GM/DL 6.4-8.2 MED[facility] ([facility]) Bilirubin,Total 0.5 mg/dL 0.2-1.0 MED[facility] ([facility]) Albumin/Globulin Ratio 1.1 1.2-2.2 [facility] ([facility]) ID Date Data Source [id number] 05/06/2020 07:33:00 PM EDT MED[facility] ([facility]) Name Value Range Interpretation Code Description Data Payton rce(s) Supporting Document(s) CPK Creatine Phosphokinase 54 U/L 26-192 [facility] ([facility]) MB/CK Relative Index 1.85 [facility] ([facility]) <content>DIAGNOSIS CRITERIA</content>
<content>MMB ng/ml Relative Index (RI)</content>
<content>NON-AMI < or = 5 N/A</content>
<content>AGUILAR ZONE > 5 < or = 4</content>
<content>AMI > 5 > 4</content>
<content></content> CK-MB Value Mass Laboratory test result [facility] ([facility]) Troponin I Laboratory test result [facility] ([facility]) <content>Troponin I Reference Interval f or Siemens [place] LOCI:</content>
<content></content>
<content>99th Percentile= 0.00-0.045 ng/ml</content>
<content></content>
<content>Risk Stratification:</content>
<content><= 0.10 ng/ml Decreased Risk for Adverse Clinical</content>
<content>Events.</content>
<content>0.10-1.50 ng/ml Increased Risk for Adverse Clinical</content>
<content>Events. Evaluation of additional</content>
<content>criterion and/or repeat testing in 2-6</content>
<content>hours is suggested to rule out myocardial</content>
<content>damage.</content>
<content>>= 1.50 ng/ml Indicative of Myocardial Injury.</content>
<content></content> ID Date Data Source [id number] 05/06/2020 07:33:00 PM EDT [facility] Name Value Range Interpretation Code Description Data Payton rce(s) Supporting Document(s) Levetiracetam [Mass/volume] in Serum or Plasma 20.2 ug/mL 10.0-40.0 [facility] [facility] [facility]) This test was developed and its performa nce characteristics determined by [facility]. It has not been cleared or approved by the Food and Drug Administration. Performed at: [address], [place], [place] [id number] 61 Appeals Examiner: Willard Sharma MD, Phone: [phone] Lactate [Mass/volume] in Serum or Plasma 1.2 mmol/L 0.4-2.0 [facility] ([facility] Y/N query for Sepsis Lactate Rule: Y ID Date Data Source [id number] 05/06/2020 07:33:00 PM EDT [facility] ([facility]) Name Value Range Interpretation Code Description Data [place] rce(s) Supporting Document(s) Red Blood Count 4.11 10 4.00-5.40 [facility] ([facility]) White Blood Count 12.7 10 4.0-10.0 [facility] ([facility]) Hemoglobin 11.8 g/dL 12.0-15.5 [facility] ([facility] Mean Corpuscular Volume 86.9 fl 80.0-96.0 [facility] ([facility]) Hematocrit 35.7 % 36.0-47.0 [facility] ([facility]) Mean Corpuscular Hemoglobin 28.7 pg 27.0-33.0 ME DENT ([facility]) Mean Corpuscular HGB Conc 33.1 g/dL 32.0-36.5 MEDE NT ([facility]) Red Cell Distribution Width 12.6 % 11.5-14.5 ME DENT ([facility]) Platelet Count, Automated 235 10 150-450 MEDE NT ([facility]) Lymph % 12.5 % 24.0-44.0 [facility] ([facility]) Neutrophils % 79.2 % 36.0-66.0 [facility] ([facility]) [place] % 7.6 % 0.0-5.0 [facility] ([place] [facility]) Eos % 0.1 % 0.0-3.0 [facility]) Baso % 0.2 % 0.0-1.0 [facility] Nucleated Red Blood Cell % 0.0 % 0-0 MED ENT ([facility]) Immature Granulocyte % 0.4 % 0-3.0 [facility] ([facility]) [place] # 1.0 10 0.0-0.8 [facility] ([facility] [facility]) Lymph # 1.6 10 1.5-5.0 [facility] ([place] [facility]) Neutrophils # 10.1 10 1.5-8.5 [facility] ([facility]) Eos # 0.0 10 0.0-0.5 [facility] ([place] [facility]) Baso # 0.0 10 0.0-0.2 [facility] ([place] [facility]) Procedure Social History Code Duration Value Status Description Data Source(s ) Smoking 10/29/2020 12:00:00 AM EST Patient is a former smoker completed Patient is a former smoker [facility] ([facility]) Vital Signs ID Date Data Source UNK Name Value Range Interpretation Code Description Data Source(s) Body mass index (BMI) [Ratio] 21.1 kg/m2 21.1 k g/m2 [facility] ([facility], [facility]) Body height 69 [in_i] 69 [in_i] MED[facility] ([facility]) 5'9" Body weight 143.00 [lb_av] 143.00 [lb_av] MEDEN T ([facility]) Body temperature 97.7 [degF] 97.7 [degF] [facility] ([facility]) Oxygen saturation in Arterial blood by Pulse oximetry 98 % 98 % [facility]) Respiratory rate 14 /min 14 /min [facility] ( [facility]) Heart rate 98 /min 98 /min [facility] ([facility], [facility]) Diastolic blood pressure 75 mm[Hg] 75 mm[Hg] [facility] ([facility]) Systolic blood pressure 146 mm[Hg] 146 mm[Hg] EDENT ([facility], [facility]) [place] body weight 145 [lb_av] 145 [lb_av] MEDEN T ([facility], ) Body mass index (BMI) [Ratio] 22.0 kg/m2 22.0 k g/m2 MED[facility] ([facility]) Body weight 149.00 [lb_av] 149.00 [lb_av] MEDEN T ([facility], ) Body height 69 [in_i] 69 [in_i] MED[facility] ([facility], ) 5'9" Respiratory rate 12 /min 12 /min [facility] ( [facility]) Diastolic blood pressure 68 mm[Hg] 68 mm[Hg] eCW1 ([facility]) Systolic blood pressure 122 mm[Hg] 122 mm[Hg] e CW1 ([facility]) Body temperature 98.5 [degF] 98.5 [degF] eCW1 ( [facility]) Respiratory rate 18 /min 18 /min eCW1 ([facility]) Heart rate 85 /min 85 /min eCW1 ([facility]) Body mass index (BMI) [Ratio] 22.53 kg/m2 22.53 kg/m2 eCW1 ([facility]) Body height 67.5 [in_i] 67.5 [in_i] eCW1 ([facility]) Body weight 146 [lb_av] 146 [lb_av] eCW1 ([facility]) Diastolic blood pressure 74 mm[Hg] 74 mm[Hg] eCW1 ([facility]) Systolic blood pressure 128 mm[Hg] 128 mm[Hg] e CW1 ([facility]) Body temperature 97.4 [degF] 97.4 [degF] eCW1 ( [facility]) Respiratory rate 18 /min 18 /min eCW1 ([facility]) Heart rate 84 /min 84 /min eCW1 ([facility]) Body mass index (BMI) [Ratio] 22.56 kg/m2 22.56 kg/m2 eCW1 ([facility]) Body height 67.5 [in_i] 67.5 [in_i] eCW1 ([facility]) Body weight 146.2 [lb_av] 146.2 [lb_av] eCW1 ([facility]) Diastolic blood pressure 84 mm[Hg] 84 mm[Hg] eCW1 ([facility]) Systolic blood pressure 121 mm[Hg] 121 mm[Hg] e CW1 ([facility]) Body mass index (BMI) [Ratio] 23.92 kg/m2 23.92 kg/m2 eCW1 ([facility]) Body height 67.5 [in_i] 67.5 [in_i] eCW1 ([facility]) Body weight 70.31 kg 70.31 kg eCW1 ([facility]) Body weight 155 [lb_av] 155 [lb_av] eCW1 ([facility]) Diastolic blood pressure 67 mm[Hg] 67 mm[Hg] eCW1 ([facility]) Systolic blood pressure 102 mm[Hg] 102 mm[Hg] e CW1 ([facility]) Body mass index (BMI) [Ratio] 24.07 kg/m2 24.07 kg/m2 W1 ([facility]) Body height 67.5 [in_i] 67.5 [in_i] eCW1 ([facility]) Body weight 70.76 kg 70.76 kg eCW1 ([facility]) Body weight 156 [lb_av] 156 [lb_av] eCW1 ([facility]) Diastolic blood pressure 68 mm[Hg] 68 mm[Hg] eCW1 ([facility]) Systolic blood pressure 146 mm[Hg] 146 mm[Hg] e CW1 ([facility]) Body mass index (BMI) [Ratio] 24.07 kg/m2 24.07 kg/m2 W1 ([facility]) Body height 67.5 [in_i] 67.5 [in_i] eCW1 ([facility]) Body weight 70.76 kg 70.76 kg eCW1 ([facility]) Body weight 156 [lb_av] 156 [lb_av] eCW1 ([facility]) Body mass index (BMI) [Ratio] 22.5 kg/m2 22.5 k g/m2 [facility] ([facility]) Body weight 148.25 [lb_av] 148.25 [lb_av] MEDEN T ([facility]) Body height 68 [in_i] 68 [in_i] [facility] ([facility]) 5'8" Diastolic blood pressure 70 mm[Hg] 70 mm[Hg] [facility] ([facility]) Systolic blood pressure 130 mm[Hg] 130 mm[Hg] [facility] [place] body weight 145 [lb_av] 145 [lb_av] MEDEN T ([facility]) Body mass index (BMI) [Ratio] 22.7 kg/m2 22.7 k g/m2 MED[facility] ([facility]) Body weight 154.00 [lb_av] 154.00 [lb_av] MEDEN T ([facility]) Body height 69 [in_i] 69 [in_i] MED[facility] ([facility]) 5'9" Respiratory rate 12 /min 12 /min [facility] ( [facility]) [place] body weight 145 [lb_av] 145 [lb_av] MEDEN T ([facility]) Body mass index (BMI) [Ratio] 22.7 kg/m2 22.7 k g/m2 MED[facility] ([facility]) Body weight 154.00 [lb_av] 154.00 [lb_av] MEDEN T ([facility]) Body height 69 [in_i] 69 [in_i] MED[facility] ([facility]) 5'9" Respiratory rate 12 /min 12 /min MED[facility] ( [facility]) Body mass index (BMI) [Ratio] 23.3 kg/m2 23.3 k g/m2 [facility] ([facility]) Body weight 153.00 [lb_av] 153.00 [lb_av] MEDEN T ([facility]) Body height 68 [in_i] 68 [in_i] [facility] ([facility]) 5'8" Heart rate 68 /min 68 /min [facility] Diastolic blood pressure 58 mm[Hg] 58 mm[Hg] [facility]) Systolic blood pressure 102 mm[Hg] 102 mm[Hg] [facility] ([facility]) Patient Treatment Plan of Care Planned Activity Planned Date Details Description Data Source (s) Sulfamethoxazole 800 MG / Trimethoprim 160 MG Oral Tab let [Bactrim] 10/22/2020 12:00:00 AM EST eCW1 ([facility]) Phenazopyridine hydrochloride 100 MG Oral Tablet [Pyri dium] 10/22/2020 12:00:00 AM EST eCW1 ([facility]) Sulfamethoxazole 800 MG / Trimethoprim 160 MG Oral Tab let [Bactrim] 10/22/2020 12:00:00 AM EST eCW1 ([facility]) Phenazopyridine hydrochloride 100 MG Oral Tablet [Pyri dium] 10/22/2020 12:00:00 AM EST eCW1 ([facility]) Minocycline 50 MG Oral Capsule 09/21/2020 12:00:00 AM EST eCW1 ([facility]) Minocycline 50 MG Oral Capsule 09/21/2020 12:00:00 AM EST eCW1 ([facility]) Minocycline 50 MG Oral Capsule 09/21/2020 12:00:00 AM EST eCW1 ([facility]) Minocycline 50 MG Oral Capsule 09/21/2020 12:00:00 AM EST eCW1 ([facility]) Sulfamethoxazole 800 MG / Trimethoprim 160 MG Oral Tab let [Bactrim] 08/25/2020 12:00:00 AM EST eCW1 ([facility]) Sulfamethoxazole 800 MG / Trimethoprim 160 MG Oral Tab let [Bactrim] 08/25/2020 12:00:00 AM EST eCW1 ([facility]) Sulfamethoxazole 800 MG / Trimethoprim 160 MG Oral Tab let [Bactrim] 08/25/2020 12:00:00 AM EST eCW1 ([facility]) Fosfomycin 33.3 MG/ML Oral Suspension [Monurol] 08/19/2020 12:00:00 AM EST eCW1 ([facility]) Fosfomycin 33.3 MG/ML Oral Suspension [Monurol] 08/19/2020 12:00:00 AM EST eCW1 ([facility]) Fosfomycin 33.3 MG/ML Oral Suspension [Monurol] 08/19/2020 12:00:00 AM EST eCW1 ([facility]) Phenazopyridine hydrochloride 200 MG Oral Tablet [Pyri dium] 08/16/2020 12:00:00 AM EST eCW1 ([facility]) Phenazopyridine hydrochloride 200 MG Oral Tablet [Pyri dium] 08/16/2020 12:00:00 AM EST eCW1 ([facility]) Phenazopyridine hydrochloride 200 MG Oral Tablet [Pyri dium] 08/16/2020 12:00:00 AM EST eCW1 ([facility]) NITROFURANTOIN, MACROCRYSTALS 25 MG / Ni trofurantoin, Monohydrate 75 MG Oral Capsule [Macrobid] 08/08/2020 12:00:00 AM EST eC W1 ([facility]) NITROFURANTOIN, MACROCRYSTALS 25 MG / Ni trofurantoin, Monohydrate 75 MG Oral Capsule [Macrobid] 08/08/2020 12:00:00 AM EST eC W1 ([facility]) NITROFURANTOIN, MACROCRYSTALS 25 MG / Ni trofurantoin, Monohydrate 75 MG Oral Capsule [Macrobid] 08/08/2020 12:00:00 AM EST eC W1 ([facility]) Ciprofloxacin 500 MG Oral Tablet [Cipro] 07/17/2020 12:00:00 AM EDT eCW1 ([facility]) Ciprofloxacin 500 MG Oral Tablet [Cipro] 07/17/2020 12:00:00 AM EDT eCW1 ([facility]) NITROFURANTOIN, MACROCRYSTALS 100 MG Oral Capsule 07/07/2020 12: 00:00 AM EDT eCW1 ([facility]) NITROFURANTOIN, MACROCRYSTALS 100 MG Oral Capsule 07/07/2020 12: 00:00 AM EDT eCW1 ([facility]) NITROFURANTOIN, MACROCRYSTALS 100 MG Oral Capsule 07/07/2020 12: 00:00 AM EDT eCW1 ([facility]) NITROFURANTOIN, MACROCRYSTALS 100 MG Oral Capsule 07/07/2020 12: 00:00 AM EDT eCW1 ([facility]) Ampicillin 500 MG Oral Capsule 06/20/2020 12:00:00 AM EDT eCW1 ([facility])
[2020-11-08] MEDS ORDERED: PHENAZOPYRIDINE 100 MG TAB PO ONE (19:45)
[2020-11-08 20:15] LABS: BASO # 0.1 10^3/uL (0.0-0.2); BASO % 0.4 % (0.0-1.0); EOS # 0.1 10^3/uL (0.0-0.5); EOS % 0.6 % (0.0-3.0); HEMATOCRIT 37.5 % (36.0-47.0); HEMOGLOBIN 12.2 g/dl (12.0-15.5); LYMPH # 3.7 10^3/uL (1.5-5.0); LYMPH % 22.5 % (24.0-44.0); MEAN CORPUSCULAR HEMOGLOBIN 28.4 pg (27.0-33.0); MEAN CORPUSCULAR HGB CONC 32.5 g/dl (32.0-36.5); MEAN CORPUSCULAR VOLUME 87.2 fl (80.0-96.0); MONO # 1.5 10^3/uL (0.0-0.8); NEUTROPHILS # 10.9 10^3/uL (1.5-8.5); NEUTROPHILS % 67.1 % (36.0-66.0); PLATELET COUNT, AUTOMATED 336 10^3/uL (150-450)
[2020-11-08 20:20] LABS: WHITE BLOOD COUNT 16.3 10^3/uL (4.0-10.0)
[2020-11-08 20:42] LABS: BLOOD UREA NITROGEN 18 MG/DL (7-18); C REACTIVE PROTEIN QUANTITATIV 1.11 MG/DL (0.00-0.30); CARBON DIOXIDE LEVEL 29 MEQ/L (21-32); CHLORIDE LEVEL 99 MEQ/L (98-107); CREATININE FOR GFR 0.73 MG/DL (0.55-1.30); GLOMERULAR FILTRATION RATE > 60.0 (>32); GLUCOSE, FASTING 115 MG/DL (70-100); POTASSIUM SERUM 3.7 MEQ/L (3.5-5.1); SODIUM LEVEL 134 MEQ/L (136-145)
[2020-11-08 20:43] LABS: ERYTHROCYTE SEDIMENTATION RATE 16 mm/hr (0-30)
[2020-11-08] MEDS ORDERED: PYRI1TAB5 PO (21:12)
[2020-11-08] MEDS ORDERED: BACT800T5 PO (21:12)
[2020-11-08] MEDS ORDERED: BACTRIM 160MG/800MG DS TAB PO ONE (21:15)
== END 2020-11-08 21:23 | disposition home or self-care (01) ==
LOC: M ED 17:16
DX: N39.0 Urinary tract infection, site not specified (principal); R30.0 Dysuria; N32.1 Vesicointestinal fistula; I10 Essential (primary) hypertension; E78.5 Hyperlipidemia, unspecified; E03.9 Hypothyroidism, unspecified; Z79.82 Long term (current) use of aspirin; Z79.899 Other long term (current) drug therapy; Z88.5 Allergy status to narcotic agent; Z88.8 Allergy status to other drugs, medicaments and biological substances

== ENCOUNTER → 2020-12-17 | Outpatient (CLI) | payer MEDICARE, BC, OTHER ==
[~2020-12-17] MED LIST changes: +AMOX500T2 PO; +BACT800T5 PO; +CVS1CAP2 PO; -PEG1POW PO; +POLY17PO18 PO; +PRESCAP PO; +PYRI1TAB5 PO
== END ==
LOC: M LABSMTC 09:30
PROVIDERS: ATTEND Anesthesiology
DX: Z20.828 Contact with and (suspected) exposure to other viral communicable diseases (principal); Z11.59 Encounter for screening for other viral diseases

== ENCOUNTER 2020-12-22 06:02 | Inpatient (IN) | payer MEDICARE, BC, OTHER ==
[~2020-12-22] VITALS: Ht 175.3 cm; Wt 66.7 kg
[~2020-12-22 06:02] MED LIST changes: +LIDOCAINE 1% MDV 20ML VIAL SQ PRN
[2020-12-22 06:40] LABS: HEMATOCRIT 40.3 % (36.0-47.0); MEAN CORPUSCULAR HEMOGLOBIN 28.3 pg (27.0-33.0); MEAN CORPUSCULAR HGB CONC 32.3 g/dl (32.0-36.5); MEAN CORPUSCULAR VOLUME 87.6 fl (80.0-96.0); PLATELET COUNT, AUTOMATED 266 10^3/uL (150-450); WHITE BLOOD COUNT 7.8 10^3/uL (4.0-10.0)
[2020-12-22] MEDS ORDERED: SUPRSOL2 PO (06:45)
[2020-12-22] MEDS ORDERED: METR-265 PO (06:45)
[2020-12-22] MEDS ORDERED: NEOM500T PO (06:45)
[2020-12-22] MEDS ORDERED: metroNIDAZOLE 500 MG in IV 1 EA IV ONE (07:00)
[2020-12-22] MEDS ORDERED: HEPARIN SOD (PORCINE) 5000UNITS/ML 1ML VIAL/SYRINGE SQ ONE (07:00)
[2020-12-22] MEDS ORDERED: LR 1,000 ML IV ONE (07:00)
[2020-12-22] MEDS ORDERED: ALVIMOPAN 12 MG CAPSULE (ENTEREG) PO ONE (07:00)
[2020-12-22] MEDS ORDERED: ceFAZolin SOD 2 GM in IV 1 EA IV ONE (07:00)
[2020-12-22 07:05] LABS: BLOOD UREA NITROGEN 13 MG/DL (7-18); CALCIUM LEVEL 9.1 MG/DL (8.8-10.2); CARBON DIOXIDE LEVEL 27 MEQ/L (21-32); CHLORIDE LEVEL 108 MEQ/L (98-107); CREATININE FOR GFR 0.77 MG/DL (0.55-1.30); GLOMERULAR FILTRATION RATE > 60.0 (>32); GLUCOSE, FASTING 115 MG/DL (70-100); POTASSIUM SERUM 3.4 MEQ/L (3.5-5.1); SODIUM LEVEL 141 MEQ/L (136-145)
[2020-12-22] MEDS ORDERED: propofoL 200 MG/20 ML VIAL As Ordered ONE (07:18)
[2020-12-22] MEDS ORDERED: LIDOCAINE 2% 100MG/5ML SDV (FOR ANES.) As Ordered ONE (07:18)
[2020-12-22] MEDS ORDERED: dexameTHASONE 4 MG/ML 1ML VIAL (J1100 PER 1MG) As Ordered ONE (07:19)
[2020-12-22] MEDS ORDERED: ROCURONIUM BROMIDE 50 MG/5 ML VIAL As Ordered ONE ×2 (07:19→09:48)
[2020-12-22] MEDS ORDERED: ACETAMINOPHEN 1000MG 100ML IV BTL (OFIRMEV) (J0131 PER 10MG) As Ordered ONE (07:19)
[2020-12-22] MEDS ORDERED: HYDROmorphone HCL 2 MG/ML 1ML VIAL (J1170) As Ordered ONE (07:19)
[2020-12-22] MEDS ORDERED: ONDANSETRON 4MG/2ML VIAL As Ordered ONE (07:19)
[2020-12-22] MEDS ORDERED: fentaNYL 100 MCG/2 ML INJECTION (J3010) As Ordered ONE (07:19)
[2020-12-22] MEDS ORDERED: KETOROLAC 60MG 2ML VIAL As Ordered ONE (07:19)
[2020-12-22] MEDS ORDERED: SUGAMMADEX SODIUM 500 MG/5 ML VIAL (BRIDION) As Ordered ONE (07:19)
[2020-12-22] MEDS ORDERED: LIDOCAINE 1% SDV 30ML VIAL As Ordered ONE (07:20)
[2020-12-22] MEDS ORDERED: CONRAY-60 60% 50ML VIAL (Q9961) As Ordered ONE (07:20)
[2020-12-22] MEDS ORDERED: MIDAZOLAM INJ 2MG/2ML VIAL (J2250 PER 1MG) As Ordered ONE (07:20)
[2020-12-22] MEDS ORDERED: BUPIVACAINE HCL 0.25% 30ML VIAL As Ordered ONE (07:20)
--- NOTE | 2020-12-22 09:48 | RO ---
OPERATIVE NOTE DATE OF OPERATION: 12/22/2020 PREOPERATIVE DIAGNOSIS: Colovesical fistula. POSTOPERATIVE DIAGNOSIS: Colovesical fistula. PROCEDURE: Cystoscopy, bilateral ureteral catheterization. SURGEON: Francisco Santos MD IN ROOM DINING SERVER: None. ANESTHESIA: General. OPERATIVE INDICATIONS: This is an 80-year-old female who is about to undergo robotic bowel resection for treatment of a colovesical fistula. I was asked by Dr. Skinner from general surgery service to perform cystoscopy, bilateral ureteral catheterization and then to inject in indocyanine green into both ureters to help identify the ureters intraoperatively. DESCRIPTION OF PROCEDURE: The patient was brought to the operating room and general anesthesia was induced. Prophylactic antibiotics were infused. She was placed in the dorsal lithotomy position and prepped and draped in usual sterile fashion. I advanced a rigid cystoscope into the urethral meatus and into the bladder. Of note, once inside the bladder there was a large amount of bowel debris floating around. The majority of this was drained out of the bladder. The bladder did not appear to be significantly inflamed. Both ureteral orifices were orthotopic. At this point the right ureteral orifice was cannulated with a 5-Cameroonian open-ended ureteral catheter and then approximately 1 mL of indocyanine green was injected into the right collecting system. The ureteral catheter was then removed and then was advanced into the left collecting system. Another 1 mL indocyanine green was then injected into the left collecting system. The ureteral catheter was then removed from the left collecting system. At this point the cystoscope was taken out of the bladder and a 20-Cameroonian Arriaza catheter was inserted into the bladder. The balloon was filled with 10 mL of sterile water and the catheter was connected to gravity drainage. This marked the conclusion of my portion of the procedure. The patient was then turned over to Dr. Skinner to perform his surgery. ESTIMATED BLOOD LOSS: 0 mL. COMPLICATIONS: None. SPECIMEN: None. PLAN: Dr. Skinner will utilize the indocyanine green to help identify both ureters. The patient will proceed with her surgery at this point. ARVIND
[2020-12-22] MEDS ORDERED: METHYLENE BLUE 0.5% (5MG/ML) 10 ML AMP (PROVAYBLUE) As Ordered ONE (10:22)
[2020-12-22] MEDS ORDERED: ceFAZolin 2 GM/D5W 50 ML IV BAG (J0690 PER 500MG) As Ordered ONE ×2 (11:30→15:02)
[2020-12-22] MEDS ORDERED: PERCOCET 5MG/325MG TAB PO PRN ×2 (16:10)
[2020-12-22] MEDS ORDERED: ACETAMINOPHEN TAB 650MG DOSE (2X325MG) PO PRN (16:10)
[2020-12-22] MEDS ORDERED: ONDANSETRON 4MG/2ML VIAL IV PRN ×2 (16:10→17:05)
[2020-12-22] MEDS ORDERED: MORPHINE 2 MG/ML 1ML VIAL (J2270) IV PRN (16:10)
[2020-12-22] MEDS ORDERED: LR 1,000 ML IV SCH (17:05)
[2020-12-22] MEDS ORDERED: METOCLOPRAMIDE INJ 10MG/2ML VIAL (J2765 PER 1) IV PRN (17:05)
[2020-12-22] MEDS ORDERED: fentaNYL 100 MCG/2 ML INJECTION (J3010) IV PRN (17:05)
[2020-12-22] MEDS ORDERED: HYDROMORPHONE HCL 0.5 MG/ 0.5 ML SYRINGE (J1170 PER 1) IV PRN (17:05)
[2020-12-22] MEDS ORDERED: oxyCODONE 5MG TAB PO PRN (17:05)
[2020-12-22 18:00] VITALS: BP 144/77
[2020-12-22 18:30] VITALS: BP 150/76
[2020-12-22] MEDS: KETOROLAC 30 MG/ML 1ML VIAL IV SCH (19:06)
[2020-12-22] MEDS: LR 1,000 ML IV SCH (19:06)
[2020-12-22 19:30] VITALS: BP 148/75
[2020-12-22 20:30] VITALS: BP 146/75
[2020-12-22] MEDS: LATANOPROST 0.005% OPHTH SOLN 2.5 ML OU SCH (21:00)
[2020-12-22 21:30] VITALS: BP 140/72
[2020-12-22] MEDS: ATORVASTATIN 20 MG TAB PO SCH (22:01)
[2020-12-22 22:30] VITALS: BP 140/71
[2020-12-23] VITALS (7 sets, daily range): BP systolic 116–141; BP diastolic 30–83
[2020-12-23] MEDS: KETOROLAC 30 MG/ML 1ML VIAL IV SCH ×4 (01:04→18:00)
[2020-12-23] MEDS: LR 1,000 ML IV SCH ×3 (01:05→20:02)
[2020-12-23] MEDS: LEVOTHYROXINE 50MCG TABLET (0.05MG) PO SCH (05:59)
[2020-12-23 06:33] LABS: BASO % 0.1 % (0.0-1.0); HEMATOCRIT 34.5 % (36.0-47.0); LYMPH # 1.7 10^3/uL (1.5-5.0); LYMPH % 17.2 % (24.0-44.0); MEAN CORPUSCULAR HEMOGLOBIN 28.1 pg (27.0-33.0); MEAN CORPUSCULAR HGB CONC 31.9 g/dl (32.0-36.5); MONO % 9.9 % (2.0-8.0); NEUTROPHILS # 7.2 10^3/uL (1.5-8.5); NEUTROPHILS % 72.5 % (36.0-66.0); PLATELET COUNT, AUTOMATED 194 10^3/uL (150-450); RED BLOOD COUNT 3.92 10^6/uL (4.00-5.40); WHITE BLOOD COUNT 9.9 10^3/uL (4.0-10.0)
[2020-12-23 06:59] LABS: BLOOD UREA NITROGEN 13 MG/DL (7-18); CALCIUM LEVEL 7.8 MG/DL (8.8-10.2); CARBON DIOXIDE LEVEL 28 MEQ/L (21-32); CHLORIDE LEVEL 108 MEQ/L (98-107); CREATININE FOR GFR 0.51 MG/DL (0.55-1.30); GLOMERULAR FILTRATION RATE > 60.0 (>32); GLUCOSE, FASTING 112 MG/DL (70-100); POTASSIUM SERUM 3.3 MEQ/L (3.5-5.1); SODIUM LEVEL 141 MEQ/L (136-145)
[2020-12-23] MEDS ORDERED: POTASSIUM CHLORIDE 10 MEQ SR TABLET PO SCH (09:00)
[2020-12-23] MEDS: PANTOPRAZOLE 40MG VIAL (C9113 PER 1) IV SCH (09:13)
[2020-12-23] MEDS: DYAZIDE 37.5/25 CAP (TRIAM/HCTZ) PO SCH (15:16)
[2020-12-23] MEDS: ATORVASTATIN 20 MG TAB PO SCH (20:02)
[2020-12-23] MEDS: HEPARIN SOD (PORCINE) 5000UNITS/ML 1ML VIAL/SYRINGE SC SCH (20:02)
[2020-12-23] MEDS: LATANOPROST 0.005% OPHTH SOLN 2.5 ML OU SCH (20:14)
[2020-12-24] MEDS: KETOROLAC 30 MG/ML 1ML VIAL IV SCH ×2 (00:30→06:10)
[2020-12-24 06:00] VITALS: BP 113/65
[2020-12-24] MEDS: LEVOTHYROXINE 50MCG TABLET (0.05MG) PO SCH (06:09)
[2020-12-24] MEDS: HEPARIN SOD (PORCINE) 5000UNITS/ML 1ML VIAL/SYRINGE SC SCH ×3 (06:10→20:54)
[2020-12-24 09:00] VITALS: BP 120/64
[2020-12-24 09:28] LABS: BASO % 0.4 % (0.0-1.0); EOS # 0.1 10^3/uL (0.0-0.5); HEMATOCRIT 32.8 % (36.0-47.0); HEMOGLOBIN 10.6 g/dl (12.0-15.5); LYMPH # 1.6 10^3/uL (1.5-5.0); LYMPH % 19.5 % (24.0-44.0); MEAN CORPUSCULAR HEMOGLOBIN 28.3 pg (27.0-33.0); MEAN CORPUSCULAR HGB CONC 32.3 g/dl (32.0-36.5); MEAN CORPUSCULAR VOLUME 87.5 fl (80.0-96.0); MONO # 0.6 10^3/uL (0.0-0.8); MONO % 7.6 % (2.0-8.0); NEUTROPHILS # 5.8 10^3/uL (1.5-8.5); NEUTROPHILS % 71.1 % (36.0-66.0); PLATELET COUNT, AUTOMATED 183 10^3/uL (150-450); RED BLOOD COUNT 3.75 10^6/uL (4.00-5.40); WHITE BLOOD COUNT 8.2 10^3/uL (4.0-10.0)
[2020-12-24] MEDS: LR 1,000 ML IV SCH (09:36)
[2020-12-24] MEDS: PANTOPRAZOLE 40MG VIAL (C9113 PER 1) IV SCH (09:36)
[2020-12-24] MEDS: POTASSIUM CHLORIDE 10 MEQ SR TABLET PO SCH ×4 (09:37→20:53)
[2020-12-24 09:44] LABS: BLOOD UREA NITROGEN 10 MG/DL (7-18); CARBON DIOXIDE LEVEL 28 MEQ/L (21-32); CHLORIDE LEVEL 106 MEQ/L (98-107); CREATININE FOR GFR 0.46 MG/DL (0.55-1.30); GLOMERULAR FILTRATION RATE > 60.0 (>32); GLUCOSE, FASTING 133 MG/DL (70-100); POTASSIUM SERUM 3.6 MEQ/L (3.5-5.1); SODIUM LEVEL 138 MEQ/L (136-145)
--- NOTE | 2020-12-24 10:43 | IPN ---
PROGRESS NOTE DATE: 12/24/2020 History: The patient is postop day 2 from a robotic-assisted laparoscopic sigmoid colectomy for a colovesical fistula. She has a Arriaza catheter in place, as well as a drain in the pelvis. She has been taking clear liquids. She denies any nausea or vomiting. She has had several loose bowel movements yesterday. VITAL SIGNS: Show that the patient has been afebrile over the past 24 hours. Her pulse is in the 70s to low 90s generally. Her blood pressure is good today with a room air oxygen saturation 95% or higher. INTAKE AND OUTPUT: Shows that yesterday she had 3960 in with 1100 recorded out. Her drain had 325 mL recorded yesterday with 80 this morning. GENERAL: The patient is lying quietly on the hospital bed. She reports that she is sore, but denies any significant pain. She is alert and oriented. HEART: Exam shows a regular rhythm of about 80. LUNGS: Clear. ABDOMEN: [id number] protuberant. Her dressings are clean and dry. The drain exits the right lower quadrant and there is a small amount of blood staining of the gauze around this. There is some serosanguineous fluid in the tube. Her Arriaza catheter is draining some clear yellow urine. She does have active bowel sounds within the abdomen and the abdomen is soft with some expected mild diffuse tenderness. LABORATORY DATA: Include a CBC showing a white count of 8, hemoglobin 11, hematocrit 33, and a platelet count of 183,000. Differential count shows 71% neutrophils and 20% lymphocytes. Chemistry profile shows normal electrolytes with BUN 10, creatinine 0.46, and a glucose of 133. IMPRESSION: The patient is doing very well now postoperative day #2 from her colectomy for a colovesical fistula. She is making good urine output this morning. She has been tolerating clear liquids well. PLAN: The patient will be advanced to a regular diet. I will stop her scheduled Toradol and offer her some p.r.n. ibuprofen in stead. I am going to stop several medications for pain that she has not been using. Her Protonix will be changed to an oral formulation. I am giving her a little extra potassium supplementation today because her potassium has been low the last two days. We will recheck her labs in the morning. ARVIND
[2020-12-24] MEDS: DYAZIDE 37.5/25 CAP (TRIAM/HCTZ) PO SCH (14:13)
[2020-12-24 14:37] VITALS: BP 116/68
[2020-12-24] MEDS: ATORVASTATIN 20 MG TAB PO SCH (20:53)
[2020-12-24] MEDS: IBUPROFEN 400MG TAB PO PRN (20:54)
[2020-12-24] MEDS: LATANOPROST 0.005% OPHTH SOLN 2.5 ML OU SCH (21:00)
[2020-12-24 22:00] VITALS: BP 150/83
[2020-12-25 06:00] VITALS: BP 128/61
[2020-12-25] MEDS: HEPARIN SOD (PORCINE) 5000UNITS/ML 1ML VIAL/SYRINGE SC SCH ×3 (06:16→20:36)
[2020-12-25] MEDS: LEVOTHYROXINE 50MCG TABLET (0.05MG) PO SCH (06:16)
[2020-12-25] MEDS: PANTOPRAZOLE 40MG TAB (PROTONIX) PO SCH (08:48)
[2020-12-25] MEDS ORDERED: POTASSIUM CHLORIDE 10 MEQ SR TABLET PO SCH (11:30)
[2020-12-25 11:41] LABS: BASO % 0.2 % (0.0-1.0); EOS # 0.2 10^3/uL (0.0-0.5); EOS % 2.3 % (0.0-3.0); HEMATOCRIT 34.9 % (36.0-47.0); HEMOGLOBIN 11.2 g/dl (12.0-15.5); LYMPH # 1.8 10^3/uL (1.5-5.0); LYMPH % 21.5 % (24.0-44.0); MEAN CORPUSCULAR HEMOGLOBIN 28.3 pg (27.0-33.0); MEAN CORPUSCULAR HGB CONC 32.1 g/dl (32.0-36.5); MEAN CORPUSCULAR VOLUME 88.1 fl (80.0-96.0); MONO # 0.7 10^3/uL (0.0-0.8); MONO % 8.2 % (2.0-8.0); NEUTROPHILS # 5.7 10^3/uL (1.5-8.5); NEUTROPHILS % 67.4 % (36.0-66.0); PLATELET COUNT, AUTOMATED 171 10^3/uL (150-450); RED BLOOD COUNT 3.96 10^6/uL (4.00-5.40); WHITE BLOOD COUNT 8.4 10^3/uL (4.0-10.0)
[2020-12-25 12:27] LABS: BLOOD UREA NITROGEN 9 MG/DL (7-18); CALCIUM LEVEL 7.8 MG/DL (8.8-10.2); CARBON DIOXIDE LEVEL 27 MEQ/L (21-32); CHLORIDE LEVEL 108 MEQ/L (98-107); GLOMERULAR FILTRATION RATE > 60.0 (>32); GLUCOSE, FASTING 126 MG/DL (70-100); POTASSIUM SERUM 3.9 MEQ/L (3.5-5.1); SODIUM LEVEL 139 MEQ/L (136-145)
--- NOTE | 2020-12-25 13:35 | IPN ---
PROGRESS NOTE DATE: 12/25/2020 HISTORY: The patient is postop day number three from a robotic assisted laparoscopic sigmoid colectomy with takedown of colovesical fistula. She was advanced to a regular diet and her IV was saline locked yesterday. She has generally been doing well and has had several small bowel movements. Her urine output is certainly adequate. She has been taking some Ibuprofen for pain and nothing stronger. Vital signs show that she has been afebrile over the past 24 hours. Her pulse is in the 80's and low 90's and her blood pressure is excellent. Intake and output show that yesterday she had 1,900 in with 1,755 out. Her drain yesterday had 230 and she has 45 mL recorded from her drain this morning. OBJECTIVE: PHYSICAL EXAMINATION: GENERAL APPEARANCE: The patient is lying quietly on the hospital bed. She is alert and oriented. HEART: Underlying regular rhythm with an occasional irregular beat. LUNGS: Clear to auscultation bilaterally. ABDOMEN: Mildly protuberant but soft. She has bowel sounds present. Her dressings are clean and dry. There is no undue tenderness to palpation. Her drain is in place and there is a small amount of light serosanguinous fluid in the tubing. LABORATORY STUDIES: Labs are pending from this morning. IMPRESSION: The patient is doing very well following her surgery for a colovesical fistula. PLAN: 1. The patient's Arriaza catheter will be continued until tomorrow when Dr. Skinner can determine if removal is appropriate. Her drain still has more out than I would like to see before removing it and I will also continue her drain. 2. She was encouraged to be up out of bed and to continue with her regular diet. ARVIND
[2020-12-25 14:00] VITALS: BP 145/75
--- NOTE | 2020-12-25 14:21 | ROOPDOC ---
[facility] Report Of Operation Report of Operation DATE OF PROCEDURE: 12/22/20 PREPROCEDURE DIAGNOSES: chronic diverticulitis, colovesical fistula. POSTPROCEDURE DIAGNOSES: same. PROCEDURE: Robotic assisted laparoscopic sigmoid colectomy, takedown of colovesical fistula, laparoscopic takedown of splenic flexure, 25 EEA end to end proctocolic anastomosis at 16 cms. bilateral transversus abdominis plane block (TAP) with 1% lidocaine, 1/4% Marcaine 20 mLs on each side SURGEON: Christiano Skinner MD PURE PAK MACHINE OPERATOR: Alem Almaguer NP provided assistance with placement of ports, management of robotic instruments, adjustment of the robotic arms on the field while I was at the surgeon's console, retraction of bowels and suction irrigation on the field Jatin Taylor MD assisted me during the proctocolic anastomosis, also performing flexible sigmoidoscopy to test the anastomosis. ANESTHESIA: General Endotracheal Anesthesia. ESTIMATED BLOOD LOSS: Approximately 100 mL. COMPLICATIONS: none. REMARKS: 80 F with almost one year history of fecaluria. Prior to the procedure she has had colonoscopy done showing only diverticulosis at the sigmoid area as probable cause for her colovesical fistula. PROCEDURE NOTE: broad based and thick adhesion between the mid-sigmoid and the dome of the bladder with a fully epithelialized tract. . DESCRIPTION OF PROCEDURE: Patient underwent mechanical and antibiotic prep the night before. She received a dose of cefazolin 2 g IV as well as metronidazole 500 mg IV. The Cefazolin was redosed every 4 hours during the surgery. She received a dose of heparin 5000 units subcutaneously for DVT prophylaxis as well as Celebrex 200 mg by mouth and Entereg 20 mg by mouth. She was brought to the operating room, Placed initially supine on the table. Compression boots and TEDs placed on both lower extremities for DVT prophylaxis. Gen. endotracheal anesthesia started. She was placed on a lithotomy position on stirrups with the pressure points padded. Both arms tucked. She was prepped and draped in the usual sterile fashion. We paused for a surgical timeout using both pre-incision safety checklist to verify correct patient, procedure site and additional clinical information prior to beginning the procedure Dr. Santos performed cystoscopy with ureteral intubation and injection of ICG to both right and left ureters. Brownish urine with flecks of solid stool is noted within the urinary bladder. A 20 Romansh Arriaza catheter was left in place. I came in after 's procedure. We repeated a surgical timeout and proceeded with our surgery I entered the abdomen through the left upper quadrant. A small incision created. The Veress needle was inserted in a controlled fashion. Proper placement confirmed with saline drop technique. CO2 insufflation then started to pressure of 15 mmHg. Under laparoscopic guidance a 5 mm optical port was placed under direct vision. The area underneath the insertion site was inspected for injury and none was found. On entry there were small amounts of omental adhesions to the lower abdominal wall and failed midline. She was then placed on the 15 Trendelenburg position tilted towards the right. I then placed my ports in an oblique fashion from the initial left upper quadrant and 3 towards the right anterior superior iliac spine. A 12 mm port was placed about 2 cm medial and superior to the anterior superior iliac spine. The omental adhesions around the umbilicus was freed up to allow placement of ports. An 8 mm port was placed just to the right of the umbilicus and in between the left upper quadrant port and the umbilical port and 8 mm port was placed. A 5 mm port was changed to an 8 mm robotic trocar. A 5 mm port was placed in between the camera port and the 12 mm port for my shipping assistant. The robotic tower was then positioned in place with the patient's left side and the arms docked to the trochars. The robotic instruments were then placed under direct vision in the abdomen. I then scrubbed in to control of the robotic camera and instruments at the surgeon's console while my shipping assistant state on the field for adjustment as well as retraction of bowels. The rest of the omental adhesions to the lower abdomen was then lysed with the robotic scissors. The mid sigmoid colon appears to be quite bulky and broadly adhered to the lower anterior abdominal wall to the dome of the bladder which is partially filled with urine. The Arriaza catheter was adjusted to empty the bladder. The pelvis wasn't visible due to the bulkiness of the mid sigmoid colon. The patient was placed on a steeper 20 degree trendelenburg. Cottonoid strips placed to help retract the small bowel from the pelvis. I followed the sigmoid colon retrogradely and I could see several diverticular outpouching but the bulkiness as well as thickening appears to taper off at the distal descending colon. There were no free fluid nor abscesses.On switching to firefly mode, I could easily visualize the right ureter. The lateral attachments of the sigmoid and descending colon to the abdominal wall was freed up along the white line of Toldt with partial dissection of the mesentery of gerotas fascia. I then turned my attention to try to get to the proximal rectum. The right lateral peritoneal attachments of the rectum was opened up. Likewise by tenting the sigmoid colon the course of the superior rectal artery was delineated. The peritoneum was opened up at the sacral promontory going proximally. I dissected underneath the course of the superior rectal artery and the sigmoid mesocolon from the Toldt's fascia. The left ureter was easily visualized on firefly and this was left in situ dissecting above the course of the left ureter and they are on the left uterine vessels. I proceeded with medial to lateral dissection going proximally avoiding at first the attachments of the sigmoid colon to the bladder. As I was able to get into the plane laterally I could visualize the distal sigmoid and proximal rectum laterally behind the colovesical fistula and was able to dissect at this area. At this point both proximal and distal extent of the bulky sigmoid colon was better defined. I then started approaching the sigmoid colon attachment to the bladder. There was some hardened tissues which made it difficult to dissect as it attaches to the urinary bladder. I carefully dissected this area while retracting at the sigmoid colon. The fistula tract was identified and this seems to be broad-based with some spongy tissues within the fistula tract but no definite abscess was noted. The fistula tract was then divided with the dissection at the colon wall to prevent injury to the bladder. After dividing all attachments to the bladder I'm now able to pull up on the sigmoid colon to further my rectal dissection. The left lateral peritoneal attachments of the rectum was likewise freed up and I entered the upper TME plane. I chose a supple area of the upper rectum which seems to be free of chronic inflammation. The mesentery underneath the area was divided with the vessel sealer. The upper rectum was then divided with a 45 mm stapler with a green load. I went through the mesentery with the vessel sealer going proximally. I was actually going mid mesentery to avoid further dissection and possible injury to the retroperitoneal structures though I could very well see the course of the left and right ureter on firefly. As I approach the junction of the sigmoid colon and descending colon I chose an area relatively free from both chronic inflammation as well as diverticular outpouchings. The mesentery was divided through to this area and the colon divided with another 45 mm stapler with a green load. This was at the level of the distal descending colon. At this point, I evaluated for the length of the descending colon. There is a good amount of distance between the stump of the descending colon and the rectal stump. Thus I proceeded with a full takedown of the splenic flexure which was done initially lateral to medial approach taking apart the attachments of the descending colon to the lateral abdominal wall as well as to the Gerota's fascia. I then proceeded supra mesocolic taking apart the transverse colon attachments to the omentum and gastrocolic ligament until the back wall of the stomach is visible. I proceeded going laterally connecting my prior lateral di ssection to the supra mesocolic dissection. After taking down the splenic flexure again evaluated for length and had to continue freeing the medial attachments of the mesentery. The MEGHNA was divided to allow for further lengthening of the descending colon. At this point the stump of the descending colon is able to approach the rectal stump without undue tension. At this time, I had asked Dr. Taylor to assist me with the proctocolic anastomosis. The descending colon seems to be large enough to accommodate a 29 EEA stapler. The anvil of the stapler was delivered intra-abdominally by enlarging the 12 mm stapler port. The staple line of the descending colon was opened up and a 30V LOC was used as a pursestring. The head of the anvil then placed intraluminally and the 30V LOC was cinched. I made another round pulling up the cuff of the descending colon snug to the anvil. The epiploic appendages was cleared at the anticipated staple line. The cuff was further secured with an Endoloop PDS. Once Dr. Taylor arrived, he placed the EEA sizers transrectally. There was some narrowing as the rectum comes inferiorly along the sacral curvature. I circumferentially dissected around the peritoneal attachments to further free this up. This was able to accommodate a 25 mm EEA sizer but on placing a 29 EEA sizer, this felt tight and there was a rent through the muscles of the upper rectum. Thus I decided to proceed with a smaller 25 mm EEA stapler. The mesocolic attachments of the rectum where the rent was located was further dissected and the rectal stump was divided past the muscular defect and again divided with a 45 mm stapler with a green load. There was some oozing at the rectal mesocolon which was easily controlled with a bipolar cautery. The 25 mm anvil was again introduced intra-abdominally through the 12 mm taper port. I had to undo the colon stump cuff cutting the prior sutures and again freshening up my stump. The 29 mm anvil was removed and the 25 mm stapler anvil was placed intraluminally and then secured with the same prior method of using the 30V LOC for pursestring and further secured with an Endoloop PDS. This done the stapler was introduced transrectally and the spike placed anteriorly distal to the staple line. The spike and anvil was assembled. The orientation of the descending colon checked and the stapler fired. Stapler was removed and the donuts examined and noted to be robust and intact on both distal and proximal portions. Dr. Taylor performed a flexible sigmoidoscopy and the anastomosis was tested under water for leak and no leak was noted. I asked anesthesia to give the patient 2.5 mg of ICG followed with a 10 mL NS flush and the perfusion was checked and noted to be adequate in both the distal colon and rectum. The staple lines were visualized and both ends noted to be healthy via the flexible sigmoidoscope. No bleeding was noted. The small pieces of tissue as well as the cottonoids I used for retraction was removed. At this point the da Blanca robot was withdrawn and I scrubbed back in. I chose an area below the umbilicus form extraction point. Roughly 4 cm vertical skin incision was created and deepened through to the anterior fascia and eventually the abdomen was entered. A small Karsten wound retractor was placed. The extra rectal stump as well as the sigmoid colon was extracted. I placed a 19 Omid drain and threaded this through the 5 mm port site and left this to the right rectal sidewall anterior to the anastomosis. The wound retractor was removed and I closed my extraction point in 2 layers using 0 Vicryl to close the peritoneum and posterior sheath and #1 PDS to close the anterior sheath. All ports were removed. The 12 another fascial defect was also closed with 0 Vicryl in a mattress fashion. All skin incisions were closed with skin johnathan. The drain was secured in place. Patient tolerated the procedure well. She was promptly awakened, extubated and brought to recovery room in stable condition. CHRISTIANO SKINNER MD Dec 25, 2020 14:21
[2020-12-25] MEDS: DYAZIDE 37.5/25 CAP (TRIAM/HCTZ) PO SCH (15:39)
[2020-12-25] MEDS: ATORVASTATIN 20 MG TAB PO SCH (20:37)
[2020-12-25] MEDS: LATANOPROST 0.005% OPHTH SOLN 2.5 ML OU SCH (21:46)
[2020-12-25 22:00] VITALS: BP 139/74
[2020-12-26] MEDS: HEPARIN SOD (PORCINE) 5000UNITS/ML 1ML VIAL/SYRINGE SC SCH ×3 (05:54→21:16)
[2020-12-26] MEDS: LEVOTHYROXINE 50MCG TABLET (0.05MG) PO SCH (05:54)
[2020-12-26 06:00] VITALS: BP 131/69
[2020-12-26] MEDS ORDERED: MOM 30ML SUSPENSION UDC PO ONE (08:55)
[2020-12-26] MEDS: PANTOPRAZOLE 40MG TAB (PROTONIX) PO SCH (08:58)
--- NOTE | 2020-12-26 10:00 | IPNPDOC ---
Text Note Date of Service The patient was seen on 12/26/20. NOTE Patient seen this morning eating her breakfast. She looks comfortable. She de nies any severe abdominal pain, nausea or vomiting. She reports that she is only intermittently passing small amount of flatus, has had some epigastric discomfort last night that required some pain medication and has not had a bowel movement since Saturday. Vital signs afebrile MAXIMUM TEMPERATURE 97.7 CURRENT TEMPERATURE 97.7 , Heart rate 83 Blood pressure 131/69 Pulse oximetry 94% at room air Examination Comfortable No jugular venous distention Lung sounds clear anteriorly, no wheezing Regular heart rate and rhythm Abdomen: Mildly distended with slight prominence in the upper abdomen, slightly tympanitic to percussion but has active bowel sounds. Port site dressings are clean dry and intact. Extraction site over at the infraumbilical area also clean dry and intact. MARLIN drain with light pink serosanguineous fluid. Nontender on palpation Arriaza catheter: Light, clear urine No significant extremity edema No labs today Impression and plan Postop day for robotic-assisted laparoscopic sigmoid colectomy, takedown of colovesical fistula She seems to be doing well. I will discontinue the Arriaza catheter today leave the MARLIN drain for continued monitoring for possible urine leak once a Arriaza catheter is out. She reports that she has not had a bowel movement in 3 days. I'll give her a dose of milk of magnesia She also has some series to initiate at home. We'll get physical therapy to work with her. Possible discharge tomorrow or the next day depending on level of activity VS,Jorden, I+O VS, Jorden, I+O Laboratory Tests 12/25/20 11:33 Vital Signs Date Time Temp Pulse Resp B/P (MAP) Pulse Ox O2 Delivery O2 Flow Rate FiO2 12/26/20 06:00 97.7 83 18 131/69 (89) 94 Room Air 12/23/20 20:05 2.0 I&O- Last 24 Hours up to 6 AM 12/26/20 05:59 Intake Total 1040 ml Output Total 1570 ml Balance -530 ml JC RODAS MD Dec 26, 2020 10:00
[2020-12-26 14:00] VITALS: BP 137/67
[2020-12-26] MEDS: DYAZIDE 37.5/25 CAP (TRIAM/HCTZ) PO SCH (16:15)
[2020-12-26] MEDS: IBUPROFEN 400MG TAB PO PRN (19:28)
[2020-12-26] MEDS: ATORVASTATIN 20 MG TAB PO SCH (21:16)
[2020-12-26] MEDS: LATANOPROST 0.005% OPHTH SOLN 2.5 ML OU SCH (21:16)
[2020-12-26 22:00] VITALS: BP 126/65
[2020-12-27] MEDS: LEVOTHYROXINE 50MCG TABLET (0.05MG) PO SCH (05:39)
[2020-12-27] MEDS: HEPARIN SOD (PORCINE) 5000UNITS/ML 1ML VIAL/SYRINGE SC SCH ×2 (05:39→14:00)
[2020-12-27 06:00] VITALS: BP 124/67
[2020-12-27 08:47] LABS: BASO % 0.2 % (0.0-1.0); EOS # 0.3 10^3/uL (0.0-0.5); HEMOGLOBIN 12.4 g/dl (12.0-15.5); LYMPH # 1.8 10^3/uL (1.5-5.0); LYMPH % 20.3 % (24.0-44.0); MEAN CORPUSCULAR HGB CONC 31.8 g/dl (32.0-36.5); MONO # 0.6 10^3/uL (0.0-0.8); MONO % 7.2 % (2.0-8.0); NEUTROPHILS # 5.9 10^3/uL (1.5-8.5); PLATELET COUNT, AUTOMATED 219 10^3/uL (150-450); RED BLOOD COUNT 4.43 10^6/uL (4.00-5.40); WHITE BLOOD COUNT 8.6 10^3/uL (4.0-10.0)
[2020-12-27] MEDS: PANTOPRAZOLE 40MG TAB (PROTONIX) PO SCH (09:06)
[2020-12-27 09:09] LABS: BLOOD UREA NITROGEN 9 MG/DL (7-18); CALCIUM LEVEL 8.8 MG/DL (8.8-10.2); CARBON DIOXIDE LEVEL 30 MEQ/L (21-32); CHLORIDE LEVEL 102 MEQ/L (98-107); CREATININE FOR GFR 0.66 MG/DL (0.55-1.30); GLOMERULAR FILTRATION RATE > 60.0 (>32); GLUCOSE, FASTING 140 MG/DL (70-100); POTASSIUM SERUM 4.1 MEQ/L (3.5-5.1); SODIUM LEVEL 137 MEQ/L (136-145)
[2020-12-27] MEDS ORDERED: PERCOCET PO (10:57)
[2020-12-27 14:00] VITALS: BP 119/77
--- NOTE | 2020-12-27 17:32 | DS.PDOC ---
Discharge Summary General Date of Admission Dec 22, 2020 at 06:02 Date of Discharge December 27, 2020 Attending Physician: JC RODAS MD Discharge Summary PROCEDURES PERFORMED DURING STAY: Robotic assisted laparoscopic sigmoid colectomy, takedown of colovesical fistula.(december 22, 2020) ADMITTING DIAGNOSES: 1. Chronic diverticulitis 2. Colovesical fistula. DISCHARGE DIAGNOSES: 1. Chronic diverticulitis 2. Colovesical fistula. s/p sigmoid colectomy with anastomosis COMPLICATIONS/CHIEF COMPLAINT: Diverticulitis, Colovesical Fistula. HISTORY OF PRESENT ILLNESS: Patient is brought in electively for chronic fecaluria secondary to chronic diverticulitis, colovesical fistula. Preoperative workup including colonoscopy does not reveal any malignancy but only of chronic diverticulitis. She underwent bowel prep with antibiotics last night. She subsequently admitted after robotic- assisted laparoscopic sigmoid colectomy and takedown of her colovesical fistula. HOSPITAL COURSE: Patient successfully underwent robotic-assisted laparoscopic sigmoid colectomy, takedown of her colovesical fistula with a proximal colic anastomosis. Procedure was prolonged secondary to the complexity of the case with otherwise she did well intraoperatively. She was successfully extubated. Perioperatively she remained hemodynamically stable. She was started on clear liquids tonight of the surgery. We kept her Arriaza catheter perioperatively to drain her urinary bladder. We initiated multimodal pain control therapy with Toradol IV given and scheduled doses first 3 days and intermittent use of Percocet on an as-needed basis. She was encouraged to ambulate which she did initially no room and then with physical therapy. She had loose bowel movements on the first postoperative day which thereon became more soft and semisolid the following days. She was placed on full liquids the first postoperative day she remained distended which was advanced to soft diet the following day at postop day 2. She was advanced to regular diet at postop day 3. I discontinued her Arriaza catheter at postop day 4 but To her Adan-Cooper drain as this was putting out a good amount more than 100 mL/day through to the day of discharge. She did not have any perioperative complications. She was tolerating regular food was independently walking and participating with physical therapy towards the end of her stay. DISCHARGE MEDICATIONS: Please see below. ALLERGIES: Please see below. PHYSICAL EXAMINATION ON DISCHARGE: VITAL SIGNS: Please see below. GENERAL: Comfortable in appearance HEENT: [place] palpebral conjunctiva, lips are moist NECK: No observable jugular venous distention CARDIOVASCULAR EXAMINATION: Regular heart rate and rhythm without murmurs RESPIRATORY EXAMINATION: Clear breath sounds auscultation bilaterally ABDOMINAL EXAMINATION: Round abdomen, mildly protuberant, nondistended. She has several port site incisions in oblique manner from the left upper quadrant to the right ASIS within the extraction site infraumbilical about a 4 cm vertical incision and a slightly enlarged right ASIS port site. All of them with johnathan. All incisions have no active drainage, no erythema. She has a right lower quadrant Adan-Cooper drain with a light pink serosanguineous fluid. Minimal tenderness on the incision sites. EXTREMITIES: No significant extremity edema SKIN: Warm and moist, no rashes NEUROLOGICAL EXAMINATION: Awake, alert and oriented, independently ambulating LABORATORY DATA: Please see below. IMAGING: None PROGNOSIS: Good ACTIVITY: Light activity, ambulate as tolerated, may use stairs. DIET: Regular diet as tolerated DISCHARGE PLAN: Patient is discharged home. Drain will be kept in place. She will follow up with us in 1 week for removal of drain DISPOSITION: 01 Home, Self-Care. DISCHARGE INSTRUCTIONS: 1. May shower. Pat incision still dry. May leave incision open to air 2. Change drain site dressings as needed 3. Record drain output daily, drain MARLIN bulb as needed 4. Follow-up in one week. ITEMS TO FOLLOWUP ON ON OUTPATIENT: 1. Pathology results 2. Drain output. DISCHARGE CONDITION: Stable. TIME SPENT ON DISCHARGE: Greater than 45 minutes. Vital Signs/I&Os Vital Signs Date Time Temp Pulse Resp B/P (MAP) Pulse Ox O2 Delivery O2 Flow Rate FiO2 12/27/20 06:00 97.9 81 16 124/67 (86) 96 Room Air 12/23/20 20:05 2.0 I&O- Last 24 Hours up to 6 AM 12/27/20 06:00 Intake Total 1670 ml Output Total 110 ml Balance 1560 ml Laboratory Data Labs 24H Laboratory Tests 2 12/27/20 08:31: Immature Granulocyte % (Auto) 0.3, Neutrophils (%) (Auto) 69.0H, Lymphocytes (%) (Auto) 20.3L, Monocytes (%) (Auto) 7.2, Eosinophils (%) (Auto) 3.0, Basophils (%) (Auto) 0.2, Neutrophils # (Auto) 5.9, Lymphocytes # (Auto) 1.8, Monocytes # (Auto) 0.6, Eosinophils # (Auto) 0.3, Basophils # (Auto) 0.0, Nucleated Red Blood Cells % (auto) 0.0, Anion Gap 5L, Glomerular Filtration Rate > 60.0, Calcium Level 8.8 CBC/BMP Laboratory Tests 12/27/20 08:31 Discharge Medications Scheduled Aspirin (Aspirin) 325 Mg Tablet, 325 MG PO DAILY, (Reported) Atorvastatin Calcium (Atorvastatin Calcium) 40 Mg Tablet, 40 MG PO QPM, (Reported) Calcium Carbonate/Vitamin D3 (Calcium 600-Vit D3 400 Tablet) 1 Tab Tab, 1 TAB PO QPM, (Reported) Lactobacillus Combo No.10 (Probiotic) 1 Each Capsule, 1 CAP PO DAILY, (Reported) Levothyroxine Sodium (Synthroid) 50 Mcg Tab, 50 MCG PO DAILY, (Reported) Multivitamins (Thera M Plus Tablet) 1 Tab Tab, 1 TAB PO DAILY, (Reported) @ 1500 [place]-3/Dha/Epa/Fish Oil (Fish Oil 1,000 mg Softgel) 1 Each Capsule, 1 CAP PO QPM, (Reported) Sodium, Potassium,Mag Sulfates (Suprep Bowel Prep Kit) 354 Ml Soln.recon, 354 ML PO DAILY, (Reported) Timolol Maleate (Timolol Maleate) 0.25% Katia.gel, 1 DROP OU DAILY, (Reported) Travoprost (Travatan Z) 50 Drop/2.5 Ml Soln, 1 DROP OU QHS, (Reported) Triamterene/Hydrochlorothiazid (Triamterene-Hctz 37.5-25 mg Tb) 1 Tab Tab, 1 TAB PO DAILY, (Reported) @ 1500 Vit A/Vit C/Vit E/Zinc/Copper (Preservision Areds Softgel) 1 Each Capsule, 1 CAP PO BID, (Reported) Scheduled PRN Oxycodone/Acetaminophen (Oxycodone-Acetaminophen 5-325) 1 Each Tablet, 1 TAB PO Q6H PRN for SEVERE PAIN (PS 8-10) Allergies Coded Allergies: codeine (Unverified Allergy, Unknown, 11/08/20) levofloxacin (Unverified Adverse Reaction, Unknown, 11/08/20) JC RODAS MD Dec 27, 2020 17:32
== END 2020-12-27 15:45 | disposition home health service (06) | DRG 330 ==
LOC: M OR 06:02 → M MSPAV 18:00
PROVIDERS: ADMIT Surgery; ATTEND Surgery
PROC: 0DQN4ZZ Repair Sigmoid Colon, Percutaneous Endoscopic Approach (ICD-10-PCS; 2020-12-22)
PROC: 8E0W4CZ Robotic Assisted Procedure of Trunk Region, Percutaneous Endoscopic Approach (ICD-10-PCS; 2020-12-22)
PROC: 0DBN4ZZ Excision of Sigmoid Colon, Percutaneous Endoscopic Approach (ICD-10-PCS; principal; 2020-12-22 07:30)
PROC: 0TQB4ZZ Repair Bladder, Percutaneous Endoscopic Approach (ICD-10-PCS; 2020-12-22 07:30)
DX: K57.92 Diverticulitis of intestine, part unspecified, without perforation or abscess without bleeding (principal); N82.1 Other female urinary-genital tract fistulae; Z79.82 Long term (current) use of aspirin; Z79.899 Other long term (current) drug therapy; Z88.5 Allergy status to narcotic agent; Z88.8 Allergy status to other drugs, medicaments and biological substances

== ENCOUNTER → 2021-11-24 | Outpatient (REF) | payer MEDICARE, BC, OTHER ==
[~2021-11-24] MED LIST changes: +BACTDSTA PO; -CEFD1CAP8 PO; +CEFD300C41 PO; -LIDOCAINE 1% MDV 20ML VIAL SQ PRN; +METR-265 PO; +NEOM500T PO; +PERCOCET PO; -SULF1TAB93 PO; +SUPRSOL2 PO
== END ==
LOC: M SFHCDERM 17:24
PROVIDERS: ATTEND Nurse Practitioner Family
DX: L85.9 Epidermal thickening, unspecified (principal)

== ENCOUNTER → 2023-02-13 | Outpatient (REF) | payer MEDICARE, BC, OTHER ==
[~2023-02-13] MED LIST changes: -DOXY-350 PO; +DOXY-444 PO; +TIMO0.5S20 OD; -TIMO0.5S29 OD
[2023-02-13 17:20] LABS: FOLATE > 24.0 NG/ML (>5.4)
[2023-02-13 17:21] LABS: VITAMIN B12 LEVEL 636 PG/ML (211-911)
== END ==
LOC: M LAB REF 16:20
PROVIDERS: ATTEND Physician Assistant Medical
DX: G60.9 Hereditary and idiopathic neuropathy, unspecified (principal)

== ENCOUNTER 2023-04-18 15:51 | Emergency (ER) | payer MEDICARE, BC, OTHER ==
[~2023-04-18] VITALS: Ht 172.7 cm; Wt 79.1 kg
[2023-04-18 18:57] VITALS: BP 157/76; TEMP 98.4; O2SAT 99
== END 2023-04-18 19:01 | disposition home or self-care (01) ==
LOC: M ED 15:51
DX: S52.501A Unspecified fracture of the lower end of right radius, initial encounter for closed fracture (principal); S80.211A Abrasion, right knee, initial encounter; S60.012A Contusion of left thumb without damage to nail, initial encounter; W01.0XXA Fall on same level from slipping, tripping and stumbling without subsequent striking against object, initial encounter; Y92.410 Unspecified street and highway as the place of occurrence of the external cause; I10 Essential (primary) hypertension; E78.5 Hyperlipidemia, unspecified; E03.9 Hypothyroidism, unspecified; Z79.82 Long term (current) use of aspirin; Z79.899 Other long term (current) drug therapy; Z88.5 Allergy status to narcotic agent; Z88.8 Allergy status to other drugs, medicaments and biological substances

== ENCOUNTER → 2023-04-19 | Outpatient (CLI) | payer MEDICARE, BC, OTHER | LOC: M SOG 10:05 | PROVIDERS: ATTEND Orthopaedic Surgery | DX: S52.531A Colles' fracture of right radius, initial encounter for closed fracture (principal); X58.XXXA Exposure to other specified factors, initial encounter; Y92.9 Unspecified place or not applicable; Y93.9 Activity, unspecified; Y99.9 Unspecified external cause status ==

== ENCOUNTER → 2023-04-26 | Outpatient (CLI) | payer MEDICARE, BC, OTHER | LOC: M SOG 15:51 | PROVIDERS: ATTEND Orthopaedic Surgery | DX: S52.531A Colles' fracture of right radius, initial encounter for closed fracture (principal); Y93.9 Activity, unspecified; Y92.9 Unspecified place or not applicable ==

== ENCOUNTER → 2023-05-03 | Outpatient (CLI) | payer MEDICARE, BC, OTHER | LOC: M SOG 07:57 | PROVIDERS: ATTEND Orthopaedic Surgery | DX: S52.531D Colles' fracture of right radius, subsequent encounter for closed fracture with routine healing (principal) ==

== ENCOUNTER → 2023-05-16 | Outpatient (CLI) | payer MEDICARE, BC, OTHER | LOC: M SOG 13:17 | PROVIDERS: ATTEND Orthopaedic Surgery | DX: S52.531D Colles' fracture of right radius, subsequent encounter for closed fracture with routine healing (principal) ==

== ENCOUNTER 2023-05-30 18:11 | Emergency (ER) | payer MEDICARE, BC, OTHER ==
[~2023-05-30] VITALS: Ht 170.2 cm; Wt 78.5 kg
[2023-05-30 18:48] VITALS: BP 130/60; TEMP 98.9; O2SAT 96
== END 2023-05-30 20:07 | disposition home or self-care (01) ==
LOC: M ED 18:11
DX: U07.1 COVID-19 (principal); I10 Essential (primary) hypertension; E78.5 Hyperlipidemia, unspecified; F41.9 Anxiety disorder, unspecified; F32.A Depression, unspecified; E03.9 Hypothyroidism, unspecified; Z88.5 Allergy status to narcotic agent; Z88.8 Allergy status to other drugs, medicaments and biological substances; Z79.82 Long term (current) use of aspirin; Z79.02 Long term (current) use of antithrombotics/antiplatelets; Z79.810 Long term (current) use of selective estrogen receptor modulators (SERMs); Z79.899 Other long term (current) drug therapy

== ENCOUNTER → 2023-08-06 | Outpatient (CLI) | payer MEDICARE, BC, OTHER ==
[~2023-08-06] MED LIST changes: -CEFD300C41 PO; +CEFD300C42 PO
== END ==
LOC: M WHC 09:53
PROVIDERS: ATTEND Physician Assistant Medical
DX: Z13.820 Encounter for screening for osteoporosis (principal); Z78.0 Asymptomatic menopausal state; M85.831 Other specified disorders of bone density and structure, right forearm

== ENCOUNTER → 2025-04-26 | Outpatient (CLI) | payer MEDICARE, OTHER, BC ==
[~2025-04-26] MED LIST changes: +CEFD1CAP9 PO; -CEFD300C42 PO; +DOXY-440 PO; -DOXY-444 PO
== END ==
LOC: M WUC 09:10
PROVIDERS: ATTEND Physician Assistant Medical
DX: M25.551 Pain in right hip (principal)

== ENCOUNTER → 2025-07-29 | Outpatient (REF) | payer MEDICARE, OTHER, BC | LOC: M LAB REF 12:23 | PROVIDERS: ATTEND Physician Assistant Medical | DX: Z11.59 Encounter for screening for other viral diseases (principal) ==